=== PATIENT | female | born 1940 | race Caucasian/White ===

== ENCOUNTER 2016-08-05 10:42 | Outpatient (CLI) | payer MEDICARE, OTHER | END 2016-08-05 10:43 | disposition home or self-care (01) | DX: I48.2 Chronic atrial fibrillation (principal); Z79.01 Long term (current) use of anticoagulants ==

== ENCOUNTER 2016-08-10 12:35 | Emergency (ER) | payer MEDICARE, OTHER ==
[2016-08-10] MEDS ORDERED: MECLIZINE 12.5 MG TABLET PO STA (14:04)
[2016-08-10] MEDS ORDERED: MECLIZINE 12.5 MG TABLET PO ONE (14:07)
== END 2016-08-10 14:18 | disposition home or self-care (01) ==
DX: R42 Dizziness and giddiness (principal); I48.91 Unspecified atrial fibrillation; I10 Essential (primary) hypertension; Z86.73 Personal history of transient ischemic attack (TIA), and cerebral infarction without residual deficits; Z79.01 Long term (current) use of anticoagulants
CPT/HCPCS: 36415; 70450; 80053; 83690; 85025; 85610; 93005; 93010; 99283; 99284; A9270

== ENCOUNTER 2016-09-03 10:56 | Outpatient (CLI) | payer MEDICARE, OTHER | END 2016-09-03 10:57 | disposition home or self-care (01) | DX: I48.2 Chronic atrial fibrillation (principal); Z79.01 Long term (current) use of anticoagulants ==

== ENCOUNTER 2016-10-03 11:17 | Outpatient (CLI) | payer MEDICARE, OTHER | END 2016-10-03 11:18 | disposition home or self-care (01) | DX: I48.2 Chronic atrial fibrillation (principal); Z79.01 Long term (current) use of anticoagulants ==

== ENCOUNTER 2016-10-31 11:15 | Outpatient (CLI) | payer MEDICARE, OTHER | END 2016-10-31 11:16 | disposition home or self-care (01) | DX: I48.2 Chronic atrial fibrillation (principal); Z79.01 Long term (current) use of anticoagulants ==

== ENCOUNTER 2016-12-03 10:25 | Outpatient (CLI) | payer MEDICARE, OTHER | END 2016-12-03 10:26 | disposition home or self-care (01) | LOC: LAB.F 10:25 | PROVIDERS: ATTEND Registered Nurse | DX: I48.2 Chronic atrial fibrillation (principal) | CPT/HCPCS: 85610 ==

== ENCOUNTER 2017-01-02 10:40 | Outpatient (CLI) | payer MEDICARE, OTHER | END 2017-01-02 10:41 | disposition home or self-care (01) | LOC: LAB.F 10:40 | PROVIDERS: ATTEND Registered Nurse | DX: I48.2 Chronic atrial fibrillation (principal) | CPT/HCPCS: 85610 ==

== ENCOUNTER 2017-02-02 08:00 | Outpatient (CLI) | payer MEDICARE, OTHER | END 2017-02-02 08:01 | disposition home or self-care (01) | LOC: LAB.S 08:00 | PROVIDERS: ATTEND Registered Nurse | DX: I48.2 Chronic atrial fibrillation (principal) | CPT/HCPCS: 85610 ==

== ENCOUNTER 2017-02-25 10:42 | Outpatient (CLI) | payer MEDICARE, OTHER ==
[2017-02-25 17:40] LABS: BASOPHILS % (AUTO) 0.9 %; EOSINOPHILS # (AUTO) 0.1 10^3/uL (0.0-0.7); EOSINOPHILS % (AUTO) 1.4 %; HCT - HEMATOCRIT 47.9 % (37.0-47.0); HGB - HEMOGLOBIN 15.5 g/dL (12.0-16.0); LYMPHOCYTES # (AUTO) 1.7 10^3/uL (1.5-3.5); LYMPHOCYTES % (AUTO) 33.9 %; MEAN CORPUSCULAR HGB CONC 32.3 g/dL (32.0-36.0); MEAN CORPUSCULAR VOLUME 89.9 fL (81.0-99.0); MEAN PLATELET VOLUME 8.4 fL (7.9-10.8); MONOCYTES # (AUTO) 0.2 10^3/uL (0.0-1.0); NEUTROPHILS # (AUTO) 2.9 10^3/uL (1.5-6.6); NEUTROPHILS % (AUTO) 58.8 %; NUCLEATED RED BLOOD CELLS AUTO 0.1 /100WBC; RED BLOOD COUNT 5.34 10^6/uL (4.20-5.40)
[2017-02-25 18:14] LABS: ALBUMIN/GLOBULIN RATIO 1.3 (1.0-2.2); BILIRUBIN,TOTAL 0.4 mg/dL (0.2-1.0); CREATININE 0.9 mg/dL (0.4-1.0); POTASSIUM 3.9 mmol/L (3.5-5.0); TOTAL PROTEIN 6.6 g/dL (6.7-8.2)
== END 2017-02-25 10:43 | disposition home or self-care (01) ==
LOC: LAB.F 10:42
PROVIDERS: ATTEND Internal Medicine Cardiovascular Disease
DX: I48.0 Paroxysmal atrial fibrillation (principal); Z79.01 Long term (current) use of anticoagulants
CPT/HCPCS: 36415; 80053; 85025; 85610

== ENCOUNTER 2017-03-06 11:03 | Outpatient (CLI) | payer MEDICARE, OTHER | END 2017-03-06 11:04 | disposition home or self-care (01) | LOC: LAB.F 11:03 | PROVIDERS: ATTEND Registered Nurse | DX: I48.2 Chronic atrial fibrillation (principal); Z79.01 Long term (current) use of anticoagulants | CPT/HCPCS: 85610 ==

== ENCOUNTER 2017-04-01 10:41 | Outpatient (CLI) | payer MEDICARE, OTHER | END 2017-04-01 10:42 | disposition home or self-care (01) | LOC: LAB.F 10:41 | PROVIDERS: ATTEND Registered Nurse | DX: I48.2 Chronic atrial fibrillation (principal); Z79.01 Long term (current) use of anticoagulants | CPT/HCPCS: 85610 ==

== ENCOUNTER 2017-05-25 10:16 | Outpatient (CLI) | payer MEDICARE, OTHER ==
[2017-05-25 17:57] LABS: BILIRUBIN,URINE NEGATIVE (NEGATIVE)
[2017-05-25 18:02] LABS: UA w/ MICROSCOPIC CHARGE YES
[2017-05-25 19:15] LABS: UR CULTURE IF IND NOT INDICATED
== END 2017-05-25 10:17 | disposition home or self-care (01) ==
LOC: LAB.F 10:16
PROVIDERS: ATTEND Registered Nurse
DX: I48.2 Chronic atrial fibrillation (principal); N39.0 Urinary tract infection, site not specified; Z79.01 Long term (current) use of anticoagulants
CPT/HCPCS: 81001; 81003; 85610; 87086

== ENCOUNTER 2017-05-25 11:30 | Outpatient (CLI) | payer MEDICARE, OTHER | END 2017-05-25 11:31 | disposition home or self-care (01) | LOC: LAB 11:30 | PROVIDERS: ATTEND Surgery | DX: Z02.9 Encounter for administrative examinations, unspecified (principal) ==

== ENCOUNTER 2017-06-01 12:56 | Outpatient (CLI) | payer MEDICARE, OTHER | END 2017-06-01 12:57 | disposition home or self-care (01) | LOC: LAB.F 12:56 | PROVIDERS: ATTEND Registered Nurse | DX: I48.2 Chronic atrial fibrillation (principal); Z79.01 Long term (current) use of anticoagulants | CPT/HCPCS: 85610 ==

== ENCOUNTER 2017-06-09 13:19 | Outpatient (CLI) | payer MEDICARE, OTHER | END 2017-06-09 13:20 | disposition home or self-care (01) | LOC: LAB.F 13:19 | PROVIDERS: ATTEND Registered Nurse | DX: I48.2 Chronic atrial fibrillation (principal); Z79.01 Long term (current) use of anticoagulants | CPT/HCPCS: 85610 ==

== ENCOUNTER 2017-06-23 13:04 | Outpatient (CLI) | payer MEDICARE, OTHER | END 2017-06-23 13:05 | disposition home or self-care (01) | LOC: LAB.F 13:04 | PROVIDERS: ATTEND Registered Nurse | DX: I48.2 Chronic atrial fibrillation (principal); Z79.01 Long term (current) use of anticoagulants | CPT/HCPCS: 85610 ==

== ENCOUNTER 2017-06-30 12:52 | Outpatient (CLI) | payer MEDICARE, OTHER | END 2017-06-30 12:53 | disposition home or self-care (01) | LOC: LAB.F 12:52 | PROVIDERS: ATTEND Registered Nurse | DX: I48.2 Chronic atrial fibrillation (principal); Z79.01 Long term (current) use of anticoagulants | CPT/HCPCS: 85610 ==

== ENCOUNTER 2017-07-07 10:54 | Outpatient (CLI) | payer MEDICARE, OTHER ==
[2017-07-07 18:42] LABS: BASOPHILS % (AUTO) 0.5 %; EOSINOPHILS # (AUTO) 0.1 10^3/uL (0.0-0.7); EOSINOPHILS % (AUTO) 1.5 %; LYMPHOCYTES # (AUTO) 1.3 10^3/uL (1.5-3.5); MEAN CORPUSCULAR HEMOGLOBIN 29.1 pg (27.0-31.0); MEAN CORPUSCULAR HGB CONC 31.8 g/dL (32.0-36.0); MEAN CORPUSCULAR VOLUME 91.6 fL (81.0-99.0); MEAN PLATELET VOLUME 8.4 fL (7.9-10.8); MONOCYTES # (AUTO) 0.3 10^3/uL (0.0-1.0); MONOCYTES % (AUTO) 6.5 %; NEUTROPHILS % (AUTO) 63.5 %; PLT - PLATELET COUNT 193 10^3/uL (130-450); RED BLOOD COUNT 5.15 10^6/uL (4.20-5.40); RED CELL DISTRIBUTION WIDTH 16.8 % (12.0-15.0); WHITE BLOOD COUNT 4.8 x10^3/uL (4.8-10.8)
[2017-07-07 18:56] LABS: ALBUMIN 3.7 g/dL (3.2-5.5); ALBUMIN/GLOBULIN RATIO 1.2 (1.0-2.2); ALKALINE PHOSPHATASE 67 IU/L (42-121); ALT ALANINE AMINOTRANSFERASE 16 IU/L (10-60); AST ASPARTATE AMINOTRANSFERASE 22 IU/L (10-42); BILIRUBIN,TOTAL 0.5 mg/dL (0.2-1.0); BUN - BLOOD UREA NITROGEN 13 mg/dL (6-20); CALCIUM 8.8 mg/dL (8.5-10.3); CARBON DIOXIDE - CO2 28 mmol/L (21-32); CHLORIDE 106 mmol/L (101-111); CHOL/HDL RATIO 3.5 (<4.4); CHOLESTEROL 149 mg/dL; CREATININE 0.9 mg/dL (0.4-1.0); GFR - MDRD 61 (>89); GLUCOSE 103 mg/dL (70-100); HDL CHOLESTEROL 42 mg/dL; LDL CHOLESTEROL,CALCULATED 93 mg/dL; LDL/HDL RATIO 2.2 (<4.4); SODIUM 140 mmol/L (135-145); TOTAL PROTEIN 6.8 g/dL (6.7-8.2); VLDL CHOLESTEROL 14 mg/dL
== END 2017-07-07 10:55 | disposition home or self-care (01) ==
LOC: LAB.F 10:54
PROVIDERS: ATTEND Internal Medicine Cardiovascular Disease
DX: I48.2 Chronic atrial fibrillation (principal); Z79.01 Long term (current) use of anticoagulants; I48.0 Paroxysmal atrial fibrillation; E78.5 Hyperlipidemia, unspecified; I10 Essential (primary) hypertension; Z92.89 Personal history of other medical treatment; K21.0 Gastro-esophageal reflux disease with esophagitis
CPT/HCPCS: 36415; 80053; 80061; 85025; 85610

== ENCOUNTER 2017-08-04 13:40 | Outpatient (CLI) | payer MEDICARE, OTHER | END 2017-08-04 13:41 | disposition home or self-care (01) | LOC: LAB.F 13:40 | PROVIDERS: ATTEND Registered Nurse | DX: I48.2 Chronic atrial fibrillation (principal); Z79.01 Long term (current) use of anticoagulants | CPT/HCPCS: 85610 ==

== ENCOUNTER 2017-08-11 14:17 | Outpatient (CLI) | payer MEDICARE, OTHER ==
[2017-08-11 19:22] LABS: ALBUMIN 3.4 g/dL (3.2-5.5); ALKALINE PHOSPHATASE 63 IU/L (42-121); ALT ALANINE AMINOTRANSFERASE 19 IU/L (10-60); AST ASPARTATE AMINOTRANSFERASE 31 IU/L (10-42); BUN - BLOOD UREA NITROGEN 22 mg/dL (6-20); CALCIUM 8.6 mg/dL (8.5-10.3); CARBON DIOXIDE - CO2 25 mmol/L (21-32); CHLORIDE 107 mmol/L (101-111); CHOL/HDL RATIO 3.6 (<4.4); CHOLESTEROL 137 mg/dL; GFR - MDRD 54 (>89); GLUCOSE 98 mg/dL (70-100); HDL CHOLESTEROL 38 mg/dL; LDL CHOLESTEROL,CALCULATED 77 mg/dL; SODIUM 139 mmol/L (135-145); TOTAL PROTEIN 6.7 g/dL (6.7-8.2); VLDL CHOLESTEROL 22 mg/dL
== END 2017-08-11 14:18 | disposition home or self-care (01) ==
LOC: LAB.F 14:17
PROVIDERS: ATTEND Internal Medicine Cardiovascular Disease
DX: I48.0 Paroxysmal atrial fibrillation (principal); I10 Essential (primary) hypertension
CPT/HCPCS: 36415; 80053; 80061; 83721

== ENCOUNTER 2017-09-02 10:15 | Outpatient (CLI) | payer MEDICARE, OTHER | END 2017-09-02 10:16 | disposition home or self-care (01) | LOC: LAB.F 10:15 | PROVIDERS: ATTEND Registered Nurse | DX: I48.2 Chronic atrial fibrillation (principal); Z79.01 Long term (current) use of anticoagulants | CPT/HCPCS: 85610 ==

== ENCOUNTER 2017-09-04 10:47 | Outpatient (CLI) | payer MEDICARE, OTHER | END 2017-09-04 10:48 | disposition EMS.NT | LOC: EMS 10:47 | PROVIDERS: ATTEND Surgery | DX: Z03.89 Encounter for observation for other suspected diseases and conditions ruled out (principal) ==

== ENCOUNTER 2017-10-02 10:33 | Outpatient (CLI) | payer MEDICARE, OTHER | END 2017-10-02 10:34 | disposition home or self-care (01) | LOC: LAB.F 10:33 | PROVIDERS: ATTEND Registered Nurse | DX: I48.2 Chronic atrial fibrillation (principal); Z79.01 Long term (current) use of anticoagulants | CPT/HCPCS: 85610 ==

== ENCOUNTER 2017-10-07 11:06 | Outpatient (CLI) | payer MEDICARE, OTHER | END 2017-10-07 11:07 | disposition EMS.NT | LOC: EMS 11:06 | PROVIDERS: ATTEND Surgery | DX: R03.0 Elevated blood-pressure reading, without diagnosis of hypertension (principal) ==

== ENCOUNTER 2017-10-29 10:22 | Outpatient (CLI) | payer MEDICARE, OTHER | END 2017-10-29 10:23 | disposition home or self-care (01) | LOC: LAB.F 10:22 | PROVIDERS: ATTEND Registered Nurse | DX: I48.2 Chronic atrial fibrillation (principal); Z79.01 Long term (current) use of anticoagulants | CPT/HCPCS: 85610 ==

== ENCOUNTER 2017-11-10 13:06 | Outpatient (CLI) | payer MEDICARE, OTHER | END 2017-11-10 13:07 | disposition home or self-care (01) | LOC: LAB.F 13:06 | PROVIDERS: ATTEND Registered Nurse | DX: I48.2 Chronic atrial fibrillation (principal); Z79.01 Long term (current) use of anticoagulants | CPT/HCPCS: 85610 ==

== ENCOUNTER 2017-12-04 10:50 | Outpatient (CLI) | payer MEDICARE, OTHER | END 2017-12-04 10:51 | disposition home or self-care (01) | LOC: LAB.F 10:50 | PROVIDERS: ATTEND Registered Nurse | DX: I48.2 Chronic atrial fibrillation (principal); Z79.01 Long term (current) use of anticoagulants | CPT/HCPCS: 85610 ==

== ENCOUNTER 2018-01-07 10:01 | Outpatient (CLI) | payer MEDICARE, OTHER | END 2018-01-07 10:02 | disposition home or self-care (01) | LOC: LAB.F 10:01 | PROVIDERS: ATTEND Registered Nurse | DX: I48.2 Chronic atrial fibrillation (principal); Z79.01 Long term (current) use of anticoagulants | CPT/HCPCS: 85610 ==

== ENCOUNTER 2018-02-01 13:13 | Outpatient (CLI) | payer MEDICARE, OTHER | END 2018-02-01 13:14 | disposition home or self-care (01) | LOC: LAB.F 13:13 | PROVIDERS: ATTEND Registered Nurse | DX: I48.2 Chronic atrial fibrillation (principal); Z79.01 Long term (current) use of anticoagulants | CPT/HCPCS: 85610 ==

== ENCOUNTER 2018-03-05 07:15 | Outpatient (CLI) | payer MEDICARE, OTHER ==
[2018-03-05 10:24] LABS: ALBUMIN 3.7 g/dL (3.2-5.5); ALKALINE PHOSPHATASE 68 IU/L (42-121); ALT ALANINE AMINOTRANSFERASE 14 IU/L (10-60); AST ASPARTATE AMINOTRANSFERASE 25 IU/L (10-42); BILIRUBIN,TOTAL 0.8 mg/dL (0.2-1.0); BUN - BLOOD UREA NITROGEN 20 mg/dL (6-20); CALCIUM 8.7 mg/dL (8.5-10.3); CARBON DIOXIDE - CO2 26 mmol/L (21-32); CHLORIDE 106 mmol/L (101-111); CHOL/HDL RATIO 3.5 (<4.4); CHOLESTEROL 138 mg/dL; CK- CREATINE KINASE 42 IU/L (22-269); CREATININE 0.9 mg/dL (0.4-1.0); GFR - MDRD 61 (>89); GLUCOSE 93 mg/dL (70-100); HDL CHOLESTEROL 40 mg/dL; LDL CHOLESTEROL,CALCULATED 86 mg/dL; LDL/HDL RATIO 2.2 (<4.4); SODIUM 139 mmol/L (135-145); TOTAL PROTEIN 7.3 g/dL (6.7-8.2); VLDL CHOLESTEROL 12 mg/dL
== END 2018-03-05 07:16 | disposition home or self-care (01) ==
LOC: LAB.F 07:15
PROVIDERS: ATTEND Internal Medicine Cardiovascular Disease
DX: I48.2 Chronic atrial fibrillation (principal); E78.5 Hyperlipidemia, unspecified; Z79.01 Long term (current) use of anticoagulants; Z79.899 Other long term (current) drug therapy
CPT/HCPCS: 36415; 80053; 80061; 82550; 83721; 85610

== ENCOUNTER 2018-04-02 09:59 | Outpatient (CLI) | payer MEDICARE, OTHER | END 2018-04-02 10:00 | disposition home or self-care (01) | LOC: LAB.F 09:59 | PROVIDERS: ATTEND Registered Nurse | DX: I48.2 Chronic atrial fibrillation (principal); Z79.01 Long term (current) use of anticoagulants | CPT/HCPCS: 85610 ==

== ENCOUNTER 2018-05-11 13:38 | Outpatient (CLI) | payer MEDICARE, OTHER | END 2018-05-11 13:39 | disposition home or self-care (01) | LOC: LAB.F 13:38 | PROVIDERS: ATTEND Family Medicine | DX: I48.2 Chronic atrial fibrillation (principal); Z79.01 Long term (current) use of anticoagulants | CPT/HCPCS: 85610 ==

== ENCOUNTER 2018-05-25 13:37 | Outpatient (CLI) | payer MEDICARE, OTHER | END 2018-05-25 13:38 | disposition home or self-care (01) | LOC: LAB.F 13:37 | PROVIDERS: ATTEND Family Medicine | DX: I48.2 Chronic atrial fibrillation (principal); Z79.01 Long term (current) use of anticoagulants | CPT/HCPCS: 85610 ==

== ENCOUNTER 2018-06-08 13:28 | Outpatient (CLI) | payer MEDICARE, OTHER | END 2018-06-08 13:29 | disposition home or self-care (01) | LOC: LAB.F 13:28 | PROVIDERS: ATTEND Family Medicine | DX: I48.2 Chronic atrial fibrillation (principal); Z79.01 Long term (current) use of anticoagulants | CPT/HCPCS: 85610 ==

== ENCOUNTER 2018-06-15 13:13 | Outpatient (CLI) | payer MEDICARE, OTHER | END 2018-06-15 13:14 | disposition home or self-care (01) | LOC: LAB.F 13:13 | PROVIDERS: ATTEND Family Medicine | DX: I48.2 Chronic atrial fibrillation (principal); Z79.01 Long term (current) use of anticoagulants | CPT/HCPCS: 85610 ==

== ENCOUNTER 2018-07-02 13:04 | Outpatient (CLI) | payer MEDICARE, OTHER | END 2018-07-02 13:05 | disposition home or self-care (01) | LOC: LAB.F 13:04 | PROVIDERS: ATTEND Family Medicine | DX: I48.2 Chronic atrial fibrillation (principal); Z79.01 Long term (current) use of anticoagulants | CPT/HCPCS: 85610 ==

== ENCOUNTER 2018-07-15 13:45 | Outpatient (CLI) | payer MEDICARE, OTHER | END 2018-07-15 13:46 | disposition home or self-care (01) | LOC: LAB.F 13:45 | PROVIDERS: ATTEND Family Medicine | DX: I48.2 Chronic atrial fibrillation (principal) | CPT/HCPCS: 85610 ==

== ENCOUNTER 2018-08-02 08:31 | Day surgery (SDC) | payer MEDICARE, OTHER ==
[~2018-08-02 08:31] MED LIST: ceFAZolin 2 GM/50 ML 2 GM/50 ML BAG IV ONE
[2018-08-02] MEDS ORDERED: LACTATED RINGERS 1,000 ML IV ONE (09:10)
--- NOTE | 2018-08-02 09:26 | ANESTHESIA ---
Pre-Anesthesia VS, & Labs - Diagnosis Lymphoma - Procedure Portacath Vital Signs: Temp Pulse Resp BP Pulse Ox 36.7 C 74 16 105/53 L 100 08/02/18 09:08 08/02/18 09:08 08/02/18 09:08 08/02/18 09:08 08/02/18 09:08 Height 5 ft 4.75 in Weight (kg) 94.1 kg Body Mass Index 44.4 - Is Patient ?: Not Applicable - Lab Results Lab results reviewed: Yes Home Medications and Allergies Home Medications: Ambulatory Orders Balance Of Nature Supplements 1 tab PO DAILY 07/28/18 Katie C 1 tab PO DAILY 07/28/18 Valsartan [Diovan] 80 mg PO DAILY 08/21/13 Warfarin [Coumadin] 5 mg PO DAILY 08/21/13 Dofetilide [Tikosyn] 500 mcg PO BID 08/13/15 Allopurinol 300 mg PO DAILY 07/28/18 Balance Of Nature Supplements 1 tab PO DAILY 07/28/18 Katie C 1 tab PO DAILY 07/28/18 Lidocaine/Prilocain 2.5% Cream [Emla 2.5% Cream] 30 gm TOP ONCE 07/28/18 Ondansetron [Ondansetron Odt] 8 mg PO Q8HR PRN 07/28/18 Prochlorperazine Maleate [Compazine] 10 mg PO Q6HR PRN 07/28/18 Allergies/Adverse Reactions: Allergies Allergy/AdvReac Type Severity Reaction Status Date / Time atenolol Allergy Unknown Unknown Verified 08/10/16 12:39 Penicillins Allergy Unknown Verified 07/28/18 11:05 Sulfa (Sulfonamide Allergy Rash Verified 08/10/16 12:39 Antibiotics) ranitidine [From Zantac] AdvReac "wired" Verified 07/28/18 11:05 Anes History & Medical History - Anesthetic History Anesthesia Complications: reports: No previous complications Family history of Anesthesia Complications: Denies Family history of Malignant Hyperthermia: Denies - Medical History Cardiovascular: reports: Hypertension, Atrial fibrillation Pulmonary: reports: None Gastrointestinal: reports: GERD Urinary: reports: None, Frequency, Other Neuro: reports: None Musculoskeletal: reports: None Endocrine/Autoimmune: reports: None, Other Blood Disorders: reports: None Skin: reports: Other Smoking Status: Never smoker Psychosocial: reports: No issues indicated - Surgical History General: Cholecystectomy Eyes Ears Nose Throat (EENT): Cataracts, Tonsil/Adenoidectomy Gynecologic: Dilation and currettage Exam General: Alert Dental: WNL Mouth Opening: Greater than 4 Fingerbreadths Neck Mobility: Normal Mallampati classification: I Thyromental Distance: greater than 6 cm Respiratory: Lungs clear Cardiovascular: Other (Irregular) Neurological: Normal gait Mental/Cognitive Status: Alert/Oriented X3 Cognitive Status: Within normal limits Plan Anesthesia Type: MAC Consent for Procedure(s) Verified and Reviewed: Yes Code Status: Attempt Resuscitation ASA classification: 2-Mild systemic disease Is this case an emergency?: No
[2018-08-02] MEDS ORDERED: ceFAZolin 1 GM VIAL ONE (09:30)
[2018-08-02] MEDS ORDERED: LIDOCAINE 1% 50 ML MDV ONE (09:32)
[2018-08-02] MEDS ORDERED: LIDOCAINE 1% 50 ML MDV SUBQ ONE ×2 (11:43)
[2018-08-02] MEDS ORDERED: ceFAZolin 1 GM VIAL IR ONE (11:43)
[2018-08-02] MEDS ORDERED: LIDOCAINE-MPF 2% 5 ML VIAL IM ONE (11:48)
[2018-08-02] MEDS ORDERED: PROPOFOL 200 MG/20 ML VIAL IVP ONE (11:48)
[2018-08-02] MEDS ORDERED: MIDAZOLAM 2 MG/2 ML VIAL IVP ONE (11:48)
[2018-08-02] MEDS ORDERED: fentaNYL 100 MCG/2 ML VIAL IVP ONE (11:48)
[2018-08-02] MEDS ORDERED: ONDANSETRON 4 MG/2 ML VIAL IVP ONE (11:48)
[2018-08-02] MEDS ORDERED: ONDANSETRON 4 MG/2 ML VIAL IVP PRN (12:29)
[2018-08-02] MEDS ORDERED: oxyCODONE 5 MG TABLET PO PRN (12:29)
--- NOTE | 2018-08-02 12:57 | PROCEDURE REPORT ---
DATE OF SERVICE: 08/02/2018 Physician: Janak Talley MD PREOPERATIVE DIAGNOSIS: Lymphoma. POSTOPERATIVE DIAGNOSIS: Lymphoma. PROCEDURE PERFORMED: Insertion of single lumen port. ANESTHESIA: Local plus monitored anesthesia care by Dc Frazier CRNA. SURGEON: Janak Talley MD. ESTIMATED BLOOD LOSS: 5 mL. COMPLICATIONS: None. FINDINGS: A single lumen PowerPort was placed using the left subclavian vein as the access site, and the catheter tip location is in the superior vena cava. PowerPort reservoir was placed in the left anterior chest wall, infraclavicular fossa. INDICATIONS: The patient is a 78-year-old with a recent diagnosis of recurrent lymphoma in need of c hemotherapy, and in need of venous access to facilitate same. She was advised to undergo placement o f a PowerPort implantable venous access device. TECHNIQUE: After informed consent, the patient was taken to the operating room, where she was sedate d and monitored. Preoperative preparation included application of sequential calf compression boots, administration of 2 grams cefazolin intravenously within an hour of the incision. Her anterior ches t wall and neck were prepared with ChloraPrep solution, and draped in the usual sterile fashion. The patient was placed in steep Trendelenburg position, and using a needle and syringe and an infraclavi cular approach, the left subclavian vein was accessed. A guide wire was passed into the central veno us circulation. Good tip placement was confirmed with fluoroscopy. The tract around the guidewire w as dilated, following which using Seldinger technique, an 8-Gambian single lumen catheter was passed o june the guidewire into the central venous circulation, with the tip placement confirmed to be in the superior vena cava via fluoroscopy. The guide wire was removed, and an incision was made extending f rom the catheter exit site in the infraclavicular fossa medially approximately 3 cm. Hemostasis achi eved with electrocautery. Local anesthesia was used. A total of 20 mL of 1% lidocaine plain was inf iltrated. A subcutaneous pocket was created of sufficient size to allow placement of a PowerPort res ervoir. After hemostasis was assured, the pocket was irrigated with antibiotic solution containing 1 gram of Ancef per liter. The catheter was trimmed to appropriate size, connected to the stem of the reservoi r, and the locking device was used to secure the catheter to the reservoir body. The reservoir was t hen placed in the subcutaneous pocket, anchored in place with two 3-0 nylon sutures. After hemostasi s assured, the wound was irrigated again with the antibiotic solution. The wound closure was accompl ished in layers using continuous 3-0 Vicryl to reapproximate the subcutaneous tissues and 4-0 Monocry l subcuticular skin closure, followed by Dermabond. The port was then accessed percutaneously with a Early needle. It was seen to aspirate blood and flush easily. The port was flushed with 10 mL of s terile saline, and the port reservoir site was marked with indelible ink. The procedure was then ter minated, and the patient was transferred out of the operating room in satisfactory condition. Sponge and needle counts were correct x2. No drains were used. A followup portable upright chest x-ray is pending. TD: 08/02/2018 12:49
--- NOTE | 2018-08-02 13:28 | XRAY Report ---
Reason: s/p port placement Procedure Date: 08/02/2018 Accession Number: [id number] / [id number] Procedure: XR - Chest 1 View X-Ray CPT Code: 68152 FULL RESULT: EXAM: CHEST RADIOGRAPHY EXAM DATE: 08/02/2018 01:12 PM. CLINICAL HISTORY: Status post port placement. COMPARISON: CHEST 2 VIEW PA/LAT 04/12/2015 11:04 AM. TECHNIQUE: 1 view. FINDINGS: Lungs/Pleura: No focal opacities evident. No pleural effusion. No pneumothorax. Mediastinum: Within exam limitations, the cardiomediastinal contour is stable with subtle calcification of the aortic arch. Other: Interval placement of a left subclavian port with its distal tip in the proximal SVC. IMPRESSION: Left subclavian approach port with tip in the proximal SVC. RADIA
[2018-08-02 13:32] VITALS: BP 133/64
--- NOTE | 2018-08-03 06:52 | XRAY Report ---
Reason: PORTACATH PLACEMENT Procedure Date: 08/02/2018 Accession Number: [id number] / [id number] Procedure: FL - OR Port-A-Cath CPT Code: FULL RESULT: EXAM: FLUOROSCOPIC GUIDANCE EXAM DATE: 08/02/2018 01:05 PM. CLINICAL HISTORY: Port-A-Cath Placement. COMPARISON: None. FINDINGS: Left subclavian approach central venous port catheter placement. Tip terminates in the proximal SVC. IMPRESSION: Fluoroscopic guidance provided for port placement. Total fluoroscopy time: 0.2 minutes. Number of images: 8. RADIA
== END 2018-08-02 08:32 | disposition home or self-care (01) ==
LOC: SDS 08:31
PROVIDERS: ATTEND Internal Medicine Gastroenterology
PROC: 02HV33Z Insertion of Infusion Device into Superior Vena Cava, Percutaneous Approach (ICD-10-PCS; principal; 2018-08-02 09:45)
DX: C85.90 Non-Hodgkin lymphoma, unspecified, unspecified site (principal); I10 Essential (primary) hypertension; I48.91 Unspecified atrial fibrillation; E66.01 Morbid (severe) obesity due to excess calories; Z68.42 Body mass index [BMI] 45.0-49.9, adult; Z79.01 Long term (current) use of anticoagulants; B37.2 Candidiasis of skin and nail
CPT/HCPCS: 36561; 71045; 85610; C1788; J0690; J7120

== ENCOUNTER 2018-08-10 09:00 | Outpatient (CLI) | payer MEDICARE, OTHER | END 2018-08-10 23:59 | LOC: LAB 09:00 | PROVIDERS: ATTEND Family Medicine | DX: I48.2 Chronic atrial fibrillation (principal); Z79.01 Long term (current) use of anticoagulants | CPT/HCPCS: 85610 ==

== ENCOUNTER 2018-08-21 07:26 | Outpatient (CLI) | payer MEDICARE, OTHER | END 2018-08-21 07:27 | disposition critical access hospital (66) | LOC: EMS 07:26 | PROVIDERS: ATTEND Surgery | DX: R03.1 Nonspecific low blood-pressure reading (principal); R55 Syncope and collapse; R53.83 Other fatigue; R53.1 Weakness | CPT/HCPCS: A0425; A0427 ==

== ENCOUNTER 2018-08-21 08:02 | Emergency (ER) | payer MEDICARE, OTHER ==
[2018-08-21] MEDS ORDERED: SODIUM CHLORIDE 0.9% 1,000 ML IV ONE ×2 (08:14→10:45)
--- NOTE | 2018-08-21 08:16 | ED Physician Documentation ---
History of Present Illness - Stated complaint Stated Complaint: DIZZY/WEAK - Chief complaint Chief Complaint: Neuro - History obtained from History obtained from: Patient - History of Present Illness Timing: How many weeks ago (1) - Additonal information Additional information: 78-year-old female who has recently begun chemotherapy for follicular lymphoma has noted that she has been urinating quite frequently and of fair amount of volume. She has now developed lightheadedness and dizziness. She feels like she has been taking Lasix. She has a history of atrial fibrillation and she feels that her atrial fibrillation is more frequent than usual. She has not had fever chills or sweats. She has not been otherwise ill. She had her last chemotherapy about almost 3 weeks ago. Review of Systems Constitutional: reports: Fatigue. denies: Fever, Chills Eyes: denies: Decreased vision Ears: denies: Ear pain Nose: denies: Rhinorrhea / runny nose, Congestion Throat: denies: Sore throat Cardiac: denies: Chest pain / pressure, Palpitations Respiratory: reports: Dyspnea. denies: Cough GI: denies: Abdominal Pain, Nausea, Vomiting : reports: Frequency. denies: Dysuria Skin: denies: Rash Musculoskeletal: denies: Neck pain, Back pain, Extremity pain Neurologic: reports: Other (light headed and dizzy.). 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 HEENT: Cataracts, Tonsil/Adenoidectomy - Present Medications Home Medications: Ambulatory Orders Medication Instructions Recorded Confirmed Valsartan [Diovan] 160 mg PO DAILY 08/21/13 08/21/18 Warfarin [Coumadin] 5 mg PO DAILY 08/21/13 08/10/18 Dofetilide [Tikosyn] 500 mcg PO BID 08/13/15 08/21/18 Balance Of Nature Supplements 1 tab PO DAILY 07/28/18 08/21/18 Katie C 1 tab PO DAILY 07/28/18 08/10/18 - Allergies Allergies/Adverse Reactions: Allergies Allergy/AdvReac Type Severity Reaction Status Date / Time atenolol Allergy Unknown Unknown Verified 08/21/18 08:12 Penicillins Allergy Unknown Verified 08/21/18 08:12 Sulfa (Sulfonamide Allergy Rash Verified 08/21/18 08:12 Antibiotics) ranitidine [From Zantac] AdvReac "wired" Verified 08/21/18 08:12 - Social History Does the pt smoke?: No Smoking Status: Never smoker Does the pt drink ETOH?: No Does the pt have substance abuse?: No - Immunizations Immunizations are current?: Yes - POLST Patient has POLST: No PD ED PE NORMAL - Vitals Vital signs reviewed: Yes (hypertensive mild diastolic ) - General General: Alert and oriented X 3, No acute distress, Well developed/nourished - HEENT HEENT: Atraumatic, PERRL, EOMI - Neck Neck: Supple, no meningeal sign, No bony TTP - Cardiac Cardiac: No murmur, Other (irregularly irregular) - Respiratory Respiratory: No respiratory distress, Clear bilaterally - Abdomen Abdomen: Soft, Non tender - Back Back: No CVA TTP, No spinal TTP - Derm Derm: Normal color, Warm and dry, No rash - Extremities Extremities: No deformity, No edema - Neuro Neuro: Alert and oriented X 3, psychology associate 2-12 intact, No motor deficit, No sensory deficit, Normal speech Eye Opening: Spontaneous Motor: Obeys Commands Verbal: Oriented GCS Score: 15 - Psych Psych: Normal mood, Normal affect Results - Vitals Vitals: Vital Signs - 24 hr 08/21/18 08/21/18 08:02 10:31 Temperature 36.6 C Heart Rate 69 84 Respiratory 20 20 Rate Blood Pressure 107/88 H 140/52 H O2 Saturation 100 96 Oxygen O2 Source Room air - EKG (time done) 0818 Rate: Rate (enter#) (68) Rhythm: Atrial fibrillation Intervals: Prolonged QT Compare to prior EKG: Changed from prior EKG (SPT 05-08-17 the QT interval has increased. ) Computer interpretation: Disagree with computer (I do not see repolarization abnormality in inferior leads there is low voltage present similar to prior) - Labs Labs: Laboratory Tests 08/21/18 08/21/18 08/21/18 08:37 08:37 08:37 WBC 7.0 RBC 4.92 Hgb 14.1 Hct 43.3 MCV 88.0 MCH 28.6 MCHC 32.5 RDW 18.3 H Plt Count 158 MPV 8.1 Neut # (Auto) 5.4 Lymph # (Auto) 0.5 L [place] # (Auto) 0.8 Eos # (Auto) 0.1 Baso # (Auto) 0.1 Absolute Nucleated RBC 0.00 Nucleated RBC % 0.0 PT INR Sodium 139 Potassium 3.3 L Chloride 105 Carbon Dioxide 26 Anion Gap 8.0 BUN 16 Creatinine 0.7 Estimated GFR (MDRD) 81 L Glucose 90 Calcium 8.2 L Magnesium 1.9 Total Bilirubin 0.7 AST 21 ALT 13 Alkaline Phosphatase 48 Troponin I < 0.04 Total Protein 6.4 L Albumin 3.2 Globulin 3.2 Albumin/Globulin Ratio 1.0 Lipase 25 Urine Color Urine Clarity Urine pH Ur Specific [place] Urine Protein Urine Glucose (UA) Urine Ketones Urine Occult Blood Urine Nitrite Urine Bilirubin Urine Urobilinogen Ur Leukocyte Esterase Urine RBC Urine WBC Ur Squamous Epith Cells Urine Bacteria Ur Microscopic Review Urine Culture Comments 08/21/18 08/21/18 08:37 10:05 WBC RBC Hgb Hct MCV MCH MCHC RDW Plt Count MPV Neut # (Auto) Lymph # (Auto) [place] # (Auto) Eos # (Auto) Baso # (Auto) Absolute Nucleated RBC Nucleated RBC % PT 22.4 H INR 2.0 H Sodium Potassium Chloride Carbon Dioxide Anion Gap BUN Creatinine Estimated GFR (MDRD) Glucose Calcium Magnesium Total Bilirubin AST ALT Alkaline Phosphatase Troponin I Total Protein Albumin Globulin Albumin/Globulin Ratio Lipase Urine Color YELLOW Urine Clarity HAZY Urine pH 5.5 Ur Specific [place] 1.025 Urine Protein NEGATIVE Urine Glucose (UA) NEGATIVE Urine Ketones TRACE Urine Occult Blood NEGATIVE Urine Nitrite POSITIVE H Urine Bilirubin NEGATIVE Urine Urobilinogen 0.2 (NORMAL) Ur Leukocyte Esterase TRACE H Urine RBC None Seen Urine WBC 4-5 Ur Squamous Epith Cells MOD Squamous H Urine Bacteria Rare Ur Microscopic Review INDICATED Urine Culture Comments NOT INDICATED - Rads (name of study) 1 veiw chest Radiology: Prelim report reviewed (Impression: no acute cardiopulmonary abnormality.), EMP read indepedently, See rad report Procedures - IVC sono (time) 0810 Bedside IVC sono: IVC measures (cm) (0.87), IVC collapsed c insp (cm) (complete), Dehydration (est 2 liter deficit) PD MEDICAL DECISION MAKING - ED course Complexity details: reviewed old records, reviewed results, re-evaluated patient, considered differential, d/w patient ED course: 78-year-old female undergoing chemotherapy for follicular lymphoma has become significantly dehydrated and she is symptomatic with this. She is administered intravenous saline. Departure - Departure Disposition: Home, Self Care Clinical Impression: Dehydration Atrial fibrillation Qualifiers: Atrial fibrillation type: paroxysmal Qualified Code(s): I48.0 - Paroxysmal atrial fibrillation Condition: Stable Instructions: ED Dehydration, ED Afib Follow-Up: Neil Chavez MD [Primary Care Provider] -
[2018-08-21] MEDS ORDERED: MAGNESIUM SULFATE 2 GRAM 2 GM/50 ML BAG IV ONE (08:29)
[2018-08-21 08:46] LABS: BASOPHILS # (AUTO) 0.1 10^3/uL (0.0-0.1); BASOPHILS % (AUTO) 1.1 %; EOSINOPHILS # (AUTO) 0.1 10^3/uL (0.0-0.7); EOSINOPHILS % (AUTO) 1.8 %; HGB - HEMOGLOBIN 14.1 g/dL (12.0-16.0); LYMPHOCYTES # (AUTO) 0.5 10^3/uL (1.5-3.5); LYMPHOCYTES % (AUTO) 7.8 %; MEAN CORPUSCULAR HEMOGLOBIN 28.6 pg (27.0-31.0); MEAN CORPUSCULAR HGB CONC 32.5 g/dL (32.0-36.0); MEAN PLATELET VOLUME 8.1 fL (7.9-10.8); MONOCYTES # (AUTO) 0.8 10^3/uL (0.0-1.0); MONOCYTES % (AUTO) 11.9 %; NEUTROPHILS # (AUTO) 5.4 10^3/uL (1.5-6.6); NEUTROPHILS % (AUTO) 77.4 %; PLT - PLATELET COUNT 158 10^3/uL (130-450); RED BLOOD COUNT 4.92 10^6/uL (4.20-5.40); RED CELL DISTRIBUTION WIDTH 18.3 % (12.0-15.0)
[2018-08-21 09:01] LABS: ALBUMIN 3.2 g/dL (3.2-5.5); BILIRUBIN,TOTAL 0.7 mg/dL (0.2-1.0); CALCIUM 8.2 mg/dL (8.5-10.3); CREATININE 0.7 mg/dL (0.4-1.0); MAGNESIUM 1.9 mg/dL (1.7-2.8); TOTAL PROTEIN 6.4 g/dL (6.7-8.2)
--- NOTE | 2018-08-21 09:03 | XRAY Report ---
Reason: soa Procedure Date: 08/21/2018 Accession Number: [id number] / [id number] Procedure: XR - Chest 1 View X-Ray CPT Code: 30535 FULL RESULT: EXAM: CHEST RADIOGRAPHY EXAM DATE: 08/21/2018 08:33 AM. CLINICAL HISTORY: Shortness of breath. COMPARISON: CHEST 1 VIEW 08/02/2018 1:00 PM. TECHNIQUE: 1 view. FINDINGS: Lungs/Pleura: No focal opacities evident. No pleural effusion. No pneumothorax. Mediastinum: Within exam limitations, the cardiomediastinal contour is normal. There is mild atherosclerotic calcification of the aortic arch. There is an implanted left subclavian central venous catheter with tip in the upper third of the SVC, unchanged. Other: No acute osseous abnormality. IMPRESSION: No acute cardiopulmonary abnormality. RADIA
[2018-08-21 09:06] LABS: PT - PROTHROMBIN TIME 22.4 secs (9.9-12.6)
[2018-08-21] MEDS ORDERED: POTASSIUM BICARB 25 MEQ TABLET PO STA (09:34)
[2018-08-21 10:25] LABS: BILIRUBIN,URINE NEGATIVE (NEGATIVE); GLUCOSE, URINE (UA) NEGATIVE (NEGATIVE); KETONES,URINE (UA) TRACE mg/dL (NEGATIVE); LEUKOCYTE ESTERASE, URINE TRACE (NEGATIVE); NITRITE,URINE POSITIVE (NEGATIVE); OCCULT BLOOD,URINE NEGATIVE (NEGATIVE); PH,URINE 5.5 PH (5.0-7.5); PROTEIN,URINE NEGATIVE (NEGATIVE); UROBILINOGEN,URINE 0.2 (NORMAL) E.U./dL (NORMAL)
[2018-08-21 10:29] LABS: CLARITY,URINE HAZY (CLEAR)
[2018-08-21 10:32] LABS: BACTERIA,URINE Rare /HPF (None Seen); RBC,URINE None Seen /HPF (0-5); SQUAMOUS EPITHELIAL CELL,UR MOD Squamous (<= Few)
[2018-08-21 11:41] VITALS: BP 120/74
== END 2018-08-21 11:57 | disposition home or self-care (01) ==
LOC: EDUNIT# → ED 08:02
DX: E86.0 Dehydration (principal); I48.0 Paroxysmal atrial fibrillation; I45.81 Long QT syndrome; C82.90 Follicular lymphoma, unspecified, unspecified site; I10 Essential (primary) hypertension; Z79.01 Long term (current) use of anticoagulants; Z92.21 Personal history of antineoplastic chemotherapy
CPT/HCPCS: 36415; 71045; 80053; 81001; 83690; 83735; 84484; 85025; 85610; 93005; 96361; 96365; 99284; A9270; 81003; 87086

== ENCOUNTER 2018-08-27 12:53 | Outpatient (CLI) | payer MEDICARE, OTHER | END 2018-08-27 12:54 | disposition home or self-care (01) | LOC: LAB.F 12:53 | PROVIDERS: ATTEND Family Medicine | DX: I48.2 Chronic atrial fibrillation (principal); Z79.01 Long term (current) use of anticoagulants | CPT/HCPCS: 85610 ==

== ENCOUNTER 2018-09-06 13:20 | Outpatient (CLI) | payer MEDICARE, OTHER | END 2018-09-06 13:21 | disposition home or self-care (01) | LOC: LAB 13:20 | PROVIDERS: ATTEND Family Medicine | DX: I48.2 Chronic atrial fibrillation (principal); Z79.01 Long term (current) use of anticoagulants | CPT/HCPCS: 85610 ==

== ENCOUNTER 2018-09-09 12:30 | Outpatient (CLI) | payer MEDICARE, OTHER | END 2018-09-09 12:31 | disposition home or self-care (01) | LOC: LAB 12:30 | PROVIDERS: ATTEND Family Medicine | DX: I48.2 Chronic atrial fibrillation (principal); Z79.01 Long term (current) use of anticoagulants | CPT/HCPCS: 85610 ==

== ENCOUNTER 2018-09-16 13:13 | Outpatient (CLI) | payer MEDICARE, OTHER | END 2018-09-16 13:14 | disposition home or self-care (01) | LOC: LAB.F 13:13 | PROVIDERS: ATTEND Family Medicine | DX: I48.2 Chronic atrial fibrillation (principal); Z79.01 Long term (current) use of anticoagulants | CPT/HCPCS: 85610 ==

== ENCOUNTER 2018-09-27 11:26 | Outpatient (CLI) | payer MEDICARE, OTHER | END 2018-09-27 11:27 | disposition home or self-care (01) | LOC: LAB 11:26 | PROVIDERS: ATTEND Family Medicine | DX: I48.2 Chronic atrial fibrillation (principal); Z79.01 Long term (current) use of anticoagulants | CPT/HCPCS: 85610 ==

== ENCOUNTER 2018-10-11 12:14 | Outpatient (CLI) | payer MEDICARE, OTHER | END 2018-10-11 12:15 | disposition home or self-care (01) | LOC: LAB 12:14 | PROVIDERS: ATTEND Family Medicine | DX: I48.2 Chronic atrial fibrillation (principal); Z79.01 Long term (current) use of anticoagulants | CPT/HCPCS: 85610 ==

== ENCOUNTER 2018-10-25 07:53 | Outpatient (CLI) | payer MEDICARE, OTHER | END 2018-10-25 07:54 | disposition home or self-care (01) | LOC: LAB 07:53 | PROVIDERS: ATTEND Family Medicine | DX: I48.2 Chronic atrial fibrillation (principal); Z79.01 Long term (current) use of anticoagulants | CPT/HCPCS: 85610 ==

== ENCOUNTER 2018-11-01 10:38 | Outpatient (CLI) | payer MEDICARE, OTHER | END 2018-11-01 10:39 | disposition home or self-care (01) | LOC: LAB 10:38 | PROVIDERS: ATTEND Family Medicine | DX: I48.2 Chronic atrial fibrillation (principal); Z79.01 Long term (current) use of anticoagulants | CPT/HCPCS: 85610 ==

== ENCOUNTER 2018-11-22 13:51 | Outpatient (CLI) | payer MEDICARE, OTHER | END 2018-11-22 13:52 | disposition home or self-care (01) | LOC: LAB 13:51 | PROVIDERS: ATTEND Family Medicine | DX: I48.2 Chronic atrial fibrillation (principal); Z79.01 Long term (current) use of anticoagulants | CPT/HCPCS: 85610 ==

== ENCOUNTER 2018-12-01 10:41 | Outpatient (CLI) | payer MEDICARE, OTHER | END 2018-12-01 10:42 | disposition home or self-care (01) | LOC: LAB.F 10:41 | PROVIDERS: ATTEND Family Medicine | DX: I48.2 Chronic atrial fibrillation (principal); Z79.01 Long term (current) use of anticoagulants | CPT/HCPCS: 85610 ==

== ENCOUNTER 2018-12-10 09:46 | Outpatient (CLI) | payer MEDICARE, OTHER | END 2018-12-10 09:47 | disposition home or self-care (01) | LOC: LAB.F 09:46 | PROVIDERS: ATTEND Family Medicine | DX: I48.2 Chronic atrial fibrillation (principal); Z79.01 Long term (current) use of anticoagulants | CPT/HCPCS: 85610 ==

== ENCOUNTER 2018-12-17 09:53 | Outpatient (CLI) | payer MEDICARE, OTHER | END 2018-12-17 09:54 | disposition home or self-care (01) | LOC: LAB.F 09:53 | PROVIDERS: ATTEND Family Medicine | DX: I48.2 Chronic atrial fibrillation (principal); Z79.01 Long term (current) use of anticoagulants | CPT/HCPCS: 85610 ==

== ENCOUNTER 2018-12-24 12:40 | Outpatient (CLI) | payer MEDICARE, OTHER | END 2018-12-24 12:41 | disposition home or self-care (01) | LOC: LAB.F 12:40 | PROVIDERS: ATTEND Family Medicine | DX: I48.2 Chronic atrial fibrillation (principal); Z79.01 Long term (current) use of anticoagulants | CPT/HCPCS: 85610 ==

== ENCOUNTER 2018-12-31 13:01 | Outpatient (CLI) | payer MEDICARE, OTHER | END 2018-12-31 13:02 | disposition home or self-care (01) | LOC: LAB.F 13:01 | PROVIDERS: ATTEND Family Medicine | DX: I48.2 Chronic atrial fibrillation (principal); Z79.01 Long term (current) use of anticoagulants | CPT/HCPCS: 85610 ==

== ENCOUNTER 2019-01-07 08:47 | Outpatient (CLI) | payer MEDICARE, OTHER | END 2019-01-07 08:48 | disposition home or self-care (01) | LOC: LAB.S 08:47 | PROVIDERS: ATTEND Family Medicine | DX: I48.2 Chronic atrial fibrillation (principal); Z79.01 Long term (current) use of anticoagulants | CPT/HCPCS: 85610 ==

== ENCOUNTER 2019-01-14 10:34 | Outpatient (CLI) | payer MEDICARE, OTHER | END 2019-01-14 10:35 | disposition home or self-care (01) | LOC: LAB.S 10:34 | PROVIDERS: ATTEND Family Medicine | DX: I48.2 Chronic atrial fibrillation (principal); Z79.01 Long term (current) use of anticoagulants | CPT/HCPCS: 85610 ==

== ENCOUNTER 2019-01-21 12:34 | Outpatient (CLI) | payer MEDICARE, OTHER | END 2019-01-21 12:35 | disposition home or self-care (01) | LOC: LAB.F 12:34 | PROVIDERS: ATTEND Family Medicine | DX: I48.2 Chronic atrial fibrillation (principal); Z79.01 Long term (current) use of anticoagulants | CPT/HCPCS: 85610 ==

== ENCOUNTER 2019-01-24 04:19 | Outpatient (CLI) | payer MEDICARE, OTHER | END 2019-01-24 04:20 | disposition critical access hospital (66) | LOC: EMS 04:19 | PROVIDERS: ATTEND Surgery | DX: I49.9 Cardiac arrhythmia, unspecified (principal) | CPT/HCPCS: A0425; A0427 ==

== ENCOUNTER 2019-01-24 04:54 | Emergency (ER) | payer MEDICARE, OTHER ==
--- NOTE | 2019-01-24 05:13 | ED Physician Documentation ---
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 patient states she feels like she has been in her atrial fabulation since Thursday. She can only describe the sensation as yucky; she denies chest pain, shortness of breath, lightheadedness, palpitations. She says she has had atrial fib relation long enough that she can sense when she is in a fib. She feels she has been in atrial fib relation for the past 2 to 3 days and is called ambulance this morning. Shortly after medics arrival, patient says her symptoms spontaneously resolved and she is asymptomatic en route and on arrival. 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 HEENT: Cataracts, Tonsil/Adenoidectomy - Present Medications Home Medications: Ambulatory Orders Medication Instructions Recorded Confirmed Dofetilide [Tikosyn] 500 mcg PO BID 08/13/15 01/24/19 Apixaban [Eliquis] 5 mg PO BID 01/24/19 01/24/19 - Allergies Allergies/Adverse Reactions: Allergies Allergy/AdvReac Type Severity Reaction Status Date / Time atenolol Allergy Unknown Unknown Verified 01/24/19 05:00 Penicillins Allergy Unknown Verified 01/24/19 05:00 Sulfa (Sulfonamide Allergy Rash Verified 01/24/19 05:00 Antibiotics) ranitidine [From Zantac] AdvReac "wired" Verified 01/24/19 05:00 - Social History Does the pt smoke?: No Smoking Status: Never smoker Does the pt drink ETOH?: No Does the pt have substance abuse?: No - Immunizations Immunizations are current?: Yes - POLST Patient has POLST: No PD ED PE NORMAL - Vitals Vital signs reviewed: Yes - General General: Alert and oriented X 3, No acute distress, Well developed/nourished - HEENT HEENT: Moist mucous membranes - Neck Neck: Supple, no meningeal sign - Cardiac Cardiac: RRR, No murmur, No gallop, No rub - Respiratory Respiratory: No respiratory distress, Clear bilaterally - Abdomen Abdomen: Soft, Non tender - Derm Derm: Normal color, Warm and dry - Extremities Extremities: No edema Results - Vitals Vitals: Vital Signs - 24 hr 01/24/19 01/24/19 01/24/19 04:58 05:04 05:09 Temperature 36.7 C Heart Rate 84 81 Respiratory 16 14 Rate Blood Pressure 160/84 H 121/75 Blood Pressure 121/75 [Right] O2 Saturation 96 99 01/24/19 01/24/19 06:23 07:04 Temperature Heart Rate 82 81 Respiratory 21 20 Rate Blood Pressure 137/69 H 152/87 H Blood Pressure [Right] O2 Saturation 98 98 Oxygen O2 Source Room air - EKG (time done) No standard instances Rate: Rate (enter#) (81) Rhythm: NSR [place]: Normal Intervals: Prolonged [place] QRS: Normal Ischemia: Normal ST segments - Labs Labs: Laboratory Tests 01/24/19 01/24/19 05:04 05:04 WBC 2.6 L RBC 4.27 Hgb 13.6 Hct 41.7 MCV 97.7 MCH 31.9 H MCHC 32.6 RDW 16.1 H Plt Count 145 MPV 10.1 Neut # (Auto) 2.0 Lymph # (Auto) 0.2 L [place] # (Auto) 0.3 Eos # (Auto) 0.0 Baso # (Auto) 0.0 Absolute Nucleated RBC 0.00 Nucleated RBC % 0.0 WBC Morphology NORMAL APPEARANCE Platelet Estimate NORMAL (130-450,000) Platelet Morphology NORMAL APPEARANCE RBC Morph Micro Appear NORMAL APPEARANCE Sodium 144 Potassium 3.6 Chloride 109 Carbon Dioxide 26 Anion Gap 9.0 BUN 16 Creatinine 0.9 Estimated GFR (MDRD) 61 L Glucose 103 H Calcium 8.9 Magnesium 2.1 PD MEDICAL DECISION MAKING - ED course Complexity details: reviewed results, re-evaluated patient, considered differential, d/w patient ED course: remained asymptomatic during ED stay Departure - Departure Disposition: 01 Home, Self Care Clinical Impression: Paroxysmal atrial fibrillation Condition: Good Instructions: ED Paroxysmal Atrial Flutter Comments: Follow up with your aeronautical engineering officer: call today to arrange for next available appointment Discharge Date/Time: 01/24/19 07:36
[2019-01-24 05:49] LABS: BASOPHILS % (AUTO) 0.8 %; EOSINOPHILS % (AUTO) 1.2 %; HGB - HEMOGLOBIN 13.6 g/dL (12.0-16.0); LYMPHOCYTES # (AUTO) 0.2 10^3/uL (1.5-3.5); LYMPHOCYTES % (AUTO) 9.3 %; MEAN CORPUSCULAR HEMOGLOBIN 31.9 pg (27.0-31.0); MEAN CORPUSCULAR HGB CONC 32.6 g/dL (32.0-36.0); MEAN CORPUSCULAR VOLUME 97.7 fL (81.0-99.0); MEAN PLATELET VOLUME 10.1 fL (7.9-10.8); MONOCYTES # (AUTO) 0.3 10^3/uL (0.0-1.0); MONOCYTES % (AUTO) 10.5 %; NEUTROPHILS % (AUTO) 77.8 %; PLT - PLATELET COUNT 145 10^3/uL (130-450); RED BLOOD COUNT 4.27 10^6/uL (4.20-5.40); RED CELL DISTRIBUTION WIDTH 16.1 % (12.0-15.0); WHITE BLOOD COUNT 2.6 x10^3/uL (4.8-10.8)
[2019-01-24 06:00] LABS: CALCIUM 8.9 mg/dL (8.5-10.3); CREATININE 0.9 mg/dL (0.4-1.0); MAGNESIUM 2.1 mg/dL (1.7-2.8)
[2019-01-24 06:18] LABS: PLATELET ESTIMATE, MANUAL NORMAL (130-450,000) (NORMAL); PLATELET MORPHOLOGY NORMAL APPEARANCE (NORMAL); RBC MORPHOLOGY (MULTIPLE) NORMAL APPEARANCE (NORMAL)
[2019-01-24 07:05] VITALS: BP 152/87
== END 2019-01-24 07:36 | disposition home or self-care (01) ==
LOC: EDUNIT# → ED 04:54
DX: I48.0 Paroxysmal atrial fibrillation (principal); I44.0 Atrioventricular block, first degree; I10 Essential (primary) hypertension; Z79.01 Long term (current) use of anticoagulants
CPT/HCPCS: 36415; 80048; 83735; 85025; 93005; 99283; 99284

== ENCOUNTER 2020-04-10 10:48 | Outpatient (CLI) | payer MEDICARE, OTHER ==
[2020-04-10] MEDS ORDERED: IOVERSOL 320 100 ML VIAL IVP ONE ×2 (11:12→13:42)
[2020-04-10] MEDS ORDERED: IOVERSOL 320 50 ML VIAL ONE (11:13)
[2020-04-10 11:27] LABS: CREATININE 0.8 mg/dL (0.4-1.0)
--- NOTE | 2020-04-10 13:08 | CT Report ---
PROCEDURE: Abdomen/Pelvis W INDICATIONS: FOLLICULAR LYMPHOMA CONTRAST: IV CONTRAST: Optiray 320 ml: 100 PO CONTRAST: Optiray 320 ml50 TECHNIQUE: After the administration of nonionic contrast, 5 mm thick sections acquired from the diaphragms to th e symphysis. 5 mm thick coronal and sagittal reformats were acquired. For radiation dose reduction, the following was used: automated exposure control, adjustment of mA and/or kV according to patient size. COMPARISON: Similar CT 08/29/2019 reviewed FINDINGS: Image quality: Excellent. ABDOMEN: Lung bases: Lung bases are clear. Heart size is normal. Solid organs: Liver and spleen are unchanged in size and enhancement with a hypodensity at the right posterior hepatic segment again noted seen on series 3 image 26 and stable over time from prior CT s cans. This most likely is a small subcentimeter hepatic cyst but could represent a small unilocular h emangioma.. Gallbladder has been previously resected Biliary system is non dilated. Pancreas enhan tyrone normally. No adrenal nodules. Kidneys demonstrate normal size and enhancement, without hydronep hrosis. Peritoneum and bowel: Bowel loops demonstrate normal wall thickness and caliber. No free fluid or a ir. Nodes and vessels: No retroperitoneal or mesenteric adenopathy by size criteria. Note is again made of mild increased radiodensity within the retroperitoneal fat along the base of the celiac axis, the superior mesenteric artery and dorsal to the posterior border of the pancreas. In discrete mass in t his area is not present, and this has remained stable over time with an appearance suggestive of post treatment scarring in the retroperitoneum after lymphoma treatment. No enlarged nodes are seen throug h the aortocaval space and within the root of the small bowel mesentery. Aorta and inferior vena cava are normal in size. Miscellaneous: No ventral hernias. PELVIS: Genitourinary: Bladder wall thickness is normal. Miscellaneous: No inguinal hernias or adenopathy. Bones: No suspicious bony lesions. No vertebral body compression fractures. IMPRESSION: Stable appearance of presumed posttreatment scarring in the retroperitoneal fat adjacent to the base of the celiac axis, the superior mesenteric artery origin, and the posterior border of t he pancreas. No adenopathy is present in these areas, no adenopathy is found elsewhere. No sign of vi sceral involvement by underlying neoplasm at this time. Again noted is a subcentimeter cyst or uniloc ular hemangioma right posterior hepatic segment, previously present. Reviewed by: Tomy Varma MD on 04/10/2020 1:07 PM PDT Approved by: Tomy Varma MD on 04/10/2020 1:07 PM PDT Station ID: [id number]
[2020-04-10] MEDS ORDERED: IOVERSOL 320 50 ML VIAL PO ONE (13:44)
--- NOTE | 2020-04-10 16:32 | CT Report ---
PROCEDURE: CHEST W INDICATIONS: FOLLICULAR LYMPHOMA CONTRAST: IV CONTRAST: Optiray 320 ml: 100 PO CONTRAST: Optiray 320 ml50 TECHNIQUE: After the administration of intravenous contrast, 5 mm thick sections acquired from the pulmonary api tyrone to the posterior costophrenic angles. 7 mm thick coronal MIP reformats were acquired. For radia tion dose reduction, the following was used: automated exposure control, adjustment of mA and/or kV according to patient size. COMPARISON: 08/29/2019 FINDINGS: Image quality: Excellent. Lungs and pleura: No acute air space opacities. No pleural effusions or pneumothorax. Central and peripheral airways are patent and normal in caliber. Mediastinum: Heart size is overall normal but there is asymmetric mild left atrial enlargement.. No pericardial effusion. No mediastinal or hilar adenopathy by size criteria. Thoracic aorta and cent ral pulmonary arteries are normal in size. Esophagus is mildly dilated and contains ingested materia l. Bones and chest wall: Left chest Mediport present. No suspicious bony lesions. No vertebral body com pression fractures. No axillary or supraclavicular adenopathy by size criteria. Thyroid gland is mi nimally heterogeneous.. Abdomen: Visualized upper abdominal is detailed on the accompanying report of the CT abdomen pelvis. IMPRESSION: 1. No suspicious lung masses or nodules. 2. Mild left atrial enlargement. Correlate clinically. 3. Dilated esophagus containing ingested material. The appearance is not significantly changed compar ed to the prior study. Consider connective tissue disease such as scleroderma. Patient may be an aspi ration risk. Reviewed by: Susan Kline MD on 04/10/2020 4:30 PM PDT Approved by: Susan Kline MD on 04/10/2020 4:30 PM PDT Station ID: [id number]
== END 2020-04-10 10:49 | disposition home or self-care (01) ==
LOC: MAC.MOP 10:48
PROVIDERS: ATTEND Physician Assistant
DX: C82.90 Follicular lymphoma, unspecified, unspecified site (principal)
CPT/HCPCS: 36415; 71260; 74177; 82565; Q9967

== ENCOUNTER 2020-10-22 07:00 | Outpatient (CLI) | payer MEDICARE, OTHER | END 2020-10-22 23:59 | disposition home or self-care (01) | LOC: COV 07:00 | PROVIDERS: ATTEND Internal Medicine Clinical Cardiac Electrophysiology | DX: Z01.812 Encounter for preprocedural laboratory examination (principal); Z20.822 Contact with and (suspected) exposure to COVID-19 ==

== ENCOUNTER 2021-06-04 14:00 | Outpatient (CLI) | payer MEDICARE, OTHER ==
[2021-06-04 20:45] LABS: ALBUMIN 3.7 g/dL (3.2-5.5); ALBUMIN/GLOBULIN RATIO 1.3 (1.0-2.2); BILIRUBIN,TOTAL 0.6 mg/dL (0.2-1.0); CALCIUM 9.1 mg/dL (8.5-10.3); CREATININE 0.8 mg/dL (0.4-1.0); POTASSIUM 3.6 mmol/L (3.5-5.0); TOTAL PROTEIN 6.6 g/dL (6.7-8.2)
[2021-06-04 20:59] LABS: THYROID STIMULATING HORMONE 4.68 uIU/mL (0.34-5.60)
== END 2021-06-04 14:01 | disposition home or self-care (01) ==
LOC: LAB.S 14:00
PROVIDERS: ATTEND Internal Medicine
DX: I10 Essential (primary) hypertension (principal); I48.0 Paroxysmal atrial fibrillation
CPT/HCPCS: 36415; 80053; 84443

== ENCOUNTER 2022-01-26 14:58 | Outpatient (CLI) | payer MEDICARE, OTHER | END 2022-01-26 14:59 | disposition critical access hospital (66) | LOC: EMS 14:58 | DX: R53.1 Weakness (principal); M79.602 Pain in left arm; R46.89 Other symptoms and signs involving appearance and behavior | CPT/HCPCS: A0425; A0429 ==

== ENCOUNTER 2022-01-26 15:35 | Emergency (ER) | payer MEDICARE, OTHER ==
--- NOTE | 2022-01-26 16:27 | ED Physician Documentation ---
PD HPI FOCAL NEURO - Stated complaint Stated Complaint: WEAKNESS - Chief complaint Chief Complaint: Neuro - History obtained from History obtained from: Patient - History of Present Illness Timing - onset: How many days ago (3-4) Timing - details: Gradual onset, Waxing and waning Severity of deficit: Mild (Patient states "infinitesimally mild") Weakness: No: Face, Arm, Hand, Leg, Foot, Right, Left Associated symptoms: No: Headache, Nausea / vomiting, Seizure, Syncope, Fall, Head injury, Chest pain Contributing factors: positive: Anticoagulated Baseline status: positive: A&OX3, ambulatory, indep - Additional information Additional information: Patient is a 81-year-old female who presents to the emergency department complaining of not feeling right in her left calf. She states this started about 3 to 4 days ago. She states that there was a very slight numbness/tingling to the posterior aspect of the left calf. She also states that she had some discomfort in the left elbow, left shoulder and left wrist, but this was after using a power chair that she had to work to turn. No headache. No fall. No neck or back pain. Currently is fully asymptomatic. 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 Her stroke symptoms were paralysis. She no longer has any paralysis. Does occasionally walk with a cane or a walker. Patient did have a Port-A-Cath removed about 4 days ago. 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 HEENT: Cataracts, Tonsil/Adenoidectomy - Present Medications Home Medications: Ambulatory Orders Medication Instructions Recorded Confirmed Apixaban [Eliquis] 5 mg PO BID 01/24/19 01/26/22 Nitrofurantoin [Macrobid] 100 mg PO BID #10 cap 01/26/22 - Allergies Allergies/Adverse Reactions: Allergies Allergy/AdvReac Type Severity Reaction Status Date / Time atenolol Allergy Unknown Unknown Verified 01/26/22 15:55 Penicillins Allergy Unknown Verified 01/26/22 15:55 Sulfa (Sulfonamide Allergy Rash Verified 01/26/22 15:55 Antibiotics) ranitidine [From Zantac] AdvReac "wired" Verified 01/26/22 15:55 - Social History Does the pt smoke?: No Smoking Status: Never smoker Does the pt drink ETOH?: No Does the pt have substance abuse?: No - Immunizations Immunizations are current?: Yes - POLST Patient has POLST: No PD ED PE NORMAL - Vitals Vital signs reviewed: Yes - General General: Alert and oriented X 3, No acute distress - HEENT HEENT: Atraumatic, PERRL, Moist mucous membranes - Neck Neck: Supple, no meningeal sign, No bony TTP - Cardiac Cardiac: RRR, Strong equal pulses - Respiratory Respiratory: No respiratory distress, Clear bilaterally - Abdomen Abdomen: Soft, Non tender, Non distended - Back Back: No CVA TTP, No spinal TTP - Derm Derm: Warm and dry - Extremities Extremities: Other (ambulating with a normal gait.) - Neuro Neuro: Alert and oriented X 3, physical therapist assistant 2-12 intact, No motor deficit, No sensory deficit, Normal speech Eye Opening: Spontaneous Motor: Obeys Commands Verbal: Oriented GCS Score: 15 - Psych Psych: Normal mood, Normal affect NIHSS - Time Time: 16:40 - Level of Consciousness Level of consciousness: (0) Alert, Keenly responsive LOC Questions: (0) Answers both Q's correct LOC Commands: (0) Performs both correctly - Gaze Best Gaze: (0) Normal - Visual Visual: (0) No loss - Facial Palsy Facial Palsy: (0) Normal, symmetrical movement - Motor Arms (both separate) Motor Arm (right): (0) No drift Motor Arm (left): (0) No drift - Motor Legs (both separate) Motor Leg (right): (0) No drift Motor Leg (left): (0) No drift - Limb Ataxia Limb Ataxia: (0) Absent - Sensory Sensory: (0) Normal - Best Language Best Language: (0) No aphasia - Dysarthria Dysarthria: (0) Normal - Extinction and Inattention (formally neg Extinction and inattention: (0) No abnormality - Total Score/Results Total Score/Result: 0 Results - Vitals Vitals: Vital Signs - 24 hr 01/26/22 01/26/22 15:46 17:42 Temperature 37.2 C 36.7 C Heart Rate 87 96 Respiratory 17 17 Rate Blood Pressure 159/110 H 140/93 H O2 Saturation 97 96 Oxygen O2 Source Room air - Labs Labs: Laboratory Tests 01/26/22 01/26/22 01/26/22 16:29 16:35 16:35 WBC 6.2 RBC 4.97 Hgb 14.9 Hct 46.9 MCV 94.4 MCH 30.0 MCHC 31.8 L RDW 16.6 H Plt Count 200 MPV 8.8 Neut # (Auto) 4.8 Lymph # (Auto) 0.9 L [place] # (Auto) 0.4 Eos # (Auto) 0.1 Baso # (Auto) 0.0 Absolute Nucleated RBC 0.00 Nucleated RBC % 0.0 Sodium 137 Potassium 3.6 Chloride 100 L Carbon Dioxide 29 Anion Gap 8.0 BUN 18 Creatinine 0.9 Estimated GFR (MDRD) 60 L Glucose 106 H Calcium 9.0 Total Bilirubin 0.5 AST 22 ALT 14 Alkaline Phosphatase 77 Total Protein 7.5 Albumin 3.9 Globulin 3.6 Albumin/Globulin Ratio 1.1 Lipase 26 Urine Color YELLOW Urine Clarity HAZY Urine pH 6.5 Ur Specific [place] 1.010 Urine Protein NEGATIVE Urine Glucose (UA) NEGATIVE Urine Ketones NEGATIVE Urine Occult Blood SMALL H Urine Nitrite NEGATIVE Urine Bilirubin NEGATIVE Urine Urobilinogen 0.2 (NORMAL) Ur Leukocyte Esterase SMALL H Urine RBC 6-10 H Urine WBC 4-5 Ur Squamous Epith Cells FEW Squamous Urine Bacteria Rare Ur Microscopic Review INDICATED Urine Culture Comments INDICATED - Rads (name of study) head CT Radiology: Final report received, EMP read contemporaneously, See rad report PD MEDICAL DECISION MAKING - ED course Complexity details: reviewed results, re-evaluated patient, considered differential, d/w patient ED course: Patient is a 81-year-old female who presents to the emergency department with extremely mild symptoms of her left arm pain a few days ago and left calf numbness. This is all resolved. She is asymptomatic here. Symptoms do not appear consistent with stroke. No acute findings on head CT or laboratory testing other than a UTI. She does have some dysuria, therefore we will treat this. Patient is ambulating without any difficulty. NIH stroke scale of 0. Patient counseled regarding signs and symptoms for which I believe and urgent re-evaluation would be necessary. Patient with good understanding of and agreement to plan and is comfortable going home at this time This document was made in part using voice recognition software. While efforts are made to proofread this document, sound alike and grammatical errors may occur. IMPRESSION: No peggy acute abnormality is seen to explain the patient's presenting symptoms of left leg tingling. If it would be helpful for clinical management decision making, please consider a dedicated, scheduled brain MRI for further evaluation (assuming that there is no contraindication). 2 areas of remote infarction can be seen on the right, which appear unchanged compared to 08/10/2016. Age-appropriate brain parenchymal volume loss and chronic small vessel ischemic change can be seen. Departure - Departure Disposition: 01 Home, Self Care Clinical Impression: Paresthesia UTI (urinary tract infection) Qualifiers: Urinary tract infection type: acute cystitis Hematuria presence: without hematuria Qualified Code(s): N30.00 - Acute cystitis without hematuria Condition: Good Instructions: ED UTI Cystitis Female Follow-Up: Neil Chavez MD [Primary Care Provider] - Within 1 week Prescriptions: Nitrofurantoin [Macrobid] 100 mg PO BID #10 cap Comments: Please follow-up with your doctor for further care. Take all antibiotics until gone. Return if you worsen. Your head CT does not show any acute abnormalities. Your urinalysis is consistent with a urinary tract infection. Your blood work does not show any concerning abnormalities at this time. Your medications were sent to [facility]. Discharge Date/Time: 01/26/22 17:49
[2022-01-26 16:41] LABS: BASOPHILS % (AUTO) 0.5 %; EOSINOPHILS # (AUTO) 0.1 10^3/uL (0.0-0.7); EOSINOPHILS % (AUTO) 1.1 %; HCT - HEMATOCRIT 46.9 % (37.0-47.0); HGB - HEMOGLOBIN 14.9 g/dL (12.0-16.0); LYMPHOCYTES # (AUTO) 0.9 10^3/uL (1.5-3.5); LYMPHOCYTES % (AUTO) 14.6 %; MEAN CORPUSCULAR HGB CONC 31.8 g/dL (32.0-36.0); MEAN CORPUSCULAR VOLUME 94.4 fL (81.0-99.0); MEAN PLATELET VOLUME 8.8 fL (7.9-10.8); MONOCYTES # (AUTO) 0.4 10^3/uL (0.0-1.0); MONOCYTES % (AUTO) 6.7 %; NEUTROPHILS # (AUTO) 4.8 10^3/uL (1.5-6.6); NEUTROPHILS % (AUTO) 76.8 %; PLT - PLATELET COUNT 200 10^3/uL (130-450); RED BLOOD COUNT 4.97 10^6/uL (4.20-5.40); RED CELL DISTRIBUTION WIDTH 16.6 % (12.0-15.0); WHITE BLOOD COUNT 6.2 x10^3/uL (4.8-10.8)
[2022-01-26 16:54] LABS: ALBUMIN 3.9 g/dL (3.2-5.5); ALBUMIN/GLOBULIN RATIO 1.1 (1.0-2.2); BILIRUBIN,TOTAL 0.5 mg/dL (0.2-1.0); CREATININE 0.9 mg/dL (0.4-1.0); POTASSIUM 3.6 mmol/L (3.5-5.0); TOTAL PROTEIN 7.5 g/dL (6.7-8.2)
[2022-01-26 17:13] LABS: BILIRUBIN,URINE NEGATIVE (NEGATIVE); GLUCOSE, URINE (UA) NEGATIVE (NEGATIVE); KETONES,URINE (UA) NEGATIVE (NEGATIVE); LEUKOCYTE ESTERASE, URINE SMALL (NEGATIVE); NITRITE,URINE NEGATIVE (NEGATIVE); OCCULT BLOOD,URINE SMALL (NEGATIVE); PH,URINE 6.5 PH (5.0-7.5); PROTEIN,URINE NEGATIVE (NEGATIVE); UROBILINOGEN,URINE 0.2 (NORMAL) E.U./dL (NORMAL)
[2022-01-26 17:16] LABS: CLARITY,URINE HAZY (CLEAR)
--- NOTE | 2022-01-26 17:19 | CT Report ---
PROCEDURE: HEAD WO INDICATIONS: L sided leg tingling TECHNIQUE: Noncontrast 4.5 mm thick angled axial sections acquired from the foramen magnum to the vertex. For r adiation dose reduction, the following was used: automated exposure control, adjustment of mA and/or kV according to patient size. COMPARISON: 08/10/2016 FINDINGS: Image quality: Excellent. CSF spaces: Basal cisterns are patent. No extra-axial fluid collections. Ventricles are normal in size and shape. Brain: No midline shift. No intracranial masses or hemorrhage. Shah-white matter interface is norm al. There is a remote focal infarct involving the deep white matter of the right frontal lobe. A sim ilar-appearing prior remote infarction can be seen involving the anterior superior right cerebellum. Age-appropriate brain parenchymal volume loss and chronic small vessel ischemic change can be seen. Skull and face: Calvarium and visualized facial bones are intact, without suspicious lesions. Sinuses: Visualized sinuses and mastoids are clear. IMPRESSION: No peggy acute abnormality is seen to explain the patient's presenting symptoms of left leg tingling. If it would be helpful for clinical management decision making, please consider a dedicated, schedule d brain MRI for further evaluation (assuming that there is no contraindication). 2 areas of remote infarction can be seen on the right, which appear unchanged compared to 08/10/2016. Age-appropriate brain parenchymal volume loss and chronic small vessel ischemic change can be seen. Reviewed by: Freedom Panchal MD on 01/26/2022 4:18 PM ANNMARIE Approved by: Freedom Panchal MD on 01/26/2022 4:18 PM ANNMARIE Station ID: [id number]
[2022-01-26] MEDS ORDERED: NITROFURANTOIN MACRO 100 MG CAPSULE PO STA (17:21)
[2022-01-26 17:26] LABS: BACTERIA,URINE Rare /HPF (None Seen); SQUAMOUS EPITHELIAL CELL,UR FEW Squamous (<= Few)
[2022-01-26 17:44] VITALS: BP 140/93
== END 2022-01-26 17:49 | disposition home or self-care (01) ==
LOC: EDUNIT# → ED 15:35
DX: R20.2 Paresthesia of skin (principal); N30.00 Acute cystitis without hematuria
CPT/HCPCS: 36415; 70450; 80053; 81001; 83690; 85025; 87086; 99282; 99284; A9270; 81003

== ENCOUNTER 2022-06-24 10:12 | Outpatient (CLI) | payer MEDICARE, OTHER | END 2022-06-24 10:13 | disposition critical access hospital (66) | LOC: EMS 10:12 | DX: I10 Essential (primary) hypertension (principal) | CPT/HCPCS: A0425; A0427 ==

== ENCOUNTER 2022-06-24 11:04 | Emergency (ER) | payer MEDICARE, OTHER ==
[2022-06-24 11:56] LABS: BASOPHILS % (AUTO) 0.4 %; EOSINOPHILS # (AUTO) 0.1 10^3/uL (0.0-0.7); HCT - HEMATOCRIT 47.6 % (37.0-47.0); HGB - HEMOGLOBIN 14.9 g/dL (12.0-16.0); LYMPHOCYTES # (AUTO) 0.6 10^3/uL (1.5-3.5); LYMPHOCYTES % (AUTO) 11.9 %; MEAN CORPUSCULAR HEMOGLOBIN 30.2 pg (27.0-31.0); MEAN CORPUSCULAR HGB CONC 31.3 g/dL (32.0-36.0); MEAN CORPUSCULAR VOLUME 96.4 fL (81.0-99.0); MEAN PLATELET VOLUME 9.1 fL (7.9-10.8); MONOCYTES # (AUTO) 0.2 10^3/uL (0.0-1.0); MONOCYTES % (AUTO) 3.3 %; NEUTROPHILS # (AUTO) 4.1 10^3/uL (1.5-6.6); NEUTROPHILS % (AUTO) 83.2 %; PLT - PLATELET COUNT 192 10^3/uL (130-450); RED BLOOD COUNT 4.94 10^6/uL (4.20-5.40); RED CELL DISTRIBUTION WIDTH 15.3 % (12.0-15.0); WHITE BLOOD COUNT 4.9 x10^3/uL (4.8-10.8)
[2022-06-24 12:19] LABS: ALBUMIN/GLOBULIN RATIO 1.1 (1.0-2.2); BILIRUBIN,TOTAL 0.6 mg/dL (0.2-1.0); CALCIUM 9.2 mg/dL (8.5-10.3); CREATININE 0.8 mg/dL (0.4-1.0); POTASSIUM 3.8 mmol/L (3.5-5.0); TOTAL PROTEIN 7.5 g/dL (6.7-8.2)
[2022-06-24] MEDS: SODIUM CHLORIDE 0.9% 500 ML IV STA (12:28)
[2022-06-24] MEDS: ONDANSETRON 4 MG/2 ML VIAL IVP STA (12:29)
--- NOTE | 2022-06-24 13:07 | ED Physician Documentation ---
History of Present Illness - Stated complaint Stated Complaint: HIGH BP - Chief complaint Chief Complaint: Cardiac - Additonal information Additional information: Patient is an 82-year-old female With a history of atrial fibrillation presenti for evaluation of elevated blood pressure readings That she noticed this morning. Patient reports that her stomach was upset after eating a fish meal that she had received from [employer] and she checked her blood pressure and it was elevated So high that it was reading "error".When EMS arrived there initial blood pressure was 190/120 but it has improved. She denies chest pain, shortness of breath, headache, feeling dizzy or lightheaded. Her only complaint is that her stomach feels upset and she feels nauseous.She denies vomiting or diarrhea. She reports previously having a history of hypertension was taken off the medications a few years ago after having a procedure for her atrial fibrillation. She is on Eliquis Review of Systems Constitutional: denies: Fever Nose: denies: Congestion Cardiac: denies: Chest pain / pressure Respiratory: denies: Dyspnea GI: reports: Nausea. 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 HEENT: Cataracts, Tonsil/Adenoidectomy - Present Medications Home Medications: Ambulatory Orders Medication Instructions Recorded Confirmed Apixaban [Eliquis] 5 mg PO BID 01/24/19 05/05/22 Nitrofurantoin [Macrobid] 1 cap PO BID #10 cap 06/24/22 - Allergies Allergies/Adverse Reactions: Allergies Allergy/AdvReac Type Severity Reaction Status Date / Time atenolol Allergy Unknown Unknown Verified 01/26/22 15:55 Penicillins Allergy Unknown Verified 01/26/22 15:55 shellfish derived Allergy Emesis Verified 06/24/22 11:15 Sulfa (Sulfonamide Allergy Rash Verified 01/26/22 15:55 Antibiotics) ranitidine [From Zantac] AdvReac "wired" Verified 01/26/22 15:55 - Social History Does the pt smoke?: No Smoking Status: Never smoker Does the pt drink ETOH?: No Does the pt have substance abuse?: No - Immunizations Immunizations are current?: Yes - POLST Patient has POLST: No PD ED PE NORMAL - General General: Alert and oriented X 3, No acute distress, Well developed/nourished - HEENT HEENT: Atraumatic, Moist mucous membranes, Pharynx benign - Neck Neck: Supple, no meningeal sign - Cardiac Cardiac: RRR, No murmur - Respiratory Respiratory: No respiratory distress, Clear bilaterally - Abdomen Abdomen: Soft, Non tender, Non distended - Derm Derm: Warm and dry - Extremities Extremities: No edema - Neuro Neuro: Alert and oriented X 3, gutter mouth cutter 2-12 intact, No motor deficit, Normal speech, Other (Normal gait) Results - Vitals Vitals: Vital Signs - 24 hr 06/24/22 06/24/22 11:07 13:14 Temperature 36.0 C L Heart Rate 95 89 Respiratory 18 19 Rate Blood Pressure 170/74 H 139/89 H O2 Saturation 99 97 Oxygen O2 Source Room air - EKG (time done) 1142 Rate: Rate (enter#) (86) Rhythm: NSR [place]: Normal Ischemia: No: ST elevation c/w ischemia - Labs Labs: Laboratory Tests 06/24/22 06/24/22 06/24/22 11:42 11:42 13:00 WBC 4.9 RBC 4.94 Hgb 14.9 Hct 47.6 H MCV 96.4 MCH 30.2 MCHC 31.3 L RDW 15.3 H Plt Count 192 MPV 9.1 Neut # (Auto) 4.1 Lymph # (Auto) 0.6 L [place] # (Auto) 0.2 Eos # (Auto) 0.1 Baso # (Auto) 0.0 Absolute Nucleated RBC 0.00 Nucleated RBC % 0.0 Sodium 137 Potassium 3.8 Chloride 100 L Carbon Dioxide 28 Anion Gap 9.0 BUN 14 Creatinine 0.8 Estimated GFR (MDRD) 69 L Glucose 114 H Calcium 9.2 Total Bilirubin 0.6 AST 24 ALT 14 Alkaline Phosphatase 72 Total Protein 7.5 Albumin 4.0 Globulin 3.5 Albumin/Globulin Ratio 1.1 Lipase 24 Urine Color YELLOW Urine Clarity SL. CLOUDY Urine pH 6.5 Ur Specific [place] 1.015 Urine Protein NEGATIVE Urine Glucose (UA) NEGATIVE Urine Ketones NEGATIVE Urine Occult Blood MODERATE H Urine Nitrite NEGATIVE Urine Bilirubin NEGATIVE Urine Urobilinogen 0.2 (NORMAL) Ur Leukocyte Esterase SMALL H Urine RBC 6-10 H Urine WBC 6-10 H Ur Squamous Epith Cells FEW Squamous Urine Bacteria Moderate H Ur Microscopic Review INDICATED Urine Culture Comments INDICATED PD Medical Decision Making - ED course Complexity details: re-evaluated patient ED course: Patient presenting for evaluation of elevated blood pressure readings. She reports previously having a history of hypertension was taken off the medicatio ns a few years ago after having a procedure for her atrial fibrillation.She denies chest pain or difficulty breathing or other symptoms to suggest ACS. Her EKG was reviewed as are her labs. She is feeling better here with Fluids and nausea medication. Her urine does have markers for infection and she does Report having some urinary frequency at nighttime. Will treat with Macrobid. Patient advised to have follow-up with her PCP regarding her blood pressure.She is advised to return to the emergency department with any new or worsening symptoms. Patient is ambulatory at discharge. Departure - Departure Disposition: 01 Home, Self Care Clinical Impression: UTI (urinary tract infection), Elevated blood pressure reading Condition: Stable Instructions: ED Hypertension Poss, ED UTI Cystitis Female Prescriptions: Nitrofurantoin [Macrobid] 1 cap PO BID #10 cap Comments: Your blood pressure readings have been elevated above what is considered normal. Please follow-up with your primary care doctor as you may need to be restarted back on medication to help with your blood pressure. You are also found to have a urinary tract infection I have started you on an antibiotic. I sent this prescription to [facility] in [place]. Please make sure to complete the course of the antibiotic. If you have any new or worsening symptoms please return to the ER. Discharge Date/Time: 06/24/22 14:20
[2022-06-24 13:22] LABS: BILIRUBIN,URINE NEGATIVE (NEGATIVE); GLUCOSE, URINE (UA) NEGATIVE (NEGATIVE); KETONES,URINE (UA) NEGATIVE (NEGATIVE); LEUKOCYTE ESTERASE, URINE SMALL (NEGATIVE); NITRITE,URINE NEGATIVE (NEGATIVE); OCCULT BLOOD,URINE MODERATE (NEGATIVE); PH,URINE 6.5 PH (5.0-7.5); PROTEIN,URINE NEGATIVE (NEGATIVE); UROBILINOGEN,URINE 0.2 (NORMAL) E.U./dL (NORMAL)
[2022-06-24 13:23] LABS: CLARITY,URINE SL. CLOUDY (CLEAR)
[2022-06-24 13:26] VITALS: BP 139/89
[2022-06-24 13:31] LABS: BACTERIA,URINE Moderate /HPF (None Seen); SQUAMOUS EPITHELIAL CELL,UR FEW Squamous (<= Few)
[2022-06-24] MEDS: NITROFURANTOIN MACRO 100 MG CAPSULE PO STA (13:58)
== END 2022-06-24 14:20 | disposition home or self-care (01) ==
LOC: EDUNIT# → ED 11:04
DX: I10 Essential (primary) hypertension (principal); N39.0 Urinary tract infection, site not specified; R11.0 Nausea
CPT/HCPCS: 36415; 80053; 81001; 83690; 85025; 87086; 93005; 96361; 96374; 99284; A9270; 81003

== ENCOUNTER 2022-08-26 10:44 | Outpatient (CLI) | payer MEDICARE, OTHER ==
[2022-08-26] MEDS ORDERED: iohexoL-300 100 ML VIAL ONE (10:54)
[2022-08-26] MEDS ORDERED: DIATRIZOATE MEGLU/DIATRIZO SOD 30 ML BOTTLE PO ONE ×2 (10:54→14:31)
[2022-08-26 11:18] LABS: CREATININE 0.8 mg/dL (0.4-1.0)
--- NOTE | 2022-08-26 13:44 | CT Report ---
PROCEDURE: CHEST W INDICATIONS: ENDOMETRIAL CA CONTRAST:100ml Omnipaque 300 TECHNIQUE: After the administration of intravenous contrast, 1 mm axial images were acquired from the pulmonary apices through the posterior costophrenic angles. Axial 5 mm soft tissue kernel reconstructions were performed as well as 8 mm axial MIP and coronal and sagittal 5 mm reformations. For radiation dose reduction, the following was used: automated exposure control, adjustment of mA and/or kV according to patient size. COMPARISON: Several prior studies, the most recent from 10/21/2021 FINDINGS: Image quality: Good, limited by respiratory motion. Lungs and pleura: There is mild respiratory motion at the lung bases. There is no peripheral airway thickening bilaterally, present previously. No acute air space opacities. No pleural effusions or pn eumothorax. Mediastinum: Heart size is normal. No pericardial effusion. Stable borderline bilateral hilar lymp h nodes and pretracheal lymph node measuring up to 8 mm. No new bulky mediastinal or hilar adenopathy by size criteria. Thoracic aorta and central pulmonary arteries are normal in size. Esophagus is m ildly patulous as seen previously. No hiatal hernia. Bones and chest wall: No suspicious bony lesions. No vertebral body compression fractures. No axil kishore or supraclavicular adenopathy by size criteria. The thyroid is normal in size and there are no incidental findings.. Abdomen: Visualized upper abdominal solid organs appear normal. Upper abdominal bowel loops are nor mal in caliber. IMPRESSION: 1. No new adenopathy in the chest. 2. No suspicious lung nodules. 3. Chronic mild bronchial wall thickening. 4. Chronic, mildly patulous esophagus. Reviewed by: Susan Kline MD on 08/26/2022 1:42 PM PST Approved by: Susan Kline MD on 08/26/2022 1:42 PM PST Station ID: [id number]
--- NOTE | 2022-08-26 14:12 | CT Report ---
PROCEDURE: ABDOMEN/PELVIS W INDICATIONS: ENDOMETRAIL CA CONTRAST: 100ml Omnipaque 300 TECHNIQUE: After the administration of IV and oral contrast, 5 mm thick sections acquired from the diaphragms to the symphysis. 5 mm thick coronal and sagittal reformats were acquired. For radiation dose reducti on, the following was used: automated exposure control, adjustment of mA and/or kV according to eric ent size. COMPARISON: Several prior studies, the most recent from 10/21/2021 FINDINGS: Image quality: Excellent. ABDOMEN: Lung bases: Lung bases are clear. Heart size is normal. Solid organs: Liver and spleen are normal in size and enhancement. Subcentimeter right lobe hepatic cyst. Gallbladder is surgically absent. Biliary system is non dilated. Pancreas enhances normally. No adrenal nodules. Kidneys demonstrate normal size and enhancement, without hydronephrosis. Peritoneum and bowel: Bowel loops demonstrate normal wall thickness and caliber. Sigmoid colon diver ticulosis. No free fluid or air. Nodes and vessels: Stable amorphous low-density fat stranding anterior to the aorta between the heydi ac and SMA origins and above the left renal vein is stable in appearance and extent compared to recen t prior studies. There is no new adenopathy in the retroperitoneum. No mesenteric mass. Aorta and inferior vena cava a re normal in size. Miscellaneous: No ventral hernias. PELVIS: Genitourinary: The urinary bladder is decompressed. The uterus is absent. Ovarian tissue is not seen . Miscellaneous: There is a new, abnormally enlarged right inguinal node below the level of the common femoral vein measuring 1.5 cm short axis, . A nonenlarged, but rounded left common femoral node has increased size now measuring 0.9 cm, . Bones: No suspicious bony lesions. Grade 1 retrolisthesis T12 on L1 and multilevel degenerative disc disease. No vertebral body compression fractures. IMPRESSION: 1. New abnormal enlarged right inguinal lymph node is suspicious for recurrent or metastatic disease. Consider tissue sampling. 2. Stable changes of fat stranding in the upper retroperitoneum, site of previous disease. Reviewed by: Susan Kline MD on 08/26/2022 2:10 PM PST Approved by: Susan Kline MD on 08/26/2022 2:10 PM PST Station ID: [id number]
[2022-08-26] MEDS ORDERED: iohexoL-300 100 ML VIAL IVP ONE (14:31)
== END 2022-08-26 10:45 | disposition home or self-care (01) ==
LOC: LAB 10:44
PROVIDERS: ATTEND Obstetrics & Gynecology Gynecologic Oncology
DX: C54.1 Malignant neoplasm of endometrium (principal); R59.0 Localized enlarged lymph nodes
CPT/HCPCS: 36415; 71260; 74177; 82565; Q9963; Q9967

== ENCOUNTER 2023-06-17 10:45 | Outpatient (CLI) | payer MEDICARE, OTHER ==
[2023-06-17 11:26] LABS: THYROID STIMULATING HORMONE 4.28 uIU/mL (0.34-5.60)
== END 2023-06-17 10:46 | disposition home or self-care (01) ==
LOC: LAB 10:45
PROVIDERS: ATTEND Internal Medicine
DX: I48.0 Paroxysmal atrial fibrillation (principal); I50.32 Chronic diastolic (congestive) heart failure
CPT/HCPCS: 36415; 84443

== ENCOUNTER 2023-09-19 07:00 | Outpatient (CLI) | payer MEDICARE, OTHER | END 2023-09-19 23:59 | disposition home or self-care (01) | LOC: LAB.S 07:00 | PROVIDERS: ATTEND Physician Assistant Medical | DX: N39.0 Urinary tract infection, site not specified (principal) | CPT/HCPCS: 87086 ==

== ENCOUNTER 2023-10-07 14:20 | Outpatient (CLI) | payer MEDICARE, OTHER ==
[2023-10-07 19:50] LABS: BASOPHILS % (AUTO) 0.5 %; EOSINOPHILS % (AUTO) 0.7 %; HCT - HEMATOCRIT 46.8 % (37.0-47.0); HGB - HEMOGLOBIN 13.7 g/dL (12.0-16.0); LYMPHOCYTES # (AUTO) 0.9 10^3/uL (1.5-3.5); LYMPHOCYTES % (AUTO) 16.1 %; MEAN CORPUSCULAR HEMOGLOBIN 26.6 pg (27.0-31.0); MEAN CORPUSCULAR HGB CONC 29.3 g/dL (32.0-36.0); MEAN CORPUSCULAR VOLUME 90.9 fL (81.0-99.0); MONOCYTES # (AUTO) 0.4 10^3/uL (0.0-1.0); MONOCYTES % (AUTO) 6.6 %; NEUTROPHILS # (AUTO) 4.3 10^3/uL (1.5-6.6); NEUTROPHILS % (AUTO) 75.9 %; PLT - PLATELET COUNT 264 10^3/uL (130-450); RED BLOOD COUNT 5.15 10^6/uL (4.20-5.40); RED CELL DISTRIBUTION WIDTH 16.8 % (12.0-15.0); WHITE BLOOD COUNT 5.7 x10^3/uL (4.8-10.8)
[2023-10-07 20:13] LABS: CALCIUM 9.6 mg/dL (8.5-10.3); CREATININE 0.7 mg/dL (0.6-1.3); POTASSIUM 3.4 mmol/L (3.5-4.5)
[2023-10-07 20:17] LABS: THYROID STIMULATING HORMONE 2.84 uIU/mL (0.34-5.60)
== END 2023-10-07 14:21 | disposition home or self-care (01) ==
LOC: LAB.S 14:20
PROVIDERS: ATTEND Internal Medicine
DX: R53.83 Other fatigue (principal)
CPT/HCPCS: 36415; 80048; 82607; 84443; 85025

== ENCOUNTER 2023-11-13 08:00 | Outpatient (CLI) | payer MEDICARE, OTHER ==
--- NOTE | 2023-11-13 15:25 | XRAY Report ---
PROCEDURE: Hip w/Pelvis 2-3V LT INDICATIONS: LEFT HIP PAIN TECHNIQUE: 3 views of the hip were acquired. COMPARISON: CT of abdomen and pelvis dated 09/10/2023 and 08/26/2022 FINDINGS: Bones: No fractures or dislocations. Mild to moderate bilateral hip joint osteoarthritic changes ar e seen. No evidence of avascular necrosis of femoral head. Degenerative disc disease in visualized lo wer lumbar spine is seen. No suspicious bony lesions. Soft tissues: No suspicious soft tissue calcifications or masses. IMPRESSION: No acute bony abnormality. 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 No evidence of avascular necrosis. Degenerati ve disc disease in lower lumbar spine. Reviewed by: Tacho Richter MD on 11/13/2023 3:24 PM PDT Approved by: Tacho Richter MD on 11/13/2023 3:24 PM PDT Station ID: [id number]
== END 2023-11-13 23:59 | disposition home or self-care (01) ==
LOC: DI.S 08:00
PROVIDERS: ATTEND Internal Medicine
DX: M16.0 Bilateral primary osteoarthritis of hip (principal); M51.36 Other intervertebral disc degeneration, lumbar region

== ENCOUNTER 2023-11-25 07:32 | Emergency (ER) | payer MEDICARE, OTHER ==
--- NOTE | 2023-11-25 07:45 | ED Physician Documentation ---
History of Present Illness - Stated complaint Stated Complaint: ABD PX - Additonal information Additional information: 83-year-old female presenting the emergency department chief complaint abdominal pain. Reports history of chronic constipation and frequent episodes abdominal p ain requiring Tylenol at home. States has gone through a bottle of Tylenol since August which is atypical for her. Was seen by primary care and states that they did an x-ray that showed significant constipation. She was started on MiraLAX and senna. She reports that she has started the senna but is not currently regularly taking the MiraLAX. Does report a history of "stomach cancer" but is unable to tell me more about this. Denies fever, chills, vomiting Review of Systems Constitutional: denies: Fever Eyes: denies: Loss of vision Ears: denies: Loss of hearing Nose: denies: Rhinorrhea / runny nose Throat: denies: Dental pain / toothache Cardiac: denies: Chest pain / pressure Respiratory: denies: Dyspnea GI: reports: Abdominal Pain, Nausea, Constipation : denies: Dysuria Skin: denies: Rash PD PAST MEDICAL HISTORY - Past Medical History Cardiovascular: Hypertension, Atrial fibrillation Respiratory: None Neuro: None Endocrine/Autoimmune: None, Other GI: GERD : None, Frequency, Other HEENT: Chronic sinusitis, Macular degeneration Psych: None Musculoskeletal: None Derm: Other - Past Surgical History Past Surgical History: Yes 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 and currettage HEENT: Cataracts, Tonsil/Adenoidectomy - Present Medications Home Medications: Ambulatory Orders Medication Instructions Recorded Confirmed Apixaban [Eliquis] 5 mg PO BID 01/24/19 09/14/23 Nitrofurantoin [Macrobid] 1 cap PO BID #10 cap 06/24/22 09/14/23 Clotrimazole Galo [Clotrimazole] 10 mg MM 5XD 10 Days #50 lozenge 01/05/23 09/14/23 Nystatin/Triamcinolone Acet 30 gm TP BID PRN #30 gm 01/05/23 09/14/23 [Nystatin-Triamcinolone Ointm] Docusate Sodium 100Mg Capsule 100 mg PO BID #30 cap 11/25/23 [Colace 100Mg Capsule] polyethylene glycoL 3350(BULK) 17 gm PO DAILY PRN #1 each 11/25/23 [Miralax] - Allergies Allergies/Adverse Reactions: Allergies Allergy/AdvReac Type Severity Reaction Status Date / Time atenolol Allergy Unknown Unknown Verified 11/25/23 07:37 Penicillins Allergy Unknown Verified 11/25/23 07:37 shellfish derived Allergy Emesis Verified 11/25/23 07:37 Sulfa (Sulfonamide Allergy Rash Verified 11/25/23 07:37 Antibiotics) ranitidine [From Zantac] AdvReac "wired" Verified 11/25/23 07:37 - Social History Does the pt smoke?: No Smoking Status: Never smoker Does the pt drink ETOH?: No Does the pt have substance abuse?: No - Immunizations Immunizations are current?: Yes - POLST Patient has POLST: No PD ED PE NORMAL - Vitals Vital signs reviewed: Yes - General General: Alert and oriented X 3 - HEENT HEENT: Atraumatic - Neck Neck: Supple, no meningeal sign - Cardiac Cardiac: RRR - Respiratory Respiratory: No respiratory distress - Abdomen Abdomen: Normal bowel sounds, Soft, Non tender, Non distended, No organomegaly - Female Female : Deferred - Rectal Rectal: Pt declined - Back Back: No CVA TTP - Derm Derm: Normal color - Extremities Extremities: No deformity - Neuro Neuro: Alert and oriented X 3, manager integrated 2-12 intact, No motor deficit, Normal speech Results - Vitals Vitals: Vital Signs - 24 hr 11/25/23 07:37 Temperature 37.1 C Heart Rate 98 Respiratory 20 Rate Blood Pressure 153/82 H O2 Saturation 95 Oxygen O2 Source Room air - Labs Labs: Laboratory Tests 11/25/23 11/25/23 11/25/23 07:55 07:55 07:55 WBC 4.2 L RBC 4.69 Hgb 12.3 Hct 40.5 MCV 86.4 MCH 26.2 L MCHC 30.4 L RDW 17.5 H Plt Count 239 MPV 9.4 Neut # (Auto) 2.8 Lymph # (Auto) 0.9 L [place] # (Auto) 0.5 Eos # (Auto) 0.0 Baso # (Auto) 0.0 Absolute Nucleated RBC 0.00 Nucleated RBC % 0.0 Sodium 137 Potassium 3.7 Chloride 100 L Carbon Dioxide 31 Anion Gap 6.0 BUN 16 Creatinine 0.7 Estimated GFR (MDRD) 80 L Glucose 85 Lactic Acid 1.0 Calcium 9.2 Total Bilirubin 0.3 AST 31 ALT 25 Alkaline Phosphatase 80 Total Protein 7.0 Albumin 3.6 Globulin 3.4 Albumin/Globulin Ratio 1.1 Lipase 17 Departure - Departure Disposition: 01 Home, Self Care Clinical Impression: Retroperitoneal lymphadenopathy Constipation Qualifiers: Constipation type: unspecified constipation type Qualified Code(s): K59.00 - Constipation, unspecified Abdominal pain Qualifiers: Abdominal location: unspecified location Qualified Code(s): R10.9 - Unspecified abdominal pain Instructions: ED Constipation Prescriptions: Docusate Sodium 100Mg Capsule [Colace 100Mg Capsule] 100 mg PO BID #30 cap polyethylene glycoL 3350(BULK) [Miralax] 17 gm PO DAILY PRN #1 each PRN Reason: Constipation Comments: Thank you for allowing us to care for you today [facility]. Today in the emergency department you were evaluated for any possible dangerous or life-threatening medical emergency. All the test performed in the emergency department today including your blood work and the CT scan of your abdomen and pelvis were all very reassuring. Your CT scan did show progression of your previously identified retroperitoneal malignant adenopathy. It is important you continue to follow-up with your primary care doctor and outpatient team for management of this issue. There was no signs of bowel obstruction or other surgical emergency. I do recommend continuing medications to act as a daily bowel regimen to help with constipation. I written prescriptions for MiraLAX as well as Colace which you can take and lieuOf your previously prescribed senna. Please increase your intake and fiber for fluids and natural probiotics. Please get plenty of exercise and drink ample amounts of fluid. Again please follow-up with your primary care doctor concerning your ER evaluation. If it anytime you develop new or worsening symptoms please not hesitate to return.
[2023-11-25 08:11] LABS: BASOPHILS % (AUTO) 0.5 %; HCT - HEMATOCRIT 40.5 % (37.0-47.0); HGB - HEMOGLOBIN 12.3 g/dL (12.0-16.0); LYMPHOCYTES # (AUTO) 0.9 10^3/uL (1.5-3.5); LYMPHOCYTES % (AUTO) 20.3 %; MEAN CORPUSCULAR HEMOGLOBIN 26.2 pg (27.0-31.0); MEAN CORPUSCULAR HGB CONC 30.4 g/dL (32.0-36.0); MEAN CORPUSCULAR VOLUME 86.4 fL (81.0-99.0); MEAN PLATELET VOLUME 9.4 fL (7.9-10.8); MONOCYTES # (AUTO) 0.5 10^3/uL (0.0-1.0); MONOCYTES % (AUTO) 11.8 %; NEUTROPHILS # (AUTO) 2.8 10^3/uL (1.5-6.6); NEUTROPHILS % (AUTO) 67.2 %; PLT - PLATELET COUNT 239 10^3/uL (130-450); RED BLOOD COUNT 4.69 10^6/uL (4.20-5.40); RED CELL DISTRIBUTION WIDTH 17.5 % (12.0-15.0); WHITE BLOOD COUNT 4.2 x10^3/uL (4.8-10.8)
[2023-11-25 08:27] LABS: ALBUMIN 3.6 g/dL (3.2-5.5); ALBUMIN/GLOBULIN RATIO 1.1 (1.0-2.2); BILIRUBIN,TOTAL 0.3 mg/dL (0.2-1.0); CALCIUM 9.2 mg/dL (8.5-10.3); CREATININE 0.7 mg/dL (0.6-1.3); POTASSIUM 3.7 mmol/L (3.5-4.5)
[2023-11-25] MEDS ORDERED: iohexoL-300 100 ML VIAL ONE (08:33)
--- NOTE | 2023-11-25 09:40 | CT Report ---
PROCEDURE: Abdomen/Pelvis W INDICATIONS: Abd pain, r/o SBO CONTRAST: Omni 300 100ml TECHNIQUE: After the administration of intravenous contrast, a CT scan of the abdomen and pelvis was performed. Images were recorded and evaluated at appropriate window settings. Reformats: coronal and sagittal. F or radiation dose reduction, the following was used: automated exposure control, adjustment of mA and /or kV according to patient size. COMPARISON: 09/10/2023. FINDINGS: Image quality: Diagnostic. Lower chest: Small hiatal hernia. Normal heart size. Lung bases are clear. Liver: No solid mass. Gallbladder: Surgically absent. Biliary tree: No intrahepatic or extrahepatic dilation, accounting for age. Spleen: No splenomegaly. Pancreas: No pancreatic ductal dilation. Adrenals: No adrenal nodule. Kidneys and ureters: No hydronephrosis. No renal cystic lesion which requires follow up. No solid mas s. Stomach, bowel and peritoneum: No gastric or small bowel dilation. No abnormal wall thickening. No pa thologic free fluid. Moderately advanced sigmoid diverticulosis without evidence of diverticulitis. Lymph nodes: Definite significant interval growth of a centrally necrotic left periaortic lymph node below the level of the middle pole of the left kidney. On previous image 66/2, it measured 2.6 x 2.2 cm. On current image 52/2, it measures 3.6 x 3.1 cm. Ill-defined periaortic stranding is again noted. There is interval increase in the size of a smaller low-density lymph node posterior to the distal l eft common iliac artery on image 88/2, which measures 1.6 x 1.3 cm.. Vessels: No infrarenal aortic aneurysm. Patent portal vein. PELVIS Reproductive organs: Uterus is surgically absent. No adnexal masses.. Bladder: No abnormal wall thickening, accounting for underdistention. Pelvic lymph nodes: An enlarged enhancing right inguinal lymph node is stable.. Bones: No aggressive osseous abnormality. Other: No significant ventral or inguinal hernia. IMPRESSION: 1. No acute bowel pathology identified. No acute process identified. 2. Definite interval progression of malignant retroperitoneal adenopathy. 3. Stable right inguinal lymph node. 4. Moderately severe sigmoid diverticulosis without evidence of diverticulitis. Reviewed by: Haja Garcia MD on 11/25/2023 9:38 AM PDT Approved by: Haja Garcia MD on 11/25/2023 9:38 AM PDT Station ID: [id number]
[2023-11-25 10:03] VITALS: BP 145/84; O2SAT 98
[2023-11-25] MEDS: iohexoL-300 100 ML VIAL IVP ONE (16:26)
== END 2023-11-25 10:44 | disposition home or self-care (01) ==
LOC: EDUNIT# → ED 07:32
DX: C96.9 Malignant neoplasm of lymphoid, hematopoietic and related tissue, unspecified (principal); K59.00 Constipation, unspecified; R10.9 Unspecified abdominal pain
CPT/HCPCS: 36415; 74177; 80053; 83605; 83690; 85025; 99284; Q9967

== ENCOUNTER 2023-12-01 01:01 | Outpatient (CLI) | payer MEDICARE, OTHER | END 2023-12-01 23:56 | disposition critical access hospital (66) | LOC: EMS 01:01 | DX: R53.1 Weakness (principal); R63.0 Anorexia; R11.0 Nausea | CPT/HCPCS: A0425; A0429 ==

== ENCOUNTER 2023-12-01 01:36 | Emergency (ER) | payer MEDICARE, OTHER ==
[2023-12-01 02:03] LABS: BASOPHILS % (AUTO) 0.2 %; HCT - HEMATOCRIT 42.8 % (37.0-47.0); HGB - HEMOGLOBIN 12.7 g/dL (12.0-16.0); LYMPHOCYTES # (AUTO) 1.1 10^3/uL (1.5-3.5); LYMPHOCYTES % (AUTO) 24.3 %; MEAN CORPUSCULAR HEMOGLOBIN 25.6 pg (27.0-31.0); MEAN CORPUSCULAR HGB CONC 29.7 g/dL (32.0-36.0); MEAN CORPUSCULAR VOLUME 86.1 fL (81.0-99.0); MEAN PLATELET VOLUME 9.4 fL (7.9-10.8); MONOCYTES # (AUTO) 0.4 10^3/uL (0.0-1.0); MONOCYTES % (AUTO) 8.4 %; NEUTROPHILS % (AUTO) 67.1 %; PLT - PLATELET COUNT 223 10^3/uL (130-450); RED BLOOD COUNT 4.97 10^6/uL (4.20-5.40); RED CELL DISTRIBUTION WIDTH 17.4 % (12.0-15.0); WHITE BLOOD COUNT 4.4 x10^3/uL (4.8-10.8)
[2023-12-01] MEDS: SODIUM CHLORIDE 0.9% 1,000 ML IV STA (02:09)
[2023-12-01] MEDS: ONDANSETRON 4 MG/2 ML VIAL IVP STA (02:09)
[2023-12-01 02:20] LABS: ALBUMIN 3.6 g/dL (3.2-5.5); ALBUMIN/GLOBULIN RATIO 1.2 (1.0-2.2); ALKALINE PHOSPHATASE 83 IU/L (42-121); ALT ALANINE AMINOTRANSFERASE 59 IU/L (10-60); AST ASPARTATE AMINOTRANSFERASE 35 IU/L (10-42); BILIRUBIN,TOTAL 0.5 mg/dL (0.2-1.0); BUN - BLOOD UREA NITROGEN 14 mg/dL (6-20); CALCIUM 9.3 mg/dL (8.5-10.3); CARBON DIOXIDE - CO2 32 mmol/L (21-32); CHLORIDE 101 mmol/L (101-111); CREATININE 0.7 mg/dL (0.6-1.3); GFR - MDRD 80 (>89); GLUCOSE 112 mg/dL (74-104); POTASSIUM 3.4 mmol/L (3.5-4.5); SODIUM 139 mmol/L (135-145); TOTAL PROTEIN 6.6 g/dL (6.4-8.9)
[2023-12-01 02:27] LABS: LIPASE < 10 U/L (11-82)
[2023-12-01] MEDS: ACETAMINOPHEN 325 MG TABLET PO STA (04:09)
--- NOTE | 2023-12-01 07:50 | ED Physician Documentation ---
History of Present Illness - Stated complaint Stated Complaint: GEN WEAKNESS - Chief complaint Chief Complaint: General - History obtained from History obtained from: Patient, EMS - Additonal information Additional information: The patient comes to the emergency department chief complaint of generalized weakness and unable to eat much. She states that all she can get down is 3-4 ensures per day. She states that she just feels like her stomach is full. She denies any vomiting. No diarrhea or other changes to her stools. The patient states that she has not had any fevers or chills. She just does not feel like she can take care of herself at home and she is not getting what she needs. She lives by herself other than a roommate who is blind and has diabetes. She states that both of them are in poor health. Medics state that the house is filthy. Patient states she gets her groceries from [employer].The patient was recently seen in the emergency department a couple of weeks ago and was told at that time that she had a mass in her abdomen. The patient has not followed up. She claims nobody told her this but the patient's discharge papers do make reference to this in medical terms. The patient states she is aware of having had a history of lymphoma previously. She also states she has a history of "stomach cancer". 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 HEENT: Cataracts, Tonsil/Adenoidectomy - Present Medications Home Medications: Ambulatory Orders Medication Instructions Recorded Confirmed Apixaban [Eliquis] 5 mg PO BID 01/24/19 12/01/23 - Allergies Allergies/Adverse Reactions: Allergies Allergy/AdvReac Type Severity Reaction Status Date / Time atenolol Allergy Unknown Unknown Verified 12/01/23 01:48 Penicillins Allergy Unknown Verified 12/01/23 01:48 shellfish derived Allergy Emesis Verified 12/01/23 01:48 Sulfa (Sulfonamide Allergy Rash Verified 12/01/23 01:48 Antibiotics) ranitidine [From Zantac] AdvReac "wired" Verified 12/01/23 01:48 - Social History Does the pt smoke?: No Smoking Status: Never smoker Does the pt drink ETOH?: No Does the pt have substance abuse?: No - Immunizations Immunizations are current?: Yes - POLST Patient has POLST: No PD ED PE NORMAL - Vitals Vital signs reviewed: Yes - General General: Alert and oriented X 3, No acute distress - HEENT HEENT: Atraumatic, EOMI, Moist mucous membranes - Neck Neck: Supple, no meningeal sign - Cardiac Cardiac: RRR, No murmur - Respiratory Respiratory: No respiratory distress, Clear bilaterally - Abdomen Abdomen: Soft, Non tender, Non distended - Derm Derm: Normal color, Warm and dry, No rash - Extremities Extremities: No deformity, No edema - Neuro Neuro: Other - Psych Psych: Normal mood, Normal affect Results - Vitals Vitals: Vital Signs - 24 hr 12/01/23 12/01/23 12/01/23 01:45 01:48 02:30 Temperature 36.6 C Heart Rate 82 96 91 Respiratory 18 16 Rate Blood Pressure 145/84 H 142/88 H O2 Saturation 96 100 12/01/23 12/01/23 12/01/23 03:30 05:00 06:30 Temperature Heart Rate 89 89 85 Respiratory 16 16 16 Rate Blood Pressure 150/85 H 146/82 H 143/73 H O2 Saturation 98 96 95 Oxygen O2 Source Room air - Labs Labs: Laboratory Tests 12/01/23 12/01/23 02:00 02:00 WBC 4.4 L RBC 4.97 Hgb 12.7 Hct 42.8 MCV 86.1 MCH 25.6 L MCHC 29.7 L RDW 17.4 H Plt Count 223 MPV 9.4 Neut # (Auto) 3.0 Lymph # (Auto) 1.1 L Glenn # (Auto) 0.4 Eos # (Auto) 0.0 Baso # (Auto) 0.0 Absolute Nucleated RBC 0.00 Nucleated RBC % 0.0 Sodium 139 Potassium 3.4 L Chloride 101 Carbon Dioxide 32 Anion Gap 6.0 BUN 14 Creatinine 0.7 Estimated GFR (MDRD) 80 L Glucose 112 H Calcium 9.3 Total Bilirubin 0.5 AST 35 ALT 59 Alkaline Phosphatase 83 Total Protein 6.6 Albumin 3.6 Globulin 3.0 Albumin/Globulin Ratio 1.2 Lipase < 10 L PD Medical Decision Making - ED course Complexity details: reviewed results, re-evaluated patient, considered differential, d/w patient ED course: I reviewed the patient's prior records, And found that the patient had had extensive workup, including labs and CT scan last time she was here. CT head showed increasing size of renal mass, Plus multiple enlarged lymph nodes concerning for malignancy. I discussed this with the patient who appeared not to know anything about the findings. The patient was established with oncology and I felt that this would be good for follow-up; however, the patient was also having a difficult time taking care of herself at home and as such, I consulted social work. At this time, the patient is awaiting social work evaluation and is signed out to Dr. Rodriguez at change of shift, pending social work evaluation and final disposition. Departure - Departure
[2023-12-01] MEDS: APIXABAN 5 MG TABLET PO STA (08:31)
[2023-12-01 12:10] VITALS: BP 130/72; O2SAT 96
--- NOTE | 2023-12-09 21:21 | ED Physician Documentation ---
ED Addendum - Addendum Addendum: 12/09/23 21:20 Patient was met by Social Work with the shared ecison to add levels of Home Health to her support and patient was comfortable going home. Dispositon: discharge home in stable condition. Diagnoses: General weakness difficulty with self care oncology patient
== END 2023-12-01 12:15 | disposition home or self-care (01) ==
LOC: EDUNIT# → ED 01:36
DX: R53.1 Weakness (principal); R59.1 Generalized enlarged lymph nodes; N28.89 Other specified disorders of kidney and ureter; Z74.2 Need for assistance at home and no other household member able to render care
CPT/HCPCS: 36415; 80053; 83690; 85025; 96374; 99283; 99284; A9270

== ENCOUNTER 2024-01-01 11:19 | Observation (INO) | payer MEDICARE, OTHER ==
[2024-01-01] MEDS: LACTATED RINGERS 1,000 ML IV ONE ×3 (12:09→16:28)
[2024-01-01] MEDS ORDERED: PROPOFOL 500 MG/50 ML 500 MG/50 ML VIAL ONE (12:17)
[2024-01-01] MEDS ORDERED: ceFAZolin 2 GM VIAL ONE (12:18)
[2024-01-01] MEDS ORDERED: fentaNYL 100 MCG/2 ML VIAL ONE (12:19)
--- NOTE | 2024-01-01 12:47 | ANESTHESIA ---
Pre-Anesthesia VS, & Labs - Diagnosis lymphoma - Procedure port placement Vital Signs: Temp Pulse Resp BP Pulse Ox O2 Flow Rate 36.8 C 105 H 18 153/88 H 96 01/01/24 11:54 01/01/24 11:54 01/01/24 11:54 01/01/24 11:54 01/01/24 11:54 Height: 5 ft 4 in Weight (kg): 78 kg Body Mass Index: 29.5 BMI Classification: Overweight - NPO >8 hours - Is Patient ?: No Home Medications and Allergies Home Medications: Ambulatory Orders Acetaminophen [Tylenol Extra Strength] 500 mg PO DAILY 01/01/24 Apixaban [Eliquis] 5 mg PO BID 01/24/19 ondansetron HCL [Ondansetron HCl] 1 tab PO Q8HR PRN 12/07/23 Acetaminophen [Tylenol Extra Strength] 500 mg PO DAILY 01/01/24 Allergies/Adverse Reactions: Allergies Allergy/AdvReac Type Severity Reaction Status Date / Time atenolol Allergy Unknown Unknown Verified 12/01/23 01:48 ciprofloxacin [From Cipro] Allergy Unknown Verified 01/01/24 12:20 Penicillins Allergy Unknown Verified 12/01/23 01:48 shellfish derived Allergy Emesis Verified 12/01/23 01:48 Sulfa (Sulfonamide Allergy Rash Verified 12/01/23 01:48 Antibiotics) ranitidine [From Zantac] AdvReac "wired" Verified 12/01/23 01:48 Anes History & Medical History - Anesthetic History Anesthesia Complications: reports: No previous complications - Medical History Cardiovascular: reports: Atrial fibrillation Pulmonary: reports: None Gastrointestinal: reports: GERD Urinary: reports: Incontinence Neuro: reports: None Musculoskeletal: reports: None Endocrine/Autoimmune: reports: None Blood Disorders: reports: None Skin: reports: None Smoking Status: Never smoker History of Cancer?: Yes - Surgical History General: reports: Cholecystectomy Eyes Ears Nose Throat (EENT): reports: Tonsil/Adenoidectomy Gynecologic: reports: Hysterectomy Exam General: Alert, Oriented x3 Dental: WNL Mouth Opening: Greater than 4 Fingerbreadths Mallampati classification: II Thyromental Distance: greater than 6 cm Respiratory: Lungs clear Cardiovascular: Regular rate, Normal S1, Normal S2 Plan Anesthesia Type: MAC Consent for Procedure(s) Verified and Reviewed: Yes Code Status: Attempt Resuscitation ASA classification: 3-Severe systemic disease Is this case an emergency?: No
[2024-01-01] MEDS ORDERED: BUPIVACAINE 0.25% PF 10 ML VIAL ONE (13:10)
[2024-01-01] MEDS ORDERED: LIDOCAINE 1%-EPI 1:100000 20 ML MDV ONE (13:10)
[2024-01-01] MEDS ORDERED: ACETAMINOPHEN 1,000 MG/100 ML 1,000 MG/100 ML BAG IV ONE (13:33)
[2024-01-01] MEDS: ACETAMINOPHEN IV ONE (13:53)
--- NOTE | 2024-01-01 13:55 | HISTORY & PHYSICAL EXAMINATION ---
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 HEENT: reports: Tonsil/Adenoidectomy - POLST Patient has POLST: No Meds/Allgy - Home Medications Home Medications: Ambulatory Orders Medication Instructions Recorded Confirmed Apixaban [Eliquis] 5 mg PO BID 01/24/19 01/01/24 ondansetron HCL [Ondansetron HCl] 1 tab PO Q8HR PRN 12/07/23 01/01/24 Acetaminophen [Tylenol Extra 500 mg PO DAILY 01/01/24 01/01/24 Strength] - Allergies Allergies/Adverse Reactions: Allergies Allergy/AdvReac Type Severity Reaction Status Date / Time atenolol Allergy Unknown Unknown Verified 12/01/23 01:48 ciprofloxacin [From Cipro] Allergy Unknown Verified 01/01/24 12:20 Penicillins Allergy Unknown Verified 12/01/23 01:48 shellfish derived Allergy Emesis Verified 12/01/23 01:48 Sulfa (Sulfonamide Allergy Rash Verified 12/01/23 01:48 Antibiotics) ranitidine [From Zantac] AdvReac "wired" Verified 12/01/23 01:48 Review of Systems - Other Findings Other Findings: 10 pt ros as above otherwise unremarkable Exam - Vital Signs Vital Signs: Vital Signs x48h Temp Pulse Resp BP Pulse Ox 01/01/24 11:54 36.8 C 105 H 18 153/88 H 96 - Physical Exam General Appearance: positive: No acute distress, Alert Eyes Bilateral: positive: PERRL, EOMI ENT: positive: No signs of dehydration Neck: positive: No JVD Respiratory: positive: No respiratory distress Cardiovascular: positive: Regular rate & rhythm Conclusion/Plan - Problem List (1) Lymphoma of retroperitoneum Conclusion/Plan: plan chemotherapy port placement. parq held and consent obtained
[2024-01-01] MEDS: BUPIVACAINE 0.25% PF 10 ML VIAL SUBQ ONE (14:25)
[2024-01-01] MEDS: LIDOCAINE 1%-EPI 1:100000 20 ML MDV SUBQ ONE (14:25)
[2024-01-01] MEDS ORDERED: PHENYLEPHRINE HCL 0.5 MG/5 ML AMPULE ONE (14:32)
[2024-01-01] MEDS ORDERED: PROPOFOL 200 MG/20 ML VIAL IVP ONE ×3 (14:37→15:17)
[2024-01-01] MEDS ORDERED: HYDROcod/ACETAM 5/325 MG TABLET PO PRN (15:53)
--- NOTE | 2024-01-01 16:00 | OPERATIVE REPORT ---
Operative Report - General Procedure Date: 01/01/24 Planned Procedure: left subclavian power port placement Pre-Op Diagnosis: lymphoma Procedure Performed: right internal jugular power port placement Post Op Diagnosis: lymphoma - Procedure Note Primary Surgeon: flash powers Anesthesia Technique: Local, MAC Pathology: none Estimated Blood Loss (mL): 2 Drain/Tube Type: Other (none) Indications: recurrent lymphoma and need for another port Findings: likely thrombosed/ occluded left sublclavian and proximal right internal jugular. no apparent blood flow on US Complications: no apparent complications. cxr pending - Other Other Information/Narrative: The patient was prepped identified brought to the operating room and placed in supine position. Tall roll was placed between her scapula and upper back area. Sequential compression devices were placed. She was prepped and draped in a sterile fashion and given preoperative antibiotics. She had a previous left subclavian PowerPort. This was removed and unfortunately her lymphoma has recurred. Left subclavian vein access was attempted. Venous return could not be found. Ultrasound was then used. There was no apparent blood flow in the left proximal internal jugular vein. The right internal jugular vein was then accessed. Guidewire was placed. A right chest 3 cm incision was made for port placement. Hemostasis was assured. Portacatheter tubing was pulled through from the right upper chest incision up to the internal jugular access site. Port catheter tubing was flushed. A dilator pull-away sheath was then easily placed on the wire. Portacatheter tubing was placed under fluoroscopic guidance and pulled back to the junction of the atrium and the superior vena cava. Port catheter was cut to size and assembled. It was aspirated and then flushed with heparin. There was good flow and flush. Port catheter was secured with 2 interrupted Prolene sutures. Subcutaneous tissue was closed with interrupted 3- 0 Vicryl suture in buried interrupted subdermal 3-0 Vicryl sutures were placed. Skin was closed with buried interrupted or running 4-0 Monocryl subcuticular suture. Dressings were applied. She tolerated the procedure well was brought to recovery in good condition. Chest x-ray was ordered given the difficulty.
--- NOTE | 2024-01-01 16:01 | ANESTHESIA POST OP EVALUATION ---
Anesthesia Post Eval - Post Anesthesia Eval Vitals: Last Vital Signs Temp 36.0 C L 01/01/24 15:50 Pulse 83 01/01/24 16:00 Resp 18 01/01/24 16:00 BP 144/88 H 01/01/24 16:00 Pulse Ox 98 01/01/24 16:00 O2 Flow Rate CV Function Including HR & BP: Stable Pain Control: Satisfactory Nausea & Vomiting: Negative Mental Status: Baseline Respiratory Status: Airway Patent Hydration Status: Satisfactory Anesthesia Complications: None
[2024-01-01] MEDS ORDERED: HYDROcod/ACETAM 10 MG/325 MG TABLET PO PRN (16:25)
[2024-01-01] MEDS ORDERED: SODIUM CHLORIDE FLUSH 0.9% 10 ML SYRINGE IVP PRN (16:25)
--- NOTE | 2024-01-01 16:57 | PHARMACY PROGRESS NOTE ---
- Best Possible Medication History Admit Date and Time: 01/01/24 1626 Processed by: Nursing Medications reviewed in ED?: No Medication History completed: Yes Patient Interview: Completed Secondary Source(s): Insurance records As the person ultimately responsible for medication therapy, providers are able to order a medication from an existing home medication list in [facility] via the "Reconcile Routine" prior to Confirmation of that medication by account support associate. Such practice is discouraged except when the physician, in their clinical judgment, deems that a medical need exists for a medication without regard to previous use.
--- NOTE | 2024-01-01 17:22 | XRAY Report ---
PROCEDURE: Post Port Placement 1V CXR INDICATIONS: post port placement TECHNIQUE: One view of the chest was acquired. COMPARISON: None. FINDINGS: Surgical changes and devices: Right IJ port tip projects over the mid SVC. Lungs and pleura: Small left pneumothorax. Mediastinum: Mediastinal contours appear normal. Heart size is normal. Bones and chest wall: No suspicious bony lesions. Overlying soft tissues appear unremarkable. IMPRESSION: Small left pneumothorax. No evidence of tension. Right IJ port catheter tip projects over the mid SVC. Message was left with the OR charge nurse to contact the ordering provider. Reviewed by: Ron Kaiser MD on 01/01/2024 5:21 PM PDT Approved by: Ron Kaiser MD on 01/01/2024 5:21 PM PDT Station ID: [id number]
[2024-01-01] MEDS: SODIUM CHLORIDE FLUSH 0.9% 10 ML SYRINGE IVP SCH (17:40)
[2024-01-01] MEDS: ONDANSETRON ODT 4 MG TABLET TL PRN (20:22)
[2024-01-01] MEDS: ACETAMINOPHEN 325 MG TABLET PO PRN (20:31)
--- NOTE | 2024-01-02 06:54 | XRAY Report ---
PROCEDURE: Chest 1V INDICATIONS: pneumothorax after port placement TECHNIQUE: One view of the chest was acquired. COMPARISON: 12/24/2023 FINDINGS: Surgical changes and devices: A port catheter on the right chest wall terminates in the SVC. Lungs and pleura: Small left pneumothorax persists. This is similar. No dense airspace disease. Mediastinum: Heart size is normal and unchanged Bones and chest wall: Left subcutaneous emphysema. Degenerative changes. IMPRESSION: Persistent small left pneumothorax. Left chest wall subcutaneous emphysema. Reviewed by: Chemo Olmedo MD on 01/02/2024 6:53 AM PDT Approved by: Chemo Olmedo MD on 01/02/2024 6:53 AM PDT Station ID: [id number]
--- NOTE | 2024-01-02 07:31 | PROVIDER PROGRESS NOTE ---
Progress Note General Surgery Post-op Note POD # 1 Insertion of a Powerport central line complicated by left pneumothorax S: Fidel is comfortable and without SOB. She has mild left pleuritic pain with deep inspiration but not worse than yesterday. Her port site discomfort is well controlled with oral medication. O: VSS, afeb; AAO; Heart NSR; Lungs - decreased BS left chest, normal right breath sounds; Chest wall - port site dressings dry. No hematoma or ecchymosis at this time CXR 0600 - small left pneumothorax unchanged from yesterday A: Progressing well after port placement. The small left pneumothorax has not changed in size since the procedure and should resolve over the next few days. P: Discharge to home; FU with Medical Oncology as previously arranged; Contact the Surgery Clinic or the ED if she has any issues with the port or with increasing shortness of breath in the meantime. Justice Ledezma MD, FACS General Surgery Service
--- NOTE | 2024-01-02 07:34 | DISCHARGE SUMMARY ---
Discharge Summary Admit Date: 12/31/28 Discharge Date: 01/02/24 Discharging Provider: [place] Code Status: Attempt Resuscitation Condition at Discharge: Good Discharge Disposition: 01 Home, Self Care - DIAGNOSES Admission Diagnoses: Elective insertion of a Powerport central line Discharge Diagnoses with Status of Each Condition: Elective placement of Powerport central line - completed Post-procedure left pneumothorax - small and stable and without need for aspiration or catheter drainage - HPI History of Present Illness: Admitted for elective placement of an implantable infusion port - CONSULTS | PROCEDURES Procedures: 01/01/24 - Insertion of implantable infusion port right IJ - HOSPITAL COURSE Hospital Course: Post-procedure CXR identified a small left pneumothorax. The patient was admitted overnight for observation. She did not develop SOB and an am CXR the following morning displayed no change in the size of the small pneumothorax. Aspiration and catheter drainage was not indicated at this time and she was di scharged to home with instructions to follow-up in the ED if she developed worsening SOB. - ALLERGIES Allergies/Adverse Reactions: Allergies Allergy/AdvReac Type Severity Reaction Status Date / Time atenolol Allergy Unknown Unknown Verified 12/01/23 01:48 ciprofloxacin [From Cipro] Allergy Unknown Verified 01/01/24 12:20 Penicillins Allergy Unknown Verified 12/01/23 01:48 shellfish derived Allergy Emesis Verified 12/01/23 01:48 Sulfa (Sulfonamide Allergy Rash Verified 12/01/23 01:48 Antibiotics) ranitidine [From Zantac] AdvReac "wired" Verified 12/01/23 01:48 - MEDICATIONS Home Medications: Ambulatory Orders Medication Instructions Recorded Confirmed Apixaban [Eliquis] 5 mg PO BID 01/24/19 01/01/24 ondansetron HCL [Ondansetron HCl] 1 tab PO Q8HR PRN 12/07/23 01/01/24 Acetaminophen [Tylenol Extra 500 mg PO DAILY 01/01/24 01/01/24 Strength] HYDROcod/ACETAM 5/325 [Puryear 5/325] 1 each PO Q6H PRN #15 tablet 01/01/24 - PHYSICAL EXAM AT DISCHARGE General Appearance: positive: No acute distress Eyes Bilateral: positive: Normal inspection ENT: positive: ENT inspection nml Neck: positive: Other (No bleeding about right IJ insertion site or port placement site) Respiratory: positive: No respiratory distress Cardiovascular: positive: Regular rate & rhythm Peripheral Pulses: positive: 2+
--- NOTE | 2024-01-02 07:41 | Discharge Plan ---
Discharge Plan Problem Reviewed?: Yes Disposition: Home, Self Care Condition: Good Prescriptions: HYDROcod/ACETAM 5/325 [Coeymans 5/325] 1 each PO Q6H PRN #15 tablet PRN Reason: Pain Diet: Regular Activity Restrictions: No Restrictions Shower Restrictions: No (May start tomorrow.) Driving Restrictions: No Instruction Topics: Device Central Venous Access Health Concerns: Keep dressing over port site on and dry for an additional 24 hours. May remove and shower over the wound after that. Try to keep the small, white steri-strips in place for at least a week. Additional Instructions or Follow Up instructions: Follow-up with your oncologist as per previous instructions Call the Surgery Clinic ([phone]) for questions or concerns related to the port Return to the ED if you develop shortness of breath or difficulty breathing. No Smoking: If you smoke, Please STOP! Call for help.
[2024-01-02 07:50] VITALS: BP 113/75; O2SAT 96
--- NOTE | 2024-01-02 10:18 | XRAY Report ---
PROCEDURE: OR Port-A-Cath INDICATIONS: PORT-A-CATH PLACEMENT CONTRAST: Unknown. FLUORO TIME: 002.5 TECHNIQUE: Real time fluoroscopy was performed of the thorax. COMPARISON: Chest x-ray, 12/24/2023. FINDINGS: 2 intraoperative fluoroscopy images demonstrate a central line catheter in the area of sup erior vena cava. IMPRESSION: Fluoroscopy support for centimeters catheter port placement. Reviewed by: Perri Ferrell MD on 01/02/2024 10:17 AM PDT Approved by: Perri Ferrell MD on 01/02/2024 10:17 AM PDT Station ID: [id number]
== END 2024-01-02 10:10 | disposition home or self-care (01) ==
LOC: SDS 11:19 → MS2 16:26
PROVIDERS: ADMIT Surgery; ATTEND Surgery
DX: C85.93 Non-Hodgkin lymphoma, unspecified, intra-abdominal lymph nodes (principal); J95.811 Postprocedural pneumothorax; I48.91 Unspecified atrial fibrillation; Z79.01 Long term (current) use of anticoagulants
CPT/HCPCS: 36561; 71045; A9270; C1788; G0378; J0131; J2372; J7120; Q0162

== ENCOUNTER 2024-01-13 12:50 | Outpatient (CLI) | payer MEDICARE, OTHER | END 2024-01-13 23:59 | disposition EMS.NT | LOC: EMS 12:50 | DX: R53.1 Weakness (principal); Z74.09 Other reduced mobility ==

== ENCOUNTER 2024-01-14 01:26 | Outpatient (CLI) | payer MEDICARE, OTHER | END 2024-01-14 23:59 | disposition critical access hospital (66) | LOC: EMS 01:26 | DX: R53.1 Weakness (principal) | CPT/HCPCS: A0425; A0429 ==

== ENCOUNTER 2024-01-14 02:00 | Emergency (ER) | payer MEDICARE, OTHER ==
[2024-01-14 02:36] LABS: BASOPHILS % (AUTO) 0.5 %; HCT - HEMATOCRIT 37.1 % (37.0-47.0); HGB - HEMOGLOBIN 11.1 g/dL (12.0-16.0); LYMPHOCYTES % (AUTO) 0.6 %; MEAN CORPUSCULAR HEMOGLOBIN 25.6 pg (27.0-31.0); MEAN CORPUSCULAR HGB CONC 29.9 g/dL (32.0-36.0); MEAN CORPUSCULAR VOLUME 85.5 fL (81.0-99.0); MEAN PLATELET VOLUME 9.1 fL (7.9-10.8); MONOCYTES % (AUTO) 1.2 %; NEUTROPHILS % (AUTO) 84.1 %; PLT - PLATELET COUNT 353 10^3/uL (130-450); RED BLOOD COUNT 4.34 10^6/uL (4.20-5.40); RED CELL DISTRIBUTION WIDTH 18.8 % (12.0-15.0); WHITE BLOOD COUNT 33.1 x10^3/uL (4.8-10.8)
[2024-01-14 02:42] LABS: ABNORMAL LYMPHS % (MANUAL) 0 %
[2024-01-14 02:57] LABS: ALBUMIN/GLOBULIN RATIO 1.1 (1.0-2.2); BILIRUBIN,TOTAL 0.6 mg/dL (0.2-1.0); CALCIUM 9.3 mg/dL (8.5-10.3); CREATININE 0.6 mg/dL (0.6-1.3); POTASSIUM 3.7 mmol/L (3.5-4.5); TOTAL PROTEIN 5.7 g/dL (6.4-8.9)
[2024-01-14 02:58] LABS: BILIRUBIN,URINE NEGATIVE (NEGATIVE); GLUCOSE, URINE (UA) NEGATIVE (NEGATIVE); KETONES,URINE (UA) NEGATIVE (NEGATIVE); LEUKOCYTE ESTERASE, URINE TRACE (NEGATIVE); NITRITE,URINE NEGATIVE (NEGATIVE); OCCULT BLOOD,URINE TRACE-INTA (NEGATIVE); PROTEIN,URINE NEGATIVE (NEGATIVE); UROBILINOGEN,URINE 0.2 (NORMAL) E.U./dL (NORMAL)
[2024-01-14 03:03] LABS: CLARITY,URINE CLEAR (CLEAR)
[2024-01-14 03:06] LABS: BACTERIA,URINE Few /HPF (None Seen); RBC,URINE 0-5 /HPF (0-5); SQUAMOUS EPITHELIAL CELL,UR MOD Squamous (<= Few)
[2024-01-14 03:10] LABS: BAND NEUTROPHILS % (MANUAL) 16 %; LYMPHOCYTES # (MANUAL) 0.7 10^3/uL (1.5-3.5); LYMPHOCYTES % (MANUAL) 2 %; MONOCYTES # (MANUAL) 0.3 10^3/uL (0.0-1.0); NEUTROPHILS # (MANUAL) 32.1 10^3/uL (1.5-6.6)
[2024-01-14 03:11] LABS: DIFFERENTIAL COMMENT MANUAL DIFFERENTIAL; PLATELET ESTIMATE, MANUAL NORMAL (130-450,000) (NORMAL)
--- NOTE | 2024-01-14 04:06 | ED Physician Documentation ---
History of Present Illness - Stated complaint Stated Complaint: WEAKNESS 2 WEEKS S/P CHEMO - Chief complaint Chief Complaint: General - History obtained from History obtained from: Patient - Additonal information Additional information: BIBA. HPI from patient. Patient c/o generalized weakness , ongoing for a few weeks. She was evaluated twice in this ED in November (2 months ago), with test results that eventually resulted in initiation of chemotherapy for treatment of recurrence of follicular lymphoma. She had her first round of chemotherapy this past Thursday (3 days ago). In preparation for the chemotherapy, she had placement of chest Port-A-Cath towards the end of December; this procedure was performed at [facility], complicated by left-sided small pneumothorax. Review of Systems Constitutional: reports: Fatigue. denies: Fever, Chills, Sweats Cardiac: reports: Reviewed and negative Respiratory: reports: Reviewed and negative GI: reports: Reviewed and negative Neurologic: reports: Generalized weakness. 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 HEENT: Tonsil/Adenoidectomy - Present Medications Home Medications: Ambulatory Orders Medication Instructions Recorded Confirmed Apixaban [Eliquis] 5 mg PO BID 12/28/23 01/14/24 predniSONE [Prednisone] 50 mg PO DAILY 01/04/24 01/14/24 - Allergies Allergies/Adverse Reactions: Allergies Allergy/AdvReac Type Severity Reaction Status Date / Time atenolol Allergy Unknown Unknown Verified 01/14/24 02:10 ciprofloxacin [From Cipro] Allergy Unknown Verified 01/14/24 02:10 Penicillins Allergy Unknown Verified 01/14/24 02:10 shellfish derived Allergy Emesis Verified 01/14/24 02:10 Sulfa (Sulfonamide Allergy Rash Verified 01/14/24 02:10 Antibiotics) ranitidine [From Zantac] AdvReac "wired" Verified 01/14/24 02:10 - Social History Does the pt smoke?: No Smoking Status: Never smoker Does the pt drink ETOH?: No Does the pt have substance abuse?: No - Immunizations Immunizations are current?: Yes - POLST Patient has POLST: No PD ED PE NORMAL - Vitals Vital signs reviewed: Yes - General General: Alert and oriented X 3, No acute distress, Well developed/nourished - HEENT HEENT: Moist mucous membranes - Neck Neck: Supple, no meningeal sign - Cardiac Cardiac: RRR, No murmur - Respiratory Respiratory: No respiratory distress - Abdomen Abdomen: Soft, Non tender, Non distended - Derm Derm: Normal color, Warm and dry - Extremities Extremities: No edema PD ED PE EXPANDED - Respiratory Respiratory: Decreased breath sounds (left apex) Results - Vitals Vitals: Vital Signs - 24 hr 01/14/24 01/14/24 01/14/24 02:10 03:14 05:00 Temperature 37.1 C 36.5 C Heart Rate 85 76 84 Respiratory 16 24 18 Rate Blood Pressure 139/79 H 151/67 H 154/67 H O2 Saturation 97 97 99 01/14/24 01/14/24 07:53 08:52 Temperature 36.1 C L 36.5 C Heart Rate 91 101 H Respiratory 19 21 Rate Blood Pressure 148/71 H 145/67 H O2 Saturation 100 100 Oxygen O2 Source Room air - Labs Labs: Laboratory Tests 01/14/24 01/14/24 01/14/24 02:29 02:29 02:29 WBC 33.1 H RBC 4.34 Hgb 11.1 L Hct 37.1 MCV 85.5 MCH 25.6 L MCHC 29.9 L RDW 18.8 H Plt Count 353 MPV 9.1 Neut # (Auto) Not Reportable Lymph # (Auto) Not Reportable Beckham # (Auto) Not Reportable Eos # (Auto) Not Reportable Baso # (Auto) Not Reportable Absolute Nucleated RBC Not Reportable Total Counted 100 Band Neuts % (Manual) 16 H Abnorm Lymph % (Manual) 0 Nucleated RBC % Not Reportable Neutrophils # (Manual) 32.1 H Lymphocytes # (Manual) 0.7 L Monocytes # (Manual) 0.3 Eosinophils # (Manual) 0.0 Basophils # (Manual) 0.0 Differential Comment MANUAL DIFFERENTIAL Platelet Estimate NORMAL (130-450,000) RBC Morph Micro Appear 1+ MICROCYTOSIS Sodium 142 Potassium 3.7 Chloride 106 Carbon Dioxide 29 Anion Gap 7.0 BUN 21 H Creatinine 0.6 Estimated GFR (MDRD) 96 Glucose 150 H Calcium 9.3 Phosphorus 2.3 L Magnesium 1.9 Total Bilirubin 0.6 AST 24 ALT 15 Alkaline Phosphatase 78 Total Protein 5.7 L Albumin 3.0 L Globulin 2.7 Albumin/Globulin Ratio 1.1 Lipase 83 H Urine Color Urine Clarity Urine pH Ur Specific [place] Urine Protein Urine Glucose (UA) Urine Ketones Urine Occult Blood Urine Nitrite Urine Bilirubin Urine Urobilinogen Ur Leukocyte Esterase Urine RBC Urine WBC Ur Squamous Epith Cells Urine Bacteria Ur Microscopic Review Urine Culture Comments 01/14/24 02:53 WBC RBC Hgb Hct MCV MCH MCHC RDW Plt Count MPV Neut # (Auto) Lymph # (Auto) Beckham # (Auto) Eos # (Auto) Baso # (Auto) Absolute Nucleated RBC Total Counted Band Neuts % (Manual) Abnorm Lymph % (Manual) Nucleated RBC % Neutrophils # (Manual) Lymphocytes # (Manual) Monocytes # (Manual) Eosinophils # (Manual) Basophils # (Manual) Differential Comment Platelet Estimate RBC Morph Micro Appear Sodium Potassium Chloride Carbon Dioxide Anion Gap BUN Creatinine Estimated GFR (MDRD) Glucose Calcium Phosphorus Magnesium Total Bilirubin AST ALT Alkaline Phosphatase Total Protein Albumin Globulin Albumin/Globulin Ratio Lipase Urine Color YELLOW Urine Clarity CLEAR Urine pH 6.0 Ur Specific [place] 1.020 Urine Protein NEGATIVE Urine Glucose (UA) NEGATIVE Urine Ketones NEGATIVE Urine Occult Blood TRACE-INTA Urine Nitrite NEGATIVE Urine Bilirubin NEGATIVE Urine Urobilinogen 0.2 (NORMAL) Ur Leukocyte Esterase TRACE H Urine RBC 0-5 Urine WBC 6-10 H Ur Squamous Epith Cells MOD Squamous H Urine Bacteria Few Ur Microscopic Review INDICATED Urine Culture Comments NOT INDICATED - Rads (name of study) chest xray Relevant Findings:: Prelim report reviewed, See rad report PD Medical Decision Making - ED course Complexity details: reviewed old records, reviewed results, re-evaluated patient, considered differential, d/w patient ED course: Leukocytosis noted on otherwise unremarkable CBC. WBC 33, was 8.2 three days ago. No concerning or diagnostic findings on ER abdominal panel. Chest x-ray again demonstrates left-sided pneumothorax, although it is noticeably larger compared to the x-rays performed towards the end of December. I spoke with her oncologist (Dr. Manuel Sarmiento) regarding her leukocytosis. He says this is an expected finding, as she was given a shot of Neupogen immediately following the chemotherapy that she had a few days ago. Her next round of chemotherapy is scheduled for 3 weeks from now. Regarding the patient's pneumothorax, she is in no respiratory distress, speaking in full sentences, with 100% pulse ox on room air. Her chief and only complaint is generalized weakness which has been ongoing for at least the past several weeks. The results of tonight's tests thus far do not suggest an etiology for her weakness. Given the increased size of the pneumothorax on plain film xray, I then ordered CT chest. The results of this study are pending at the end of my shift and thus care of this patient is turned over to oncoming ED physician (Dr. Rodriguez). Departure - Departure Forms: PCP List
[2024-01-14] MEDS: SODIUM CHLORIDE 0.9% 1,000 ML IV STA (08:32)
[2024-01-14 08:40] LABS: MAGNESIUM 1.9 mg/dL (1.7-2.3); PHOSPHORUS 2.3 mg/dL (2.5-5.0)
[2024-01-14] MEDS: NEUTRA-PHOS 250 MG TABLET PO STA (09:17)
--- NOTE | 2024-01-14 11:03 | XRAY Report ---
PROCEDURE: Chest 1V INDICATIONS: weakness TECHNIQUE: One view of the chest was acquired. COMPARISON: Chest x-ray 01/02/2024 FINDINGS: Surgical changes and devices: None. Lungs and pleura: Left pneumothorax measuring 1.9 cm. Mild left effusion. Mediastinum: Mediastinal contours appear normal. Heart size is mildly enlarged. Bones and chest wall: No suspicious bony lesions. Overlying soft tissues appear unremarkable. No visualized rib fractures. IMPRESSION: Moderate left pneumothorax without midline shift. The above findings are concordant with preliminary report. Reviewed by: Kristy Trevino MD on 01/14/2024 11:02 AM PDT Approved by: Kristy Trevino MD on 01/14/2024 11:02 AM PDT Station ID: [id number]
[2024-01-14] MEDS: KETOROLAC 15 MG/ML VIAL IVP STA (11:04)
--- NOTE | 2024-01-14 11:13 | CT Report ---
PROCEDURE: Chest WO INDICATIONS: left pneumothorax TECHNIQUE: A CT scan of the chest was performed. Intravenous contrast media was not administered. Images were re corded and evaluated at appropriate window settings. Reformats: axial MIP of the chest, coronal and s agittal. For radiation dose reduction, the following was used: automated exposure control, adjustment of mA and/or kV according to patient size. COMPARISON: Chest x-ray 01/14/2024, 01/02/2024, 01/01/2024. 4. FINDINGS: Image quality: Diagnostic. Chest wall and lower neck: No thyroid nodule which requires sonographic follow up. No axillary or sup raclavicular adenopathy by size. Lungs and pleura: Moderate left pneumothorax measuring approximately 3.6 cm, better visualized compar ed to chest x-ray. Mild to moderate left pleural effusion. No midline shift is clearly identified. It has minimally increased compared to prior chest x-ray on 01/02/2024 at which point it measured 1.8 cm on x-ray compared to 1.9 on x-ray on today's x-ray exam Mediastinum: Heart size is normal. No pericardial effusion. No large vessel abnormality. No mediastin al adenopathy by size criteria. Right Port-A-Cath is present unchanged in appearance. There is subcu taneous air within the fat of the anterior chest wall on the left. Bones: No aggressive osseous abnormality. Upper Abdomen: Unremarkable. IMPRESSION: Left pneumothorax which has increased since initial visualization on 01/01/2024 with slight interval i ncrease in 01/02/2024. No midline shift. Reviewed by: Kristy Trevino MD on 01/14/2024 11:12 AM PDT Approved by: Kristy Trevino MD on 01/14/2024 11:12 AM PDT Station ID: [id number]
--- NOTE | 2024-01-14 11:44 | CONSULTATION NOTE ---
Referring Provider Consult Date: 01/14/24 Chief Complaint - Chief Complaint Chief Complaint: progressive weakness History of Present Illness - History Obtained From Records Reviewed: yes History obtained from: pt Exam Limitations: none - History of Present Illness HPI Comment/Other: progressive weakness. lives alone. could not get up out of bed last night. was having a difficult time getting food. difficult chemotherapy port placement a week ago. small pneumothorax on the left occurred. she continues to have a small pneumothorax by cxr and ct. 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 HEENT: reports: Tonsil/Adenoidectomy - POLST Patient has POLST: No Meds/Allgy - Home Medications Home Medications: Ambulatory Orders Medication Instructions Recorded Confirmed Apixaban [Eliquis] 5 mg PO BID 12/28/23 01/14/24 predniSONE [Prednisone] 50 mg PO DAILY 01/04/24 01/14/24 - Allergies Allergies/Adverse Reactions: Allergies Allergy/AdvReac Type Severity Reaction Status Date / Time atenolol Allergy Unknown Unknown Verified 01/14/24 02:10 ciprofloxacin [From Cipro] Allergy Unknown Verified 01/14/24 02:10 Penicillins Allergy Unknown Verified 01/14/24 02:10 shellfish derived Allergy Emesis Verified 01/14/24 02:10 Sulfa (Sulfonamide Allergy Rash Verified 01/14/24 02:10 Antibiotics) ranitidine [From Zantac] AdvReac "wired" Verified 01/14/24 02:10 Exam - Vital Signs Vital Signs: Vital Signs x48h Temp Pulse Resp BP Pulse Ox 01/14/24 11:00 94 20 160/76 H 100 01/14/24 08:52 36.5 C 101 H 21 145/67 H 100 01/14/24 07:53 36.1 C L 91 19 148/71 H 100 01/14/24 05:00 36.5 C 84 18 154/67 H 99 - Physical Exam General Appearance: positive: No acute distress, Alert Respiratory: positive: No respiratory distress Neurologic/Psychiatric: positive: Oriented x3 Conclusion/Plan - Problem List (1) General weakness Conclusion/Plan: small pneumothorax after difficult port placement 1 week ago. chest tube placement not indicated. - Lab Results Fish Bones: 01/14/24 02:29 01/14/24 02:29
--- NOTE | 2024-01-14 14:44 | ED Physician Documentation ---
ED Addendum - Addendum Addendum: 01/14/24 14:42 The patient had general weakness and nausea subsequent to chemotherapy. She states that had started even before that but was worsened. She has a persistent pneumothorax status post port placement a week ago. At change of shift consult Tatian was being made with Dr. Ibrahim who replaced the port with regard to any further treatment for the pneumothorax. On x-ray and CT it does appear similar or slightly expanded compared to prior. Dr. Huynh was then surgical case when first contacted. He would come to the department when he was available. He subsequently did come to the department and talked with the patient. He wrote a consultation note stating they would just watch the pneumothorax and give it more time to resolve. I did not notice the note in initially and I had missed Dr. Shah's when he was in the department. It was about 2 hours later I noticed that it was there and I had not realize he had been available and came to see the patient already. I talked with the patient and she concurred that it was a noninterventional at this time. She was feeling a bit less generally weak after IV fluids and medications here. She was concerned about being able to walk on her own. We did do a road test with nursing assistance and she was able to walk in dependently. At this point we will discharge the patient. No obvious admission criteria. Assume volume depletion related to lack of intake and nausea. Disposition: The patient discharged home in stable condition Diagnoses: 1. Status post chemotherapy 2. Generalized weakness 3. Volume depletion 4. Persistent left pneumothorax
[2024-01-14 14:57] VITALS: O2SAT 97
[2024-01-14 15:28] VITALS: BP 145/66
== END 2024-01-14 15:50 | disposition home or self-care (01) ==
LOC: ED 02:00
DX: R53.1 Weakness (principal); E86.9 Volume depletion, unspecified; J93.9 Pneumothorax, unspecified; R11.0 Nausea; C82.90 Follicular lymphoma, unspecified, unspecified site; D72.829 Elevated white blood cell count, unspecified; I48.91 Unspecified atrial fibrillation; Z79.60 Long term (current) use of unspecified immunomodulators and immunosuppressants; Z79.01 Long term (current) use of anticoagulants; Z79.899 Other long term (current) drug therapy
CPT/HCPCS: 36415; 71045; 71250; 80053; 81001; 83690; 83735; 84100; 85025; 96361; 96374; 99284; A9270; 81003; 87086

== ENCOUNTER 2024-01-18 03:40 | Outpatient (CLI) | payer MEDICARE, OTHER | END 2024-01-18 23:59 | disposition critical access hospital (66) | LOC: EMS 03:40 | DX: R07.0 Pain in throat (principal); K13.79 Other lesions of oral mucosa | CPT/HCPCS: A0425; A0429 ==

== ENCOUNTER 2024-01-18 04:17 | Emergency (ER) | payer MEDICARE, OTHER ==
--- NOTE | 2024-01-18 04:42 | ED Physician Documentation ---
History of Present Illness - Stated complaint Stated Complaint: MOUTH/THROAT PX - Chief complaint Chief Complaint: Heent - History obtained from History obtained from: Patient, EMS - Additonal information Additional information: The patient comes to the emergency department chief complaint of pain in her mouth and throat since being on chemotherapy. She just had her second treatment a couple of days ago and states that she has a very dry mouth and has sores. She is using a mouthwash for this but states she is too weak to stand up to take it. She states she is already talked to social work about her home situation and that "they have already looked into all that shit". She states that they have ordered some devices for her to have at home, but that all she has is a walker right now. She states rarely gets gated still in her bathroom. She states that she probably would benefit from going to a alf until she gets better. She states she has a cousin that lives nearby but all of her relatives are older than her. She states she does not have any children. No other complaints at this time. 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 HEENT: Tonsil/Adenoidectomy - Present Medications Home Medications: Ambulatory Orders Medication Instructions Recorded Confirmed Apixaban [Eliquis] 5 mg PO BID 12/28/23 01/18/24 Famotidine 40 mg PO DAILY 01/18/24 01/18/24 - Allergies Allergies/Adverse Reactions: Allergies Allergy/AdvReac Type Severity Reaction Status Date / Time atenolol Allergy Unknown Unknown Verified 01/14/24 02:10 ciprofloxacin [From Cipro] Allergy Unknown Verified 01/14/24 02:10 Penicillins Allergy Unknown Verified 01/14/24 02:10 shellfish derived Allergy Emesis Verified 01/14/24 02:10 Sulfa (Sulfonamide Allergy Rash Verified 01/14/24 02:10 Antibiotics) ranitidine [From Zantac] AdvReac "wired" Verified 01/14/24 02:10 - Social History Does the pt smoke?: No Smoking Status: Never smoker Does the pt drink ETOH?: No Does the pt have substance abuse?: No - Immunizations Immunizations are current?: Yes - POLST Patient has POLST: No PD ED PE NORMAL - Vitals Vital signs reviewed: Yes - General General: Alert and oriented X 3, No acute distress, Well developed/nourished - HEENT HEENT: Atraumatic, PERRL, EOMI, Other (Mucous membranes are somewhat dry and patient has aphthous ulcers and sores inside of her mouth.) - Neck Neck: Supple, no meningeal sign - Cardiac Cardiac: RRR, No murmur - Respiratory Respiratory: No respiratory distress, Clear bilaterally - Abdomen Abdomen: Soft, Non tender, Non distended - Derm Derm: Normal color, Warm and dry, No rash - Extremities Extremities: No deformity, No edema - Neuro Neuro: Other (Alert and grossly intact.) - Psych Psych: Normal mood, Normal affect Results - Vitals Vitals: Vital Signs - 24 hr 01/18/24 01/18/24 04:20 05:23 Temperature 36.9 C Heart Rate 104 H 94 Respiratory 20 16 Rate Blood Pressure 130/80 115/64 O2 Saturation 94 99 If not protocol 2 : Oxygen Flow, liters/minute Oxygen O2 Source Nasal cannula - Labs Labs: Laboratory Tests 01/18/24 01/18/24 04:49 04:49 WBC 0.2 L* RBC 3.72 L Hgb 9.7 L Hct 31.5 L MCV 84.7 MCH 26.1 L MCHC 30.8 L RDW 18.0 H Plt Count 100 L MPV 9.5 Neut # (Auto) 0.0 L* Lymph # (Auto) 0.1 L [place] # (Auto) 0.0 Eos # (Auto) 0.1 Baso # (Auto) 0.0 Absolute Nucleated RBC 0.00 Total Counted 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 COUNSELOR Band Neuts % (Manual) Not Reportable Abnorm Lymph % (Manual) Not Reportable Nucleated RBC % 0.0 Neutrophils # (Manual) Not Reportable Lymphocytes # (Manual) Not Reportable Monocytes # (Manual) Not Reportable Eosinophils # (Manual) Not Reportable Basophils # (Manual) Not Reportable Differential Comment MANUAL=AUTO DIFF Platelet Estimate NORMAL (130-450,000) Platelet Morphology NORMAL APPEARANCE Sodium 139 Potassium 3.2 L Chloride 102 Carbon Dioxide 32 Anion Gap 5.0 L BUN 11 Creatinine 0.4 L Estimated GFR (MDRD) 153 Glucose 113 H Calcium 8.8 Total Bilirubin 0.9 AST 25 ALT 59 Alkaline Phosphatase 59 Total Protein 5.5 L Albumin 2.9 L Globulin 2.6 Albumin/Globulin Ratio 1.1 Lipase < 10 L PD Medical Decision Making - ED course Complexity details: reviewed old records, reviewed results, re-evaluated patient, considered differential, d/w patient ED course: I reviewed the patient's records and she was worked up with laboratory studies. She was treated symptomatically with IV fluids and both systemic and local analgesia. The patient's labs showed white blood cell count of 0.2 and neutrophil count of 0.The patient was not acutely ill with anything, and did not seem, though she was quite ill chronically. She did not seem to be doing very well at taking care of herself at home, so social work was consulteed Consult is pending at this time. Patient signed out to Dr. Forman at change of shift, pending social work consultation and final disposition. Departure - Departure Forms: PCP List
[2024-01-18] MEDS: LIDOCAINE VISCOUS 2% 15 ML UDC MM STA (04:53)
[2024-01-18] MEDS: SODIUM CHLORIDE 0.9% 1,000 ML IV STA ×2 (04:53→23:42)
[2024-01-18] MEDS: HYDROmorphone 1 MG/ML CARPUJECT IVP STA ×2 (04:53→23:42)
[2024-01-18] MEDS: MAG HYDROX/AL HYDROX/SIMETH 30 ML UDC PO STA (04:54)
[2024-01-18 05:00] LABS: EOSINOPHILS # (AUTO) 0.1 10^3/uL (0.0-0.7); EOSINOPHILS % (AUTO) 23.8 %; HCT - HEMATOCRIT 31.5 % (37.0-47.0); HGB - HEMOGLOBIN 9.7 g/dL (12.0-16.0); LYMPHOCYTES # (AUTO) 0.1 10^3/uL (1.5-3.5); LYMPHOCYTES % (AUTO) 47.6 %; MEAN CORPUSCULAR HEMOGLOBIN 26.1 pg (27.0-31.0); MEAN CORPUSCULAR HGB CONC 30.8 g/dL (32.0-36.0); MEAN CORPUSCULAR VOLUME 84.7 fL (81.0-99.0); MEAN PLATELET VOLUME 9.5 fL (7.9-10.8); MONOCYTES % (AUTO) 14.3 %; NEUTROPHILS % (AUTO) 14.3 %; PLT - PLATELET COUNT 100 10^3/uL (130-450); RED BLOOD COUNT 3.72 10^6/uL (4.20-5.40)
[2024-01-18 05:26] LABS: ALBUMIN 2.9 g/dL (3.2-5.5); ALBUMIN/GLOBULIN RATIO 1.1 (1.0-2.2); ALKALINE PHOSPHATASE 59 IU/L (42-121); ALT ALANINE AMINOTRANSFERASE 59 IU/L (10-60); AST ASPARTATE AMINOTRANSFERASE 25 IU/L (10-42); BILIRUBIN,TOTAL 0.9 mg/dL (0.2-1.0); BUN - BLOOD UREA NITROGEN 11 mg/dL (6-20); CALCIUM 8.8 mg/dL (8.5-10.3); CARBON DIOXIDE - CO2 32 mmol/L (21-32); CHLORIDE 102 mmol/L (101-111); CREATININE 0.4 mg/dL (0.6-1.3); GFR - MDRD 153 (>89); GLUCOSE 113 mg/dL (74-104); POTASSIUM 3.2 mmol/L (3.5-4.5); SODIUM 139 mmol/L (135-145); TOTAL PROTEIN 5.5 g/dL (6.4-8.9)
[2024-01-18 05:29] LABS: LIPASE < 10 U/L (11-82)
[2024-01-18 05:46] LABS: WHITE BLOOD COUNT 0.2 x10^3/uL (4.8-10.8)
[2024-01-18 06:54] LABS: DIFFERENTIAL COMMENT MANUAL=AUTO DIFF; PLATELET ESTIMATE, MANUAL NORMAL (130-450,000) (NORMAL); PLATELET MORPHOLOGY NORMAL APPEARANCE (NORMAL)
--- NOTE | 2024-01-18 17:18 | PHARMACY PROGRESS NOTE ---
- Best Possible Medication History Admit Date and Time: Processed by: Pharmacy Medications reviewed in ED?: Yes Medication History completed: Yes Patient Interview: Completed (BY MR TEACHERCHUCHO) Secondary Source(s): Insurance records As the person ultimately responsible for medication therapy, providers are able to order a medication from an existing home medication list in [facility] via the "Reconcile Routine" prior to Confirmation of that medication by product support manager. Such practice is discouraged except when the physician, in their clinical judgment, deems that a medical need exists for a medication without regard to previous use.
--- NOTE | 2024-01-18 18:47 | ED Physician Documentation ---
ED Addendum - Addendum Addendum: 01/18/24 18:46 Patient was signed out to me by Dr. Ba, please see her note for full H&P on this patient. The patient was boarded in the emergency department today. Social work consulted. They are trying to find respite care for the patient. There were no further developments in this patient's care today. Patient will be signed out to the oncoming emergency department physician. This document was made in part using voice recognition software. While efforts are made to proofread this document, sound alike and grammatical errors may occur.
[2024-01-18] MEDS: MORPHINE 2 MG/ML CARPUJECT IVP STA (23:39)
[2024-01-19] MEDS: APIXABAN 5 MG TABLET PO SCH (09:08)
[2024-01-19] MEDS: FAMOTIDINE 20 MG TABLET PO SCH (09:08)
[2024-01-19] MEDS: NYSTATIN 500000 UNITS/5 ML UDC PO SCH (09:08)
--- NOTE | 2024-01-19 13:22 | ED Physician Documentation ---
ED Addendum - Addendum Addendum: 01/19/24 13:22 Patient continues to board in the emergency department, awaiting placement with social work. No acute changes during my shift. Patient signed out to the oncoming emergency department physician.
[2024-01-20] MEDS: HYDROcod/ACETAM 5/325 MG TABLET PO STA (01:27)
[2024-01-20] MEDS ORDERED: FAMOTIDINE 20 MG TABLET PO SCH (08:07)
--- NOTE | 2024-01-20 14:54 | ED Physician Documentation ---
ED Addendum - Addendum Addendum: 01/20/24 14:51 Social work Ann was working with the patient again today. As I understand it, the options available all involved some level of spend down which the patient was reluctant on. Since the placement were not therefore really an option, the decision with patient and social work was to have the patient discharged home. She has been eating here on her own. She has been up to commode with a walker on her own. It seems at this point we will discharge the patient. Under standing being of mine as the patient has a ramp being installed today and already has hand bars in the shower and will be looking toward hiring home health aides to come in and help her during the day. She has Meals on Wheels though she does not really like the food. It does seem coordination of care is in place. Disposition: Patient is discharged home in stable condition Diagnoses: 1. Cancer treatment 2. Weakness secondary to chemotherapy 3. Generalized weakness
[2024-01-20 15:55] VITALS: BP 156/92; O2SAT 100
== END 2024-01-20 15:15 | disposition home or self-care (01) ==
LOC: EDUNIT# → ED 04:17
DX: R53.1 Weakness (principal); K12.0 Recurrent oral aphthae; K13.79 Other lesions of oral mucosa; T45.1X5A Adverse effect of antineoplastic and immunosuppressive drugs, initial encounter; Z74.1 Need for assistance with personal care; Z76.4 Other boarder to healthcare facility
CPT/HCPCS: 36415; 80053; 83690; 85025; 96374; 96376; 97162; 97166; 99283; 99285; A9270; J1170

== ENCOUNTER 2024-01-27 13:46 | Outpatient (CLI) | payer MEDICARE, OTHER | END 2024-01-27 23:59 | disposition EMS.NT | LOC: EMS 13:46 | DX: Z03.89 Encounter for observation for other suspected diseases and conditions ruled out (principal) ==

== ENCOUNTER 2024-02-17 08:00 | Outpatient (CLI) | payer MEDICARE, OTHER | END 2024-02-17 23:59 | disposition home or self-care (01) | LOC: PC 08:00 | PROVIDERS: ATTEND Nurse Practitioner Adult Health | DX: Z51.5 Encounter for palliative care (principal); B37.0 Candidal stomatitis; C82.90 Follicular lymphoma, unspecified, unspecified site; H35.30 Unspecified macular degeneration; M62.81 Muscle weakness (generalized); M25.551 Pain in right hip; M25.552 Pain in left hip; K21.9 Gastro-esophageal reflux disease without esophagitis; F41.9 Anxiety disorder, unspecified; F32.A Depression, unspecified; Z71.89 Other specified counseling | CPT/HCPCS: 99205; G2212; 99417 ==

== ENCOUNTER 2024-03-01 15:05 | Outpatient (CLI) | payer MEDICARE, OTHER | END 2024-03-01 23:59 | disposition home or self-care (01) | LOC: PC 15:05 | PROVIDERS: ATTEND Nurse Practitioner Adult Health | DX: Z51.5 Encounter for palliative care (principal); B37.0 Candidal stomatitis; B37.2 Candidiasis of skin and nail; M62.81 Muscle weakness (generalized); C82.95 Follicular lymphoma, unspecified, lymph nodes of inguinal region and lower limb; K21.9 Gastro-esophageal reflux disease without esophagitis; H35.30 Unspecified macular degeneration; R63.4 Abnormal weight loss; Z71.89 Other specified counseling; Z79.899 Other long term (current) drug therapy; Z79.01 Long term (current) use of anticoagulants; I48.0 Paroxysmal atrial fibrillation; Z74.01 Bed confinement status; Z74.1 Need for assistance with personal care | CPT/HCPCS: 99215 ==

== ENCOUNTER 2024-03-14 18:20 | Outpatient (CLI) | payer MEDICARE, OTHER | END 2024-03-14 23:59 | disposition critical access hospital (66) | LOC: EMS 18:20 | DX: R10.12 Left upper quadrant pain (principal); R10.11 Right upper quadrant pain; R55 Syncope and collapse | CPT/HCPCS: A0425; A0427 ==

== ENCOUNTER 2024-03-14 19:04 | Emergency (ER) | payer MEDICARE, OTHER ==
--- NOTE | 2024-03-14 19:24 | ED Physician Documentation ---
PD HPI ABD PAIN - Stated complaint Stated Complaint: ABD PAIN - Chief complaint Chief Complaint: Abd Pain - History obtained from History obtained from: Patient - History of Present Illness Timing - onset: How many months ago (has had pain left abd and flank as well as epigastric for months, with Dx of lymphoma and has had 1 round of chemo so far 3 weeks ago and due for next round this coming week. Feeling general weakness and has had less PO intake for few days as well. Taking Tylenol regularly that was helping, now not.) Timing - details: Gradual onset, Still present, Waxing and waning Quality: Cramping, Aching, Pain Location: LLQ Improved by: No: Position Worsened by: Eating, Moving. No: Breathing Associated symptoms: Nausea. No: Fever, Vomiting, Constipation, Dysuria Review of Systems Constitutional: reports: Fatigue (general weakness and unable to get up out of bed to her walker due to less energy and feeling dehydrated). 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 HEENT: Tonsil/Adenoidectomy - Present Medications Home Medications: Ambulatory Orders Medication Instructions Recorded Confirmed Apixaban [Eliquis] 5 mg PO BID 12/28/23 01/18/24 Famotidine 40 mg PO HS 01/18/24 01/19/24 Nystatin/Triamcinolone Acet 15 gm TP BID 01/18/24 01/18/24 [Nystatin-Triamcinolone Ointm] Nystatin [Mycostatin] 5 ml PO QID 01/25/24 01/25/24 Docusate Sodium 100Mg Capsule 100 mg PO DAILY #20 cap 03/14/24 [Colace 100Mg Capsule] HYDROcod/ACETAM 5/325 [[place] 5/325] 1 ea PO Q8H PRN #20 tablet 03/14/24 Pantoprazole [Protonix] 40 mg PO DAILY 30 Days #30 tablet 03/14/24 - Allergies Allergies/Adverse Reactions: Allergies Allergy/AdvReac Type Severity Reaction Status Date / Time atenolol Allergy Unknown Unknown Verified 03/14/24 19:15 ciprofloxacin [From Cipro] Allergy Unknown Verified 03/14/24 19:15 Penicillins Allergy Unknown Verified 03/14/24 19:15 shellfish derived Allergy Emesis Verified 03/14/24 19:15 Sulfa (Sulfonamide Allergy Rash Verified 03/14/24 19:15 Antibiotics) ranitidine [From Zantac] AdvReac "wired" Verified 03/14/24 19:15 - Social History Does the pt smoke?: No Smoking Status: Never smoker Does the pt drink ETOH?: No Does the pt have substance abuse?: No - Immunizations Immunizations are current?: Yes - POLST Patient has POLST: No PD ED PE NORMAL - Vitals Vital signs reviewed: Yes - General General: Alert and oriented X 3, Well developed/nourished - Cardiac Cardiac: RRR, No murmur - Respiratory Respiratory: No respiratory distress, Clear bilaterally - Abdomen Abdomen: Normal bowel sounds, Soft, Non distended, Other (tender epigastric and LUQ areas, as well as some to left lateral abd. No rash nor sores. ) - Derm Derm: Normal color, Warm and dry - Neuro Neuro: Alert and oriented X 3, No motor deficit, No sensory deficit, Normal speech Results - Vitals Vitals: Oxygen O2 Source [Without Activity] Room air O2 Source Room air - Labs Labs: Laboratory Tests 03/14/24 03/14/24 03/14/24 19:39 19:39 21:40 WBC 9.4 RBC 4.21 Hgb 11.1 L Hct 37.5 MCV 89.1 MCH 26.4 L MCHC 29.6 L RDW 18.3 H Plt Count 347 MPV 8.9 Neut # (Auto) 8.5 H Lymph # (Auto) 0.3 L [place] # (Auto) 0.4 Eos # (Auto) 0.0 Baso # (Auto) 0.0 Absolute Nucleated RBC 0.00 Nucleated RBC % 0.0 Sodium 139 Potassium 3.5 Chloride 100 L Carbon Dioxide 25 Anion Gap 14.0 H BUN 10 Creatinine 0.5 L Estimated GFR (MDRD) 118 Glucose 100 Calcium 9.0 Magnesium 1.6 L Total Bilirubin 0.4 AST 16 ALT 4 L Alkaline Phosphatase 71 Total Protein 6.1 L Albumin 2.9 L Globulin 3.2 Albumin/Globulin Ratio 0.9 L Lipase < 10 L Urine Color YELLOW Urine Clarity CLEAR Urine pH 6.0 Ur Specific [place] 1.010 Urine Protein NEGATIVE Urine Glucose (UA) NEGATIVE Urine Ketones 40 H Urine Occult Blood TRACE-LYSE Urine Nitrite NEGATIVE Urine Bilirubin NEGATIVE Urine Urobilinogen 0.2 (NORMAL) Ur Leukocyte Esterase NEGATIVE Ur Microscopic Review NOT INDICATED Urine Culture Comments NOT INDICATED - Rads (name of study) abd/pelvic CT Relevant Findings:: Prelim report reviewed (increased size of necrotic node in abd and retroperitoneal nodes. No obstruction. diverticula wihtout diverticulitis. No other acute process. ) PD Medical Decision Making - ED course Complexity details: re-evaluated patient (given pain meds and fluids here with feeling of increased strength to where she was able to feebly, but still make it, around the ED room with her walker. ), considered differential (she has lymphoma apparently with size of tumors increasing since November. No other obvious cause for the abd/flank pain, and this is where her tumors and node area. No obsruction, No stones, no diverticulitis.), d/w patient Reviewed Lab Results: imaging shows ncreased size of para-aortic node and the retroperitoneal mass/nodes. They are up relatively larger (by 50% or so) but still small in absolute terms (1.6 now 2.4 cm in flank node, and 3 now 4.5 clem cm in abd necrotic node). She is on DOAC so not able to use regular NSAIDs. She is already regular with Tylenol, so adding hydrocodone and docusate. But also having an element of epigastric pain worse with eating, and some feeling gerd, despite Famotidine. Can change to Pantoprazole. Departure - Departure Disposition: 01 Home, Self Care Clinical Impression: Abdominal pain Qualifiers: Abdominal location: left upper quadrant Qualified Code(s): R10.12 - Left upper quadrant pain Condition: Stable Record reviewed to determine appropriate education?: Yes Instructions: ED Abdominal Pain Female Non-Specific Abdominal Pain Follow-Up: Leny Kimble MD [Primary Care Provider] - Prescriptions: Docusate Sodium 100Mg Capsule [Colace 100Mg Capsule] 100 mg PO DAILY #20 cap HYDROcod/ACETAM 5/325 [[place] 5/325] 1 ea PO Q8H PRN #20 tablet PRN Reason: Pain Pantoprazole [Protonix] 40 mg PO DAILY 30 Days #30 tablet Comments: The size of your lymph nodes and tumors have increased some since November. One of them has increased from 3 to 4 cm which is still a relatively small size but is increasing. The other is from 1.6 to 2.4 cm. No signs of other obvious abnormality to account for your pain on that side. No signs of kidney stones or acute infections, diverticulitis etc. No signs of urinary infection. I would presume there for your the pain is coming from local irritation on some of the muscles or nerves in the area. Continue with your Tylenol 500 to 650 mg 4 times a day for pain. Add hydrocodone every 6-8 hours if needed for worse pain. In conjunction with that so it does not lead to any constipation or increased pressure in that area, I would also suggest docusate stool softener daily. Stay well-hydrated. If your famotidine acid reducing medicine does not seem to be as effective recently, we can swap to pantoprazole which is of a different category for acid reduction. I sent your prescriptions to your preferred pharmacy. Follow-up with your primary care, palliative care, and oncologist regarding further care. It would be good to make your chemotherapy this coming week since the tumors do seem to be on the increasing size. Forms: PCP List Discharge Date/Time: 03/15/24 02:10
[2024-03-14 19:45] LABS: BASOPHILS % (AUTO) 0.2 %; HCT - HEMATOCRIT 37.5 % (37.0-47.0); HGB - HEMOGLOBIN 11.1 g/dL (12.0-16.0); LYMPHOCYTES # (AUTO) 0.3 10^3/uL (1.5-3.5); LYMPHOCYTES % (AUTO) 3.6 %; MEAN CORPUSCULAR HEMOGLOBIN 26.4 pg (27.0-31.0); MEAN CORPUSCULAR HGB CONC 29.6 g/dL (32.0-36.0); MEAN CORPUSCULAR VOLUME 89.1 fL (81.0-99.0); MEAN PLATELET VOLUME 8.9 fL (7.9-10.8); MONOCYTES # (AUTO) 0.4 10^3/uL (0.0-1.0); MONOCYTES % (AUTO) 4.7 %; NEUTROPHILS # (AUTO) 8.5 10^3/uL (1.5-6.6); PLT - PLATELET COUNT 347 10^3/uL (130-450); RED BLOOD COUNT 4.21 10^6/uL (4.20-5.40); RED CELL DISTRIBUTION WIDTH 18.3 % (12.0-15.0); WHITE BLOOD COUNT 9.4 x10^3/uL (4.8-10.8)
[2024-03-14 19:58] LABS: MAGNESIUM 1.6 mg/dL (1.7-2.3)
[2024-03-14] MEDS: SODIUM CHLORIDE 0.9% 1,000 ML IV STA ×2 (19:58→20:37)
[2024-03-14] MEDS: ONDANSETRON 4 MG/2 ML VIAL IVP STA (19:59)
[2024-03-14] MEDS: KETOROLAC 15 MG/ML VIAL IVP STA (19:59)
[2024-03-14] MEDS: HYDROmorphone 0.5 MG/0.5 ML SYRINGE IVP STA (19:59)
[2024-03-14 20:04] LABS: LIPASE < 10 U/L (11-82)
[2024-03-14 20:08] LABS: ALBUMIN 2.9 g/dL (3.2-5.5); ALBUMIN/GLOBULIN RATIO 0.9 (1.0-2.2); ALKALINE PHOSPHATASE 71 IU/L (42-121); ALT ALANINE AMINOTRANSFERASE 4 IU/L (10-60); AST ASPARTATE AMINOTRANSFERASE 16 IU/L (10-42); BILIRUBIN,TOTAL 0.4 mg/dL (0.2-1.0); BUN - BLOOD UREA NITROGEN 10 mg/dL (6-20); CARBON DIOXIDE - CO2 25 mmol/L (21-32); CHLORIDE 100 mmol/L (101-111); CREATININE 0.5 mg/dL (0.6-1.3); GFR - MDRD 118 (>89); GLUCOSE 100 mg/dL (74-104); POTASSIUM 3.5 mmol/L (3.5-4.5); SODIUM 139 mmol/L (135-145); TOTAL PROTEIN 6.1 g/dL (6.4-8.9)
[2024-03-14] MEDS ORDERED: iohexoL-300 100 ML VIAL ONE (20:27)
[2024-03-14] MEDS: iohexoL-300 100 ML VIAL IVP ONE (20:52)
--- NOTE | 2024-03-14 21:35 | CT Report ---
PROCEDURE: Abdomen/Pelvis W INDICATIONS: LLQ Abdominal pain, diverticulitis suspected CONTRAST: 100ml [id number] TECHNIQUE: After the administration of intravenous contrast, a CT scan of the abdomen and pelvis was performed. Images were recorded and evaluated at appropriate window settings. Reformats: coronal and sagittal. F or radiation dose reduction, the following was used: automated exposure control, adjustment of mA and /or kV according to patient size. COMPARISON: . FINDINGS: Image quality: Diagnostic. Lower chest: Median sternotomy wires are seen. Bibasilar dependent atelectasis are seen. Heart size i s normal, no pericardial effusion. Liver: No solid mass. Gallbladder: Surgically absent. Biliary tree: No intrahepatic or extrahepatic dilation, accounting for age. Spleen: No splenomegaly. Pancreas: No pancreatic ductal dilation. Adrenals: No adrenal nodule. Kidneys and ureters: No hydronephrosis. No renal cystic lesion which requires follow up. No solid mas s. Stomach, bowel and peritoneum: No gastric or small bowel dilation. No abnormal wall thickening. No pa thologic free fluid. Sigmoid diverticulosis without CT evidence of acute diverticulitis. Lymph nodes: There is interval significant increase in patient's known centrally necrotic left periao rtic lymph node below the level of middle pole of left kidney now measures up to 4.2 x 4.7 cm in size series 2 image 53 compared to 3.6 x 3.1 cm in size on previous study. Additional retroperitoneal lym phadenopathy are also noted and measures up to 2.4 x 1.2 cm in size in the left retroperitoneum infer ior to the aortic bifurcation compared to 1.6 x 1.3 cm in size on previous study series 2 image 87. Vessels: No infrarenal aortic aneurysm. Patent portal vein. PELVIS Reproductive organs: Unremarkable. Bladder: No abnormal wall thickening, accounting for underdistention. Pelvic lymph nodes: No pelvic adenopathy by size criteria. Previously noted mildly enlarged right ing uinal lymph node is now normal in size and measures 1.1 x 0.8 cm in size series 2 image 143. Bones: No aggressive osseous abnormality. Other: No significant ventral or inguinal hernia. IMPRESSION: 1. 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 2. No bowel obstruction or abnormal bowel wall thickening. Colonic diverticulosis without CT evidence of acute diverticulitis. No abscess collection. No free fluid of free air. 3. Interval significant decrease in size of patient's known enlarged right inguinal lymph node. No in guinal lymphadenopathy is seen on the current study. Reviewed by: Tacho Mcguire MD on 03/14/2024 9:34 PM PDT Approved by: Tacho Mcguire MD on 03/14/2024 9:34 PM PDT Station ID: [id number]
[2024-03-14 21:48] LABS: BILIRUBIN,URINE NEGATIVE (NEGATIVE); GLUCOSE, URINE (UA) NEGATIVE (NEGATIVE); KETONES,URINE (UA) 40 mg/dL (NEGATIVE); LEUKOCYTE ESTERASE, URINE NEGATIVE (NEGATIVE); NITRITE,URINE NEGATIVE (NEGATIVE); OCCULT BLOOD,URINE TRACE-LYSE (NEGATIVE); PROTEIN,URINE NEGATIVE (NEGATIVE); UROBILINOGEN,URINE 0.2 (NORMAL) E.U./dL (NORMAL)
[2024-03-14 22:06] LABS: CLARITY,URINE CLEAR (CLEAR)
[2024-03-14 22:11] VITALS: O2SAT 96
[2024-03-14] MEDS: HYDROcod/ACET 5/325 Prepack 4 PO STA (23:04)
[2024-03-14 23:25] VITALS: BP 101/78
== END 2024-03-15 02:10 | disposition home or self-care (01) ==
LOC: EDUNIT# → ED 19:04
DX: R10.12 Left upper quadrant pain (principal); C85.85 Other specified types of non-Hodgkin lymphoma, lymph nodes of inguinal region and lower limb; Z79.899 Other long term (current) drug therapy
CPT/HCPCS: 36415; 74177; 80053; 81003; 83690; 83735; 85025; 96374; 99284; J1170; Q9967; 81001; 87086

== ENCOUNTER 2024-03-25 14:11 | Outpatient (CLI) | payer MEDICARE, OTHER | END 2024-03-25 23:59 | disposition critical access hospital (66) | LOC: EMS 14:11 | DX: R55 Syncope and collapse (principal) | CPT/HCPCS: A0425; A0427 ==

== ENCOUNTER 2024-03-25 14:50 | Emergency (ER) | payer MEDICARE, OTHER ==
--- NOTE | 2024-03-25 15:19 | ED Physician Documentation ---
PD HPI SYNCOPE - Stated complaint Stated Complaint: SYNCOPE - Chief complaint Chief Complaint: Neuro - History obtained from History obtained from: Patient, EMS - History of Present Illness Witnessed: Witnessed (by fire dept first responders, when they were there to help "lift assist" and she fainted briefly when she first got up.) Duration: Seconds Preceding symptoms: No: Headache, Chest pain Review of Systems Constitutional: reports: Fatigue. denies: Fever, Chills, Myalgias Cardiac: denies: Chest pain / pressure, Palpitations Respiratory: reports: Dyspnea. denies: Cough GI: reports: Nausea. 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 HEENT: Tonsil/Adenoidectomy - Present Medications Home Medications: Ambulatory Orders Medication Instructions Recorded Confirmed Apixaban [Eliquis] 5 mg PO BID 12/28/23 03/21/24 Famotidine 40 mg PO HS 01/18/24 03/21/24 Nystatin/Triamcinolone Acet 15 gm TP BID 01/18/24 03/21/24 [Nystatin-Triamcinolone Ointm] Nystatin [Mycostatin] 5 ml PO QID 01/25/24 03/21/24 Docusate Sodium 100Mg Capsule 100 mg PO DAILY #20 cap 03/14/24 03/21/24 [Colace 100Mg Capsule] HYDROcod/ACETAM 5/325 [[place] 5/325] 1 ea PO Q8H PRN #20 tablet 03/14/24 03/21/24 Pantoprazole [Protonix] 40 mg PO DAILY 30 Days #30 tablet 03/14/24 03/21/24 - Allergies Allergies/Adverse Reactions: Allergies Allergy/AdvReac Type Severity Reaction Status Date / Time atenolol Allergy Unknown Unknown Verified 03/25/24 15:15 ciprofloxacin [From Cipro] Allergy Unknown Verified 03/25/24 15:15 Penicillins Allergy Unknown Verified 03/25/24 15:15 shellfish derived Allergy Emesis Verified 03/25/24 15:15 Sulfa (Sulfonamide Allergy Rash Verified 03/25/24 15:15 Antibiotics) ranitidine [From Zantac] AdvReac "wired" Verified 03/25/24 15:15 - Social History Does the pt smoke?: No Smoking Status: Never smoker Does the pt drink ETOH?: No Does the pt have substance abuse?: No - Immunizations Immunizations are current?: Yes - POLST Patient has POLST: No PD ED PE NORMAL - Vitals Vital signs reviewed: Yes (tachycardic on arrival here in ED. ) - General General: Alert and oriented X 3, Well developed/nourished - Neck Neck: Supple, no meningeal sign, No adenopathy - Cardiac Cardiac: RRR, No murmur - Respiratory Respiratory: No respiratory distress, Clear bilaterally - Abdomen Abdomen: Soft. No: Normal bowel sounds Results - Vitals Vitals: Vital Signs - 24 hr 03/25/24 15:11 Temperature 36.2 C L Heart Rate 94 Respiratory 18 Rate Blood Pressure 120/82 H O2 Saturation 100 Oxygen O2 Source [Without Activity] Room air O2 Source Nasal cannula - Labs Labs: Laboratory Tests 03/25/24 03/25/24 03/25/24 15:22 15:22 15:22 WBC 10.2 RBC 4.51 Hgb 12.0 Hct 39.7 MCV 88.0 MCH 26.6 L MCHC 30.2 L RDW 19.1 H Plt Count 342 MPV 9.6 Neut # (Auto) 9.2 H Lymph # (Auto) 0.2 L [place] # (Auto) 0.5 Eos # (Auto) 0.0 Baso # (Auto) 0.0 Absolute Nucleated RBC 0.00 Nucleated RBC % 0.0 Sodium 139 Potassium 3.2 L Chloride 100 L Carbon Dioxide 30 Anion Gap 9.0 BUN 11 Creatinine 0.6 Estimated GFR (MDRD) 96 Glucose 113 H Calcium 8.9 Magnesium 1.6 L Total Bilirubin 0.6 AST 13 ALT 7 L Alkaline Phosphatase 88 B-Natriuretic Peptide 99 Total Protein 6.2 L Albumin 3.2 Globulin 3.0 Albumin/Globulin Ratio 1.1 Lipase < 10 L PD Medical Decision Making - ED course Complexity details: reviewed results (Her blood count is good. Basic chemistry shows a moderately low potassium at 3.2 and mildly low magnesium 1.6. Other electrolytes and blood sugar are okay. Chest x-ray is clear.), considered differential (The patient has had generally lower appetite with nausea and decreased intake. General weakness and having difficulty self-care at home but is maintaining intake of some fluids. She had called the fire department to help with lift assist. This okay report is she fainted several seconds after up. ), d/w patient ED course: Presume the patient was under hydrated as she states she is not been able to take fluids fairly regularly. Brief postural syncope. No symptoms at this time. Given IV fluids here and as well as potassium and magnesium supplements. I do not see criteria for hospitalization. She was given IV fluids here and is feeling okay. Vital signs are normal. Departure - Departure Disposition: Home, Self Care Clinical Impression: Volume depletion, Electrolyte abnormality, Postural syncope Condition: Stable Record reviewed to determine appropriate education?: Yes Follow-Up: Glen Victoria MD [Provider Admit Priv/Credential] - Comments: Continue usual medications and frequent fluids and diet as able. We did give you IV fluids for hydration and extra potassium and magnesium. Follow-up with your primary and oncologist. Forms: PCP List
[2024-03-25 15:28] LABS: BASOPHILS % (AUTO) 0.2 %; EOSINOPHILS % (AUTO) 0.2 %; HCT - HEMATOCRIT 39.7 % (37.0-47.0); LYMPHOCYTES # (AUTO) 0.2 10^3/uL (1.5-3.5); LYMPHOCYTES % (AUTO) 1.8 %; MEAN CORPUSCULAR HEMOGLOBIN 26.6 pg (27.0-31.0); MEAN CORPUSCULAR HGB CONC 30.2 g/dL (32.0-36.0); MEAN PLATELET VOLUME 9.6 fL (7.9-10.8); MONOCYTES # (AUTO) 0.5 10^3/uL (0.0-1.0); MONOCYTES % (AUTO) 5.3 %; NEUTROPHILS # (AUTO) 9.2 10^3/uL (1.5-6.6); PLT - PLATELET COUNT 342 10^3/uL (130-450); RED BLOOD COUNT 4.51 10^6/uL (4.20-5.40); RED CELL DISTRIBUTION WIDTH 19.1 % (12.0-15.0); WHITE BLOOD COUNT 10.2 x10^3/uL (4.8-10.8)
--- NOTE | 2024-03-25 15:28 | XRAY Report ---
PROCEDURE: Chest 1V INDICATIONS: Chest Pain TECHNIQUE: One view of the chest was acquired. COMPARISON: 01/14/2024. FINDINGS: Surgical changes and devices: Unchanged right chest Port-A-Cath. Lungs and pleura: No pleural effusions or pneumothorax. Lungs are clear. Mediastinum: Mediastinal contours appear normal. Heart size is normal. Bones and chest wall: No suspicious bony lesions. Overlying soft tissues appear unremarkable. IMPRESSION: No acute cardiopulmonary process. Reviewed by: Haja Garcia MD on 03/25/2024 3:27 PM PDT Approved by: Haja Garcia MD on 03/25/2024 3:27 PM PDT Station ID: [id number]
[2024-03-25 15:48] LABS: MAGNESIUM 1.6 mg/dL (1.7-2.3)
[2024-03-25] MEDS: LACTATED RINGERS 1,000 ML IV STA ×2 (15:50→17:08)
[2024-03-25 15:54] LABS: ALBUMIN 3.2 g/dL (3.2-5.5); ALBUMIN/GLOBULIN RATIO 1.1 (1.0-2.2); ALKALINE PHOSPHATASE 88 IU/L (42-121); ALT ALANINE AMINOTRANSFERASE 7 IU/L (10-60); AST ASPARTATE AMINOTRANSFERASE 13 IU/L (10-42); BILIRUBIN,TOTAL 0.6 mg/dL (0.2-1.0); BUN - BLOOD UREA NITROGEN 11 mg/dL (6-20); CALCIUM 8.9 mg/dL (8.5-10.3); CARBON DIOXIDE - CO2 30 mmol/L (21-32); CHLORIDE 100 mmol/L (101-111); CREATININE 0.6 mg/dL (0.6-1.3); GFR - MDRD 96 (>89); GLUCOSE 113 mg/dL (74-104); POTASSIUM 3.2 mmol/L (3.5-4.5); SODIUM 139 mmol/L (135-145); TOTAL PROTEIN 6.2 g/dL (6.4-8.9)
[2024-03-25 15:55] LABS: LIPASE < 10 U/L (11-82)
[2024-03-25] MEDS: POTASSIUM CHLOR 10 MEQ/100 ML 10 MEQ/100 ML BAG IV ONE (17:07)
[2024-03-25] MEDS: MAGNESIUM SULFATE 2 GRAM 2 GM/50 ML BAG IV ONE (17:13)
[2024-03-25] MEDS: ACETAMINOPHEN 325 MG TABLET PO STA (17:46)
[2024-03-25 19:17] VITALS: BP 122/65
[2024-03-25 19:37] VITALS: O2SAT 97
== END 2024-03-25 19:35 | disposition home or self-care (01) ==
LOC: EDUNIT# → ED 14:50
DX: R55 Syncope and collapse (principal); E86.9 Volume depletion, unspecified; E87.6 Hypokalemia; E83.42 Hypomagnesemia
CPT/HCPCS: 36415; 80053; 83690; 83735; 83880; 84484; 85025; 93005; 96361; 96365; 99284

== ENCOUNTER 2024-03-25 19:47 | Emergency (ER) | payer MEDICARE, OTHER ==
--- NOTE | 2024-03-25 20:03 | ED Physician Documentation ---
History of Present Illness - Stated complaint Stated Complaint: WEAKNESS - Chief complaint Chief Complaint: General - History obtained from History obtained from: Patient - Additonal information Additional information: 83-year-old female presents for generalized weakness. Patient seen earlier this afternoon in the emergency department. She had just been discharged and was going to get into a taxi to go home but she felt lightheaded and decided to check back into the emergency department. Patient states that she would like to go back home but "I just need to rest here longer before I am ready to go". She states she does not want anything more than to rest. Review of Systems Constitutional: reports: Fatigue. denies: Fever, Chills : denies: Dysuria, Frequency, Hesitancy Musculoskeletal: denies: Neck pain, Back pain, Extremity pain Neurologic: reports: Generalized weakness. 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 HEENT: Tonsil/Adenoidectomy - Present Medications Home Medications: Ambulatory Orders Medication Instructions Recorded Confirmed Apixaban [Eliquis] 5 mg PO BID 12/28/23 03/21/24 Famotidine 40 mg PO HS 01/18/24 03/21/24 Nystatin/Triamcinolone Acet 15 gm TP BID 01/18/24 03/21/24 [Nystatin-Triamcinolone Ointm] Nystatin [Mycostatin] 5 ml PO QID 01/25/24 03/21/24 Docusate Sodium 100Mg Capsule 100 mg PO DAILY #20 cap 03/14/24 03/21/24 [Colace 100Mg Capsule] HYDROcod/ACETAM 5/325 [[place] 5/325] 1 ea PO Q8H PRN #20 tablet 03/14/24 03/21/24 Pantoprazole [Protonix] 40 mg PO DAILY 30 Days #30 tablet 03/14/24 03/21/24 - Allergies Allergies/Adverse Reactions: Allergies Allergy/AdvReac Type Severity Reaction Status Date / Time atenolol Allergy Unknown Unknown Verified 03/25/24 19:50 ciprofloxacin [From Cipro] Allergy Unknown Verified 03/25/24 19:50 Penicillins Allergy Unknown Verified 03/25/24 19:50 shellfish derived Allergy Emesis Verified 03/25/24 19:50 Sulfa (Sulfonamide Allergy Rash Verified 03/25/24 19:50 Antibiotics) ranitidine [From Zantac] AdvReac "wired" Verified 03/25/24 19:50 - Social History Does the pt smoke?: No Smoking Status: Never smoker Does the pt drink ETOH?: No Does the pt have substance abuse?: No - Immunizations Immunizations are current?: Yes - POLST Patient has POLST: No PD ED PE NORMAL - Vitals Vital signs reviewed: Yes - General General: Alert and oriented X 3, No acute distress, Other (appears chronically unwell) - Cardiac Cardiac: RRR, Strong equal pulses - Respiratory Respiratory: No respiratory distress, Clear bilaterally - Derm Derm: Warm and dry, No rash, Other (pale) - Neuro Neuro: Alert and oriented X 3, patient care assistant 2-12 intact, No motor deficit, Normal speech Results - Vitals Vitals: Vital Signs - 24 hr 03/25/24 03/25/24 19:50 21:00 Temperature 36.8 C 36.7 C Heart Rate 80 79 Respiratory 16 16 Rate Blood Pressure 150/90 H 137/74 H O2 Saturation 94 95 Oxygen O2 Source [Without Activity] Room air O2 Source Room air PD Medical Decision Making - ED course Complexity details: reviewed old records, reviewed results, re-evaluated patient, considered differential, d/w patient ED course: Patient presenting stating that the previous doctor kicked her out too quickly and she needs to rest in the emergency department longer before going home. She denies any new complaints, labs and workup from previous visit reviewed. Patient was allowed to stay in ED bed for 2 additional hours. Cab was called to take patient home. She was able to get in the cab with minimal assistance Departure - Departure Disposition: 01 Home, Self Care Clinical Impression: Fatigue Condition: Stable Forms: PCP List Discharge Date/Time: 03/25/24 21:53
[2024-03-25 21:59] VITALS: BP 137/74; O2SAT 95
== END 2024-03-25 21:53 | disposition home or self-care (01) ==
LOC: ED 19:47
DX: R53.83 Other fatigue (principal); R55 Syncope and collapse; E86.9 Volume depletion, unspecified; E87.6 Hypokalemia; E83.42 Hypomagnesemia
CPT/HCPCS: 36415; 71045; 80053; 83690; 83735; 83880; 85025; 93005; 96361; 96365; 99281; 99283; 99284; A9270; J7120; 84484

== ENCOUNTER 2024-03-29 12:52 | Inpatient (IN) ==
--- NOTE | 2024-03-29 13:04 | ED Physician Documentation ---
PD HPI FEVER - Stated complaint Stated Complaint: SHAKING - History obtained from History obtained from: Patient, EMS - Additional information Additional information: 83-year-old woman with history of follicular lymphoma with relapse getting mini CHOP via a right chest PowerPort presents with shaking chills starting acutely. She is also had 2 days of diarrhea. No measured fevers. She was feeling too sick to go to her oncology appointment today. EMS was summoned and noted her to be in A-fib which she has had in the past status post ablation and still anticoagulated but does not recall being in A-fib recently. And noted to have a blood sugar of 66 and given D10 prior to arrival. She denies measured fevers, cough, sore throat, body aches, abdominal pain. 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 HEENT: Tonsil/Adenoidectomy - Present Medications Home Medications: Ambulatory Orders Medication Instructions Recorded Confirmed Apixaban [Eliquis] 5 mg PO BID 12/28/23 03/29/24 Famotidine 40 mg PO HS 01/18/24 03/29/24 Nystatin/Triamcinolone Acet 15 gm TP BID 01/18/24 03/29/24 [Nystatin-Triamcinolone Ointm] Nystatin [Mycostatin] 5 ml PO QID 01/25/24 03/29/24 Docusate Sodium 100Mg Capsule 100 mg PO DAILY #20 cap 03/14/24 03/29/24 [Colace 100Mg Capsule] HYDROcod/ACETAM 5/325 [[place] 5/325] 1 ea PO Q8H PRN #20 tablet 03/14/24 03/29/24 Pantoprazole [Protonix] 40 mg PO DAILY 30 Days #30 tablet 03/14/24 03/29/24 Potassium Chloride 10 meq PO DAILY 03/29/24 03/29/24 - Allergies Allergies/Adverse Reactions: Allergies Allergy/AdvReac Type Severity Reaction Status Date / Time atenolol Allergy Unknown Unknown Verified 03/29/24 13:00 ciprofloxacin [From Cipro] Allergy Unknown Verified 03/29/24 13:00 Penicillins Allergy Unknown Verified 03/29/24 13:00 shellfish derived Allergy Emesis Verified 03/29/24 13:00 Sulfa (Sulfonamide Allergy Rash Verified 03/29/24 13:00 Antibiotics) ranitidine [From Zantac] AdvReac "wired" Verified 03/29/24 13:00 - Social History Does the pt smoke?: No Smoking Status: Never smoker Does the pt drink ETOH?: No Does the pt have substance abuse?: No - Immunizations Immunizations are current?: Yes - POLST Patient has POLST: No PD ED PE NORMAL - Vitals Vital signs reviewed: Yes - General General: Other (She appears uncomfortable and fidgety; Incontinent of liquid stool) - Neck Neck: Supple, no meningeal sign, No bony TTP - Cardiac Cardiac: Other (Right chest PowerPort looking normal. She has a significant tachycardia that is for the most part regular.) - Respiratory Respiratory: No respiratory distress, Clear bilaterally - Abdomen Abdomen: Non tender - Derm Derm: No rash - Extremities Extremities: No edema, No calf tenderness / cord - Neuro Neuro: Alert and oriented X 3, Normal speech Results - Vitals Vitals: Vital Signs - 24 hr 03/29/24 03/29/24 03/29/24 13:00 14:09 14:17 Temperature 36.8 C 39.3 C H Heart Rate 159 H 141 H 143 H Respiratory 18 35 H 26 H Rate Blood Pressure 159/75 H 83/42 L 113/69 O2 Saturation 88 L 98 97 If not protocol 3 3 : Oxygen Flow, liters/minute 03/29/24 14:44 Temperature 39.0 C H Heart Rate 145 H Respiratory 26 H Rate Blood Pressure 113/65 O2 Saturation 99 If not protocol 3 : Oxygen Flow, liters/minute Oxygen O2 Source [Without Activity] Room air O2 Source Nasal cannula - EKG (time done) 1258 EKG releavant findings:: EKG personally interpreted by author of this note. Relevant findings are: Rate: Rate (enter#) (154) Rhythm: SVT Monitor: Normal QRS: Normal Ischemia: Non specific changes. No: ST elevation c/w ischemia Computer interpretation: Agree with computer - Labs Labs: Laboratory Tests 03/29/24 03/29/24 03/29/24 13:15 13:15 13:15 WBC 1.1 L* RBC 4.06 L Hgb 10.7 L Hct 36.3 L MCV 89.4 MCH 26.4 L MCHC 29.5 L RDW 19.0 H Plt Count 133 MPV 9.8 Neut # (Auto) 1.0 L Lymph # (Auto) 0.0 L [place] # (Auto) 0.0 Eos # (Auto) 0.0 Baso # (Auto) 0.0 Absolute Nucleated RBC 0.02 Nucleated RBC % 1.9 Manual Slide Review Indicated RBC Morph Micro Appear 4+ ANISOCYTOSIS Sodium 136 Potassium 3.1 L Chloride 99 L Carbon Dioxide 24 Anion Gap 13.0 BUN 12 Creatinine 0.7 Estimated GFR (MDRD) 80 L Glucose 151 H Lactic Acid 7.5 H* Calcium 8.3 L Total Bilirubin 0.9 AST 14 ALT 7 L Alkaline Phosphatase 156 H Total Protein 4.9 L Albumin 2.6 L Globulin 2.3 Albumin/Globulin Ratio 1.1 Urine Color Urine Clarity Urine pH Ur Specific [place] Urine Protein Urine Glucose (UA) Urine Ketones Urine Occult Blood Urine Nitrite Urine Bilirubin Urine Urobilinogen Ur Leukocyte Esterase Urine RBC Urine WBC Ur Squamous Epith Cells Urine Bacteria Urine Culture Comments 03/29/24 14:47 WBC RBC Hgb Hct MCV MCH MCHC RDW Plt Count MPV Neut # (Auto) Lymph # (Auto) [place] # (Auto) Eos # (Auto) Baso # (Auto) Absolute Nucleated RBC Nucleated RBC % Manual Slide Review RBC Morph Micro Appear Sodium Potassium Chloride Carbon Dioxide Anion Gap BUN Creatinine Estimated GFR (MDRD) Glucose Lactic Acid Calcium Total Bilirubin AST ALT Alkaline Phosphatase Total Protein Albumin Globulin Albumin/Globulin Ratio Urine Color YELLOW Urine Clarity CLOUDY Urine pH 7.0 Ur Specific [place] 1.010 Urine Protein 30 H Urine Glucose (UA) NEGATIVE Urine Ketones NEGATIVE Urine Occult Blood LARGE H Urine Nitrite POSITIVE H Urine Bilirubin NEGATIVE Urine Urobilinogen 0.2 (NORMAL) Ur Leukocyte Esterase LARGE H Urine RBC TNTC H Urine WBC >25 H Ur Squamous Epith Cells NONE SEEN Urine Bacteria Moderate H Urine Culture Comments INDICATED - Rads (name of study) Single view chest x-ray is unremarkable Relevant Findings:: Final report received, EMP independent interpretation of test PD Medical Decision Making - ED course ED course: 83-year-old woman undergoing chemotherapy for follicular lymphoma presents with shaking chills and diarrhea. She was brought in by ambulance and attended to immediately. She was quite tachycardic and looks like probably in A-fib on the EKG. She was given diltiazem after which she at least briefly become profoundly hypotensive down to 50/30 and obtunded. This responded quickly to IV fluids with improvement in her blood pressure and mental status. Initial workup demonstrates a white count of 1.1 with profound lymphopenia and her CMP was nota ble for mild hypokalemia and a significant lactic acidosis. She was administered 30 mL/kg of IV fluids and broad-spectrum antibiotics for unknown source with cefepime, Flagyl, and vancomycin. Subsequently I called Irais Powers, palliative care nurse practitioner who is aware of this patient. Irais said that the patient was "leaning towards" being DNR but refused to sign the POLST paperwork until she talked to her cousin, Oriana. Subsequently I called Oriana on the phone who said that she is not the patient's DPOA, not her surrogate decision maker, and has not talked about CODE STATUS with the patient. Blood pressure did rebound with fluids. She became febrile which is not surprising as she does seem septic. I am avoiding any further attempts at rate control at this point as it is likely that her A-fib with RVR is likely from her critical underlying illness. Spoke with the hospitalist for admission at 2:20 PM. Maps were running persistently below 65 and decision to start pressors, Levophed was made at about 3:20 PM. Hospitalist updated. In the interim her urine has popped positive for infection, potentially her source of sepsis. - Critical Care Time(min): 55 Time Includes: Direct patient care, Review records, Reassess patient, Document care, Coordinate care, Medical consult, Family consult for tx dec Data interpretation: Labs, Pulse ox Procedures included in critical care time: Peripheral IV Procedures excluded from critical care time: EKG Departure - Departure Disposition: 66 [facility] DC/Xfer Clinical Impression: Follicular lymphoma, Atrial fibrillation, Septic shock, Diarrhea, UTI (urinary tract infection) Condition: Critical
[2024-03-29 13:26] LABS: BASOPHILS % (AUTO) 0.9 %; HCT - HEMATOCRIT 36.3 % (37.0-47.0); HGB - HEMOGLOBIN 10.7 g/dL (12.0-16.0); LYMPHOCYTES % (AUTO) 2.8 %; MEAN CORPUSCULAR HEMOGLOBIN 26.4 pg (27.0-31.0); MEAN CORPUSCULAR HGB CONC 29.5 g/dL (32.0-36.0); MEAN CORPUSCULAR VOLUME 89.4 fL (81.0-99.0); MEAN PLATELET VOLUME 9.8 fL (7.9-10.8); NEUTROPHILS % (AUTO) 94.4 %; NRBC ABSOLUTE COUNT (AUTO) 0.02 x10^3/uL; NUCLEATED RED BLOOD CELLS AUTO 1.9 /100WBC; PLT - PLATELET COUNT 133 10^3/uL (130-450); RED BLOOD COUNT 4.06 10^6/uL (4.20-5.40)
[2024-03-29 13:31] LABS: SLIDE REVIEW? Indicated; WHITE BLOOD COUNT 1.1 x10^3/uL (4.8-10.8)
[2024-03-29] MEDS: diltiaZEM INJ 5 MG/ML VIAL IVP STA (13:37)
[2024-03-29 13:41] LABS: ALBUMIN 2.6 g/dL (3.2-5.5); ALBUMIN/GLOBULIN RATIO 1.1 (1.0-2.2); BILIRUBIN,TOTAL 0.9 mg/dL (0.2-1.0); CALCIUM 8.3 mg/dL (8.5-10.3); CREATININE 0.7 mg/dL (0.6-1.3); POTASSIUM 3.1 mmol/L (3.5-4.5); TOTAL PROTEIN 4.9 g/dL (6.4-8.9)
[2024-03-29 13:42] LABS: LACTIC ACID, VENOUS 7.5 mmol/L (0.5-2.2); RBC MORPHOLOGY (MULTIPLE) 4+ ANISOCYTOSIS (NORMAL)
--- NOTE | 2024-03-29 13:42 | XRAY Report ---
PROCEDURE: Chest 1V INDICATIONS: chills TECHNIQUE: One view of the chest was acquired. COMPARISON: 03/25/2024. FINDINGS: Surgical changes and devices: Right chest wall Port-A-Cath tip is in SVC. Lungs and pleura: No pleural effusions or pneumothorax. Lungs are clear. Mediastinum: Mediastinal contours appear normal. Heart size is normal. Bones and chest wall: No suspicious bony lesions. Overlying soft tissues appear unremarkable. IMPRESSION: No acute cardiopulmonary process. Reviewed by: Tacho Mcguire MD on 03/29/2024 1:41 PM PDT Approved by: Tacho Mcguire MD on 03/29/2024 1:41 PM PDT Station ID: [id number]
[2024-03-29] MEDS ORDERED: VANCOMYCIN INJ 1.5 GM in SODIUM CHLORIDE 0.9% 500 ML IV STA (13:43)
[2024-03-29] MEDS: SODIUM CHLORIDE 0.9% 1,000 ML IV STA (13:58)
[2024-03-29] MEDS: metroNIDAZOLE 500 MG/100 ML 500 MG/100 ML BAG IV STA (14:00)
[2024-03-29] MEDS ORDERED: ONDANSETRON ODT 4 MG TABLET TL PRN (14:50)
[2024-03-29] MEDS ORDERED: SODIUM CHLORIDE FLUSH 0.9% 10 ML SYRINGE IVP PRN (14:50)
[2024-03-29 14:57] LABS: BILIRUBIN,URINE NEGATIVE (NEGATIVE); GLUCOSE, URINE (UA) NEGATIVE (NEGATIVE); KETONES,URINE (UA) NEGATIVE (NEGATIVE); LEUKOCYTE ESTERASE, URINE LARGE (NEGATIVE); NITRITE,URINE POSITIVE (NEGATIVE); OCCULT BLOOD,URINE LARGE (NEGATIVE); PROTEIN,URINE 30 mg/dL (NEGATIVE); UROBILINOGEN,URINE 0.2 (NORMAL) E.U./dL (NORMAL)
[2024-03-29] MEDS: CEFEPIME 2 GM in SODIUM CHLORIDE 0.9% MINIBAG 100 ML IV STA (14:57)
[2024-03-29 14:58] LABS: CLARITY,URINE CLOUDY (CLEAR)
[2024-03-29 15:04] LABS: RBC,URINE TNTC /HPF (0-5); SQUAMOUS EPITHELIAL CELL,UR NONE SEEN (<= Few); WBC,URINE >25 /HPF (0-5)
[2024-03-29 15:05] LABS: BACTERIA,URINE Moderate /HPF (None Seen)
[2024-03-29] MEDS: VANCOMYCIN INJ 1 GM, VANCOMYCIN INJ 500 MG in SODIUM CHLORIDE 0.9% 500 ML IV STA (15:06)
[2024-03-29] MEDS: NOREPINEPHRINE/0.9 % NS 8 MG/250 ML BAG IV SCH (15:32)
[2024-03-29 16:48] LABS: LACTIC ACID, VENOUS 8.1 mmol/L (0.5-2.2)
[2024-03-29] MEDS: PANTOPRAZOLE 40 MG VIAL IVP SCH (17:08)
[2024-03-29] MEDS: SODIUM CHLORIDE FLUSH 0.9% 10 ML SYRINGE IVP SCH (17:25)
--- NOTE | 2024-03-29 17:25 | HISTORY & PHYSICAL EXAMINATION ---
Chief Complaint - Chief Complaint Chief Complaint: Shaking chills, diarrhea <Lucrecia Grullon - Last Filed: 03/29/24 19:10> History of Present Illness - Admitted From Admitted From:: ED - History Obtained From Records Reviewed: ED, oncology notes, previous ED records, imaging CT and x-ray, ECHO History obtained from: ED, oncology notes, previous ED records, patient Exam Limitations: Patient very fatigued <Lucrecia Grullon - Last Filed: 03/29/24 19:10> - History of Present Illness HPI Comment/Other: Ms. Alcaraz is an 83-year-old woman with history of follicular lymphoma with relapse getting mini CHOP via a right chest PowerPort who presented to the ED (03/29) with shaking chills starting acutely. She reported night sweats last night. She also had 2 days of diarrhea. No measured fevers. She felt too sick to go to her oncology appointment today. EMS was summoned and noted her to be in A-fib which she has had in the past status post ablation and still anticoagulated but does not recall being in A-fib recently. And noted to have a blood sugar of 66 and given D10 prior to arrival. She shortness of breath, cough, sore throat, body aches, abdominal pain. In the ED she was notably tachycardic, apparent A-fib on the EKG w/ RVR. She was given diltiazem after which she at least briefly become profoundly hypotensive down to 50/30 and obtunded. This responded quickly to IV fluids and both blood pressure and mental status improved. Initial workup demonstrates a white count of 1.1 with profound lymphopenia and her CMP was notable for mild hypokalemia and a significant lactic acidosis with a lactate of 7.5. She was administered 30 mL/kg of IV fluids and broad-spectrum antibiotics for unknown source with cefepime, Flagyl, and vancomycin. Blood pressure did rebound with fluids. She became febrile which is not surprising as she presents with sepsis. No further attempts at rate control will be done as it is likely that her A-fib with RVR is likely from her critical underlying illness. She was accepted for admission at 2:20 with report given to the Hospitalist. Maps were running persistently below 65 and decision to start pressors, Levophed was made at about 3:20 PM. Her urine also came back positive for infection, potentially her source of sepsis. ED provider contacted palliative care nurse practitioner who is aware of this patient. Irais said that the patient was "leaning towards" being DNR but refused to sign the POLST paperwork until she talked to her cousin, Oriana. ED provider called Oriana on the phone who said that she is not the patient's DPOA, not her surrogate decision maker, and has not talked about CODE STATUS with the patient. At this point she remains a full-code. Upon assessment, she was pale and fatigued, with eyes closed for most of the assessment. HR was ST at 129, BP 100/54, RR24, O2 sat 97% on 4 lpm. She is on levophed at 12 mcg/min. She complains of a headache, no other specific complaints of pain. She denies chest pain, SOB, palpitations, abdominal pain, or joint/back pain. She reports she had a syncople episode on Thursday (03/25) when she was returned from imaging by EMS. She states she felt too sick for her chemo today and came to the ED instead. She denies any acute urinary symptoms, is incontinent at baseline. She is on mini-CHOP for recurrent follicular lymphoma, her last CHOP was on 03/21 with her most recent infusion deferred as she was too neutropenic. (Lucrecia Grullon) History - Family & Social History Social History Notes: never smoked and never drank. <Lauren Garcia - Last Filed: 03/29/24 19:02> - Past Medical History Cardiovascular: reports: Atrial fibrillation Respiratory: reports: None, Other (Left pneumothorax, iatrogenic after port placement, resolved) Neuro: reports: None Endocrine/Autoimmune: reports: None GI: reports: GERD GARBAGE COLLECTION SUPERVISOR: reports: Other (Endometrial cancer s/p SHAMIKA/BSO 07/28 & s/p brachytherapy 10/26) : reports: Incontinence HEENT: reports: Macular degeneration, Dental implants Psych: reports: Anxiety Musculoskeletal: reports: None Derm: reports: None MRSA Hx?: No Other Past Medical History: follicular lymphoma, relapsed and on mini-CHOP - Past Surgical History General: reports: Cholecystectomy /GARBAGE COLLECTION SUPERVISOR: reports: Hysterectomy, Oophrectomy HEENT: reports: Tonsil/Adenoidectomy - Family & Social History Living arrangement: At home Living Situation: Alone Social History Notes: Never , no kids, 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 - Substance History Use: Uses substance without health or social issues: NONE Abuse: Recurrent use of substance despite neg consequences: NONE Dependence: Experiences withdrawal or developed tolerances: NONE - POLST Patient has POLST: No POLST Status: Full Code <Lucrecia Grullon - Last Filed: 03/29/24 19:10> Meds/Allgy <Lauren Garcia - Last Filed: 03/29/24 19:02> <Lucrecia Grullon - Last Filed: 03/29/24 19:10> - Home Medications Home Medications: Ambulatory Orders Medication Instructions Recorded Confirmed Apixaban [Eliquis] 5 mg PO BID 12/28/23 03/29/24 Famotidine 40 mg PO HS 01/18/24 03/29/24 HYDROcod/ACETAM 5/325 [[place] 5/325] 1 ea PO Q8H PRN #20 tablet 03/14/24 03/29/24 Acetaminophen [Acetaminophen Extra 500 mg PO PRN PRN 03/29/24 03/29/24 Strength] Potassium Chloride 10 meq PO DAILY 03/29/24 03/29/24 - Allergies Allergies/Adverse Reactions: Allergies Allergy/AdvReac Type Severity Reaction Status Date / Time atenolol Allergy Unknown Unknown Verified 03/29/24 13:00 ciprofloxacin [From Cipro] Allergy Unknown Verified 03/29/24 13:00 Penicillins Allergy Unknown Verified 03/29/24 13:00 shellfish derived Allergy Emesis Verified 03/29/24 13:00 Sulfa (Sulfonamide Allergy Rash Verified 03/29/24 13:00 Antibiotics) ranitidine [From Zantac] AdvReac "wired" Verified 03/29/24 13:00 Review of Systems - Constitutional Constitutional: reports: Fatigue, Fever, Chills, Weakness, Night sweats, Weight loss - Eyes Eyes: reports: Vision loss (Due to macular degeneration). denies: Pain - Ears, Nose & Throat Ears, Nose & Throat: denies: Ear pain, Nasal discharge, Sore throat, Mouth lesions - Cardiovascular Cariovascular: reports: Irregular heart rate (A-fib s/p ablation), Syncope (On 03/25/24). denies: Chest pain - Respiratory Respiratory: denies: Cough, Sputum production, Wheezing, SOB at rest - Gastrointestinal Gastrointestinal: reports: Diarrhea (x2 days), Reflux/heartburn. denies: Abdom inal pain, Black stools, Bloody stools, Nausea, Vomiting - Genitourinary Genitourinary: reports: Incontinence. denies: Dysuria - Musculoskeletal Musculoskeletal: denies: Muscle pain, Muscle aches, Joint pain, Joint swelling - Integumentary Integumentary: denies: Rash, Pruritis, Lesions - Neurological Neurological: reports: General weakness, Headache. denies: Focal weakness, Dizziness, Seizures - Psychiatric Psychiatric: denies: Depression, Anxiety - Hematologic/Lymphatic Hematologic/Lymphatic: reports: Anemia, Lymphadenopathy (R groin). denies: Bruising <Lucrecia Grullon - Last Filed: 03/29/24 19:10> <Lucrecia Grullon - Last Filed: 03/29/24 19:10> Prior Level of Functionality: Primarily bedbound since starting CHOP, is able to stand pivot to wheelchair, incontinent to urine, has system for changing depends on her own in bed. Has an aid who comes by several times a week and her cousin, Oriana who is a retired nurse, helps with laundry and groceries. Food is prepared and left in the fridge for her by her aid and cousin. (Lucrecia Grullon) Exam - Vital Signs Reviewed Vital Signs: Yes - Physical Exam General Appearance: positive: Other (Fatigued and pale with eyes closed, rouses to verbal and follows commands) Eyes Bilateral: positive: Normal inspection ENT: positive: No signs of dehydration. negative: Purulent nasal drainage, Pharyngeal erythema, Oral lesions Neck: negative: No JVD, Trachea midline, Lymphadenopathy (R), Lymphadenopathy (L) Respiratory: positive: Chest non-tender, No respiratory distress, Breath sounds nml. negative: Wheezes, Rales, Rhonchi Cardiovascular: positive: Regular rate & rhythm, No murmur, No gallop, Tachycardia Peripheral Pulses: positive: Other (2+ upper with cap refill <3 bilateral upper extremities and 1+ lower extremities with cap refill of 5 sec) Abdomen: positive: Non-tender, No organomegaly, Nml bowel sounds, No distention. negative: Guarding, Rebound Skin: positive: No rash, Warm, Dry, Pallor, Other (Crusted lesion right big toe with surrounding erythema, non-tender, no edema) Extremities: positive: Non-tender, No pedal edema. negative: Joint swelling Neurologic/Psychiatric: positive: Oriented x3, CN's nml (2-12), Motor nml, Sensation nml, Mood/affect nml (No inguinal or cervical lymphademopathy appreciated) <Lucrecia Grullon - Last Filed: 03/29/24 19:10> - Vital Signs Vital Signs: Vital Signs x48h Temp Pulse Pulse Resp BP BP Pulse Ox 03/29/24 18:57 98.6 C H 121 H 19 110/66 98 03/29/24 18:56 98 03/29/24 15:51 03/29/24 15:43 120 H 24 85/46 L 98 03/29/24 15:23 139 H 31 H 84/45 L 99 03/29/24 15:16 39.0 C H 137 H 47 H 74/49 L 100 03/29/24 14:44 39.0 C H 145 H 26 H 113/65 99 03/29/24 14:17 143 H 26 H 113/69 97 03/29/24 14:09 39.3 C H 141 H 35 H 83/42 L 98 03/29/24 13:00 36.8 C 159 H 18 159/75 H 88 L O2 Flow Rate 03/29/24 18:57 2 03/29/24 18:56 2 03/29/24 15:51 3 03/29/24 15:43 3 03/29/24 15:23 3 03/29/24 15:16 3 03/29/24 14:44 3 03/29/24 14:17 3 03/29/24 14:09 3 03/29/24 13:00 Sepsis Event Note (H) - Evaluation Current Stage of Sepsis: Septic shock Possible source of Sepsis: positive: Genitourinary - Sepsis Criteria Sepsis Criteria: Recorded Temperature greater than 38.3C or Less than 36C, Rec orded Heart Rate greater than 90 bpm, Respiratory: Increasing oxygen requirements, WBC count greater than 12,000 or less than 4000, MAP less than 65 mmHg, SBP less than 90 mmHg, Metabolic: lactate > 2 mmol/L <Lucrecia Grullon - Last Filed: 03/29/24 19:10> Conclusion/Plan - Lab Results Fish Bones: 03/29/24 13:15 03/29/24 13:15 <Lauren Garcia - Last Filed: 03/29/24 19:02> - Problem List (1) Septic shock Conclusion/Plan: She presented with sepsis that rapidly progressed to septic shock in the ED. She has marked leukopenia with WBCs 1.1 and ANC of 1.0. She is SIRS positive for tachycardia, leukocytopenia, elevated respiratory rate, increasing O2 requirements, and hypotension. Her lactate was 7.5. Blood cultures were drawn in the ED, chest x-ray unremarkable. UA shows UTI which makes urosepsis likely. She also has a lesion on her right big toe with erythema which could be another source of infection given her immunocompromised status. She was started on vancomycin, flagyl, and cefepime in the ED for empiric coverage. She was fluid resuscitated and initially responded with an increase in BP before becoming hypotensive again and was placed on levophed in the ED. She is currently on levophed at 12 mcg/min with a BP of 100/54, HR 129, RR 24, and O2 sat 97% on 4 lpm. She became hypotensive during assessment and to fatigued to continue talking. Her repeat lactate was 8.1. I will continue empiric antibiotics to treat presumed urosepsis with a plan to narrow once blood and urine cultures have resulted. I have ordered LR at 125 ml/hr. (2) UTI (urinary tract infection) Conclusion/Plan: Her UA was positive for UTI. She does not report any specific urinary symptoms but is incontinent to urine at baseline. She is neutropenic which makes her more susceptible to infection and more likely to develop bacteremia related to a UTI. She is on cefepime, flagyl and vacnomycin which I have continued. This can be narrowed once cultures have resulted. (3) Atrial fibrillation Conclusion/Plan: She has an hx of a-fib s/p ablation, with paroxysmal a-fib after ablation who is currently anticoagulated on apixaban. She presented in a-fib with RVR in the ED and was given diltiazem 15 mg IV in the ED and subsequently developed profound hypotension and AMS with minimal effect on HR. BP responded to fluids initially but she became hypotensive again, likely due to sepsis and not a primary tachyarrhythmia. Attempts at further rate control were deferred as it is likely her tachycardia is due to her underlying sepsis. She is on tele in the ICU. (4) Diarrhea Conclusion/Plan: She reports liquid stool x2 days, none since she presented in the ED. This presents an alternative possible source of infection and she is at risk for c- diff due to immunocompromised status and frequent contact with the healthcare system. I have ordered a stool sample for culture and sensitivity. She is being fluid resuscitated and is on empiric antibiotics which includes GI coverage. I have ordered electrolytes management per ICU protocol. (5) Hypokalemia Conclusion/Plan: SHe is hypokalemic with potassium of 3.1, likely due to excessive GI loss from the diarrhea. She is on tele and I have ordered electrolyte management per ICU protocol. (6) Follicular lymphoma Conclusion/Plan: Follicular lypmphoma diagnosed in 2006, recurrent in 2019 with malignant lymphadenopathy of the right groin eroding into L5 and retroperitoneal lymphadenopathy. Most recent imaging shows resolution of groin lymphadenopathy with progression of retroperitoneal lymphadenopathy. She is on mini-CHOP and has a port. Last chemo was on 03/21 and they did not to her next scheduled infusion due to neutropenia. Her ANC is 1.0. She brought in her maintenance immun omodulation medication but has not taken it since last night and additional doses will be held due to sepsis. Her neutropenia is likely the underlying cause for her rapid onset of sepsis and progression to septic shock. (7) Anemia Conclusion/Plan: She has mild anemia with an Hbg of 10.1. This is likely due to her CHOP therapy. It is stable and above the transfusion threshold. I will monitor with daily CBCs, no further intervention is indicated at this time. - Lab Results Fish Bones: 03/29/24 13:15 03/29/24 13:15 - Diagnostic Imaging Results Diagnostic Imaging Results: positive: Final report reviewed - EKG Results EKG Interpreted Independently: No <Lucrecia Grullon - Last Filed: 03/29/24 19:10> - Lab Results Other Lab Results: Laboratory Tests 03/29/24 03/29/24 13:15 16:28 Lactic Acid 7.5 H* 8.1 H* (Lucrecia Grullon) - Diagnostic Imaging Results Diagnostic Imaging Results Comments: Chest x-ray: no acute cardiopulmonary findings. (Lucrecia Grullon) - EKG Results EKG Findings: SVT, likely a-fib with RVR with diffuse ST depression indicative of rate related ischemia per ED interpretation. I reviewed the EKG and concur with the assessment (Lucrecia Grullon) Core Measures - Anticipated LOS I expect patient to be DC'd or transferred within 96 hours.: Yes - DVT/VTE - Prophylaxis VTE/DVT Prophylaxis med ordered at admit?: Yes <Lucrecia Grullon - Last Filed: 03/29/24 19:10>
--- NOTE | 2024-03-29 17:29 | PHARMACY PROGRESS NOTE ---
- Best Possible Medication History Admit Date and Time: 03/29/24 1450 Processed by: Pharmacy Medications reviewed in ED?: Yes Medication History completed: Yes Patient Interview: Completed Secondary Source(s): Pharmacy records, Insurance records As the person ultimately responsible for medication therapy, providers are able to order a medication from an existing home medication list in [facility] via the "Reconcile Routine" prior to Confirmation of that medication by client support consultant. Such practice is discouraged except when the physician, in their clinical judgment, deems that a medical need exists for a medication without regard to previous use.
[2024-03-29] MEDS: LACTATED RINGERS 1,000 ML IV SCH (17:36)
[2024-03-29] MEDS: ACETAMINOPHEN 1,000 MG/100 ML 1,000 MG/100 ML BAG IV PRN (18:51)
[2024-03-29 20:06] LABS: LACTIC ACID, VENOUS 5.5 mmol/L (0.5-2.2)
[2024-03-29 23:42] LABS: LACTIC ACID, VENOUS 4.4 mmol/L (0.5-2.2)
--- NOTE | 2024-03-30 01:40 | PROVIDER PROGRESS NOTE ---
Apartment Maintenance Manager Note - Apartment Maintenance Manager Note Apartment Maintenance Manager Note: RN paged "FYI Blood cultures came back positive for gram negative bacilli. PT received Metronidazole IV 500mg at 1500 Vancomycin 1.5gm IV @1600 Cefepime 2gm IV @ 1500" restart cefepime. Rachid Fitch
[2024-03-30] MEDS ORDERED: CEFEPIME 1 GM in SODIUM CHLORIDE 0.9% MINIBAG 100 ML IV SCH ×2 (02:00→06:00)
[2024-03-30] MEDS: CEFEPIME 1 GM in SODIUM CHLORIDE 0.9% MINIBAG 100 ML IV SCH (02:33)
[2024-03-30 05:01] LABS: BASOPHILS % (AUTO) 0.4 %; HCT - HEMATOCRIT 32.4 % (37.0-47.0); HGB - HEMOGLOBIN 10.3 g/dL (12.0-16.0); LYMPHOCYTES % (AUTO) 0.5 %; MEAN CORPUSCULAR HEMOGLOBIN 27.6 pg (27.0-31.0); MEAN CORPUSCULAR HGB CONC 31.8 g/dL (32.0-36.0); MEAN CORPUSCULAR VOLUME 86.9 fL (81.0-99.0); MEAN PLATELET VOLUME 10.3 fL (7.9-10.8); MONOCYTES % (AUTO) 2.8 %; NEUTROPHILS % (AUTO) 90.1 %; PLT - PLATELET COUNT 221 10^3/uL (130-450); RED BLOOD COUNT 3.73 10^6/uL (4.20-5.40); RED CELL DISTRIBUTION WIDTH 19.4 % (12.0-15.0)
[2024-03-30 05:09] LABS: WHITE BLOOD COUNT 43.4 x10^3/uL (4.8-10.8)
[2024-03-30 05:10] LABS: ABNORMAL LYMPHS % (MANUAL) 0 %
[2024-03-30 05:13] LABS: CALCIUM 7.6 mg/dL (8.5-10.3); CREATININE 0.9 mg/dL (0.6-1.3); MAGNESIUM 1.2 mg/dL (1.7-2.3); PHOSPHORUS 2.7 mg/dL (2.5-5.0)
[2024-03-30 05:19] LABS: CALCIUM, IONIZED 1.05 mmol/L (1.15-1.33); VBG PH 7.384 (7.31-7.41)
[2024-03-30] MEDS: POTASSIUM CHLOR 20 MEQ/100 ML 20 MEQ/100 ML BAG IV SCH (05:35)
[2024-03-30] MEDS: MAGNESIUM SULFATE 2 GRAM 2 GM/50 ML BAG IV SCH (05:36)
[2024-03-30 06:09] LABS: BAND NEUTROPHILS % (MANUAL) 20 %; DIFFERENTIAL COMMENT MANUAL DIFFERENTIAL; LYMPHOCYTES # (MANUAL) 0.4 10^3/uL (1.5-3.5); LYMPHOCYTES % (MANUAL) 1 %; PLATELET ESTIMATE, MANUAL NORMAL (130-450,000) (NORMAL)
[2024-03-30 06:12] LABS: ADENOVIRUS F 40/41 Not Detected (Not Detected); ASTROVIRUS Not Detected (Not Detected); C DIFFICILE TOXIN A/B Not Detected (Not Detected); CAMPYLOBACTER Not Detected (Not Detected); CRYPTOSPORIDIUM Not Detected (Not Detected); CYCLOSPORA CAYETANENSIS Not Detected (Not Detected); ENTAMOEBA HISTOLYTICA Not Detected (Not Detected); ENTEROAGGREGATIVE E COLI Not Detected (Not Detected); ENTEROPATHOGENIC E COLI Not Detected (Not Detected); ENTEROTOXIGENIC E COLI Not Detected (Not Detected); GIARDIA LAMBLIA Not Detected (Not Detected); NOROVIRUS GI/GII Not Detected (Not Detected); PLESIOMONAS SHIGELLOIDES Not Detected (Not Detected); ROTAVIRUS A Not Detected (Not Detected); SALMONELLA Not Detected (Not Detected); SAPOVIRUS Not Detected (Not Detected); SHIGA-TOXIN-PRODUCING E COLI Not Detected (Not Detected); SHIGELLA/ENTEROINVASIVE E COLI Not Detected (Not Detected); VIBRIO Not Detected (Not Detected); VIBRIO CHOLERAE Not Detected (Not Detected); YERSINIA ENTEROCOLITICA Not Detected (Not Detected)
[2024-03-30] MEDS: ENOXAPARIN 40 MG/0.4 ML SYRINGE SUBQ SCH (08:32)
[2024-03-30] MEDS: CALCIUM GLUC 1,000MG/50ML-NACL 1,000 MG/50 ML BAG IV ONE (08:34)
[2024-03-30 10:04] LABS: MAGNESIUM 2.1 mg/dL (1.7-2.3); POTASSIUM 3.7 mmol/L (3.5-4.5)
--- NOTE | 2024-03-30 10:20 | PROVIDER PROGRESS NOTE ---
Subjective - Prog Note Date Prog Note Date: 03/30/24 Prog Note Time: 08:30 - Subjective Pt reports feeling: Improved Subjective: Ms. Alcaraz is an 83-year-old woman with history of follicular lymphoma with relapse getting mini CHOP via a right chest PowerPort who presented to the ED (03/29) with shaking chills starting acutely. She reported night sweats last night. She also had 2 days of diarrhea. No measured fevers. She felt too sick to go to her oncology appointment today. EMS was summoned and noted her to be in A-fib which she has had in the past status post ablation and still anticoagulated but does not recall being in A-fib recently. And noted to have a blood sugar of 66 and given D10 prior to arrival. She shortness of breath, cough, sore throat, body aches, abdominal pain. In the ED she was notably tachycardic, apparent A-fib on the EKG w/ RVR. She was given diltiazem after which she at least briefly become profoundly hypotensive down to 50/30 and obtunded. This responded quickly to IV fluids and both blood pressure and mental status improved. Initial workup demonstrates a white count of 1.1 with profound lymphopenia and her CMP was notable for mild hypokalemia and a significant lactic acidosis with a lactate of 7.5. She was administered 30 mL/kg of IV fluids and broad-spectrum antibiotics for unknown source with cefepime, Flagyl, and vancomycin. Blood pressure did rebound with fluids. She became febrile which is not surprising as she presents with sepsis. No further attempts at rate control will be done as it is likely that her A-fib with RVR is likely from her critical underlying illness. She was accepted for admission at 2:20 with report given to the Hospitalist. Maps were running persistently below 65 and decision to start pressors, Levophed, was made at about 3:20 PM. Her urine also came back positive for infection, potentially her source of sepsis. ED provider contacted palliative care nurse practitioner who is aware of this patient. Irais said that the patient was "leaning towards" being DNR but refused to sign the POLST paperwork until she talked to her cousin, Oriana. ED provider called Oriana on the phone who said that she is not the patient's DPOA, not her surrogate decision maker, and has not talked about CODE STATUS with the patient. At this point she remains a full-code. Today she is alert in bed, color improved since yesterday. She is tachycardic in the low 100's with BP stable in the 90's to 100's systolic on 20 mcg/min levophed. O2 sats are 97% on RA. She complains of a mild headache which she attributes to the forehead O2 sat sticker which was removed as she is now using an ear probe. She denies SOB, chest pain, abdominal pain, nausea, vomiting, or dysuria. She really wanted me to predict her length of stay and give details for recent imaging with updates on the status of her lymphoma. I explained that any estimates are extremely rough and could change with complications. She has had very little urine output and I expect she will develop an KIRTI within the next 24 hrs. She remains in the ICU as she is on pressors and tachycardic. Current Medications - Current Medications Current Medications: Active Medications Generic Name Dose Route Start Last Admin Trade Name Freq PRN Reason Stop Dose Admin Enoxaparin Sodium 40 mg 03/30/24 09:00 03/30/24 08:32 Enoxaparin 40 Mg/0.4 Ml Syringe SUBQ 40 mg DAILY DAVE Administration Acetaminophen 1,000 mg in 100 mls @ 400 mls/hr 03/29/24 15:02 03/30/24 06:49 Acetaminophen IV Infused Q6HR PRN Infusion Moderate Pain (Level 4-6) NOREPINEPHRINE/0.9 % NS 8 mg in 250 mls @ 15 mls/hr 03/29/24 16:00 03/30/24 08:31 Levophed 8 Mg/250-0.9% Nacl IV 22 mcg/min .[id number] DAVE 41.25 mls/hr Administration Protocol 8 MCG/MIN Lactated Ringer's 1,000 mls @ 125 mls/hr 03/29/24 18:00 03/30/24 01:21 Lr IV 125 mls/hr .Q8H DAVE Administration Cefepime HCl 1 gm/ Sodium 100 mls @ 200 mls/hr 03/30/24 02:00 03/30/24 03:15 Chloride IV Infused Q8H DAVE Infusion Morphine Sulfate 2 mg 03/29/24 14:50 Morphine 2 Mg/Ml Carpuject IVP Q2HR PRN Pain 8 to 10 Ondansetron HCl 4 mg 03/29/24 14:50 Ondansetron Odt 4 Mg Tablet TL Q6HR PRN Nausea / Vomiting Ondansetron HCl 4 mg 03/29/24 14:50 Ondansetron 4 Mg/2 Ml Vial IVP Q6HR PRN Nausea / Vomiting Pantoprazole Sodium 40 mg 03/29/24 15:00 03/30/24 06:28 Pantoprazole 40 Mg Vial IVP 40 mg QDAC DAVE Administration Sodium Chloride 10 ml 03/29/24 17:00 03/30/24 08:33 Sodium Chloride Flush 0.9% 10 Ml Syringe IVP 10 ml 0100,0900,1700 DAVE Administration Sodium Chloride 10 ml 03/29/24 14:50 Sodium Chloride Flush 0.9% 10 Ml Syringe IVP PRN PRN NEEDED PER PROVIDER ORDERS Apixaban [Eliquis] 5 mg PO BID 12/28/23 Famotidine 40 mg PO HS 01/18/24 Acetaminophen [Acetaminophen Extra Strength] 500 mg PO PRN PRN 03/29/24 Potassium Chloride 10 meq PO DAILY 03/29/24 Objective - Vital Signs/Intake & Output Reviewed Vital Signs: Yes Vital Signs: Vital Signs x48h Temp Pulse Resp BP Pulse Ox O2 Flow Rate 03/30/24 10:00 101 H 29 H 99/65 95 03/30/24 09:00 100 26 H 117/60 98 03/30/24 08:45 97 03/30/24 08:00 36.6 C 103 H 27 H 111/67 97 03/30/24 07:00 100 18 102/59 L 99 2 03/30/24 06:03 101 H 94/59 L 03/30/24 05:58 98 113/64 03/30/24 05:53 96 128/63 03/30/24 05:48 107 H 128/70 03/30/24 05:00 107 H 24 125/77 99 2 03/30/24 04:35 37.6 C 03/30/24 04:00 115 H 26 H 115/59 L 99 2 03/30/24 03:00 107 H 25 H 120/68 99 2 Intake & Output: Intake & Output 03/27/24 03/28/24 03/29/24 03/30/24 23:59 23:59 23:59 23:59 Intake Total 2482.878 1764.990 Output Total 331 495 Balance 2118.875 2222.333 - Objective General Appearance: positive: Alert, Other (83 y/o female, conversant, appears tired but has no obvious distress) Eyes Bilateral: positive: Normal inspection ENT: positive: No signs of dehydration Respiratory: positive: Chest non-tender, No respiratory distress, Rales. negative: Breath sounds nml (silar rales, R>L), Wheezes, Rhonchi Cardiovascular: positive: Regular rate & rhythm, No murmur, No gallop, Tachycardia Peripheral Pulses: 1+ Dorsalis pedis (R), 1+ Dorsalis pedis (L), 2+ Radial (R), 2+ Radial (L) Abdomen: positive: Non-tender, No organomegaly, Nml bowel sounds, No distention Skin: positive: No rash, Warm, Dry, Pallor (Still pale, but not as pale as yesterday), Other (Lesion with surrounding erythema right big toe improved with decrease in erythema, non-tender) Extremities: positive: Non-tender, No pedal edema Neurologic/Psychiatric: positive: Oriented x3, CN's nml (2-12), Motor nml, Sensation nml, Mood/affect nml - Lab Results Fish Bones: 03/30/24 04:44 03/30/24 09:30 Other Labs: Lab Results x24hrs 03/30/24 03/30/24 03/30/24 Range/Units 09:30 04:44 04:44 WBC (4.8-10.8) x10^3/uL RBC (4.20-5.40) 10^6/uL Hgb (12.0-16.0) g/dL Hct (37.0-47.0) % MCV (81.0-99.0) fL MCH (27.0-31.0) pg MCHC (32.0-36.0) g/dL RDW (12.0-15.0) % Plt Count (130-450) 10^3/uL MPV (7.9-10.8) fL Neut # (Auto) (1.5-6.6) 10^3/uL Lymph # (Auto) (1.5-3.5) 10^3/uL [place] # (Auto) (0.0-1.0) 10^3/uL Eos # (Auto) (0.0-0.7) 10^3/uL Baso # (Auto) (0.0-0.1) 10^3/uL Absolute Nucleated RBC x10^3/uL Total Counted Band Neuts % (Manual) (0 - 10) % Abnorm Lymph % (Manual) % Nucleated RBC % /100WBC Neutrophils # (Manual) (1.5-6.6) 10^3/uL Lymphocytes # (Manual) (1.5-3.5) 10^3/uL Monocytes # (Manual) (0.0-1.0) 10^3/uL Eosinophils # (Manual) (0-0.7) 10^3/uL Basophils # (Manual) (0-0.1) 10^3/uL Differential Comment Manual Slide Review Platelet Estimate (NORMAL) RBC Morph Micro Appear (NORMAL) VBG pH 7.384 (7.31-7.41) Ionized Calcium 1.05 L (1.15-1.33) mmol/L Sodium (135-145) mmol/L Potassium 3.7 (3.5-4.5) mmol/L Chloride (101-111) mmol/L Carbon Dioxide (21-32) mmol/L Anion Gap (6-13) BUN (6-20) mg/dL Creatinine (0.6-1.3) mg/dL Estimated GFR (MDRD) (>89) Glucose (74-104) mg/dL Lactic Acid 3.8 H* (0.5-2.2) mmol/L Calcium (8.5-10.3) mg/dL Phosphorus (2.5-5.0) mg/dL Magnesium 2.1 (1.7-2.3) mg/dL Total Bilirubin (0.2-1.0) mg/dL AST (10-42) IU/L ALT (10-60) IU/L Alkaline Phosphatase (42-121) IU/L Total Protein (6.4-8.9) g/dL Albumin (3.2-5.5) g/dL Globulin (2.1-4.2) g/dL Albumin/Globulin Ratio (1.0-2.2) Urine Color Urine Clarity (CLEAR) Urine pH (5.0-7.5) PH Ur Specific [place] (1.002-1.030) Urine Protein (NEGATIVE) mg/dL Urine Glucose (UA) (NEGATIVE) mg/dL Urine Ketones (NEGATIVE) mg/dL Urine Occult Blood (NEGATIVE) Urine Nitrite (NEGATIVE) Urine Bilirubin (NEGATIVE) Urine Urobilinogen (NORMAL) E.U./dL Ur Leukocyte Esterase (NEGATIVE) Urine RBC (0-5) /HPF Urine WBC (0-5) /HPF Ur Squamous Epith Cells (<= Few) Urine Bacteria (None Seen) /HPF Urine Culture Comments Nasal Screen MRSA (PCR) (NEGATIVE) Stl C. cayetanensis PCR (Not Detected) Stool Rotavirus A PCR (Not Detected) Stl Adenov F 40/41 PCR (Not Detected) Stool Astrovirus (PCR) (Not Detected) Stool Campylobacter PCR (Not Detected) Stl C. diff Tox B Gene (NEGATIVE) Stl C. diff Tox A/B PCR (Not Detected) Stool Cryptosporidium PCR (Not Detected) Stl Sh Tox Pr E STEC PCR (Not Detected) Stool E coli O157 PCR (Not Detected) Stl Enterotoxigenic E PCR (Not Detected) Stool EPEC (PCR) (Not Detected) Stl E. histolytica PCR (Not Detected) Stool Giardia Lamblia PCR (Not Detected) Stl P. shigelloides PCR (Not Detected) Stool Salmonella PCR (Not Detected) Stool Sapovirus (PCR) (Not Detected) Stl Shigella/EIEC PCR (Not Detected) St Y.enterocolitica PCR (Not Detected) Stool Vibrio (PCR) (Not Detected) Stl Vibrio cholerae PCR (Not Detected) Stl Enteroaggr Ecoli PCR (Not Detected) Stl Norovirus GI/GII PCR (Not Detected) Blood Type Blood Type Recheck Antibody Screen 03/30/24 03/30/24 03/29/24 Range/Units 04:44 04:44 23:13 WBC 43.4 H* (4.8-10.8) x10^3/uL RBC 3.73 L (4.20-5.40) 10^6/uL Hgb 10.3 L (12.0-16.0) g/dL Hct 32.4 L (37.0-47.0) % MCV 86.9 (81.0-99.0) fL MCH 27.6 (27.0-31.0) pg MCHC 31.8 L (32.0-36.0) g/dL RDW 19.4 H (12.0-15.0) % Plt Count 221 (130-450) 10^3/uL MPV 10.3 (7.9-10.8) fL Neut # (Auto) Not Reportable (1.5-6.6) 10^3/uL Lymph # (Auto) Not Reportable (1.5-3.5) 10^3/uL Cocke # (Auto) Not Reportable (0.0-1.0) 10^3/uL Eos # (Auto) Not Reportable (0.0-0.7) 10^3/uL Baso # (Auto) Not Reportable (0.0-0.1) 10^3/uL Absolute Nucleated RBC Not Reportable x10^3/uL Total Counted 100 Band Neuts % (Manual) 20 H (0 - 10) % Abnorm Lymph % (Manual) 0 % Nucleated RBC % Not Reportable /100WBC Neutrophils # (Manual) 43.0 H (1.5-6.6) 10^3/uL Lymphocytes # (Manual) 0.4 L (1.5-3.5) 10^3/uL Monocytes # (Manual) 0.0 (0.0-1.0) 10^3/uL Eosinophils # (Manual) 0.0 (0-0.7) 10^3/uL Basophils # (Manual) 0.0 (0-0.1) 10^3/uL Differential Comment MANUAL DIFFERENTIAL Manual Slide Review Platelet Estimate NORMAL (130-450,000) (NORMAL) RBC Morph Micro Appear 1+ OVALOCYTES (NORMAL) VBG pH (7.31-7.41) Ionized Calcium (1.15-1.33) mmol/L Sodium 140 (135-145) mmol/L Potassium 3.0 L (3.5-4.5) mmol/L Chloride 109 (101-111) mmol/L Carbon Dioxide 20 L (21-32) mmol/L Anion Gap 11.0 (6-13) BUN 13 (6-20) mg/dL Creatinine 0.9 (0.6-1.3) mg/dL Estimated GFR (MDRD) 60 L (>89) Glucose 121 H (74-104) mg/dL Lactic Acid 4.4 H* (0.5-2.2) mmol/L Calcium 7.6 L (8.5-10.3) mg/dL Phosphorus 2.7 (2.5-5.0) mg/dL Magnesium 1.2 L (1.7-2.3) mg/dL Total Bilirubin (0.2-1.0) mg/dL AST (10-42) IU/L ALT (10-60) IU/L Alkaline Phosphatase (42-121) IU/L Total Protein (6.4-8.9) g/dL Albumin (3.2-5.5) g/dL Globulin (2.1-4.2) g/dL Albumin/Globulin Ratio (1.0-2.2) Urine Color Urine Clarity (CLEAR) Urine pH (5.0-7.5) PH Ur Specific [place] (1.002-1.030) Urine Protein (NEGATIVE) mg/dL Urine Glucose (UA) (NEGATIVE) mg/dL Urine Ketones (NEGATIVE) mg/dL Urine Occult Blood (NEGATIVE) Urine Nitrite (NEGATIVE) Urine Bilirubin (NEGATIVE) Urine Urobilinogen (NORMAL) E.U./dL Ur Leukocyte Esterase (NEGATIVE) Urine RBC (0-5) /HPF Urine WBC (0-5) /HPF Ur Squamous Epith Cells (<= Few) Urine Bacteria (None Seen) /HPF Urine Culture Comments Nasal Screen MRSA (PCR) (NEGATIVE) Stl C. cayetanensis PCR (Not Detected) Stool Rotavirus A PCR (Not Detected) Stl Adenov F 40/41 PCR (Not Detected) Stool Astrovirus (PCR) (Not Detected) Stool Campylobacter PCR (Not Detected) Stl C. diff Tox B Gene (NEGATIVE) Stl C. diff Tox A/B PCR (Not Detected) Stool Cryptosporidium PCR (Not Detected) Stl Sh Tox Pr E STEC PCR (Not Detected) Stool E coli O157 PCR (Not Detected) Stl Enterotoxigenic E PCR (Not Detected) Stool EPEC (PCR) (Not Detected) Stl E. histolytica PCR (Not Detected) Stool Giardia Lamblia PCR (Not Detected) Stl P. shigelloides PCR (Not Detected) Stool Salmonella PCR (Not Detected) Stool Sapovirus (PCR) (Not Detected) Stl Shigella/EIEC PCR (Not Detected) St Y.enterocolitica PCR (Not Detected) Stool Vibrio (PCR) (Not Detected) Stl Vibrio cholerae PCR (Not Detected) Stl Enteroaggr Ecoli PCR (Not Detected) Stl Norovirus GI/GII PCR (Not Detected) Blood Type Blood Type Recheck Antibody Screen 03/29/24 03/29/24 03/29/24 Range/Units 19:45 16:28 16:00 WBC (4.8-10.8) x10^3/uL RBC (4.20-5.40) 10^6/uL Hgb (12.0-16.0) g/dL Hct (37.0-47.0) % MCV (81.0-99.0) fL MCH (27.0-31.0) pg MCHC (32.0-36.0) g/dL RDW (12.0-15.0) % Plt Count (130-450) 10^3/uL MPV (7.9-10.8) fL Neut # (Auto) (1.5-6.6) 10^3/uL Lymph # (Auto) (1.5-3.5) 10^3/uL [place] # (Auto) (0.0-1.0) 10^3/uL Eos # (Auto) (0.0-0.7) 10^3/uL Baso # (Auto) (0.0-0.1) 10^3/uL Absolute Nucleated RBC x10^3/uL Total Counted Band Neuts % (Manual) (0 - 10) % Abnorm Lymph % (Manual) % Nucleated RBC % /100WBC Neutrophils # (Manual) (1.5-6.6) 10^3/uL Lymphocytes # (Manual) (1.5-3.5) 10^3/uL Monocytes # (Manual) (0.0-1.0) 10^3/uL Eosinophils # (Manual) (0-0.7) 10^3/uL Basophils # (Manual) (0-0.1) 10^3/uL Differential Comment Manual Slide Review Platelet Estimate (NORMAL) RBC Morph Micro Appear (NORMAL) VBG pH (7.31-7.41) Ionized Calcium (1.15-1.33) mmol/L Sodium (135-145) mmol/L Potassium (3.5-4.5) mmol/L Chloride (101-111) mmol/L Carbon Dioxide (21-32) mmol/L Anion Gap (6-13) BUN (6-20) mg/dL Creatinine (0.6-1.3) mg/dL Estimated GFR (MDRD) (>89) Glucose (74-104) mg/dL Lactic Acid 5.5 H* 8.1 H* (0.5-2.2) mmol/L Calcium (8.5-10.3) mg/dL Phosphorus (2.5-5.0) mg/dL Magnesium (1.7-2.3) mg/dL Total Bilirubin (0.2-1.0) mg/dL AST (10-42) IU/L ALT (10-60) IU/L Alkaline Phosphatase (42-121) IU/L Total Protein (6.4-8.9) g/dL Albumin (3.2-5.5) g/dL Globulin (2.1-4.2) g/dL Albumin/Globulin Ratio (1.0-2.2) Urine Color Urine Clarity (CLEAR) Urine pH (5.0-7.5) PH Ur Specific [place] (1.002-1.030) Urine Protein (NEGATIVE) mg/dL Urine Glucose (UA) (NEGATIVE) mg/dL Urine Ketones (NEGATIVE) mg/dL Urine Occult Blood (NEGATIVE) Urine Nitrite (NEGATIVE) Urine Bilirubin (NEGATIVE) Urine Urobilinogen (NORMAL) E.U./dL Ur Leukocyte Esterase (NEGATIVE) Urine RBC (0-5) /HPF Urine WBC (0-5) /HPF Ur Squamous Epith Cells (<= Few) Urine Bacteria (None Seen) /HPF Urine Culture Comments Nasal Screen MRSA (PCR) NEGATIVE (NEGATIVE) Stl C. cayetanensis PCR (Not Detected) Stool Rotavirus A PCR (Not Detected) Stl Adenov F 40/41 PCR (Not Detected) Stool Astrovirus (PCR) (Not Detected) Stool Campylobacter PCR (Not Detected) Stl C. diff Tox B Gene (NEGATIVE) Stl C. diff Tox A/B PCR (Not Detected) Stool Cryptosporidium PCR (Not Detected) Stl Sh Tox Pr E STEC PCR (Not Detected) Stool E coli O157 PCR (Not Detected) Stl Enterotoxigenic E PCR (Not Detected) Stool EPEC (PCR) (Not Detected) Stl E. histolytica PCR (Not Detected) Stool Giardia Lamblia PCR (Not Detected) Stl P. shigelloides PCR (Not Detected) Stool Salmonella PCR (Not Detected) Stool Sapovirus (PCR) (Not Detected) Stl Shigella/EIEC PCR (Not Detected) St Y.enterocolitica PCR (Not Detected) Stool Vibrio (PCR) (Not Detected) Stl Vibrio cholerae PCR (Not Detected) Stl Enteroaggr Ecoli PCR (Not Detected) Stl Norovirus GI/GII PCR (Not Detected) Blood Type Blood Type Recheck Antibody Screen 03/29/24 03/29/24 03/29/24 Range/Units 15:10 14:47 14:30 WBC (4.8-10.8) x10^3/uL RBC (4.20-5.40) 10^6/uL Hgb (12.0-16.0) g/dL Hct (37.0-47.0) % MCV (81.0-99.0) fL MCH (27.0-31.0) pg MCHC (32.0-36.0) g/dL RDW (12.0-15.0) % Plt Count (130-450) 10^3/uL MPV (7.9-10.8) fL Neut # (Auto) (1.5-6.6) 10^3/uL Lymph # (Auto) (1.5-3.5) 10^3/uL [place] # (Auto) (0.0-1.0) 10^3/uL Eos # (Auto) (0.0-0.7) 10^3/uL Baso # (Auto) (0.0-0.1) 10^3/uL Absolute Nucleated RBC x10^3/uL Total Counted Band Neuts % (Manual) (0 - 10) % Abnorm Lymph % (Manual) % Nucleated RBC % /100WBC Neutrophils # (Manual) (1.5-6.6) 10^3/uL Lymphocytes # (Manual) (1.5-3.5) 10^3/uL Monocytes # (Manual) (0.0-1.0) 10^3/uL Eosinophils # (Manual) (0-0.7) 10^3/uL Basophils # (Manual) (0-0.1) 10^3/uL Differential Comment Manual Slide Review Platelet Estimate (NORMAL) RBC Morph Micro Appear (NORMAL) VBG pH (7.31-7.41) Ionized Calcium (1.15-1.33) mmol/L Sodium (135-145) mmol/L Potassium (3.5-4.5) mmol/L Chloride (101-111) mmol/L Carbon Dioxide (21-32) mmol/L Anion Gap (6-13) BUN (6-20) mg/dL Creatinine (0.6-1.3) mg/dL Estimated GFR (MDRD) (>89) Glucose (74-104) mg/dL Lactic Acid (0.5-2.2) mmol/L Calcium (8.5-10.3) mg/dL Phosphorus (2.5-5.0) mg/dL Magnesium (1.7-2.3) mg/dL Total Bilirubin (0.2-1.0) mg/dL AST (10-42) IU/L ALT (10-60) IU/L Alkaline Phosphatase (42-121) IU/L Total Protein (6.4-8.9) g/dL Albumin (3.2-5.5) g/dL Globulin (2.1-4.2) g/dL Albumin/Globulin Ratio (1.0-2.2) Urine Color YELLOW Urine Clarity CLOUDY (CLEAR) Urine pH 7.0 (5.0-7.5) PH Ur Specific [place] 1.010 (1.002-1.030) Urine Protein 30 H (NEGATIVE) mg/dL Urine Glucose (UA) NEGATIVE (NEGATIVE) mg/dL Urine Ketones NEGATIVE (NEGATIVE) mg/dL Urine Occult Blood LARGE H (NEGATIVE) Urine Nitrite POSITIVE H (NEGATIVE) Urine Bilirubin NEGATIVE (NEGATIVE) Urine Urobilinogen 0.2 (NORMAL) (NORMAL) E.U./dL Ur Leukocyte Esterase LARGE H (NEGATIVE) Urine RBC TNTC H (0-5) /HPF Urine WBC >25 H (0-5) /HPF Ur Squamous Epith Cells NONE SEEN (<= Few) Urine Bacteria Moderate H (None Seen) /HPF Urine Culture Comments INDICATED Nasal Screen MRSA (PCR) (NEGATIVE) Stl C. cayetanensis PCR (Not Detected) Stool Rotavirus A PCR (Not Detected) Stl Adenov F 40/41 PCR (Not Detected) Stool Astrovirus (PCR) (Not Detected) Stool Campylobacter PCR (Not Detected) Stl C. diff Tox B Gene NEGATIVE (NEGATIVE) Stl C. diff Tox A/B PCR (Not Detected) Stool Cryptosporidium PCR (Not Detected) Stl Sh Tox Pr E STEC PCR (Not Detected) Stool E coli O157 PCR (Not Detected) Stl Enterotoxigenic E PCR (Not Detected) Stool EPEC (PCR) (Not Detected) Stl E. histolytica PCR (Not Detected) Stool Giardia Lamblia PCR (Not Detected) Stl P. shigelloides PCR (Not Detected) Stool Salmonella PCR (Not Detected) Stool Sapovirus (PCR) (Not Detected) Stl Shigella/EIEC PCR (Not Detected) St Y.enterocolitica PCR (Not Detected) Stool Vibrio (PCR) (Not Detected) Stl Vibrio cholerae PCR (Not Detected) Stl Enteroaggr Ecoli PCR (Not Detected) Stl Norovirus GI/GII PCR (Not Detected) Blood Type O POSITIVE Blood Type Recheck Antibody Screen NEGATIVE 03/29/24 03/29/24 03/29/24 Range/Units 14:15 13:15 13:15 WBC (4.8-10.8) x10^3/uL RBC (4.20-5.40) 10^6/uL Hgb (12.0-16.0) g/dL Hct (37.0-47.0) % MCV (81.0-99.0) fL MCH (27.0-31.0) pg MCHC (32.0-36.0) g/dL RDW (12.0-15.0) % Plt Count (130-450) 10^3/uL MPV (7.9-10.8) fL Neut # (Auto) (1.5-6.6) 10^3/uL Lymph # (Auto) (1.5-3.5) 10^3/uL [place] # (Auto) (0.0-1.0) 10^3/uL Eos # (Auto) (0.0-0.7) 10^3/uL Baso # (Auto) (0.0-0.1) 10^3/uL Absolute Nucleated RBC x10^3/uL Total Counted Band Neuts % (Manual) (0 - 10) % Abnorm Lymph % (Manual) % Nucleated RBC % /100WBC Neutrophils # (Manual) (1.5-6.6) 10^3/uL Lymphocytes # (Manual) (1.5-3.5) 10^3/uL Monocytes # (Manual) (0.0-1.0) 10^3/uL Eosinophils # (Manual) (0-0.7) 10^3/uL Basophils # (Manual) (0-0.1) 10^3/uL Differential Comment Manual Slide Review Platelet Estimate (NORMAL) RBC Morph Micro Appear (NORMAL) VBG pH (7.31-7.41) Ionized Calcium (1.15-1.33) mmol/L Sodium (135-145) mmol/L Potassium (3.5-4.5) mmol/L Chloride (101-111) mmol/L Carbon Dioxide (21-32) mmol/L Anion Gap (6-13) BUN (6-20) mg/dL Creatinine (0.6-1.3) mg/dL Estimated GFR (MDRD) (>89) Glucose (74-104) mg/dL Lactic Acid 7.5 H* (0.5-2.2) mmol/L Calcium (8.5-10.3) mg/dL Phosphorus (2.5-5.0) mg/dL Magnesium (1.7-2.3) mg/dL Total Bilirubin (0.2-1.0) mg/dL AST (10-42) IU/L ALT (10-60) IU/L Alkaline Phosphatase (42-121) IU/L Total Protein (6.4-8.9) g/dL Albumin (3.2-5.5) g/dL Globulin (2.1-4.2) g/dL Albumin/Globulin Ratio (1.0-2.2) Urine Color Urine Clarity (CLEAR) Urine pH (5.0-7.5) PH Ur Specific [place] (1.002-1.030) Urine Protein (NEGATIVE) mg/dL Urine Glucose (UA) (NEGATIVE) mg/dL Urine Ketones (NEGATIVE) mg/dL Urine Occult Blood (NEGATIVE) Urine Nitrite (NEGATIVE) Urine Bilirubin (NEGATIVE) Urine Urobilinogen (NORMAL) E.U./dL Ur Leukocyte Esterase (NEGATIVE) Urine RBC (0-5) /HPF Urine WBC (0-5) /HPF Ur Squamous Epith Cells (<= Few) Urine Bacteria (None Seen) /HPF Urine Culture Comments Nasal Screen MRSA (PCR) (NEGATIVE) Stl C. cayetanensis PCR Not Detected (Not Detected) Stool Rotavirus A PCR Not Detected (Not Detected) Stl Adenov F 40/41 PCR Not Detected (Not Detected) Stool Astrovirus (PCR) Not Detected (Not Detected) Stool Campylobacter PCR Not Detected (Not Detected) Stl C. diff Tox B Gene (NEGATIVE) Stl C. diff Tox A/B PCR Not Detected (Not Detected) Stool Cryptosporidium PCR Not Detected (Not Detected) Stl Sh Tox Pr E STEC PCR Not Detected (Not Detected) Stool E coli O157 PCR Not applicable (Not Detected) Stl Enterotoxigenic E PCR Not Detected (Not Detected) Stool EPEC (PCR) Not Detected (Not Detected) Stl E. histolytica PCR Not Detected (Not Detected) Stool Giardia Lamblia PCR Not Detected (Not Detected) Stl P. shigelloides PCR Not Detected (Not Detected) Stool Salmonella PCR Not Detected (Not Detected) Stool Sapovirus (PCR) Not Detected (Not Detected) Stl Shigella/EIEC PCR Not Detected (Not Detected) St Y.enterocolitica PCR Not Detected (Not Detected) Stool Vibrio (PCR) Not Detected (Not Detected) Stl Vibrio cholerae PCR Not Detected (Not Detected) Stl Enteroaggr Ecoli PCR Not Detected (Not Detected) Stl Norovirus GI/GII PCR Not Detected (Not Detected) Blood Type Blood Type Recheck O POSITIVE Antibody Screen 03/29/24 03/29/24 Range/Units 13:15 13:15 WBC 1.1 L* (4.8-10.8) x10^3/uL RBC 4.06 L (4.20-5.40) 10^6/uL Hgb 10.7 L (12.0-16.0) g/dL Hct 36.3 L (37.0-47.0) % MCV 89.4 (81.0-99.0) fL MCH 26.4 L (27.0-31.0) pg MCHC 29.5 L (32.0-36.0) g/dL RDW 19.0 H (12.0-15.0) % Plt Count 133 (130-450) 10^3/uL MPV 9.8 (7.9-10.8) fL Neut # (Auto) 1.0 L (1.5-6.6) 10^3/uL Lymph # (Auto) 0.0 L (1.5-3.5) 10^3/uL [place]ke # (Auto) 0.0 (0.0-1.0) 10^3/uL Eos # (Auto) 0.0 (0.0-0.7) 10^3/uL Baso # (Auto) 0.0 (0.0-0.1) 10^3/uL Absolute Nucleated RBC 0.02 x10^3/uL Total Counted Band Neuts % (Manual) (0 - 10) % Abnorm Lymph % (Manual) % Nucleated RBC % 1.9 /100WBC Neutrophils # (Manual) (1.5-6.6) 10^3/uL Lymphocytes # (Manual) (1.5-3.5) 10^3/uL Monocytes # (Manual) (0.0-1.0) 10^3/uL Eosinophils # (Manual) (0-0.7) 10^3/uL Basophils # (Manual) (0-0.1) 10^3/uL Differential Comment Manual Slide Review Indicated Platelet Estimate (NORMAL) RBC Morph Micro Appear 4+ ANISOCYTOSIS (NORMAL) VBG pH (7.31-7.41) Ionized Calcium (1.15-1.33) mmol/L Sodium 136 (135-145) mmol/L Potassium 3.1 L (3.5-4.5) mmol/L Chloride 99 L (101-111) mmol/L Carbon Dioxide 24 (21-32) mmol/L Anion Gap 13.0 (6-13) BUN 12 (6-20) mg/dL Creatinine 0.7 (0.6-1.3) mg/dL Estimated GFR (MDRD) 80 L (>89) Glucose 151 H (74-104) mg/dL Lactic Acid (0.5-2.2) mmol/L Calcium 8.3 L (8.5-10.3) mg/dL Phosphorus (2.5-5.0) mg/dL Magnesium (1.7-2.3) mg/dL Total Bilirubin 0.9 (0.2-1.0) mg/dL AST 14 (10-42) IU/L ALT 7 L (10-60) IU/L Alkaline Phosphatase 156 H (42-121) IU/L Total Protein 4.9 L (6.4-8.9) g/dL Albumin 2.6 L (3.2-5.5) g/dL Globulin 2.3 (2.1-4.2) g/dL Albumin/Globulin Ratio 1.1 (1.0-2.2) Urine Color Urine Clarity (CLEAR) Urine pH (5.0-7.5) PH Ur Specific [place] (1.002-1.030) Urine Protein (NEGATIVE) mg/dL Urine Glucose (UA) (NEGATIVE) mg/dL Urine Ketones (NEGATIVE) mg/dL Urine Occult Blood (NEGATIVE) Urine Nitrite (NEGATIVE) Urine Bilirubin (NEGATIVE) Urine Urobilinogen (NORMAL) E.U./dL Ur Leukocyte Esterase (NEGATIVE) Urine RBC (0-5) /HPF Urine WBC (0-5) /HPF Ur Squamous Epith Cells (<= Few) Urine Bacteria (None Seen) /HPF Urine Culture Comments Nasal Screen MRSA (PCR) (NEGATIVE) Stl C. cayetanensis PCR (Not Detected) Stool Rotavirus A PCR (Not Detected) Stl Adenov F 40/41 PCR (Not Detected) Stool Astrovirus (PCR) (Not Detected) Stool Campylobacter PCR (Not Detected) Stl C. diff Tox B Gene (NEGATIVE) Stl C. diff Tox A/B PCR (Not Detected) Stool Cryptosporidium PCR (Not Detected) Stl Sh Tox Pr E STEC PCR (Not Detected) Stool E coli O157 PCR (Not Detected) Stl Enterotoxigenic E PCR (Not Detected) Stool EPEC (PCR) (Not Detected) Stl E. histolytica PCR (Not Detected) Stool Giardia Lamblia PCR (Not Detected) Stl P. shigelloides PCR (Not Detected) Stool Salmonella PCR (Not Detected) Stool Sapovirus (PCR) (Not Detected) Stl Shigella/EIEC PCR (Not Detected) St Y.enterocolitica PCR (Not Detected) Stool Vibrio (PCR) (Not Detected) Stl Vibrio cholerae PCR (Not Detected) Stl Enteroaggr Ecoli PCR (Not Detected) Stl Norovirus GI/GII PCR (Not Detected) Blood Type Blood Type Recheck Antibody Screen ABX Reporting Has patient been on IV antibiotics over the past 48 hours?: Yes Sepsis Event Note (H) - Evaluation Current Stage of Sepsis: Septic shock Possible source of Sepsis: positive: Genitourinary - Sepsis Criteria Sepsis Criteria: Recorded Temperature greater than 38.3C or Less than 36C, Recorded Heart Rate greater than 90 bpm, Respiratory: Increasing oxygen requirements, WBC count greater than 10% bands, WBC count greater than 12,000 or less than 4000, MAP less than 65 mmHg, SBP less than 90 mmHg, Metabolic: lactate > 2 mmol/L Assessment/Plan - Problem List (1) Septic shock Impression: She presented with sepsis that rapidly progressed to septic shock in the ED. She had marked leukopenia on 03/29 WBCs 1.1 and ANC of 1.0 and developed leukocytosis today with WBCs of 43.4 and an ANC of 43.0. She is SIRS positive for tachycardia, leukocytopenia, elevated respiratory rate, increasing O2 requirements, and hypotension. Her lactate was 7.5 in the ED, increased to 8.1 and has now decreased to 3.8. UA shows UTI which makes urosepsis the likely. Blood cultures were drawn in the ED and are positive for e. coli bacteremia. Chest x-ray was unremarkable. A lesion on her right big toe with erythema is improved today. She was started on vancomycin, flagyl, and cefepime in the ED for empiric coverage. She was fluid resuscitated and initially responded with an increase in BP before becoming hypotensive again and was placed on levophed in the ED. She is currently on levophed at 20 mcg/min with BP stable in the 90's to 100's and HR in low 100s. Creatinine has increase from 0.7 to 0.9 with decreased urine output, calcuated at 0.63 ml/kg at 10:45 today. I expect she will likely develop an KIRTI but does not meet criteria at this time. Her antibiotics can be de- escalated to cefepime only given e. coli bacteremia due to urosepsis, awaiting c/s for further narrowing. She remains in the ICU as she is pressor dependent and mildy tachycardic. I will continue fluids at 125 ml/hr and monitor for hemodynamic changes and fluid overload. She will be on a regular diet as tolerated with instructions to help orient her to the plate due to vision impairment. (2) UTI (urinary tract infection) Impression: Her UA was positive for UTI, cultures positive for e. coli. She does not report any specific urinary symptoms but is incontinent to urine at baseline. She is neutropenic which makes her more susceptible to infection and more likely to develop bacteremia related to a UTI. I have ordered a CT abdomen to evaluate for urinary obstruction as a possible contributing cause related to lymphoma. Antibiotics have been de-escalated to cefepime and can narrow further pending c/s. (3) Atrial fibrillation Impression: She has an hx of a-fib s/p ablation, with paroxysmal a-fib after ablation who is currently anticoagulated on apixaban. [facility] in the ED and was given diltiazem 15 mg IV in the ED and subsequently developed profound hypotension and AMS with minimal effect on HR. BP responded to fluids initially but she became hypotensive again, likely due to sepsis and not a primary tachyarrhythmia. Attempts at further rate control were deferred as it is likely her tachycardia is due to her underlying sepsis. She is on tele in the ICU. Underlying rhythm sinus tachycardia at this time in the low 100's. I will continue to monitor and treat the underlying urosepsis. (4) Diarrhea Impression: She reports liquid stool x2 days, none since she presented in the ED. This presents an alternative possible source of infection and she is at risk for c- diff due to immunocompromised status and frequent contact with the healthcare system. Stool PCR all negative, including negative c. diff. She is being fluid resuscitated and has not had continued loose stool. Diarrhea could also have been due to effects of CHOP. Electrolytes being management per ICU protocol. (5) Hypokalemia Impression: Resolved, most recent potassium 3.7 today (03/30). She presented hypokalemic with potassium of 3.1 on 03/29, likely due to excessive GI loss from the diarrhea. Electrolytes being managed per ICU protocol. I will continue to monitor and treat if indicated. (6) Follicular lymphoma Impression: Follicular lymphoma diagnosed in 2006 and treated with rituxin, recurrent in 2019 with malignant lymphadenopathy of the right groin eroding into L5 and retroperitoneal lymphadenopathy. Most recent imaging shows resolution of groin lymphadenopathy with progression of retroperitoneal lymphadenopathy. She is on mini-CHOP and has a port. She had a significant functional decline after starting mini-CHOP and is now bedbound, Last chemo was on 03/21 and they did not to her next scheduled infusion due to neutropenia. Her ANC was 1.0 03/29 and 43 today (03/30). Neutropenic precuations are not indicated. She brought in her maintenance immunomodulation medication but has not taken it since 03/28, additional doses will be held due to sepsis. Neutropenia was likely the underlying cause for her rapid onset of sepsis and progression to septic shock. I will continue to monitor her for complications and have ordered a CT abdomen to evaluate for urinary obstruction related to lymphoma. (7) Anemia Impression: She has mild anemia with an Hbg of 10.3, stable since admission. This is likely due to her CHOP therapy and severe malnutrition. It is stable and above the transfusion threshold. I will monitor with daily CBCs, no further intervention is indicated at this time. (8) Severe protein-calorie malnutrition Impression: Weight loss of 18 kg in 1 year which is 19% of body weight. She was receiving meals on wheels but has cancelled it. Unclear what and how often she is able to eat. She states her cousin and aid put meals and food for her in the fridge. As she is non-ambulatory at this time, it is unclear if she is eating 3 meals a day or if she supplements primarily with ensure. I have placed her on a regular diet and ordered a nutritional consult. (9) Bedbound Impression: Per palliative care note, she had a significant decline in mobility after start mini-CHOP in march. She was previously ambulatory with a walker. She reports being bedbound at home, is able to get to wheelchair with assistance. She lives alone and has help several days a week from a home health specialist and cousin, unclear if she is out of bed daily. She is also incontinent to urine at baseline, uses depends or adult diapers at home, and has some erythema on her sacrum. She will need rehab at discharge with a PT/OT consult ordered.
[2024-03-30] MEDS: MULTIVITAMIN W/MINERALS TABLET PO SCH (11:09)
[2024-03-30 12:16] LABS: CALCIUM, IONIZED 1.1 mmol/L (1.15-1.33); VBG PH 7.394 (7.31-7.41)
[2024-03-30] MEDS: POTASSIUM CHLORIDE 20 MEQ TABLET PO ONE (12:22)
[2024-03-30] MEDS: CALCIUM CARBONATE CHEW 500 MG TABLET PO SCH (12:54)
[2024-03-30] MEDS: ONDANSETRON 4 MG/2 ML VIAL IVP PRN (14:23)
--- NOTE | 2024-03-30 16:49 | CT Report ---
PROCEDURE: Abdomen/Pelvis WO INDICATIONS: urosepsis TECHNIQUE: A CT scan of the abdomen and pelvis was performed without the use of intravenous contrast. Images we re recorded and evaluated at appropriate window settings. Reformats: coronal and sagittal. For radiat ion dose reduction, the following was used: automated exposure control, adjustment of mA and/or kV ac cording to patient size. COMPARISON: CT of abdomen and pelvis dated 03/14/2024. FINDINGS: Image quality: Diagnostic. Lower chest: Trace bilateral pleural effusion and bibasilar dependent atelectasis is seen. Liver: No contour-deforming mass. Gallbladder: Gallbladder is surgically absent. Biliary tree: No intrahepatic or extrahepatic dilation, accounting for age. Spleen: No splenomegaly. Pancreas: No pancreatic ductal dilation. Adrenals: No adrenal nodule. Kidneys and ureters: There is left-sided hydronephrosis and left proximal hydroureter to the level of patient's known left retroperitoneal martin mass. No obstructing stones are seen. Finding likely repr esent external compression of the left ureter from martin mass. No right-sided hydronephrosis or hydro ureter. Stomach, bowel and peritoneum: No gastric or small bowel dilation. No abnormal wall thickening. No pa thologic free fluid. Sigmoid diverticulosis without CT evidence of acute diverticulitis. Lymph nodes: Previously described 4.2 x 4.7 cm necrotic left periaortic martin mass at the level of mi d pole left kidney now measures 4.7 x 4.6 cm in size series 2 image 69. Previously described 2.4 x 1. 2 cm martin mass at the level of aortic bifurcation is grossly unchanged. Current evaluation is slight ly degraded due to lack of IV contrast. Vessels: No infrarenal aortic aneurysm. Reproductive organs: Unremarkable. Bladder: Owens catheter is seen in a decompressed urinary bladder.. Pelvic lymph nodes: No adenopathy by size criteria. Bones: No aggressive osseous abnormality. Other: No significant ventral or inguinal hernia. IMPRESSION: 1. Moderate left-sided hydronephrosis and proximal hydroureter without obstructing stones seen. This is likely from external compression of left proximal ureter at the level of patient's known malignant martin mass in left retroperitoneal space. No right-sided hydronephrosis. Decompressed urinary bladde r contains a Owens catheter. 2. Interval further increase in size of patient's known necrotic mass in left retroperitoneal space s uggestive of malignant martin mass now measures 4.7 x 4.6 cm in size. Additional areas of retroperiton eal adenopathy are grossly unchanged although current evaluation is slightly degraded due to lack of IV contrast. 3. Small bilateral pleural effusion and bibasilar dependent atelectasis. 4. Other findings are not significantly changed from prior study. Reviewed by: Tacho Richetr MD on 03/30/2024 4:47 PM PDT Approved by: Tacho Richter MD on 03/30/2024 4:47 PM PDT Station ID: [id number]
[2024-03-30] MEDS: CEFEPIME 2 GM in SODIUM CHLORIDE 0.9% MINIBAG 100 ML IV SCH (16:56)
[2024-03-30 21:24] LABS: CALCIUM, IONIZED 1.12 mmol/L (1.15-1.33); VBG PH 7.404 (7.31-7.41)
[2024-03-31 04:44] LABS: BASOPHILS % (AUTO) 0.2 %; EOSINOPHILS % (AUTO) 0.2 %; HCT - HEMATOCRIT 25.4 % (37.0-47.0); HGB - HEMOGLOBIN 7.9 g/dL (12.0-16.0); LYMPHOCYTES % (AUTO) 0.8 %; MEAN CORPUSCULAR HEMOGLOBIN 27.3 pg (27.0-31.0); MEAN CORPUSCULAR HGB CONC 31.1 g/dL (32.0-36.0); MEAN CORPUSCULAR VOLUME 87.9 fL (81.0-99.0); MEAN PLATELET VOLUME 10.2 fL (7.9-10.8); MONOCYTES % (AUTO) 6.3 %; NEUTROPHILS % (AUTO) 77.2 %; PLT - PLATELET COUNT 106 10^3/uL (130-450); RED BLOOD COUNT 2.89 10^6/uL (4.20-5.40); RED CELL DISTRIBUTION WIDTH 19.6 % (12.0-15.0); WHITE BLOOD COUNT 17.3 x10^3/uL (4.8-10.8)
[2024-03-31 04:56] LABS: ABNORMAL LYMPHS % (MANUAL) 0 %
[2024-03-31 05:09] LABS: CALCIUM 7.4 mg/dL (8.5-10.3); CREATININE 0.7 mg/dL (0.6-1.3); MAGNESIUM 1.9 mg/dL (1.7-2.3); PHOSPHORUS 1.5 mg/dL (2.5-5.0); POTASSIUM 3.4 mmol/L (3.5-4.5)
[2024-03-31 05:11] LABS: CALCIUM, IONIZED 1.11 mmol/L (1.15-1.33); VBG PH 7.378 (7.31-7.41)
[2024-03-31 06:00] LABS: BAND NEUTROPHILS % (MANUAL) 7 %; LYMPHOCYTES # (MANUAL) 0.5 10^3/uL (1.5-3.5); LYMPHOCYTES % (MANUAL) 3 %; METAMYELOCYTES % (MANUAL) 1 %; MONOCYTES # (MANUAL) 0.2 10^3/uL (0.0-1.0); MYELOCYTES % (MANUAL) 1 %; NEUTROPHILS # (MANUAL) 16.3 10^3/uL (1.5-6.6)
[2024-03-31 06:01] LABS: DIFFERENTIAL COMMENT MANUAL DIFFERENTIAL; PLATELET ESTIMATE, MANUAL DECREASED (<130,000) (NORMAL)
[2024-03-31] MEDS: POTASSIUM PHOSPHATE 21 MMOL in SODIUM CHLORIDE 0.9% 250 ML IV ONE (07:53)
--- NOTE | 2024-03-31 08:14 | CONSULTATION NOTE ---
Referring Provider Name of Referring Provider:: Dr Garcia Consult Date: 03/31/24 Chief Complaint - Chief Complaint Chief Complaint: Left hydronephrosis, UTI, sepsis History of Present Illness - Admitted From Admitted From:: ER - History Obtained From Records Reviewed: Hospital History obtained from: Pt, hospital Exam Limitations: none - History of Present Illness HPI Comment/Other: Fidel is an 83-year-old woman with history of lymphoma which unfortunately has recurrent and significant burden of disease. She has been treated recently with CHOP. She presented to the hospital 2 days ago with UTI, sepsis and septic shock. She did improve with antibiotics and fluid resuscitation and Levophed. A CAT scan yesterday showed a necrotic large retroperitoneal lymph node which is causing blockage of her left ureter with ipsilateral hydroureteronephrosis. She remains full code. She has been afebrile for over 24 hours. Her urine and blood have grown out pansensitive E. 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: reports: Other (Endometrial cancer s/p SHAMIKA/BSO 07/28 & s/p brachytherapy 10/26) : reports: Incontinence HEENT: reports: Macular degeneration, Dental implants Psych: reports: Anxiety Musculoskeletal: reports: None Derm: reports: None MRSA Hx?: No Other Past Medical History: follicular lymphoma, relapsed and on mini-CHOP - Past Surgical History General: reports: Cholecystectomy /STRENGTH AND CONDITIONING COACH: reports: Hysterectomy, Oophrectomy HEENT: reports: Tonsil/Adenoidectomy - Family & Social History Living arrangement: At home Living Situation: Alone Social History Notes: Never , no kids, 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 - Substance History Use: Uses substance without health or social issues: NONE Abuse: Recurrent use of substance despite neg consequences: NONE Dependence: Experiences withdrawal or developed tolerances: NONE - POLST Patient has POLST: No POLST Status: Full Code Meds/Allgy - Home Medications Home Medications: Ambulatory Orders Medication Instructions Recorded Confirmed Apixaban [Eliquis] 5 mg PO BID 12/28/23 03/29/24 Famotidine 40 mg PO HS 01/18/24 03/29/24 HYDROcod/ACETAM 5/325 [Blanchard 5/325] 1 ea PO Q8H PRN #20 tablet 03/14/24 03/29/24 Acetaminophen [Acetaminophen Extra 500 mg PO PRN PRN 03/29/24 03/29/24 Strength] Potassium Chloride 10 meq PO DAILY 03/29/24 03/29/24 - Allergies Allergies/Adverse Reactions: Allergies Allergy/AdvReac Type Severity Reaction Status Date / Time atenolol Allergy Unknown Unknown Verified 03/29/24 13:00 ciprofloxacin [From Cipro] Allergy Unknown Verified 03/29/24 13:00 Penicillins Allergy Unknown Verified 03/29/24 13:00 shellfish derived Allergy Emesis Verified 03/29/24 13:00 Sulfa (Sulfonamide Allergy Rash Verified 03/29/24 13:00 Antibiotics) ranitidine [From Zantac] AdvReac "wired" Verified 03/29/24 13:00 Exam - Vital Signs Vital Signs: Vital Signs x48h Temp Pulse Resp BP Pulse Ox 03/31/24 07:45 90 18 82/51 L 96 03/31/24 07:00 89 24 105/60 97 03/31/24 06:00 89 22 116/55 L 98 03/31/24 05:00 36.8 C 96 23 112/61 97 03/31/24 04:30 89 100/50 L 03/31/24 04:00 91 23 108/56 L 96 03/31/24 03:30 87 105/55 L 03/31/24 03:00 88 18 101/56 L 97 03/31/24 02:30 89 102/52 L 03/31/24 02:00 89 17 113/68 96 03/31/24 01:30 91 114/65 03/31/24 01:00 89 16 116/60 95 - Physical Exam General Appearance: positive: Other (lying in bed) Respiratory: positive: Breath sounds nml Cardiovascular: positive: Tachycardia Conclusion and Plan - Lab Results Microbiology Results 03/29/24 14:47 Urine,Catheterized Urine Culture - Final Escherichia Coli 03/30/24 00:48 Blood Blood Culture (PCR) - Final Laboratory Results 03/31/24 04:31: VBG pH 7.378, Ionized Calcium 1.11 L 03/31/24 04:31: Sodium 139, Potassium 3.4 L, Chloride 112 H, Carbon Dioxide 22, Anion Gap 5.0 L, BUN 14, Creatinine 0.7, Estimated GFR (MDRD) 80 L, Glucose 102, Calcium 7.4 L, Phosphorus 1.5 L, Magnesium 1.9 03/31/24 04:31: WBC 17.3 H, RBC 2.89 L, Hgb 7.9 L, Hct 25.4 L, MCV 87.9, MCH 27.3, MCHC 31.1 L, RDW 19.6 H, Plt Count 106 L, MPV 10.2, Neut # (Auto) Not Reportable, Lymph # (Auto) Not Reportable, [place] # (Auto) Not Reportable, Eos # (Auto) Not Reportable, Baso # (Auto) Not Reportable, Absolute Nucleated RBC Not Reportable, Total Counted 100, Band Neuts % (Manual) 7, Abnorm Lymph % (Manual) 0, Metamyelocytes % 1 H, Myelocytes % 1 H, Nucleated RBC % Not Reportable, Neutrophils # (Manual) 16.3 H, Lymphocytes # (Manual) 0.5 L, Monocytes # (Manual) 0.2, Eosinophils # (Manual) 0.0, Basophils # (Manual) 0.0, Differential Comment MANUAL DIFFERENTIAL, Platelet Estimate DECREASED (<130,000), RBC Morph Micro Appear 1+ OVALOCYTES 03/30/24 21:15: VBG pH 7.404, Ionized Calcium 1.12 L 03/30/24 21:15: Potassium 3.6 03/30/24 12:10: VBG pH 7.394, Ionized Calcium 1.10 L 03/30/24 09:30: Potassium 3.7, Magnesium 2.1 03/30/24 04:44: VBG pH 7.384, Ionized Calcium 1.05 L 03/30/24 04:44: Lactic Acid 3.8 H* 03/30/24 04:44: Sodium 140, Potassium 3.0 L, Chloride 109, Carbon Dioxide 20 L, Anion Gap 11.0, BUN 13, Creatinine 0.9, Estimated GFR (MDRD) 60 L, Glucose 121 H, Calcium 7.6 L, Phosphorus 2.7, Magnesium 1.2 L 03/30/24 04:44: WBC 43.4 H*, RBC 3.73 L, Hgb 10.3 L, Hct 32.4 L, MCV 86.9, MCH 27.6, MCHC 31.8 L, RDW 19.4 H, Plt Count 221, MPV 10.3, Neut # (Auto) Not Reportable, Lymph # (Auto) Not Reportable, [place] # (Auto) Not Reportable, Eos # (Auto) Not Reportable, Baso # (Auto) Not Reportable, Absolute Nucleated RBC Not Reportable, Total Counted 100, Band Neuts % (Manual) 20 H, Abnorm Lymph % (Manual) 0, Nucleated RBC % Not Reportable, Neutrophils # (Manual) 43.0 H, Lymphocytes # (Manual) 0.4 L, Monocytes # (Manual) 0.0, Eosinophils # (Manual) 0.0, Basophils # (Manual) 0.0, Differential Comment MANUAL DIFFERENTIAL, Platelet Estimate NORMAL (130-450,000), RBC Morph Micro Appear 1+ OVALOCYTES 03/29/24 23:13: Lactic Acid 4.4 H* 03/29/24 19:45: Lactic Acid 5.5 H* 03/29/24 16:28: Lactic Acid 8.1 H* 03/29/24 16:00: Nasal Screen MRSA (PCR) NEGATIVE 03/29/24 15:10: Blood Type O POSITIVE, Antibody Screen NEGATIVE 03/29/24 14:47: Urine Color YELLOW, Urine Clarity CLOUDY, Urine pH 7.0, Ur Specific [place] 1.010, Urine Protein 30 H, Urine Glucose (UA) NEGATIVE, Urine Ketones NEGATIVE, Urine Occult Blood LARGE H, Urine Nitrite POSITIVE H, Urine Bilirubin NEGATIVE, Urine Urobilinogen 0.2 (NORMAL), Ur Leukocyte Esterase LARGE H, Urine RBC TNTC H, Urine WBC >25 H, Ur Squamous Epith Cells NONE SEEN, Urine Bacteria Moderate H, Urine Culture Comments INDICATED 03/29/24 14:30: Stl C. diff Tox B Gene NEGATIVE 03/29/24 14:15: Stl C. cayetanensis PCR Not Detected, Stool Rotavirus A PCR Not Detected, Stl Adenov F 40/41 PCR Not Detected, Stool Astrovirus (PCR) Not Detected, Stool Campylobacter PCR Not Detected, Stl C. diff Tox A/B PCR Not Detected, Stool Cryptosporidium PCR Not Detected, Stl Sh Tox Pr E STEC PCR Not Detected, Stool E coli O157 PCR Not applicable, Stl Enterotoxigenic E PCR Not Detected, Stool EPEC (PCR) Not Detected, Stl E. histolytica PCR Not Detected, Stool Giardia Lamblia PCR Not Detected, Stl P. shigelloides PCR Not Detected, Stool Salmonella PCR Not Detected, Stool Sapovirus (PCR) Not Detected, Stl Shigella/EIEC PCR Not Detected, St Y.enterocolitica PCR Not Detected, Stool Vibrio (PCR) Not Detected, Stl Vibrio cholerae PCR Not Detected, Stl Enteroaggr Ecoli PCR Not Detected, Stl Norovirus GI/GII PCR Not Detected 03/29/24 13:15: Blood Type Recheck O POSITIVE 03/29/24 13:15: Lactic Acid 7.5 H* 03/29/24 13:15: Sodium 136, Potassium 3.1 L, Chloride 99 L, Carbon Dioxide 24, Anion Gap 13.0, BUN 12, Creatinine 0.7, Estimated GFR (MDRD) 80 L, Glucose 151 H, Calcium 8.3 L, Total Bilirubin 0.9, AST 14, ALT 7 L, Alkaline Phosphatase 156 H, Total Protein 4.9 L, Albumin 2.6 L, Globulin 2.3, Albumin/Globulin Ratio 1.1 03/29/24 13:15: WBC 1.1 L*, RBC 4.06 L, Hgb 10.7 L, Hct 36.3 L, MCV 89.4, MCH 26.4 L, MCHC 29.5 L, RDW 19.0 H, Plt Count 133, MPV 9.8, Neut # (Auto) 1.0 L, Lymph # (Auto) 0.0 L, [place] # (Auto) 0.0, Eos # (Auto) 0.0, Baso # (Auto) 0.0, Absolute Nucleated RBC 0.02, Nucleated RBC % 1.9, Manual Slide Review Indicated, RBC Morph Micro Appear 4+ ANISOCYTOSIS - Diagnostic Imaging Results Diagnostic Imaging Results: positive: Read independently - Diagnosis Diagnosis: Left hydronephrosis. UTI. 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 Continue abx Add-on for cystoscopy, left ureteral stent placement The risk, benefits and alternatives were discussed with patient. Specific risks of infection, bleeding, injury to adjacent structures, failure therapy, need for additional procedures, pain were discussed Patient states understanding and consents to above plan The stent will likely remain in place for the rest of her life though it should be changed out within 3 months
--- NOTE | 2024-03-31 10:15 | CONSULTATION NOTE ---
Palliative Care Consultation - Referral Referring Provider: Lauren Garcia MD Time of Visit: 09:25-10:15:2:00-2:15 pm Referral setting: Hospitalized patient Referral Reason: Goals of care - Information Sources Records reviewed: RN notes reviewed, Previous records reviewed History/Review of Systems obtained from: Patient - History of Present Illness Brief History of Present Illness: This is a 83-year-old woman who has relapse of follicular lymphoma, has had a difficult course. She had been started on mini R-CHOP in January, had tolerated poorly, and had a prolonged recovery with multiple ED visits. There was concern of how she was managing at home, particularly with her decline in functional status, she has been mostly bedbound, but has been working with home health. Had made some progress as far as being able to ambulate a few steps, and with transfers. She had met with her new oncologist, moved forward with her new treatment of lenalidomide/obinutuzumab, again with concerns regarding her ability to tolerate given her poor nutritional status, complex social situation, and still poor functional status. Unfortunately she did end up again in the emergency room a couple times, and now has been admitted with sepsis, UTI, and septic shock. She did improve with antibiotics and fluid resuscitation and is in ICU on Levophed. She did have a CAT scan yesterday showing a necrotic large retroperitoneal lymph node that was causing blockage of her left ureter and is pending a stent placement. Palliative care has been asked to meet with patient, has met with her multiple times, she has had difficulty setting realistic goals, but is very determined. We have had conversations, she had told me that Oriana her cousin was her DPOA, but does still seem to be working "on the paperwork". I have a call out to her to confirm. We have talked about the POLST before, we discussed given current situation and looking at placement in the hospital team really would like to translate her goals, we did discuss at length the POLST and completed at the visit. 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: reports: Other (Endometrial cancer s/p SHAMIKA/BSO 07/28 & s/p brachytherapy 4/23) : reports: Incontinence HEENT: reports: Macular degeneration, Dental implants Psych: reports: Anxiety Musculoskeletal: reports: None Derm: reports: None MRSA Hx?: No - Past Surgical History General: reports: Cholecystectomy /PERMANENT MOLD SUPERVISOR: reports: Hysterectomy, Oophrectomy HEENT: reports: Tonsil/Adenoidectomy - Substance History Use: Uses substance without health or social issues: NONE Abuse: Recurrent use of substance despite neg consequences: NONE Dependence: Experiences withdrawal or developed tolerances: NONE Social History - Living Situation Living arrangement: At home (Patient lives in a mobile home trailer, has been challenged with her functional decline as well as her macular degeneration to manage her ADLs and IADLs. Has had assistance from coming to set her Ensure and meals up, had cousin doing laundry, and was being serviced by [employer].) Living Situation: Alone Medications/Allergies - Medications Active Medication List: Active Medications Enoxaparin Sodium (Enoxaparin 40 Mg/0.4 Ml Syringe) 40 mg SUBQ DAILY [facility] Last Admin: 03/31/24 07:53 Dose: 40 mg Acetaminophen (Acetaminophen) 1,000 mg in 100 mls @ 400 mls/hr IV Q6HR PRN PRN Reason: Moderate Pain (Level 4-6) Last Infusion: 03/31/24 04:44 Dose: Infused Lactated Ringer's (Lr) 1,000 mls @ 125 mls/hr IV .Q8H [facility] Last Admin: 03/31/24 07:07 Dose: 125 mls/hr Cefepime HCl 2 gm/ Sodium (Chloride) 100 mls @ 200 mls/hr IV Q12H [facility] Last Infusion: 03/31/24 05:48 Dose: Infused Norepinephrine Bitartrate 8 mg (/ Sodium Chloride) 250 mls @ 15 mls/hr IV .[id number] [facility]; Protocol Last Titration: 03/31/24 07:45 Dose: 2 mcg/min, 3.75 mls/hr Potassium Phosphate 21 mmol/ (Sodium Chloride) 257 mls @ 64 mls/hr IV ONCE ONE; Protocol Stop: 03/31/24 12:00 Last Admin: 03/31/24 07:53 Dose: 64 mls/hr Morphine Sulfate (Morphine 2 Mg/Ml Carpuject) 2 mg IVP Q2HR PRN PRN Reason: Pain 8 to 10 Multivitamins/Minerals (Multivitamin W/Minerals Tablet) 1 tab PO DAILYWM [facility] Last Admin: 03/31/24 07:53 Dose: 1 tab Ondansetron HCl (Ondansetron Odt 4 Mg Tablet) 4 mg TL Q6HR PRN PRN Reason: Nausea / Vomiting Ondansetron HCl (Ondansetron 4 Mg/2 Ml Vial) 4 mg IVP Q6HR PRN PRN Reason: Nausea / Vomiting Last Admin: 03/31/24 03:55 Dose: 4 mg Pantoprazole Sodium (Pantoprazole 40 Mg Vial) 40 mg IVP QDAC [facility] Last Admin: 03/31/24 06:22 Dose: 40 mg Sodium Chloride (Sodium Chloride Flush 0.9% 10 Ml Syringe) 10 ml IVP 0100,0900,1700 [facility] Last Admin: 03/31/24 07:53 Dose: 10 ml Sodium Chloride (Sodium Chloride Flush 0.9% 10 Ml Syringe) 10 ml IVP PRN PRN PRN Reason: NEEDED PER PROVIDER ORDERS Apixaban [Eliquis] 5 mg PO BID 12/28/23 Famotidine 40 mg PO HS 01/18/24 Acetaminophen [Acetaminophen Extra Strength] 500 mg PO PRN PRN 03/29/24 Potassium Chloride 10 meq PO DAILY 03/29/24 - Allergies Allergies/Adverse Reactions: Allergies Allergy/AdvReac Type Severity Reaction Status Date / Time atenolol Allergy Unknown Unknown Verified 03/29/24 13:00 ciprofloxacin [From Cipro] Allergy Unknown Verified 03/29/24 13:00 Penicillins Allergy Unknown Verified 03/29/24 13:00 shellfish derived Allergy Emesis Verified 03/29/24 13:00 Sulfa (Sulfonamide Allergy Rash Verified 03/29/24 13:00 Antibiotics) ranitidine [From Zantac] AdvReac "wired" Verified 03/29/24 13:00 Review of Systems - Constitutional Constitutional: reports: Fatigue, Weakness, Poor appetite, Weight loss - Eyes Eyes: reports: Vision loss - Ears, Nose & Throat Ears, Nose & Throat: reports: Dry mouth, Other (hx of candidiasis; diff with tx) - Gastrointestinal Gastrointestinal: reports: Poor appetite - Genitourinary Genitourinary: reports: Incontinence - Musculoskeletal Musculoskeletal: reports: Back pain (managed with apap per report), Stiffness, Muscle weakness - Integumentary Integumentary: reports: Dryness - Neurological Neurological: reports: General weakness - Psychiatric Psychiatric: reports: Depression - Hematologic/Lymphatic Hematologic/Lymph: reports: Recurrent infections Physical Exam - Vital Signs Vital Signs: Vital Signs x48h Temp Pulse Resp BP Pulse Ox 03/31/24 09:00 37.1 C 82 18 114/58 L 93 03/31/24 07:45 90 18 82/51 L 96 03/31/24 07:00 89 24 105/60 97 03/31/24 06:00 89 22 116/55 L 98 03/31/24 05:00 36.8 C 96 23 112/61 97 03/31/24 04:30 89 100/50 L 03/31/24 04:00 91 23 108/56 L 96 03/31/24 03:30 87 105/55 L 03/31/24 03:00 88 18 101/56 L 97 03/31/24 02:30 89 102/52 L - Physical Exam General Appearance: positive: No acute distress, Alert, Other (able to engage and conversant) Eyes Bilateral: positive: Other (periorbital edema; eyes closed most of visit) ENT: positive: Dry mucous membranes, Other (poor dentition) Neck: positive: Trachea midline Cardiovascular: positive: Irregular Respiratory: positive: No respiratory distress Abdomen: positive: Soft, Distended Extremities: positive: Other (edematous in arms; slight in legs) Neurologic/Psychiatric: positive: Oriented x3, Depressed mood/affect, Flat affect Palliative Care - POLST Patient has POLST: Yes POLST Status: DNR, Selective Treatment (completed at visit) Pain: Comment (reports pain managed with apap) Feelings of wellbeing/Perceived Quality of Life: Poor, Worsening Performance Status: Patient had been making progress at home with functional status, does need cueing and assistance. Is hoping to continue as far as goals, at the SNF to improve with strength. - Palliative Care Discussion: Patient perceives "she is at end-of-life", though recognizes this could be months. She is working with her cousins to get her end-of-life documents in place, does recognize that living independently is getting more difficult. She is trying to put things in place, and actually is presenting thinking clearly. I asked her again about DPOA, reports she is "working on her legal forms", I asked about Oriana is DPOA, and she said by default she is as well as working with another cousin. She did give me permission to have a conversation with Oriana regarding this. We discussed with the healthcare team needs to better be able to take care of her and know her wishes. We discussed the POLST as a means of documenting what her goals are, we discussed her goals are to focus on comfort and quality of life issues, she would like to get stronger with hope to improve some independence. She defaults that she has been single, and does not depend on anyone, but is finding herself in a difficult place related to this. She did understand that her life is limited, and if she were to have an event most likely would not result and good quality of life if she were to survive it. She would like to be a DNAR, but is still interested in continuing to receive treatment at the hospital, for her kidneys, infection, when asked about her cancer, she is not quite certain whether she wants to continue that or not. She said that is a decision for later.We reviewed the POLST, with goals to be focused on comfort and quality of life, treat reversible conditions, and end-of-life a comfortable and respectful . She does perceive she will be coming back to the [facility] at some point hopefully with her recovery and rehab, particularly for end-of-life. 14:00 Spoke at length with Oriana, patient's cousin. We discussed the role of DURABLE POWER OF WASHING MACHINE OPERATOR for healthcare, she is working with patient's other cousin to transfer executiver of her estate as that feels too much for her at this point. Did discuss we had completed the POLST, patient had asked her to make that decision, and Oriana said that she requested patient make the decision and not put that burden on her. She is relieved to hear that has been address ed. We discussed that as long as patient can make her own decisions that she will be independent in that, but if patient were to take a turn for the worse, or need to sign up for hospice, or consider transitioning to comfort care she may be asked to support patients wishes as DPOA to work with care team. 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 of those kind of decisions. Agreed I could move forward in assisting patient to complete paperwork. Reviewed also Fidel had identified her as DPOA, and she is the next of kin, so would be asked to participate in decision making if she was in agreement even if not defined yet in paperwork. Results - Lab Results Lab results reviewed: Yes Fish Bones: 03/31/24 14:53 03/31/24 15:10 Lab and Imaging Results: Lab Results x24hrs 03/31/24 03/31/24 03/31/24 Range/Units 04:31 04:31 04:31 WBC 17.3 H (4.8-10.8) x10^3/uL RBC 2.89 L (4.20-5.40) 10^6/uL Hgb 7.9 L (12.0-16.0) g/dL Hct 25.4 L (37.0-47.0) % MCV 87.9 (81.0-99.0) fL MCH 27.3 (27.0-31.0) pg MCHC 31.1 L (32.0-36.0) g/dL RDW 19.6 H (12.0-15.0) % Plt Count 106 L (130-450) 10^3/uL MPV 10.2 (7.9-10.8) fL Neut # (Auto) Not Reportable Lymph # (Auto) Not Reportable Lares # (Auto) Not Reportable Eos # (Auto) Not Reportable Baso # (Auto) Not Reportable Absolute Nucleated RBC Not Reportable Total Counted 100 Band Neuts % (Manual) 7 (0 - 10) % Abnorm Lymph % (Manual) 0 % Metamyelocytes % 1 H ( - 0) % Myelocytes % 1 H ( - 0) % Nucleated RBC % Not Reportable Neutrophils # (Manual) 16.3 H (1.5-6.6) 10^3/uL Lymphocytes # (Manual) 0.5 L (1.5-3.5) 10^3/uL Monocytes # (Manual) 0.2 (0.0-1.0) 10^3/uL Eosinophils # (Manual) 0.0 (0-0.7) 10^3/uL Basophils # (Manual) 0.0 (0-0.1) 10^3/uL Differential Comment MANUAL DIFFERENTIAL Platelet Estimate DECREASED (<130,000) (NORMAL) RBC Morph Micro Appear 1+ OVALOCYTES (NORMAL) VBG pH 7.378 (7.31-7.41) Ionized Calcium 1.11 L (1.15-1.33) mmol/L Sodium 139 (135-145) mmol/L Potassium 3.4 L (3.5-4.5) mmol/L Chloride 112 H (101-111) mmol/L Carbon Dioxide 22 (21-32) mmol/L Anion Gap 5.0 L (6-13) BUN 14 (6-20) mg/dL Creatinine 0.7 (0.6-1.3) mg/dL Estimated GFR (MDRD) 80 L (>89) Glucose 102 (74-104) mg/dL Calcium 7.4 L (8.5-10.3) mg/dL Phosphorus 1.5 L (2.5-5.0) mg/dL Magnesium 1.9 (1.7-2.3) mg/dL 03/30/24 03/30/24 03/30/24 Range/Units 21:15 21:15 12:10 WBC (4.8-10.8) x10^3/uL RBC (4.20-5.40) 10^6/uL Hgb (12.0-16.0) g/dL Hct (37.0-47.0) % MCV (81.0-99.0) fL MCH (27.0-31.0) pg MCHC (32.0-36.0) g/dL RDW (12.0-15.0) % Plt Count (130-450) 10^3/uL MPV (7.9-10.8) fL Neut # (Auto) Lymph # (Auto) Lares # (Auto) Eos # (Auto) Baso # (Auto) Absolute Nucleated RBC Total Counted Band Neuts % (Manual) (0 - 10) % Abnorm Lymph % (Manual) % Metamyelocytes % ( - 0) % Myelocytes % ( - 0) % Nucleated RBC % Neutrophils # (Manual) (1.5-6.6) 10^3/uL Lymphocytes # (Manual) (1.5-3.5) 10^3/uL Monocytes # (Manual) (0.0-1.0) 10^3/uL Eosinophils # (Manual) (0-0.7) 10^3/uL Basophils # (Manual) (0-0.1) 10^3/uL Differential Comment Platelet Estimate (NORMAL) RBC Morph Micro Appear (NORMAL) VBG pH 7.404 7.394 (7.31-7.41) Ionized Calcium 1.12 L 1.10 L (1.15-1.33) mmol/L Sodium (135-145) mmol/L Potassium 3.6 (3.5-4.5) mmol/L Chloride (101-111) mmol/L Carbon Dioxide (21-32) mmol/L Anion Gap (6-13) BUN (6-20) mg/dL Creatinine (0.6-1.3) mg/dL Estimated GFR (MDRD) (>89) Glucose (74-104) mg/dL Calcium (8.5-10.3) mg/dL Phosphorus (2.5-5.0) mg/dL Magnesium (1.7-2.3) mg/dL Impression and Recommendations - Palliative Care Impression: This is a feisty 83-year-old woman with recurrent/relapsing lymphoma, currently acutely hospitalized for infection, and now with hydroureteronephrosis needing s tent placement. Patient with awareness, able to engage in goals of care conversation, did complete the POLST. Palliative care continue provide support regarding further end-of-life planning, counseling for adjustment illness, and anticipatory guidance. Recommendations/Counseling Done: 1. Goals of care.Counseling with patient regarding further definition of goals of care, completion of POLST, coordination of care with hospitalist team. Provided anticipatory guidance and support. 65 minutes with review of chart, labs, notes. Counseling with patient regarding continuum of care, goals of care, patient's priorities and wishes, with completion of the POLST. Counseling with patient's cousin regarding role of DPOA. Coordination of care with hospitalist team and social work. Provided anticipatory guidance both for patient and cousin.
--- NOTE | 2024-03-31 10:44 | ANESTHESIA ---
Pre-Anesthesia VS, & Labs - Diagnosis Diagnosis Left hydronephrosis UTI Sepsis - Procedure cystoscopy, left ureteroscopy possible stent Vital Signs: Temp Pulse Resp BP Pulse Ox O2 Flow Rate 37.1 C 82 18 114/58 L 93 2 03/31/24 09:00 03/31/24 09:00 03/31/24 09:00 03/31/24 09:00 03/31/24 09:00 03/30/24 07:00 Height: 5 ft 4 in Weight (kg): 78.5 kg Body Mass Index: 29.7 BMI Classification: Overweight - NPO >8 hours - Is Patient ?: No - Lab Results Current Lab Results: Laboratory Tests 03/31/24 04:31: VBG pH 7.378, Ionized Calcium 1.11 L 03/31/24 04:31: Sodium 139, Potassium 3.4 L, Chloride 112 H, Carbon Dioxide 22, Anion Gap 5.0 L, BUN 14, Creatinine 0.7, Estimated GFR (MDRD) 80 L, Glucose 102, Calcium 7.4 L, Phosphorus 1.5 L, Magnesium 1.9 03/31/24 04:31: WBC 17.3 H, RBC 2.89 L, Hgb 7.9 L, Hct 25.4 L, MCV 87.9, MCH 27.3, MCHC 31.1 L, RDW 19.6 H, Plt Count 106 L, MPV 10.2, Neut # (Auto) Not Reportable, Lymph # (Auto) Not Reportable, Caldwell # (Auto) Not Reportable, Eos # (Auto) Not Reportable, Baso # (Auto) Not Reportable, Absolute Nucleated RBC Not Reportable, Total Counted 100, Band Neuts % (Manual) 7, Abnorm Lymph % (Manual) 0, Metamyelocytes % 1 H, Myelocytes % 1 H, Nucleated RBC % Not Reportable, Neutrophils # (Manual) 16.3 H, Lymphocytes # (Manual) 0.5 L, Monocytes # (Manu al) 0.2, Eosinophils # (Manual) 0.0, Basophils # (Manual) 0.0, Differential Comment MANUAL DIFFERENTIAL, Platelet Estimate DECREASED (<130,000), RBC Morph Micro Appear 1+ OVALOCYTES 03/30/24 21:15: VBG pH 7.404, Ionized Calcium 1.12 L 03/30/24 21:15: Potassium 3.6 09/25/24 12:10: VBG pH 7.394, Ionized Calcium 1.10 L 03/30/24 09:30: Potassium 3.7, Magnesium 2.1 03/30/24 04:44: VBG pH 7.384, Ionized Calcium 1.05 L 03/30/24 04:44: Lactic Acid 3.8 H* 03/30/24 04:44: Sodium 140, Potassium 3.0 L, Chloride 109, Carbon Dioxide 20 L, Anion Gap 11.0, BUN 13, Creatinine 0.9, Estimated GFR (MDRD) 60 L, Glucose 121 H , Calcium 7.6 L, Phosphorus 2.7, Magnesium 1.2 L 03/30/24 04:44: WBC 43.4 H*, RBC 3.73 L, Hgb 10.3 L, Hct 32.4 L, MCV 86.9, MCH 27.6, MCHC 31.8 L, RDW 19.4 H, Plt Count 221, MPV 10.3, Neut # (Auto) Not Reportable, Lymph # (Auto) Not Reportable, [place]dwell # (Auto) Not Reportable, Eos # (Auto) Not Reportable, Baso # (Auto) Not Reportable, Absolute Nucleated RBC Not Reportable, Total Counted 100, Band Neuts % (Manual) 20 H, Abnorm Lymph % (Man ual) 0, Nucleated RBC % Not Reportable, Neutrophils # (Manual) 43.0 H, Lymphocytes # (Manual) 0.4 L, Monocytes # (Manual) 0.0, Eosinophils # (Manual) 0.0, Basophils # (Manual) 0.0, Differential Comment MANUAL DIFFERENTIAL, Platelet Estimate NORMAL (130-450,000), RBC Morph Micro Appear 1+ OVALOCYTES 03/29/24 23:13: Lactic Acid 4.4 H* 03/29/24 19:45: Lactic Acid 5.5 H* 03/29/24 16:28: Lactic Acid 8.1 H* 03/29/24 15:10: Blood Type O POSITIVE, Antibody Screen NEGATIVE 03/29/24 13:15: Blood Type Recheck O POSITIVE 03/29/24 13:15: Lactic Acid 7.5 H* 03/29/24 13:15: Sodium 136, Potassium 3.1 L, Chloride 99 L, Carbon Dioxide 24, Anion Gap 13.0, BUN 12, Creatinine 0.7, Estimated GFR (MDRD) 80 L, Glucose 151 H , Calcium 8.3 L, Total Bilirubin 0.9, AST 14, ALT 7 L, Alkaline Phosphatase 156 H, Total Protein 4.9 L, Albumin 2.6 L, Globulin 2.3, Albumin/Globulin Ratio 1.1 03/29/24 13:15: WBC 1.1 L*, RBC 4.06 L, Hgb 10.7 L, Hct 36.3 L, MCV 89.4, MCH 26.4 L, MCHC 29.5 L, RDW 19.0 H, Plt Count 133, MPV 9.8, Neut # (Auto) 1.0 L, Lymph # (Auto) 0.0 L, Caldwell # (Auto) 0.0, Eos # (Auto) 0.0, Baso # (Auto) 0.0, Absolute Nucleated RBC 0.02, Nucleated RBC % 1.9, Manual Slide Review Indicated, RBC Morph Micro Appear 4+ ANISOCYTOSIS Lab results reviewed: Yes Fish Bones: 03/31/24 04:31 03/31/24 04:31 Home Medications and Allergies Home Medications: Ambulatory Orders Acetaminophen [Acetaminophen Extra Strength] 500 mg PO PRN PRN 03/29/24 Potassium Chloride 10 meq PO DAILY 03/29/24 Active Medications Enoxaparin Sodium (Enoxaparin 40 Mg/0.4 Ml Syringe) 40 mg SUBQ DAILY [facility] Last Admin: 03/31/24 07:53 Dose: 40 mg Acetaminophen (Acetaminophen) 1,000 mg in 100 mls @ 400 mls/hr IV Q6HR PRN PRN Reason: Moderate Pain (Level 4-6) Last Infusion: 03/31/24 04:44 Dose: Infused Lactated Ringer's (Lr) 1,000 mls @ 125 mls/hr IV .Q8H [facility] Last Admin: 03/31/24 07:07 Dose: 125 mls/hr Cefepime HCl 2 gm/ Sodium (Chloride) 100 mls @ 200 mls/hr IV Q12H [facility] Last Infusion: 03/31/24 05:48 Dose: Infused Norepinephrine Bitartrate 8 mg (/ Sodium Chloride) 250 mls @ 15 mls/hr IV .[id number] [facility]; Protocol Last Titration: 03/31/24 07:45 Dose: 2 mcg/min, 3.75 mls/hr Potassium Phosphate 21 mmol/ (Sodium Chloride) 257 mls @ 64 mls/hr IV ONCE ONE; Protocol Stop: 03/31/24 12:00 Last Admin: 03/31/24 07:53 Dose: 64 mls/hr Morphine Sulfate (Morphine 2 Mg/Ml Carpuject) 2 mg IVP Q2HR PRN PRN Reason: Pain 8 to 10 Multivitamins/Minerals (Multivitamin W/Minerals Tablet) 1 tab PO DAILYWM [facility] Last Admin: 03/31/24 07:53 Dose: 1 tab Ondansetron HCl (Ondansetron Odt 4 Mg Tablet) 4 mg TL Q6HR PRN PRN Reason: Nausea / Vomiting Ondansetron HCl (Ondansetron 4 Mg/2 Ml Vial) 4 mg IVP Q6HR PRN PRN Reason: Nausea / Vomiting Last Admin: 03/31/24 03:55 Dose: 4 mg Pantoprazole Sodium (Pantoprazole 40 Mg Vial) 40 mg IVP QDAC [facility] Last Admin: 03/31/24 06:22 Dose: 40 mg Sodium Chloride (Sodium Chloride Flush 0.9% 10 Ml Syringe) 10 ml IVP 0100,0900,1700 [facility] Last Admin: 03/31/24 07:53 Dose: 10 ml Sodium Chloride (Sodium Chloride Flush 0.9% 10 Ml Syringe) 10 ml IVP PRN PRN PRN Reason: NEEDED PER PROVIDER ORDERS Apixaban [Eliquis] 5 mg PO BID 12/28/23 Famotidine 40 mg PO HS 01/18/24 Acetaminophen [Acetaminophen Extra Strength] 500 mg PO PRN PRN 03/29/24 Potassium Chloride 10 meq PO DAILY 03/29/24 Allergies/Adverse Reactions: Allergies Allergy/AdvReac Type Severity Reaction Status Date / Time atenolol Allergy Unknown Unknown Verified 03/29/24 13:00 ciprofloxacin [From Cipro] Allergy Unknown Verified 03/29/24 13:00 Penicillins Allergy Unknown Verified 03/29/24 13:00 shellfish derived Allergy Emesis Verified 03/29/24 13:00 Sulfa (Sulfonamide Allergy Rash Verified 03/29/24 13:00 Antibiotics) ranitidine [From Zantac] AdvReac "wired" Verified 03/29/24 13:00 Anes History & Medical History - Anesthetic History Anesthesia Complications: reports: No previous complications - Medical History Cardiovascular: reports: Atrial fibrillation Pulmonary: reports: None, Other (Left pneumothorax, iatrogenic after port placement, resolved) Gastrointestinal: reports: GERD Urinary: reports: Incontinence, Other (left hydronephrosis, urosepsis) Neuro: reports: None Musculoskeletal: reports: None Endocrine/Autoimmune: reports: None Blood Disorders: reports: None Skin: reports: None Smoking Status: Never smoker Psychosocial: reports: No issues indicated History of Cancer?: Yes (lymphoma) Other Past Medical History: follicular lymphoma, relapsed and on mini-CHOP - Surgical History General: reports: Cholecystectomy Eyes Ears Nose Throat (EENT): reports: Tonsil/Adenoidectomy Gynecologic: reports: Hysterectomy, Oophrectomy Exam General: Alert, Oriented x3, Cooperative, No acute distress Dental: Poor dentition Mouth Openin Fingerbreadth Neck Mobility: Reduced Mallampati classification: III Thyromental Distance: 4-6 cm Mental/Cognitive Status: Alert/Oriented X3, Normal for patient Plan Anesthesia Type: General Consent for Procedure(s) Verified and Reviewed: Yes Code Status: Attempt Resuscitation ASA classification: 4-Incapacitating disease Is this case an emergency?: Yes
[2024-03-31] MEDS ORDERED: LIDOCAINE 2% URO-JET 5 ML SYRINGE UR ONE (11:28)
[2024-03-31] MEDS ORDERED: fentaNYL 100 MCG/2 ML VIAL ONE (11:56)
[2024-03-31] MEDS ORDERED: PROPOFOL 200 MG/20 ML VIAL IVP ONE (11:56)
[2024-03-31] MEDS ORDERED: iohexoL-240 10 ML VIAL IVP ONE (12:18)
[2024-03-31] MEDS: iohexoL-240 10 ML VIAL IVP ONE (12:30)
[2024-03-31] MEDS: LACTATED RINGERS 1,000 ML IV ONE ×2 (12:38→18:00)
--- NOTE | 2024-03-31 13:56 | ANESTHESIA POST OP EVALUATION ---
Anesthesia Post Eval - Post Anesthesia Eval Vitals: Last Vital Signs Temp 36.2 C L 03/31/24 12:55 Pulse 105 H 03/31/24 12:55 Resp 24 03/31/24 12:55 BP 134/75 H 03/31/24 12:55 Pulse Ox 96 03/31/24 12:55 O2 Flow Rate 2 03/30/24 07:00 CV Function Including HR & BP: Stable Pain Control: Satisfactory Nausea & Vomiting: Negative Mental Status: Baseline Respiratory Status: Airway Patent Hydration Status: Satisfactory Anesthesia Complications: None
[2024-03-31] MEDS ORDERED: PROCHLORPERAZINE 10 MG/2 ML VIAL IVP PRN (15:05)
--- NOTE | 2024-03-31 15:09 | PROVIDER PROGRESS NOTE ---
Subjective - Prog Note Date Prog Note Date: 03/31/24 Prog Note Time: 15:07 - Subjective Pt reports feeling: Worse Subjective: Ms. Alcaraz is an 83-year-old woman with history of follicular lymphoma with relapse getting mini CHOP via a right chest PowerPort who presented to the ED (03/29) with shaking chills starting acutely. She reported night sweats last night. She also had 2 days of diarrhea. No measured fevers. She felt too sick to go to her oncology appointment today. EMS was summoned and noted her to be in A-fib which she has had in the past status post ablation and still anticoagulated but does not recall being in A-fib recently. And noted to have a blood sugar of 66 and given D10 prior to arrival. She shortness of breath, cough, sore throat, body aches, abdominal pain. In the ED she was notably tachycardic, apparent A-fib on the EKG w/ RVR. She was given diltiazem after which she at least briefly become profoundly hypotensive down to 50/30 and obtunded. This responded quickly to IV fluids and both blood pressure and mental status improved. Initial workup demonstrates a white count of 1.1 with profound lymphopenia and her CMP was notable for mild hypokalemia and a significant lactic acidosis with a lactate of 7.5. She was administered 30 mL/kg of IV fluids and broad-spectrum antibiotics for unknown source with cefepime, Flagyl, and vancomycin. Blood pressure did rebound with fluids. She became febrile which is not surprising as she presents with sepsis. No further attempts at rate control will be done as it is likely that her A-fib with RVR is likely from her critical underlying illness. She was accepted for admission at 2:20 with report given to the Hospitalist. Maps were running persistently below 65 and decision to start pressors, Levophed, was made at about 3:20 PM. Her urine also came back positive for infection, potentially her source of sepsis. This morning she was alert in bed, and continued to look improved. She was down to 2 mcg/min on levophed with HR in the 80's to low 90's, and O2 sats 96% on RA. She declined to answer my questions or participate in assessment in the morning and chose to place a phone call instead. She was in no evident distress, respirations unlabored and moving all extremities. She was NPO for her upcoming left sided ureteral stenting at 12:[address] Gonzalez, Urologist. I was called to the bedside at 14:45 by the RN as she is now tachycardic and hypotensive with an O2 sat of 85%. She returned from the ED with temp of 34.8 and was last measured at 38.0. She has received tylenol and her levophed is being titrated up with a goal of a MAP of 65. She is very pale and had dried blood around her mouth, no obvious source. She is complaining nausea but feels unable to vomit. PACU contacted and they reported an LMA was used during her procedure and there was no bleeding or laceration of the gums that they were aware of. She had a drop in her hbg this morning to 7.9 from 10.3. I am concerned she may be bleeding. Considerations of bleeding sources include procedure related bleeding as she has bloody and cloudy urine in her bullock and upper GI bleeding as she had the dried blood and her hbg had dropped prior to the procedure. She is medically fragile and was still on levophed @ 2 mcg/min prio to the procedure. It is possible the stress of the procedure itself has induced an inflammatory response or that the release of infectious material and urinary waste with the stenting has caused renewed septic shock. It is also possible that she has experienced a cardiac event. At 15:20 I reassessed her and she was doing better. Her MAP is >65, her HR is now in the 120's, her color has improved, and her O2 sat is now 97%. Her ABG indicated she had excess O2 and the low O2 sat was likely due to poor peripheral perfusion. Her repeat Hbg was stable and lightly increased from this morning making acute hemorrhage unlikely. Her 12-lead showed a supraventricular tachycardia at a rate of 132 with low voltage. There was no ST elevation or notable ischemic changes. She has been alternating between ST and a-fib throughout her admission. Her troponin is elevated at 39.8. I will trend troponins as this could be due to AK, demand ischemia, or related to the recent tachycardia with HR in the 140's. At this time I believe the dried blood around her mouth is likely from a small cut to her lip or gums during her procedure from the airway adjuncts. I believe she had recurrent septic shock after the procedure. She remains very ill. She was seen by Irais Powers with palliative care today (03/31) and has decided to be DNR. She now has a POLST on file and Oriana, her cousin, is her official DPOA. At this time, she still insists she is planning to return home and she has been accepted at a rehab facility in [place] when she is ready to discharge. She is upset with the RN as she has asked Ms. Alcaraz to take sips of water or soda by herself and she wants the RN to do it. This was a persistent source of tension throughout the day. If this persists tomorrow, an additional discussion regarding comfort care can be done. She is currently requesting rehab and as such, interventions and goals are designed to encourage her participation and get her up. If she does not wish to get up or feed herself, she can do this through comfort care and would be a candidate for hospice is she chose this. Current Medications - Current Medications Current Medications: Active Medications Generic Name Dose Route Start Last Admin Trade Name Freq PRN Reason Stop Dose Admin Enoxaparin Sodium 40 mg 03/30/24 09:00 03/31/24 07:53 Enoxaparin 40 Mg/0.4 Ml Syringe SUBQ 40 mg DAILY DAVE Administration Acetaminophen 1,000 mg in 100 mls @ 400 mls/hr 03/29/24 15:02 03/31/24 13:11 Acetaminophen IV 400 mls/hr Q6HR PRN Administration Moderate Pain (Level 4-6) Lactated Ringer's 1,000 mls @ 125 mls/hr 03/29/24 18:00 03/31/24 07:07 Lr IV 125 mls/hr .Q8H DAVE Administration Cefepime HCl 2 gm/ Sodium 100 mls @ 200 mls/hr 03/30/24 17:00 03/31/24 05:48 Chloride IV Infused Q12H DAVE Infusion Norepinephrine Bitartrate 8 mg 250 mls @ 15 mls/hr 03/30/24 16:00 03/31/24 07:45 / Sodium Chloride IV 2 mcg/min .[id number] DAVE 3.75 mls/hr Titration Protocol 8 MCG/MIN Morphine Sulfate 2 mg 03/29/24 14:50 Morphine 2 Mg/Ml Carpuject IVP Q2HR PRN Pain 8 to 10 Multivitamins/Minerals 1 tab 03/30/24 12:00 03/31/24 07:53 Multivitamin W/Minerals Tablet PO 1 tab DAILYWM DAVE Administration Ondansetron HCl 4 mg 03/29/24 14:50 Ondansetron Odt 4 Mg Tablet TL Q6HR PRN Nausea / Vomiting Ondansetron HCl 4 mg 03/29/24 14:50 03/31/24 13:11 Ondansetron 4 Mg/2 Ml Vial IVP 4 mg Q6HR PRN Administration Nausea / Vomiting Pantoprazole Sodium 40 mg 03/29/24 15:00 03/31/24 06:22 Pantoprazole 40 Mg Vial IVP 40 mg QDAC DAVE Administration Prochlorperazine Edisylate 10 mg 03/31/24 15:05 Prochlorperazine 10 Mg/2 Ml Vial IVP Q6HR PRN Nausea / Vomiting Sodium Chloride 10 ml 03/29/24 17:00 03/31/24 07:53 Sodium Chloride Flush 0.9% 10 Ml Syringe IVP 10 ml 0100,0900,1700 DAVE Administration Sodium Chloride 10 ml 03/29/24 14:50 Sodium Chloride Flush 0.9% 10 Ml Syringe IVP PRN PRN NEEDED PER PROVIDER ORDERS Apixaban [Eliquis] 5 mg PO BID 12/28/23 Famotidine 40 mg PO HS 01/18/24 Acetaminophen [Acetaminophen Extra Strength] 500 mg PO PRN PRN 03/29/24 Potassium Chloride 10 meq PO DAILY 03/29/24 Objective - Vital Signs/Intake & Output Reviewed Vital Signs: Yes Vital Signs: Vital Signs Temp Pulse Resp BP Pulse Ox 03/31/24 12:55 36.2 C L 105 H 24 134/75 H 96 03/31/24 12:50 36.2 C L 102 H 24 125/75 96 03/31/24 12:45 36.0 C L 95 20 131/75 H 100 03/31/24 12:40 35.3 C L 95 16 143/75 H 100 Intake & Output: Intake & Output 03/28/24 03/29/24 03/30/24 03/31/24 23:59 23:59 23:59 23:59 Intake Total 2449.875 6813.864 1650.927 Output Total 331 1173 554 Balance 2118.875 5640.864 1096.927 - Objective General Appearance: positive: Other (Eyes closed, rouses to voice, markedly pale, respirations unlabored) ENT: positive: Other (small amount of dried around mouth on lips, no obvious cuts or source of bleeding) Neck: positive: No JVD, Trachea midline Respiratory: positive: Chest non-tender, No respiratory distress, Rales (light bi-basilar rales). negative: Breath sounds nml Cardiovascular: positive: No murmur, No gallop, Tachycardia Peripheral Pulses: 2+ Radial (R), 2+ Radial (L) Abdomen: positive: Non-tender, No organomegaly, No distention, Abnml bowel sounds (Hypoactive x4), Other (cloudy and bloody urine in bullock). negative: Guarding, Rebound Skin: positive: No rash, Warm, Dry, Pallor Extremities: positive: Pedal edema (Mild bilateral pedal edema), Other (No unitaral swelling or erythema, small lesion right big toe previously noted still present). negative: Joint swelling Neurologic/Psychiatric: positive: Oriented x3, CN's nml (2-12), Motor nml, Sensation nml, Mood/affect nml - Lab Results Fish Bones: 03/31/24 14:53 03/31/24 15:10 Other Labs: Lab Results x24hrs 03/31/24 03/31/24 03/31/24 Range/Units 04:31 04:31 04:31 WBC 17.3 H (4.8-10.8) x10^3/uL RBC 2.89 L (4.20-5.40) 10^6/uL Hgb 7.9 L (12.0-16.0) g/dL Hct 25.4 L (37.0-47.0) % MCV 87.9 (81.0-99.0) fL MCH 27.3 (27.0-31.0) pg MCHC 31.1 L (32.0-36.0) g/dL RDW 19.6 H (12.0-15.0) % Plt Count 106 L (130-450) 10^3/uL MPV 10.2 (7.9-10.8) fL Neut # (Auto) Not Reportable Lymph # (Auto) Not Reportable Mcculloch # (Auto) Not Reportable Eos # (Auto) Not Reportable Baso # (Auto) Not Reportable Absolute Nucleated RBC Not Reportable Total Counted 100 Band Neuts % (Manual) 7 (0 - 10) % Abnorm Lymph % (Manual) 0 % Metamyelocytes % 1 H ( - 0) % Myelocytes % 1 H ( - 0) % Nucleated RBC % Not Reportable Neutrophils # (Manual) 16.3 H (1.5-6.6) 10^3/uL Lymphocytes # (Manual) 0.5 L (1.5-3.5) 10^3/uL Monocytes # (Manual) 0.2 (0.0-1.0) 10^3/uL Eosinophils # (Manual) 0.0 (0-0.7) 10^3/uL Basophils # (Manual) 0.0 (0-0.1) 10^3/uL Differential Comment MANUAL DIFFERENTIAL Platelet Estimate DECREASED (<130,000) (NORMAL) RBC Morph Micro Appear 1+ OVALOCYTES (NORMAL) VBG pH 7.378 (7.31-7.41) Ionized Calcium 1.11 L (1.15-1.33) mmol/L Sodium 139 (135-145) mmol/L Potassium 3.4 L (3.5-4.5) mmol/L Chloride 112 H (101-111) mmol/L Carbon Dioxide 22 (21-32) mmol/L Anion Gap 5.0 L (6-13) BUN 14 (6-20) mg/dL Creatinine 0.7 (0.6-1.3) mg/dL Estimated GFR (MDRD) 80 L (>89) Glucose 102 (74-104) mg/dL Calcium 7.4 L (8.5-10.3) mg/dL Phosphorus 1.5 L (2.5-5.0) mg/dL Magnesium 1.9 (1.7-2.3) mg/dL 03/30/24 03/30/24 Range/Units 21:15 21:15 WBC (4.8-10.8) x10^3/uL RBC (4.20-5.40) 10^6/uL Hgb (12.0-16.0) g/dL Hct (37.0-47.0) % MCV (81.0-99.0) fL MCH (27.0-31.0) pg MCHC (32.0-36.0) g/dL RDW (12.0-15.0) % Plt Count (130-450) 10^3/uL MPV (7.9-10.8) fL Neut # (Auto) Lymph # (Auto) Mcculloch # (Auto) Eos # (Auto) Baso # (Auto) Absolute Nucleated RBC Total Counted Band Neuts % (Manual) (0 - 10) % Abnorm Lymph % (Manual) % Metamyelocytes % ( - 0) % Myelocytes % ( - 0) % Nucleated RBC % Neutrophils # (Manual) (1.5-6.6) 10^3/uL Lymphocytes # (Manual) (1.5-3.5) 10^3/uL Monocytes # (Manual) (0.0-1.0) 10^3/uL Eosinophils # (Manual) (0-0.7) 10^3/uL Basophils # (Manual) (0-0.1) 10^3/uL Differential Comment Platelet Estimate (NORMAL) RBC Morph Micro Appear (NORMAL) VBG pH 7.404 (7.31-7.41) Ionized Calcium 1.12 L (1.15-1.33) mmol/L Sodium (135-145) mmol/L Potassium 3.6 (3.5-4.5) mmol/L Chloride (101-111) mmol/L Carbon Dioxide (21-32) mmol/L Anion Gap (6-13) BUN (6-20) mg/dL Creatinine (0.6-1.3) mg/dL Estimated GFR (MDRD) (>89) Glucose (74-104) mg/dL Calcium (8.5-10.3) mg/dL Phosphorus (2.5-5.0) mg/dL Magnesium (1.7-2.3) mg/dL - Other Results/Comments Other Results/Comments: 12-lead ECG: Atrial tachycardia @ 132, most likely a-fib as p waves are not always present. No ST elevation or depression. Sepsis Event Note (H) - Evaluation Current Stage of Sepsis: Septic shock Possible source of Sepsis: positive: Genitourinary - Sepsis Criteria Sepsis Criteria: Recorded Temperature greater than 38.3C or Less than 36C, Recorded Heart Rate greater than 90 bpm, Respiratory: Increasing oxygen requirements, WBC count greater than 10% bands, WBC count greater than 12,000 or less than 4000, MAP less than 65 mmHg, SBP less than 90 mmHg, Metabolic: lactate > 2 mmol/L Assessment/Plan - Problem List (1) Septic shock Impression: She presented with sepsis that rapidly progressed to septic shock in the ED. She had marked leukopenia on 03/29 WBCs 1.1 and ANC of 1.0 and developed leukocytosis today with WBCs of 43.4 and an ANC of 43.0. She is SIRS positive for tachycardia, leukocytopenia, elevated respiratory rate, increasing O2 requirements, and hypotension. Her lactate was 7.5 in the ED, increased to 8.1 and has now decreased to 3.8. UA shows UTI which makes urosepsis the likely. Blood cultures were drawn in the ED and are positive for e. coli bacteremia. Chest x-ray was unremarkable. A lesion on her right big toe with erythema is improved today. She was started on vancomycin, flagyl, and cefepime in the ED for empiric coverage. She was fluid resuscitated and initially responded with an increase in BP before becoming hypotensive again and was placed on levophed in the ED. She was stable and had been weaned down to 2 mcg/min on her levophed with a HR in the 80'2 to 90'2 and O2 sats stable on RA. Her antibiotics were narrowed to cefepime only given e. coli bacteremia 2nd to urosepsis. She went for her planned ureteral stent at 12:00 and returned at 14:00. Her temp was 34.8 and then spiked to 38.0. Her HR is elevated in the 130's to 140's and she is hypotensive with levophed being restarted after a breif interuprion and titrated for a MAP of 65. She is pale and fatigued with O2 sats 85% on 4 lpm with poor pleth. Her BP has stabilized upon reassessment on levophed 6 mcg/min with a 500 ml bolus and her O2 sats are now 97%. At this time, I believe the stress of the ureteral stenting along with the draining of urinary waste and bacteria from the stent caused a recurrence of her septic shock. Her repeat lactic acid was 3.7 and she has leukopenia her repeat WBC at 3.3. She remains in the ICU as she is still pressor dependent and hemodynamically unstable. I will continue fluids at 125 ml/hr and monitor for hemodynamic changes and fluid overload. She will be on a regular diet as tolerated with instructions to help orient her to the plate due to vision impairment. (2) UTI (urinary tract infection) Impression: Her UA was positive for UTI, cultures positive for e. coli. She does not report any specific urinary symptoms but is incontinent to urine at baseline. She is neutropenic which makes her more susceptible to infection and more likely to develop bacteremia related to a UTI. CT abdomen showed left sided hydronephrosis without obstructing stones, with interim increase in retroperitoneal necrotic lymphoma obstructing the ureter. It is likley this contributed to her rapid development of urosepsis. Options for care discussed with Ms. Alcaraz and she elected to proceed with a ureteral stent placemement to relieve obstruction. Dr. Gonzalez, urology, consulted and agreed to place a stent. The stent was placed around 12 and she is now draining cloudy and bloody urine in her bullock. (3) Atrial fibrillation Impression: She has an hx of a-fib s/p ablation, with paroxysmal a-fib after ablation who is currently anticoagulated on apixaban. She presented in a-fib with RVR in the ED and was given diltiazem 15 mg IV in the ED and subsequently developed profound hypotension and AMS with minimal effect on HR. BP responded to fluids initially but she became hypotensive again, likely due to sepsis and not a primary tachyarrhythmia. Attempts at further rate control were deferred as it is likely her tachycardia is due to her underlying sepsis. Her HR was stable in the 80's- 90's this am, alternating between sinus rhythm and a-fib. She became tachycardic with a-fib in the 130's to 140's upon return from PACU with hypotension. I believe this is due to hypotension and not a primary rate related problem. She received 500L bolus and levophed is being titrated for a MAP of 65. I will continue to treat her underlying illness. (4) Elevated troponin Impression: She became hemodynamically unstable after returning from the PACU s/p ureteral stent placement. Troponins were sent to evaluate for cardiac pathology and came back elevated at 39.8. Her 12-lead shows an atrial tachycardia at 132, most likley a-fib, but low voltage makes it possible there are some p waves. No ST segment elevation or depression. At 17:30 she was complaining of 2/10 chest pain. Nitrates are contraindicated and she is already anticoagulated. At this time, I believe her elevated troponin is most likely due to her recent tach ycarida or demand ischemia. It is possible she is having an NSTEMI. I will trend her troponins and treat accordingly. (5) Diarrhea Impression: She reports liquid stool x2 days, none since she presented in the ED. This presents an alternative possible source of infection and she is at risk for c- diff due to immunocompromised status and frequent contact with the healthcare system. Stool PCR all negative, including negative c. diff. She is being fluid resuscitated and has not had continued loose stool. Diarrhea could also have been due to effects of CHOP. Electrolytes being management per ICU protocol. (6) Hypokalemia Impression: Resolved, most recent potassium 3.7 today (03/30). She presented hypokalemic with potassium of 3.1 on 03/29, likely due to excessive GI loss from the diarrhea. Electrolytes being managed per ICU protocol. I will continue to monitor and treat if indicated. (7) Follicular lymphoma Impression: Follicular lymphoma diagnosed in 2006 and treated with rituxin, recurrent in 2019 with malignant lymphadenopathy of the right groin eroding into L5 and retroperitoneal lymphadenopathy. Most recent imaging shows resolution of groin lymphadenopathy with progression of retroperitoneal lymphadenopathy. She is on mini-CHOP and has a port. She had a significant functional decline after starting mini-CHOP and is now bedbound, Last chemo was on 03/21 and they did not to her next scheduled infusion due to neutropenia. Her ANC was 1.0 03/29 and 43 today (03/30). Neutropenic precuations are not indicated. She brought in her maintenance immunomodulation medication but has not taken it since 03/28, additional doses will be held due to sepsis. Neutropenia was likely the underlying cause for her rapid onset of sepsis and progression to septic shock. 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 A ureteral stent was placed by Dr. Gonzalez, Urology, on 03/31 and the blockage has been resolved. (8) Anemia Impression: Her Hbg dropped from 10.3 to 7.9 today. Her underlying anemia is likely due to her CHOP therapy and severe malnutrition. It is above the transfusion threshold. Upon return from PACU, she was noted to have a small amount of dried blood around her mouth and was nauseated, no obvious source of the bleeding. I considered the possibility of an upper GI bleed, post-procedural cbleeding complications, and bleeding to to oral or gum trauma from airway adjuncts used during her procedure. A repeat CBC was 8.7 making acute hemorrhage less likely. There has been no hematemesis, dark or bloody stool reported, her abdomen is soft and non-tender to palpation, and her color improved when her BP improved making GI and post-procedural bleeding unlikely. I believe her pallor was due to her hypotension and the blood was likely due to oral trauma from airway adjuncts. I will have nursing monitor for additional signs of bleeding and continue to monitor CBCs. (9) Severe protein-calorie malnutrition Impression: Weight loss of 18 kg in 1 year which is 19% of body weight. She was receiving meals on wheels but has cancelled it. Unclear what and how often she is able to eat. She states her cousin and aid put meals and food for her in the fridge. As she is non-ambulatory at this time, it is unclear if she is eating 3 meals a day or if she supplements primarily with ensure. I have placed her on a regular diet and nutrition is working with her. (10) Bedbound Impression: Per palliative care note, she had a significant decline in mobility after start mini-CHOP in march. She was previously ambulatory with a walker. She reports being bedbound at home, is able to get to wheelchair with assistance. She lives alone and has help several days a week from a home attendant and cousin, unclear if she is out of bed daily. She is also incontinent to urine at baseline, uses dep ends or adult diapers at home, and has some erythema on her sacrum. She will need rehab at discharge with a PT/OT consult ordered prior to discharge. At this time, she remains too ill to participate with PT/OT.
[2024-03-31 15:16] LABS: HCT - HEMATOCRIT 28.4 % (37.0-47.0); HGB - HEMOGLOBIN 8.7 g/dL (12.0-16.0); MEAN CORPUSCULAR HEMOGLOBIN 27.1 pg (27.0-31.0); MEAN CORPUSCULAR HGB CONC 30.6 g/dL (32.0-36.0); MEAN CORPUSCULAR VOLUME 88.5 fL (81.0-99.0); MEAN PLATELET VOLUME 10.3 fL (7.9-10.8); RED BLOOD COUNT 3.21 10^6/uL (4.20-5.40); RED CELL DISTRIBUTION WIDTH 19.7 % (12.0-15.0); WHITE BLOOD COUNT 3.3 x10^3/uL (4.8-10.8)
[2024-03-31 15:21] LABS: ABG BASE EXCESS -4.7 mmol/L (-2.0-3.0); ABG HCO3 18.4 mmol/L (22.0-26.0); ABG OXYGEN SATURATION 99 % (94-98); ABG PCO2 27 mmHg (34-45); ABG PH 7.45 (7.35-7.45); ABG TCO2 19.2 MMOL/L (21.0-29.0); ALLEN TEST POSITIVE
[2024-03-31 15:23] LABS: ABG PO2 164 mmHg (80-100)
[2024-03-31] MEDS: LACTATED RINGERS 500 ML IV ONE (15:29)
[2024-03-31 15:32] LABS: ALBUMIN 1.9 g/dL (3.2-5.5); ALKALINE PHOSPHATASE 131 IU/L (42-121); ALT ALANINE AMINOTRANSFERASE 9 IU/L (10-60); AST ASPARTATE AMINOTRANSFERASE 15 IU/L (10-42); BILIRUBIN,TOTAL 0.7 mg/dL (0.2-1.0); BUN - BLOOD UREA NITROGEN 14 mg/dL (6-20); CALCIUM 7.2 mg/dL (8.5-10.3); CARBON DIOXIDE - CO2 18 mmol/L (21-32); CHLORIDE 113 mmol/L (101-111); CREATININE 0.6 mg/dL (0.6-1.3); GFR - MDRD 96 (>89); GLUCOSE 65 mg/dL (74-104); IONIZED CALCIUM IF INDICATED YES; POTASSIUM 3.5 mmol/L (3.5-4.5); SODIUM 140 mmol/L (135-145); TOTAL PROTEIN 3.8 g/dL (6.4-8.9)
[2024-03-31 15:39] LABS: CALCIUM, IONIZED 1.06 mmol/L (1.15-1.33); VBG PH 7.403 (7.31-7.41)
--- NOTE | 2024-03-31 15:41 | OPERATIVE REPORT ---
Operative Report - General Admit Date: 03/29/24 Procedure Date: 03/31/24 Planned Procedure: Cystoscopy, left ureteral stent Pre-Op Diagnosis: Sepsis, left hydronephrosis Procedure Performed: Cystoscopy, left retrograde pyelogram, left ureteral stent Post Op Diagnosis: Sepsis, left hydronephrosis - Procedure Note Primary Surgeon: Carlos Anesthesia Provider: EDWINA Peoples Anesthesia Technique: General LMA Pathology: none Estimated Blood Loss (mL): 0 Findings: erythematous bladder severe hydronephrosis, ureter normal stent placed Complications: none - Other Other Information/Narrative: After informed consent was obtained the patient was brought to the OR and laid in the supine position. The patient was anesthetized per anesthesia protocols her previous Owens catheter was removed and prepped draped in usual sterile fashion in the dorsolithotomy position. A formal timeout was performed reconfirming the patient, procedure and laterality. A 22 Liberian cystoscope was advanced easily into the urinary bladder. The bladder was inspected and full and was noted to be diffusely erythematous. Her left ureteral orifice was identified and a 5 Liberian ureteral catheter was used to cannulate the ureteral orifice. A gentle retrograde pyelogram was performed which showed a delicate and relatively normal distal and proximal ureter until approximately 5 cm distal from the left renal pelvis. At that point severe hydronephrosis was seen. A Glidewire was used to advance up into the kidney. We then placed a 5 Liberian ureteral catheter over this into the kidney. A sensor wire was then replaced through this ureteral catheter. We then placed a 6 Liberian 24 cm stent with good curling in the kidney and good curling noted in the bladder. There was a clear E flux of dark celsa and slightly cloudy urine. It did not appear frankly purulent. A 16 Liberian silicone temperature probe Owens catheter was placed into the bladder with 10 cc in the balloon. This concluded the procedure and the patient tolerated the procedure well. She was brought to the ICU again for further management. All counts were correct. Her stent will remain in place for now. It must be exchanged or removed within 3 months.
[2024-03-31] MEDS: POTASSIUM CHLOR 20 MEQ/100 ML 20 MEQ/100 ML BAG IV SCH (17:30)
[2024-04-01 04:18] LABS: BASOPHILS % (AUTO) 0.4 %; EOSINOPHILS % (AUTO) 0.3 %; HCT - HEMATOCRIT 25.5 % (37.0-47.0); HGB - HEMOGLOBIN 7.9 g/dL (12.0-16.0); LYMPHOCYTES % (AUTO) 1.2 %; MEAN CORPUSCULAR HEMOGLOBIN 27.1 pg (27.0-31.0); MEAN CORPUSCULAR VOLUME 87.3 fL (81.0-99.0); MEAN PLATELET VOLUME 10.8 fL (7.9-10.8); MONOCYTES % (AUTO) 5.3 %; NEUTROPHILS % (AUTO) 75.9 %; PLT - PLATELET COUNT 79 10^3/uL (130-450); RED BLOOD COUNT 2.92 10^6/uL (4.20-5.40); RED CELL DISTRIBUTION WIDTH 19.5 % (12.0-15.0); WHITE BLOOD COUNT 11.2 x10^3/uL (4.8-10.8)
[2024-04-01 04:28] LABS: ABNORMAL LYMPHS % (MANUAL) 0 %
[2024-04-01 04:29] LABS: CALCIUM, IONIZED 1.08 mmol/L (1.15-1.33); VBG PH 7.417 (7.31-7.41)
[2024-04-01 04:30] LABS: MAGNESIUM 1.6 mg/dL (1.7-2.3)
[2024-04-01 04:35] LABS: CALCIUM 7.2 mg/dL (8.5-10.3); CREATININE 0.7 mg/dL (0.6-1.3); PHOSPHORUS 2.6 mg/dL (2.5-5.0); POTASSIUM 4.4 mmol/L (3.5-4.5)
[2024-04-01] MEDS: CALCIUM GLUC 1,000MG/50ML-NACL 1,000 MG/50 ML BAG IV ONE (04:55)
[2024-04-01 05:38] LABS: BAND NEUTROPHILS % (MANUAL) 4 %; DIFFERENTIAL COMMENT MANUAL DIFFERENTIAL; LYMPHOCYTES # (MANUAL) 0.4 10^3/uL (1.5-3.5); LYMPHOCYTES % (MANUAL) 3 %; MONOCYTES # (MANUAL) 0.7 10^3/uL (0.0-1.0); NEUTROPHILS # (MANUAL) 10.1 10^3/uL (1.5-6.6); PLATELET ESTIMATE, MANUAL DECREASED (<130,000) (NORMAL); REACTIVE LYMPHS % (MANUAL) 1 %
[2024-04-01] MEDS: ZINC OXIDE 20% OINT 30 GM TUBE TOP PRN (06:46)
[2024-04-01] MEDS: MAGNESIUM SULFATE 2 GRAM 2 GM/50 ML BAG IV ONE (06:52)
[2024-04-01] MEDS: FUROSEMIDE 20 MG/2 ML VIAL IVP STA (08:05)
[2024-04-01] MEDS: ALBUMIN 25% 12.5 GM/50 ML VIAL IV STA (08:05)
--- NOTE | 2024-04-01 10:00 | XRAY Report ---
PROCEDURE: OR C-Arm Procedure INDICATIONS: LEFT URETERAL STENT PLACEMENT FLUORO TIME: 0.1 TECHNIQUE: Intraoperative fluoroscopic views during left ureteral stent placement. COMPARISON: None. FINDINGS: Intraoperative fluoroscopic views during left ureteral stent placement. Contrast injection of the col lecting system demonstrates hydronephrosis. IMPRESSION: Intraoperative fluoroscopic views during left ureteral stent placement. Contrast injection of the col lecting system demonstrates hydronephrosis. Reviewed by: Luiz Garber MD on 04/01/2024 9:59 AM PDT Approved by: Luiz Garber MD on 04/01/2024 9:59 AM PDT Station ID: [id number]
[2024-04-01 11:22] LABS: VBG PH 7.418 (7.31-7.41)
[2024-04-01 11:23] LABS: CALCIUM, IONIZED 1.1 mmol/L (1.15-1.33)
--- NOTE | 2024-04-01 13:41 | PROVIDER PROGRESS NOTE ---
Subjective - Prog Note Date Prog Note Date: 04/01/24 Prog Note Time: 11:40 - Subjective Pt reports feeling: Improved Subjective: Ms. Alcaraz is an 83-year-old woman with history of follicular lymphoma with relapse getting mini CHOP via a right chest PowerPort who presented to the ED (03/29) with shaking chills starting acutely. She reported night sweats last night. She also had 2 days of diarrhea. No measured fevers. She felt too sick to go to her oncology appointment today. EMS was summoned and noted her to be in A-fib which she has had in the past status post ablation and still anticoagulated but does not recall being in A-fib recently. And noted to have a blood sugar of 66 and given D10 prior to arrival. She shortness of breath, cough, sore throat, body aches, abdominal pain. In the ED she was notably tachycardic, apparent A-fib on the EKG w/ RVR. She was given diltiazem after which she at least briefly become profoundly hypotensive down to 50/30 and obtunded. This responded quickly to IV fluids and both blood pressure and mental status improved. Initial workup demonstrates a white count of 1.1 with profound lymphopenia and her CMP was notable for mild hypokalemia and a significant lactic acidosis with a lactate of 7.5. She was administered 30 mL/kg of IV fluids and broad-spectrum antibiotics for unknown source with cefepime, Flagyl, and vancomycin. Blood pressure did rebound with fluids. She became febrile in the ED which is not surprising as she presented with sepsis. No further attempts at rate control were done as it is likely that her A-fib with RVR is from her critical underlying illness. She was accepted for admission at 2:20 to the ICU. Her maps were running persistently below 65 and decision to start pressors, Levophed, was made at about 3:20 PM. Her urine also came back positive for infection, potentially her source of sepsis. She was pressor dependent on 03/30 and 03/31. Her leukopenia rebounded to leukocytosis at 43.3 and before beginning to decrease again. Abdominal CT idenitified an left hydronephrosis without obstructing stones due to compression from a known lymphoma which ahs had an interval increase from 03/25 to 03/29. This likely contributed to her rapid developement of UTI and urosepsis. Dr. Gonzalez consulted and agreed to place a ureteral stent on 03/31. She was looking significantly improved yesterday morning prior to her ureteral stenting. She remained on levophed but it was down to 2 mcg/min. She had an acute decompensation and recurrence of septic shock yesterday afternoon following her left ureteral stenting. She required pressors overnight and has been off them with stable BP since about 4 am. She developed chest pain during her decompensation, troponins stable at 39.8 and 40.3 consistent with demand ischemia and not an acute OH. She also developed leukopenia with WBCs dropping from 17.3 to 3.3 in a pattern similar to her previuos septic shock at admission. I suspect this is due to release of e. coli and toxins with the placement of the ureteral stent. She remains very ill. She was seen by Irais Powers with palliative care yesterda y (03/31) and has decided to be DNR. She now has a POLST on file and Oriana, her cousin, is her official DPOA. At this time, she still insists she is planning to return home and she has been accepted at a rehab facility in [place] when she is ready to discharge. She is upset with the RN as she has asked Ms. Alcaraz to take sips of water or soda by herself and she wants the RN to do it. This was a persistent source of tension throughout the day. If this persists, an additional discussion regarding comfort care can be done. She is currently requesting rehab and as such, interventions and goals are designed to encourage her participation and get her up. If she does not wish to get up or feed h erself, she can do this through comfort care and would be a candidate for hospice is she chose this. Today, she is fatigued and minimally interactive, eye opening to verbal, A/Ox3. She did not recognize me although I have been caring for her and talking with her the past 3 days. She states she feels better than she did yesterday but still feels very weak, sick, and tired. Her MAP is >65 and she has been off pressors since 0400. Her HR remains irregular, underlying indeterminate as it is irregular but there are usually p-waves but there are occasionally pauses, query short frequent sinus pauses versus second degree AVB type 2 with irregular dropped beat vs PAC with subsequent pause. She denies any acute pain, SOB, chest pain, nausea, vomiting, or abdominal pain. Per RN, she has only eaten 10 % of her meal but is eating on her own today. She has some diffuse edema, likely due to low albumin from malnutrition and volume overload from resuscitation. Due to her low albumin, I will give albumin to increase oncotic pressure and a single dose of lasix 20 mg to diurese excess fluids. I will continue her IV fluids at 125 ml/hr as her blood pressure has been labile and I want to give it a chance to stabilize without pressors. Current Medications - Current Medications Current Medications: Active Medications Generic Name Dose Route Start Last Admin Trade Name Freq PRN Reason Stop Dose Admin Enoxaparin Sodium 40 mg 03/30/24 09:00 04/01/24 08:05 Enoxaparin 40 Mg/0.4 Ml Syringe SUBQ Not Given DAILY DAVE Acetaminophen 1,000 mg in 100 mls @ 400 mls/hr 03/29/24 15:02 04/01/24 01:30 Acetaminophen IV Infused Q6HR PRN Infusion Moderate Pain (Level 4-6) Lactated Ringer's 1,000 mls @ 125 mls/hr 03/29/24 18:00 04/01/24 01:11 Lr IV 125 mls/hr .Q8H DAVE Administration Cefepime HCl 2 gm/ Sodium 100 mls @ 200 mls/hr 03/30/24 17:00 04/01/24 05:35 Chloride IV Infused Q12H DAVE Infusion Norepinephrine Bitartrate 8 mg 250 mls @ 15 mls/hr 03/30/24 16:00 04/01/24 04:00 / Sodium Chloride IV 0 mcg/min .[id number] DAVE 0 mls/hr Titration Protocol 8 MCG/MIN Morphine Sulfate 2 mg 03/29/24 14:50 Morphine 2 Mg/Ml Carpuject IVP Q2HR PRN Pain 8 to 10 Multi-Ingredient Ointment 1 applic 04/01/24 05:57 04/01/24 06:46 Zinc Oxide 20% Oint 30 Gm Tube TOP 1 applic PRN PRN Administration Skin Care Multivitamins/Minerals 1 tab 03/30/24 12:00 04/01/24 08:03 Multivitamin W/Minerals Tablet PO 1 tab DAILYWM DAVE Administration Ondansetron HCl 4 mg 03/29/24 14:50 Ondansetron Odt 4 Mg Tablet TL Q6HR PRN Nausea / Vomiting Ondansetron HCl 4 mg 03/29/24 14:50 03/31/24 13:11 Ondansetron 4 Mg/2 Ml Vial IVP 4 mg Q6HR PRN Administration Nausea / Vomiting Pantoprazole Sodium 40 mg 03/29/24 15:00 04/01/24 06:50 Pantoprazole 40 Mg Vial IVP 40 mg QDAC DAVE Administration Prochlorperazine Edisylate 10 mg 03/31/24 15:05 Prochlorperazine 10 Mg/2 Ml Vial IVP Q6HR PRN Nausea / Vomiting Sodium Chloride 10 ml 03/29/24 17:00 04/01/24 08:05 Sodium Chloride Flush 0.9% 10 Ml Syringe IVP 10 ml 0100,0900,1700 DAVE Administration Sodium Chloride 10 ml 03/29/24 14:50 Sodium Chloride Flush 0.9% 10 Ml Syringe IVP PRN PRN NEEDED PER PROVIDER ORDERS Apixaban [Eliquis] 5 mg PO BID 12/28/23 Famotidine 40 mg PO HS 01/18/24 Acetaminophen [Acetaminophen Extra Strength] 500 mg PO PRN PRN 03/29/24 Potassium Chloride 10 meq PO DAILY 03/29/24 Objective - Vital Signs/Intake & Output Reviewed Vital Signs: Yes Vital Signs: Vital Signs Temp Pulse Resp BP Pulse Ox 04/01/24 13:00 37.0 C 87 20 103/62 100 04/01/24 12:00 36.9 C 91 17 111/84 H 97 04/01/24 11:00 36.9 C 88 22 91/53 L 99 04/01/24 10:00 36.9 C 88 21 100/57 L 98 Intake & Output: Intake & Output 03/29/24 03/30/24 03/31/24 04/01/24 23:59 23:59 23:59 23:59 Intake Total 2449.875 6813.864 4060.052 1627.270 Output Total 331 4824 951 7266 Balance 2118.875 5640.864 3159.052 38.270 - Objective General Appearance: positive: No acute distress, Lethargic, Other (83 y/o female, eye opening to voice and extremely fatigued to the point that speaking wore her out, diffuse alopecia, and markedly pale) Neck: positive: Nml inspection Respiratory: positive: Chest non-tender, No respiratory distress, Rales (mild bibasilar rales, likely due to atelectasis). negative: Wheezes, Rhonchi Cardiovascular: positive: No gallop, Systolic murmur (Systolic murmur right upper sternal border not previously appreciated). negative: Regular rate & rhythm, Tachycardia Peripheral Pulses: 1+ Dorsalis pedis (R), 1+ Dorsalis pedis (L), 2+ Radial (R), 2+ Radial (L) Abdomen: positive: No organomegaly, Nml bowel sounds, No distention, Tenderness (Suprapubic tenderness on palpation) Skin: positive: No rash, Warm, Dry, Pallor, Other (right toe lesion with surrounding erythema not significantly changed, non-tender) Extremities: positive: Non-tender, Pedal edema (mild pitting edema bilateral lower extremities), Other (Mild edema of the upper extremities) Neurologic/Psychiatric: positive: Oriented x3, CN's nml (2-12), Motor nml, Sensation nml. negative: Mood/affect nml (Fatigued and withdrawn, did not engage beyond the minimum required during assessment and did not spontaneously open her eyes) - Lab Results Fish Bones: 04/01/24 04:07 04/01/24 04:07 Other Labs: Lab Results x24hrs 04/01/24 04/01/24 04/01/24 Range/Units 11:14 11:14 04:07 WBC (4.8-10.8) x10^3/uL RBC (4.20-5.40) 10^6/uL Hgb (12.0-16.0) g/dL Hct (37.0-47.0) % MCV (81.0-99.0) fL MCH (27.0-31.0) pg MCHC (32.0-36.0) g/dL RDW (12.0-15.0) % Plt Count (130-450) 10^3/uL MPV (7.9-10.8) fL Neut # (Auto) Lymph # (Auto) Crawford # (Auto) Eos # (Auto) Baso # (Auto) Absolute Nucleated RBC Total Counted Band Neuts % (Manual) (0 - 10) % Reactive Lymphs % (Man) % Abnorm Lymph % (Manual) % Nucleated RBC % Neutrophils # (Manual) (1.5-6.6) 10^3/uL Lymphocytes # (Manual) (1.5-3.5) 10^3/uL Monocytes # (Manual) (0.0-1.0) 10^3/uL Eosinophils # (Manual) (0-0.7) 10^3/uL Basophils # (Manual) (0-0.1) 10^3/uL Differential Comment Platelet Estimate (NORMAL) RBC Morph Micro Appear (NORMAL) Bld Gas Analysis Time Sample Site ABG pH (7.35-7.45) ABG pCO2 (34-45) mmHg ABG pO2 (80-100) mmHg ABG HCO3 (22.0-26.0) mmol/L ABG Total CO2 (21.0-29.0) MMOL/L ABG O2 Saturation (94-98) % ABG Base Excess (-2.0-3.0) mmol/L Dion Test VBG pH 7.418 H 7.417 H (7.31-7.41) Ionized Calcium 1.10 L 1.08 L (1.15-1.33) mmol/L O2 Delivery Device O2 Liters/Min LPM FiO2 Sodium (135-145) mmol/L Potassium (3.5-4.5) mmol/L Chloride (101-111) mmol/L Carbon Dioxide (21-32) mmol/L Anion Gap (6-13) BUN (6-20) mg/dL Creatinine (0.6-1.3) mg/dL Estimated GFR (MDRD) (>89) Glucose (74-104) mg/dL Lactic Acid (0.5-2.2) mmol/L Calcium (8.5-10.3) mg/dL Phosphorus (2.5-5.0) mg/dL Magnesium 2.1 (1.7-2.3) mg/dL Total Bilirubin (0.2-1.0) mg/dL AST (10-42) IU/L ALT (10-60) IU/L Alkaline Phosphatase (42-121) IU/L Troponin I High Sens (2.3-14.8) ng/L Total Protein (6.4-8.9) g/dL Albumin (3.2-5.5) g/dL Globulin (2.1-4.2) g/dL Albumin/Globulin Ratio (1.0-2.2) 04/01/24 04/01/24 03/31/24 Range/Units 04:07 04:07 17:58 WBC 11.2 H (4.8-10.8) x10^3/uL RBC 2.92 L (4.20-5.40) 10^6/uL Hgb 7.9 L (12.0-16.0) g/dL Hct 25.5 L (37.0-47.0) % MCV 87.3 (81.0-99.0) fL MCH 27.1 (27.0-31.0) pg MCHC 31.0 L (32.0-36.0) g/dL RDW 19.5 H (12.0-15.0) % Plt Count 79 L (130-450) 10^3/uL MPV 10.8 (7.9-10.8) fL Neut # (Auto) Not Reportable Lymph # (Auto) Not Reportable Crawford # (Auto) Not Reportable Eos # (Auto) Not Reportable Baso # (Auto) Not Reportable Absolute Nucleated RBC Not Reportable Total Counted 100 Band Neuts % (Manual) 4 (0 - 10) % Reactive Lymphs % (Man) 1 % Abnorm Lymph % (Manual) 0 % Nucleated RBC % Not Reportable Neutrophils # (Manual) 10.1 H (1.5-6.6) 10^3/uL Lymphocytes # (Manual) 0.4 L (1.5-3.5) 10^3/uL Monocytes # (Manual) 0.7 (0.0-1.0) 10^3/uL Eosinophils # (Manual) 0.0 (0-0.7) 10^3/uL Basophils # (Manual) 0.0 (0-0.1) 10^3/uL Differential Comment MANUAL DIFFERENTIAL Platelet Estimate DECREASED (<130,000) (NORMAL) RBC Morph Micro Appear 1+ OVALOCYTES (NORMAL) Bld Gas Analysis Time Sample Site ABG pH (7.35-7.45) ABG pCO2 (34-45) mmHg ABG pO2 (80-100) mmHg ABG HCO3 (22.0-26.0) mmol/L ABG Total CO2 (21.0-29.0) MMOL/L ABG O2 Saturation (94-98) % ABG Base Excess (-2.0-3.0) mmol/L Dion Test VBG pH (7.31-7.41) Ionized Calcium (1.15-1.33) mmol/L O2 Delivery Device O2 Liters/Min LPM FiO2 Sodium 137 (135-145) mmol/L Potassium 4.4 (3.5-4.5) mmol/L Chloride 111 (101-111) mmol/L Carbon Dioxide 23 (21-32) mmol/L Anion Gap 3.0 L (6-13) BUN 16 (6-20) mg/dL Creatinine 0.7 (0.6-1.3) mg/dL Estimated GFR (MDRD) 80 L (>89) Glucose 91 (74-104) mg/dL Lactic Acid (0.5-2.2) mmol/L Calcium 7.2 L (8.5-10.3) mg/dL Phosphorus 2.6 (2.5-5.0) mg/dL Magnesium 1.6 L (1.7-2.3) mg/dL Total Bilirubin (0.2-1.0) mg/dL AST (10-42) IU/L ALT (10-60) IU/L Alkaline Phosphatase (42-121) IU/L Troponin I High Sens 40.3 H* (2.3-14.8) ng/L Total Protein (6.4-8.9) g/dL Albumin (3.2-5.5) g/dL Globulin (2.1-4.2) g/dL Albumin/Globulin Ratio (1.0-2.2) 03/31/24 03/31/24 03/31/24 Range/Units 15:10 15:10 15:10 WBC (4.8-10.8) x10^3/uL RBC (4.20-5.40) 10^6/uL Hgb (12.0-16.0) g/dL Hct (37.0-47.0) % MCV (81.0-99.0) fL MCH (27.0-31.0) pg MCHC (32.0-36.0) g/dL RDW (12.0-15.0) % Plt Count (130-450) 10^3/uL MPV (7.9-10.8) fL Neut # (Auto) Lymph # (Auto) Crawford # (Auto) Eos # (Auto) Baso # (Auto) Absolute Nucleated RBC Total Counted Band Neuts % (Manual) (0 - 10) % Reactive Lymphs % (Man) % Abnorm Lymph % (Manual) % Nucleated RBC % Neutrophils # (Manual) (1.5-6.6) 10^3/uL Lymphocytes # (Manual) (1.5-3.5) 10^3/uL Monocytes # (Manual) (0.0-1.0) 10^3/uL Eosinophils # (Manual) (0-0.7) 10^3/uL Basophils # (Manual) (0-0.1) 10^3/uL Differential Comment Platelet Estimate (NORMAL) RBC Morph Micro Appear (NORMAL) Bld Gas Analysis Time Sample Site ABG pH (7.35-7.45) ABG pCO2 (34-45) mmHg ABG pO2 (80-100) mmHg ABG HCO3 (22.0-26.0) mmol/L ABG Total CO2 (21.0-29.0) MMOL/L ABG O2 Saturation (94-98) % ABG Base Excess (-2.0-3.0) mmol/L Dion Test VBG pH 7.403 (7.31-7.41) Ionized Calcium 1.06 L YES (1.15-1.33) mmol/L O2 Delivery Device O2 Liters/Min LPM FiO2 Sodium 140 (135-145) mmol/L Potassium 3.5 (3.5-4.5) mmol/L Chloride 113 H (101-111) mmol/L Carbon Dioxide 18 L (21-32) mmol/L Anion Gap 9.0 (6-13) BUN 14 (6-20) mg/dL Creatinine 0.6 (0.6-1.3) mg/dL Estimated GFR (MDRD) 96 (>89) Glucose 65 L (74-104) mg/dL Lactic Acid 3.7 H* (0.5-2.2) mmol/L Calcium 7.2 L (8.5-10.3) mg/dL Phosphorus (2.5-5.0) mg/dL Magnesium (1.7-2.3) mg/dL Total Bilirubin 0.7 (0.2-1.0) mg/dL AST 15 (10-42) IU/L ALT 9 L (10-60) IU/L Alkaline Phosphatase 131 H (42-121) IU/L Troponin I High Sens (2.3-14.8) ng/L Total Protein 3.8 L (6.4-8.9) g/dL Albumin 1.9 L (3.2-5.5) g/dL Globulin 1.9 L (2.1-4.2) g/dL Albumin/Globulin Ratio 1.0 (1.0-2.2) 03/31/24 03/31/24 03/31/24 Range/Units 15:05 14:53 14:53 WBC (4.8-10.8) x10^3/uL RBC (4.20-5.40) 10^6/uL Hgb (12.0-16.0) g/dL Hct (37.0-47.0) % MCV (81.0-99.0) fL MCH (27.0-31.0) pg MCHC (32.0-36.0) g/dL RDW (12.0-15.0) % Plt Count (130-450) 10^3/uL MPV (7.9-10.8) fL Neut # (Auto) Lymph # (Auto) Crawford # (Auto) Eos # (Auto) Baso # (Auto) Absolute Nucleated RBC Total Counted Band Neuts % (Manual) (0 - 10) % Reactive Lymphs % (Man) % Abnorm Lymph % (Manual) % Nucleated RBC % Neutrophils # (Manual) (1.5-6.6) 10^3/uL Lymphocytes # (Manual) (1.5-3.5) 10^3/uL Monocytes # (Manual) (0.0-1.0) 10^3/uL Eosinophils # (Manual) (0-0.7) 10^3/uL Basophils # (Manual) (0-0.1) 10^3/uL Differential Comment Platelet Estimate (NORMAL) RBC Morph Micro Appear (NORMAL) Bld Gas Analysis Time 1515 Sample Site RIGHT RADIAL ABG pH 7.45 (7.35-7.45) ABG pCO2 27 L (34-45) mmHg ABG pO2 164 H* (80-100) mmHg ABG HCO3 18.4 L (22.0-26.0) mmol/L ABG Total CO2 19.2 L (21.0-29.0) MMOL/L ABG O2 Saturation 99 H (94-98) % ABG Base Excess -4.7 L (-2.0-3.0) mmol/L Dion Test POSITIVE VBG pH (7.31-7.41) Ionized Calcium (1.15-1.33) mmol/L O2 Delivery Device OXYMIZER O2 Liters/Min 10.00 LPM FiO2 100.00 Sodium (135-145) mmol/L Potassium (3.5-4.5) mmol/L Chloride (101-111) mmol/L Carbon Dioxide (21-32) mmol/L Anion Gap (6-13) BUN (6-20) mg/dL Creatinine (0.6-1.3) mg/dL Estimated GFR (MDRD) (>89) Glucose (74-104) mg/dL Lactic Acid (0.5-2.2) mmol/L Calcium (8.5-10.3) mg/dL Phosphorus 3.0 (2.5-5.0) mg/dL Magnesium (1.7-2.3) mg/dL Total Bilirubin (0.2-1.0) mg/dL AST (10-42) IU/L ALT (10-60) IU/L Alkaline Phosphatase (42-121) IU/L Troponin I High Sens 39.8 H* (2.3-14.8) ng/L Total Protein (6.4-8.9) g/dL Albumin (3.2-5.5) g/dL Globulin (2.1-4.2) g/dL Albumin/Globulin Ratio (1.0-2.2) 03/31/24 Range/Units 14:53 WBC 3.3 L (4.8-10.8) x10^3/uL RBC 3.21 L (4.20-5.40) 10^6/uL Hgb 8.7 L (12.0-16.0) g/dL Hct 28.4 L (37.0-47.0) % MCV 88.5 (81.0-99.0) fL MCH 27.1 (27.0-31.0) pg MCHC 30.6 L (32.0-36.0) g/dL RDW 19.7 H (12.0-15.0) % Plt Count 81 L (130-450) 10^3/uL MPV 10.3 (7.9-10.8) fL Neut # (Auto) Lymph # (Auto) Crawford # (Auto) Eos # (Auto) Baso # (Auto) Absolute Nucleated RBC Total Counted Band Neuts % (Manual) (0 - 10) % Reactive Lymphs % (Man) % Abnorm Lymph % (Manual) % Nucleated RBC % Neutrophils # (Manual) (1.5-6.6) 10^3/uL Lymphocytes # (Manual) (1.5-3.5) 10^3/uL Monocytes # (Manual) (0.0-1.0) 10^3/uL Eosinophils # (Manual) (0-0.7) 10^3/uL Basophils # (Manual) (0-0.1) 10^3/uL Differential Comment Platelet Estimate (NORMAL) RBC Morph Micro Appear (NORMAL) Bld Gas Analysis Time Sample Site ABG pH (7.35-7.45) ABG pCO2 (34-45) mmHg ABG pO2 (80-100) mmHg ABG HCO3 (22.0-26.0) mmol/L ABG Total CO2 (21.0-29.0) MMOL/L ABG O2 Saturation (94-98) % ABG Base Excess (-2.0-3.0) mmol/L Dion Test VBG pH (7.31-7.41) Ionized Calcium (1.15-1.33) mmol/L O2 Delivery Device O2 Liters/Min LPM FiO2 Sodium (135-145) mmol/L Potassium (3.5-4.5) mmol/L Chloride (101-111) mmol/L Carbon Dioxide (21-32) mmol/L Anion Gap (6-13) BUN (6-20) mg/dL Creatinine (0.6-1.3) mg/dL Estimated GFR (MDRD) (>89) Glucose (74-104) mg/dL Lactic Acid (0.5-2.2) mmol/L Calcium (8.5-10.3) mg/dL Phosphorus (2.5-5.0) mg/dL Magnesium (1.7-2.3) mg/dL Total Bilirubin (0.2-1.0) mg/dL AST (10-42) IU/L ALT (10-60) IU/L Alkaline Phosphatase (42-121) IU/L Troponin I High Sens (2.3-14.8) ng/L Total Protein (6.4-8.9) g/dL Albumin (3.2-5.5) g/dL Globulin (2.1-4.2) g/dL Albumin/Globulin Ratio (1.0-2.2) Sepsis Event Note (H) - Evaluation Current Stage of Sepsis: Septic shock Possible source of Sepsis: positive: Genitourinary - Sepsis Criteria Sepsis Criteria: Recorded Temperature greater than 38.3C or Less than 36C, Recorded Heart Rate greater than 90 bpm, Respiratory: Increasing oxygen requirements, WBC count greater than 10% bands, WBC count greater than 12,000 or less than 4000, MAP less than 65 mmHg, SBP less than 90 mmHg, Metabolic: lactate > 2 mmol/L Assessment/Plan - Problem List (1) Septic shock Impression: She presented with sepsis that rapidly progressed to septic shock in the ED. She had marked leukopenia on 03/29 WBCs 1.1 and ANC of 1.0 and developed leukocytosis today with WBCs of 43.4 and an ANC of 43.0. She is SIRS positive for tachycardia , leukocytopenia, elevated respiratory rate, increasing O2 requirements, and hypotension. Her lactate was 7.5 in the ED, increased to 8.1 and has now decreased to 3.8. UA shows UTI which makes urosepsis the likely. Blood cultures were drawn in the ED and are positive for e. coli bacteremia. Chest x-ray was unremarkable. A lesion on her right big toe with erythema is improved today. She was started on vancomycin, flagyl, and cefepime in the ED for empiric coverage. She was fluid resuscitated and initially responded with an increase in BP before becoming hypotensive again and was placed on levophed in the ED. She was stable and had been weaned down to 2 mcg/min on her levophed with a HR in t he 80'2 to 90'2 and O2 sats stable on RA. Her antibiotics were narrowed to cefepime only given e. coli bacteremia 2nd to urosepsis. She went for her planned ureteral stent at 12:00 and returned at 14:00. Her temp was 34.8 and then spiked to 38.0. Her HR is elevated in the 130's to 140's and she is hypotensive with levophed being restarted after a breif interuprion and titrated for a MAP of 65. She is pale and fatigued with O2 sats 85% on 4 lpm with poor pleth. Her BP has stabilized upon reassessment on levophed 6 mcg/min with a 500 ml bolus and her O2 sats are now 97%. At this time, I believe the stress of the ureteral stenting along with the draining of urinary waste and bacteria from the stent caused a recurrence of her septic shock. Her repeat lactic acid was 3.7 and she has leukopenia her repeat WBC at 3.3. She remains in the ICU as she is still pressor dependent and hemodynamically unstable. I will continue fluids at 125 ml/hr and monitor for hemodynamic changes and fluid overload. She will be on a regular diet as tolerated with instructions to help orient her to the plate due to vision impairment. She is doing better today and is off levophed since 0400. She is fatigued but no longer complains of chest pain. She is eating but only a small portion of her meals. I am not making any adjustments to her fluid right now as her BP has been difficult to maintain and she is newly off the pressors. She has evidence of volume overload and 3rd spacing with diffuse extremity edema. She has low albumin due to her malnutrition so I have ordered albumin alongside a 20 mg dose of IV lasix. I will watch her urine output and for signs of worsening volume overload. I will switch her cefepime to recephin as her blood cultures came back positive for pansensitive e. coli. She is approaching 96 hrs in her admission and remains in the ICU due to recurrent septic shock 2nd urosepsis with e. coli bactermia. She will be here at least 3 more days. (2) UTI (urinary tract infection) Impression: Her UA was positive for UTI, cultures positive for e. coli. She does not report any specific urinary symptoms but is incontinent to urine at baseline. She is neutropenic which makes her more susceptible to infection and more likely to develop bacteremia related to a UTI. CT abdomen showed left sided hydronephrosis without obstructing stones, with interim increase in retroperitoneal necrotic lymphoma obstructing the ureter. It is likley this contributed to her rapid development of urosepsis. Options for care discussed with Ms. Alcaraz and she elected to proceed with a ureteral stent placemement to relieve obstruction. Dr. Gonzalez, urology, consulted and agreed to place a stent. The stent was placed around 12 on 03/31 and she was draining cloudy and bloody urine in her bullock afterwards. Her urine is clear today and nursing reports urine output around 60 cc/hr. (3) Atrial fibrillation Impression: She has an hx of a-fib s/p ablation, with paroxysmal a-fib after ablation who is currently anticoagulated on apixaban. She presented in a-fib with RVR in the ED and was given diltiazem 15 mg IV in the ED and subsequently developed profound hypotension and AMS with minimal effect on HR. BP responded to fluids initially but she became hypotensive again, likely due to sepsis and not a primary tachyarrhythmia. Attempts at further rate control were deferred as it is likely her tachycardia is due to her underlying sepsis. Her HR was stable in the 80's- 90's the morning of 03/31, alternating between sinus rhythm and a-fib. She became tachycardic with a-fib in the 130's to 140's upon return from PACU with hypotension. I believe this is due to hypotension and not a primary rate related problem. She received 500L bolus and levophed is being titrated for a MAP of 65. I will continue to treat her underlying illness. Today her HR is in the 80's to 90's, rhythm undeterminate. It is irregular but there are p waves before most beats, query SR with PACs, second degree AVB type 2, versus a-fib. No additional treatment is needed at this time. (4) Elevated troponin Impression: She became hemodynamically unstable after returning from the PACU s/p ureteral stent placement. Troponins were sent to evaluate for cardiac pathology and came back elevated at 39.8. Her 12-lead shows an atrial tachycardia at 132, most likley a-fib, but low voltage makes it possible there are some p waves. No ST segment elevation or depression. At 17:30 she was complaining of 2/10 chest pain. Repeat troponin stable at 40.3 making demand ischemia the most likely cause. She is pain free today. (5) Diarrhea Impression: She reports liquid stool x2 days, none since she presented in the ED. This presents an alternative possible source of infection and she is at risk for c- diff due to immunocompromised status and frequent contact with the healthcare system. Stool PCR all negative, including negative c. diff. She is being fluid resuscitated and has not had continued loose stool. Diarrhea could also have been due to effects of CHOP. Electrolytes being management per ICU protocol. (6) Hypokalemia Impression: Resolved, most recent potassium 3.7 today (03/30). She presented hypokalemic with potassium of 3.1 on 03/29, likely due to excessive GI loss from the diarrhea. Electrolytes being managed per ICU protocol. I will continue to monitor and treat if indicated. (7) Follicular lymphoma Impression: Follicular lymphoma diagnosed in 2006 and treated with rituxin, recurrent in 2018 with malignant lymphadenopathy of the right groin eroding into L5 and retroperitoneal lymphadenopathy. Most recent imaging shows resolution of groin lymphadenopathy with progression of retroperitoneal lymphadenopathy. She is on mini-CHOP and has a port. She had a significant functional decline after starting mini-CHOP and is now bedbound, Last chemo was on 03/21 and they did not to her next scheduled infusion due to neutropenia. Her ANC was 1.0 03/29 and 43 today (03/30). Neutropenic precuations are not indicated. She brought in her maintenance immunomodulation medication but has not taken it since 03/28, additional doses will be held due to sepsis. Neutropenia was likely the underlying cause for her rapid onset of sepsis and progression to septic shock. 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 A ureteral stent was placed by Dr. Gonzalez, Urology, on 03/31 and the blockage has been resolved. (8) Anemia Impression: Her Hbg dropped from 10.3 to 7.9 today. Her underlying anemia is likely due to her CHOP therapy and severe malnutrition. It is above the transfusion threshold. Upon return from PACU, she was noted to have a small amount of dried blood around her mouth and was nauseated, no obvious source of the bleeding. I considered the possibility of an upper GI bleed, post-procedural cbleeding complications, and bleeding to to oral or gum trauma from airway adjuncts used during her procedure. A repeat CBC was 8.7 making acute hemorrhage less likely. There has been no hematemesis, dark or bloody stool reported, her abdomen is soft and non-tender to palpation, and her color improved when her BP improved making GI and post-procedural bleeding unlikely. I believe her pallor was due to her hypotension and the blood was likely due to oral trauma from airway adjunct s. No additional signs of bleeding reported, hbg stable at 7.9, likely dilutional following fluid resuscitation yesterday. I will have nursing monitor for additional signs of bleeding and continue to monitor CBCs. (9) Severe protein-calorie malnutrition Impression: Weight loss of 18 kg in 1 year which is 19% of body weight. She was receiving meals on wheels but has cancelled it. Unclear what and how often she is able to eat. She states her cousin and aid put meals and food for her in the fridge. As she is non-ambulatory at this time, it is unclear if she is eating 3 meals a day or if she supplements primarily with ensure. I have placed her on a regular diet and nutrition is working with her. She is not eating much but is feeding herself today. Her impaired nutritional status will delay her recovery. (10) Bedbound Impression: Per palliative care note, she had a significant decline in mobility after start mini-CHOP in march. She was previously ambulatory with a walker. She reports being bedbound at home, is able to get to wheelchair with assistance. She lives alone and has help several days a week from a funeral home director and cousin, unclear if she is out of bed daily. She is also incontinent to urine at baseline, uses depends or adult diapers at home, and has some erythema on her sacrum. She will need rehab at discharge with a PT/OT consult ordered prior to discharge. At this time, she remains too ill to participate with PT/OT.
[2024-04-01] MEDS: cefTRIAXone 1 GM in SODIUM CHLORIDE 0.9% MINIBAG 100 ML IV SCH (16:30)
[2024-04-01] MEDS: ACETAMINOPHEN 160 MG/5 ML SUSP UDC PO PRN (17:40)
[2024-04-01] MEDS: SALIVA STIMULANT SPRAY 44.3 ML BOTTLE PO PRN (17:41)
[2024-04-01] MEDS: MORPHINE 2 MG/ML CARPUJECT IVP PRN (18:59)
[2024-04-01] MEDS: NYSTATIN CREAM 15 GM TUBE TOP SCH (23:51)
[2024-04-02 05:18] LABS: BASOPHILS % (AUTO) 0.4 %; CALCIUM, IONIZED 1.09 mmol/L (1.15-1.33); EOSINOPHILS % (AUTO) 0.9 %; HCT - HEMATOCRIT 24.6 % (37.0-47.0); HGB - HEMOGLOBIN 7.7 g/dL (12.0-16.0); LYMPHOCYTES % (AUTO) 2.4 %; MEAN CORPUSCULAR HEMOGLOBIN 27.1 pg (27.0-31.0); MEAN CORPUSCULAR HGB CONC 31.3 g/dL (32.0-36.0); MEAN CORPUSCULAR VOLUME 86.6 fL (81.0-99.0); MEAN PLATELET VOLUME 10.7 fL (7.9-10.8); MONOCYTES % (AUTO) 9.4 %; NEUTROPHILS % (AUTO) 86.6 %; PLT - PLATELET COUNT 53 10^3/uL (130-450); RED BLOOD COUNT 2.84 10^6/uL (4.20-5.40); RED CELL DISTRIBUTION WIDTH 19.2 % (12.0-15.0); VBG PH 7.407 (7.31-7.41); WHITE BLOOD COUNT 6.8 x10^3/uL (4.8-10.8)
[2024-04-02 05:31] LABS: MAGNESIUM 1.7 mg/dL (1.7-2.3)
[2024-04-02 05:36] LABS: CALCIUM 7.3 mg/dL (8.5-10.3); CREATININE 0.6 mg/dL (0.6-1.3); PHOSPHORUS 2.3 mg/dL (2.5-5.0); POTASSIUM 3.6 mmol/L (3.5-4.5)
[2024-04-02 05:44] LABS: SLIDE REVIEW? Indicated
[2024-04-02 05:45] LABS: ABNORMAL LYMPHS % (MANUAL) 0 %
[2024-04-02 05:56] LABS: BAND NEUTROPHILS % (MANUAL) 3 %; EOSINOPHILS # (MANUAL) 0.1 10^3/uL (0-0.7); LYMPHOCYTES # (MANUAL) 0.2 10^3/uL (1.5-3.5); LYMPHOCYTES % (MANUAL) 3 %; MONOCYTES # (MANUAL) 0.3 10^3/uL (0.0-1.0); NEUTROPHILS # (MANUAL) 6.2 10^3/uL (1.5-6.6)
[2024-04-02 05:58] LABS: DIFFERENTIAL COMMENT MANUAL DIFFERENTIAL; PLATELET ESTIMATE, MANUAL DECREASED (<130,000) (NORMAL); PLATELET MORPHOLOGY NORMAL APP (NORMAL); RBC MORPHOLOGY (MULTIPLE) 1+ HYPOCHROMASIA (NORMAL); WBC MORPHOLOGY (MULTIPLE) NORMAL APPEARANCE (NORMAL)
[2024-04-02] MEDS: oxyCODONE 5 MG TABLET PO SCH (06:35)
[2024-04-02] MEDS ORDERED: CALCIUM GLUC 1,000MG/50ML-NACL 1,000 MG/50 ML BAG IV ONE (07:49)
[2024-04-02] MEDS: CALCIUM CARBONATE CHEW 500 MG TABLET PO SCH (08:36)
[2024-04-02] MEDS: POTASSIUM PHOSPHATE 15 MMOL in SODIUM CHLORIDE 0.9% 250 ML IV ONE (08:37)
[2024-04-02] MEDS: POTASSIUM CHLORIDE 20 MEQ TABLET PO ONE (08:39)
[2024-04-02] MEDS: MAGNESIUM OXIDE 400 MG TABLET PO ONE (08:40)
[2024-04-02 13:44] LABS: CALCIUM, IONIZED 1.06 mmol/L (1.15-1.33); VBG PH 7.406 (7.31-7.41)
[2024-04-02 14:04] LABS: MAGNESIUM 1.7 mg/dL (1.7-2.3); POTASSIUM 4.3 mmol/L (3.5-4.5)
--- NOTE | 2024-04-02 18:31 | PROVIDER PROGRESS NOTE ---
Subjective - Prog Note Date Prog Note Date: 04/02/24 Prog Note Time: 18:34 - Subjective Subjective: Although she is hemodynamically improved from the last 2 days to today, she still feels weak, tired, and voice is almost an audible because of her weakness. She cannot even lift her head off of the bed because of weakness. But blood pressure stable off Levophed for 24 hours. There is no fever. White cell count is now normal. Current Medications - Current Medications Current Medications: Active Medications Acetaminophen (Acetaminophen 160 Mg/5 Ml Susp Udc) 960 mg PO Q6HR PRN PRN Reason: Pain or Fever > 38C (100.4F) Last Admin: 04/01/24 17:40 Dose: 960 mg Enoxaparin Sodium (Enoxaparin 40 Mg/0.4 Ml Syringe) 40 mg SUBQ DAILY [facility] Last Admin: 04/02/24 08:36 Dose: 40 mg Acetaminophen (Acetaminophen) 1,000 mg in 100 mls @ 400 mls/hr IV Q6HR PRN PRN Reason: Moderate Pain (Level 4-6) Last Infusion: 04/01/24 01:30 Dose: Infused Lactated Ringer's (Lr) 1,000 mls @ 125 mls/hr IV .Q8H DAVE Last Infusion: 04/02/24 15:30 Dose: 125 mls/hr Ceftriaxone Sodium 1 gm/ (Sodium Chloride) 100 mls @ 200 mls/hr IV DAILY DAVE Last Infusion: 04/02/24 16:15 Dose: Infused Morphine Sulfate (Morphine 2 Mg/Ml Carpuject) 2 mg IVP Q2HR PRN PRN Reason: Pain 8 to 10 Last Admin: 04/01/24 18:59 Dose: 2 mg Multi-Ingredient Ointment (Zinc Oxide 20% Oint 30 Gm Tube) 1 applic TOP PRN PRN PRN Reason: Skin Care Last Admin: 04/02/24 08:37 Dose: 1 applic Multivitamins/Minerals (Multivitamin W/Minerals Tablet) 1 tab PO DAILY[facility] Last Admin: 04/02/24 08:36 Dose: 1 tab Nystatin (Nystatin Cream 15 Gm Tube) 1 applic TOP BID DAVE Last Admin: 04/02/24 08:38 Dose: 1 applic Ondansetron HCl (Ondansetron Odt 4 Mg Tablet) 4 mg TL Q6HR PRN PRN Reason: Nausea / Vomiting Ondansetron HCl (Ondansetron 4 Mg/2 Ml Vial) 4 mg IVP Q6HR PRN PRN Reason: Nausea / Vomiting Last Admin: 03/31/24 13:11 Dose: 4 mg Pantoprazole Sodium (Pantoprazole 40 Mg Tablet) 40 mg PO QDAC DAVE Polyethylene Glycol (Polyethylene Glycol 3350 17 Gm Packet) 17 gm PO DAILY [facility] Prochlorperazine Edisylate (Prochlorperazine 10 Mg/2 Ml Vial) 10 mg IVP Q6HR PRN PRN Reason: Nausea / Vomiting Saliva Substitute (Saliva Stimulant [place] 44.3 Ml Bottle) 2 sprays PO Q4H PRN PRN Reason: Mouth Sore Pain Last Admin: 04/01/24 17:41 Dose: 2 sprays Sodium Chloride (Sodium Chloride Flush 0.9% 10 Ml Syringe) 10 ml IVP 0100,0900,1700 DAVE Last Admin: 04/02/24 17:00 Dose: 10 ml Sodium Chloride (Sodium Chloride Flush 0.9% 10 Ml Syringe) 10 ml IVP PRN PRN PRN Reason: NEEDED PER PROVIDER ORDERS Apixaban [Eliquis] 5 mg PO BID 12/28/23 Famotidine 40 mg PO HS 01/18/24 Acetaminophen [Acetaminophen Extra Strength] 500 mg PO PRN PRN 03/29/24 Potassium Chloride 10 meq PO DAILY 03/29/24 Objective - Vital Signs/Intake & Output Reviewed Vital Signs: Yes Vital Signs: Vital Signs Temp Pulse Resp BP Pulse Ox 04/02/24 15:47 36.7 C 112 H 16 107/61 97 Intake & Output: Intake & Output 03/30/24 03/31/24 04/01/24 04/02/24 23:59 23:59 23:59 23:59 Intake Total 6813.864 4060.052 2955.187 3430.833 Output Total 0620 728 4090 715 Balance 5640.864 3159.052 580.888 4283.833 - Objective General Appearance: positive: No acute distress, Other ( Just exhausted. Diffuse alopecia, severe paleness,) Eyes Bilateral: positive: PERRL, EOMI ENT: positive: Dry mucous membranes, Other ( lips are dry and cracked with cheilitis at the corners) Neck: positive: No JVD, Other ( shotty neck adenopathy bilaterally but not enlarged). negative: Stiff neck Respiratory: positive: No respiratory distress, Other ( very shallow, slow, u nlabored respiration with diminished breath sounds at the bases). negative: Wheezes, Rales, Rhonchi Cardiovascular: positive: Irregularly irregular, Systolic murmur Abdomen: positive: Non-tender, No organomegaly, No distention, Other ( hypoactive slow bowel sounds) Skin: positive: Warm, Dry, Pallor Extremities: positive: Full ROM, Pedal edema Neurologic/Psychiatric: positive: Oriented x3. 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 She needs to use minimum assist to sit her up. She cannot hold her head up. She is able to use her arms to feed herself but prefers nursing to feed her.) - Lab Results Fish Bones: 04/02/24 05:07 04/02/24 13:35 Other Labs: Lab Results x24hrs 04/02/24 04/02/24 04/02/24 Range/Units 13:35 13:35 05:07 WBC (4.8-10.8) x10^3/uL RBC (4.20-5.40) 10^6/uL Hgb (12.0-16.0) g/dL Hct (37.0-47.0) % MCV (81.0-99.0) fL MCH (27.0-31.0) pg MCHC (32.0-36.0) g/dL RDW (12.0-15.0) % Plt Count (130-450) 10^3/uL MPV (7.9-10.8) fL Neut # (Auto) Lymph # (Auto) Dickson # (Auto) Eos # (Auto) Baso # (Auto) Absolute Nucleated RBC Total Counted Band Neuts % (Manual) (0 - 10) % Abnorm Lymph % (Manual) % Nucleated RBC % Neutrophils # (Manual) (1.5-6.6) 10^3/uL Lymphocytes # (Manual) (1.5-3.5) 10^3/uL Monocytes # (Manual) (0.0-1.0) 10^3/uL Eosinophils # (Manual) (0-0.7) 10^3/uL Basophils # (Manual) (0-0.1) 10^3/uL Differential Comment Manual Slide Review WBC Morphology (NORMAL) Platelet Estimate (NORMAL) Platelet Morphology (NORMAL) RBC Morph Micro Appear (NORMAL) VBG pH 7.406 7.407 (7.31-7.41) Ionized Calcium 1.06 L 1.09 L (1.15-1.33) mmol/L Sodium (135-145) mmol/L Potassium 4.3 (3.5-4.5) mmol/L Chloride (101-111) mmol/L Carbon Dioxide (21-32) mmol/L Anion Gap (6-13) BUN (6-20) mg/dL Creatinine (0.6-1.3) mg/dL Estimated GFR (MDRD) (>89) Glucose (74-104) mg/dL Calcium (8.5-10.3) mg/dL Phosphorus (2.5-5.0) mg/dL Magnesium 1.7 (1.7-2.3) mg/dL 04/02/24 04/02/24 Range/Units 05:07 05:07 WBC 6.8 (4.8-10.8) x10^3/uL RBC 2.84 L (4.20-5.40) 10^6/uL Hgb 7.7 L (12.0-16.0) g/dL Hct 24.6 L (37.0-47.0) % MCV 86.6 (81.0-99.0) fL MCH 27.1 (27.0-31.0) pg MCHC 31.3 L (32.0-36.0) g/dL RDW 19.2 H (12.0-15.0) % Plt Count 53 L (130-450) 10^3/uL MPV 10.7 (7.9-10.8) fL Neut # (Auto) Not Reportable Lymph # (Auto) Not Reportable Dickson # (Auto) Not Reportable Eos # (Auto) Not Reportable Baso # (Auto) Not Reportable Absolute Nucleated RBC Not Reportable Total Counted 100 Band Neuts % (Manual) 3 (0 - 10) % Abnorm Lymph % (Manual) 0 % Nucleated RBC % Not Reportable Neutrophils # (Manual) 6.2 (1.5-6.6) 10^3/uL Lymphocytes # (Manual) 0.2 L (1.5-3.5) 10^3/uL Monocytes # (Manual) 0.3 (0.0-1.0) 10^3/uL Eosinophils # (Manual) 0.1 (0-0.7) 10^3/uL Basophils # (Manual) 0.0 (0-0.1) 10^3/uL Differential Comment MANUAL DIFFERENTIAL Manual Slide Review Indicated WBC Morphology NORMAL APPEARANCE (NORMAL) Platelet Estimate DECREASED (<130,000) (NORMAL) Platelet Morphology NORMAL ALLYSSA (NORMAL) RBC Morph Micro Appear 1+ HYPOCHROMASIA (NORMAL) VBG pH (7.31-7.41) Ionized Calcium (1.15-1.33) mmol/L Sodium 139 (135-145) mmol/L Potassium 3.6 (3.5-4.5) mmol/L Chloride 111 (101-111) mmol/L Carbon Dioxide 25 (21-32) mmol/L Anion Gap 3.0 L (6-13) BUN 18 (6-20) mg/dL Creatinine 0.6 (0.6-1.3) mg/dL Estimated GFR (MDRD) 96 (>89) Glucose 75 (74-104) mg/dL Calcium 7.3 L (8.5-10.3) mg/dL Phosphorus 2.3 L (2.5-5.0) mg/dL Magnesium 1.7 (1.7-2.3) mg/dL Sepsis Event Note (H) - Evaluation Current Stage of Sepsis: Resolved Possible source of Sepsis: positive: Genitourinary - Sepsis Criteria Sepsis Criteria: Recorded Temperature greater than 38.3C or Less than 36C, Recorded Heart Rate greater than 90 bpm, Respiratory: Increasing oxygen requirements, WBC count greater than 10% bands, WBC count greater than 12,000 or less than 4000, MAP less than 65 mmHg, SBP less than 90 mmHg, Metabolic: lactate > 2 mmol/L Assessment/Plan - Problem List (1) Septic shock Impression: due to gram negative bacteremia. She presented with septic shock to the emergency room and leukopenic. Source was felt to be UTI but she is also been having diarrhea since her last mini CHOP therapy for her lymphoma. Blood cultures were positive for E. coli as well as urine. She gradually responded to sepsis resuscitation of IV fluids, antibiotics. Initially they were empiric antibiotics with cefepime, vancomycin and Flagyl. Antibiotics were de-escalated once blood cultures grew out gram- negative rods. De-escalated to only cefepime. 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 Urology put in a stent. Shortly after the stent was placed and there was adequate urine output, she went into septic shock again. She is since recovered from the second episode. White cell count is responding and is now normal today. She has been off Levophed since yesterday. She has passed a 96-hour krishan for critical access hospital admissions. This patient is still quite ill. Further treatment is required. However this further treatment can be delivered at our hospital and she does not require higher level of specialty care at an outside facility. As such we are not transferring. because of fluid resuscitation this patient is now quite a head and her fluid intake. Yesterday I gave her albumin with Lasix. Since her septic shock has resolved as of today, Blood pressure is now stable, rvr has resolved. and she does not have a Troponins were elevated after No fever. White cell count is normal. I will transfer the patient to [facility] and de-escalate frequency of vital signs. (2) UTI (urinary tract infection) Impression: Associated with diarrhea from chemotherapy. E. coli has grown in her blood c ultures and urine. Obstruction was identified on CT the day after admission. Stent was placed by urology with adequate drainage. Sensitivities have show other to be pansensitive E. coli. However this patient has multiple, multiple drug allergies including Cipro, penicillin, Bactrim. Because of the gram- negative bacteremia She will need up to 2 weeks of antibiotic therapy. She will finish IV antibiotic therapy today, and I will start Vantin to 50 mg p.o. twice daily tomorrow. Completion of therapy will be at 14 days on April 12. (3) Atrial fibrillation Impression: She has an hx of a-fib s/p ablation, with paroxysmal a-fib after ablation who is currently anticoagulated on apixaban. She presented in a-fib with RVR in the ED and was given diltiazem 15 mg IV in the ED and subsequently developed profound hypotension and AMS with minimal effect on HR. BP responded to fluids initially but she became hypotensive again, likely due to sepsis and not a primary tachyarrhythmia. Attempts at further rate control were deferred as it is likely her tachycardia is due to her underlying sepsis. Her HR was stable in the 80's- 90's the morning of 03/31, alternating between sinus rhythm and a-fib. She became tachycardic with a-fib in the 130's to 140's upon return from PACU with hypotension. I believe this is due to hypotension and not a primary rate related problem. She received 500L bolus and levophed was titrated for a MAP of 65. By April 01 her rate was now in the 80s and 90s. In and out of A-fib. She remains rate controlled today. (4) Elevated troponin Impression: troponins were elevated after returning from PACU. They remained stable in their elevation and I believe this is demand ischemia. (5) Diarrhea Impression: She reports liquid stool x2 days, none since she presented in the ED. This presents an alternative possible source of infection and she is at risk for c- diff due to immunocompromised status and frequent contact with the healthcare system. However, stool PCR all negative, including negative c. diff. She has been adequately fluid resuscitated (6) Hypokalemia Impression: Resolved, most recent potassium 4.3 today She presented hypokalemic with potassium of 3.1 on 03/29, likely due to excessive GI loss from the diarrhea. Electrolytes being managed per ICU protocol. (7) Follicular lymphoma Impression: Follicular lymphoma diagnosed in 2006 and treated with rituxin, recurrent in 2019 with malignant lymphadenopathy of the right groin eroding into L5 and retroperitoneal lymphadenopathy. Most recent imaging shows resolution of groin lymphadenopathy with progression of retroperitoneal lymphadenopathy. She is on mini-CHOP and has a port. She had a significant functional decline after starting mini-CHOP and is now bedbound, Last chemo was on 03/21 and they did not to her next scheduled infusion due to neutropenia. Her ANC was 1.0 03/29 and 43 today (03/30). Neutropenic precuations are not indicated. She brought in her maintenance immunomodulation medication but has not taken it since 03/28, additional doses will be held due to sepsis. Neutropenia was likely the underlying cause for her rapid onset of sepsis and progression to septic shock. 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 A ureteral stent was placed by Dr. Gonzalez, Urology, on 03/31 and the blockage has been resolved. She does recognize that she is not doing well. She states very [id number] that she is "dying" but that "we are all dying". She is not ready to give up yet and although she has requested DO NOT RESUSCITATE status, she still wants everything done. She would like to get stronger, continue receiving ariella motherapy, and to go home. I do not know if this is a realistic goal on her part but we will try. (8) Anemia Impression: Her underlying anemia is likely due to her CHOP therapy and severe malnutrition. It is above the transfusion threshold. There was blood in her mouth when she returned from PACU but we have since realized that most likely she has dry cracked lips and the blood is from her lips. Does not require transfusion. (9) Severe protein-calorie malnutrition Impression: Weight loss of 18 kg in 1 year which is 19% of body weight. She was receiving meals on wheels but has cancelled it. Unclear what and how often she is able to eat. She states her cousin and aid put meals and food for her in the fridge. As she is non-ambulatory at this time, it is unclear if she is eating 3 meals a day or if she supplements primarily with ensure. I have placed her on a regular diet and nutrition is working with her. She is not eating much but is feeding herself today. Her impaired nutritional status will delay her recovery. (10) Bedbound Impression: Per palliative care note, she had a significant decline in mobility after start mini-CHOP in march. She was previously ambulatory with a walker. She reports being bedbound at home, is able to get to wheelchair with assistance. She lives alone and has help several days a week from a supervisor home economics and cousin, unclear if she is out of bed daily. She is also incontinent to urine at baseline, uses depends or adult diapers at home, and has some erythema on her sacrum. She will need rehab at discharge with a PT/OT consult ordered prior to discharge. He has been too ill and weak to participate with PT/OT. since I am not transferring her to [facility], I am hoping that she can work with physical therapy tomorrow. There is no PT available today. If she can work with PT tomorrow, my anticipation is that she can be discharged on April 04 to the [facility] facility for continued improvement of her deconditioning.
[2024-04-03] MEDS: PANTOPRAZOLE 40 MG TABLET PO SCH (06:02)
[2024-04-03 06:43] LABS: BASOPHILS % (AUTO) 0.9 %; EOSINOPHILS # (AUTO) 0.1 10^3/uL (0.0-0.7); EOSINOPHILS % (AUTO) 1.8 %; HCT - HEMATOCRIT 24.4 % (37.0-47.0); HGB - HEMOGLOBIN 7.6 g/dL (12.0-16.0); LYMPHOCYTES # (AUTO) 0.2 10^3/uL (1.5-3.5); LYMPHOCYTES % (AUTO) 5.3 %; MEAN CORPUSCULAR HEMOGLOBIN 27.1 pg (27.0-31.0); MEAN CORPUSCULAR HGB CONC 31.1 g/dL (32.0-36.0); MEAN CORPUSCULAR VOLUME 87.1 fL (81.0-99.0); MEAN PLATELET VOLUME 11.9 fL (7.9-10.8); MONOCYTES # (AUTO) 0.5 10^3/uL (0.0-1.0); MONOCYTES % (AUTO) 15.8 %; NEUTROPHILS # (AUTO) 2.6 10^3/uL (1.5-6.6); NEUTROPHILS % (AUTO) 75.3 %; PLT - PLATELET COUNT 71 10^3/uL (130-450); RED CELL DISTRIBUTION WIDTH 19.3 % (12.0-15.0); WHITE BLOOD COUNT 3.4 x10^3/uL (4.8-10.8)
[2024-04-03 07:02] LABS: CALCIUM 7.4 mg/dL (8.5-10.3); CREATININE 0.5 mg/dL (0.6-1.3); POTASSIUM 4.1 mmol/L (3.5-4.5)
[2024-04-03] MEDS: polyethylene glycoL 3350 17 GM PACKET PO SCH (08:23)
--- NOTE | 2024-04-03 14:34 | PROVIDER PROGRESS NOTE ---
Subjective - Prog Note Date Prog Note Date: 04/03/24 Prog Note Time: 14:34 - Subjective Subjective: Main complaint today is that her cough is quite uncomfortable. She describes it as wearing thong underwear that is cutting into her skin and labia. She denies chest pain, abdominal pain. She acknowledges she is profoundly diffusely weak and needs quite a bit of help to just sit up in bed with to max assist. Minimal appetite and nursing will stand at the bedside and make sure that she is feeding herself. She has adequate oral intake. Current Medications - Current Medications Current Medications: Active Medications Acetaminophen (Acetaminophen 160 Mg/5 Ml Susp Udc) 960 mg PO Q6HR PRN PRN Reason: Pain or Fever > 38C (100.4F) Last Admin: 04/01/24 17:40 Dose: 960 mg Acetaminophen (Acetaminophen 325 Mg Tablet) 650 mg PO Q4HR PRN PRN Reason: Pain or Fever > 38C (100.4F) Cefuroxime Axetil (Cefpodoxime Proxetil 100 Mg Tablet) 200 mg PO BID [facility] Enoxaparin Sodium (Enoxaparin 40 Mg/0.4 Ml Syringe) 40 mg SUBQ DAILY [facility] Last Admin: 04/03/24 08:24 Dose: Not Given Morphine Sulfate (Morphine 2 Mg/Ml Carpuject) 2 mg IVP Q2HR PRN PRN Reason: Pain 8 to 10 Last Admin: 04/01/24 18:59 Dose: 2 mg Multi-Ingredient Ointment (Zinc Oxide 20% Oint 30 Gm Tube) 1 applic TOP PRN PRN PRN Reason: Skin Care Last Admin: 04/03/24 08:23 Dose: 1 applic Multivitamins/Minerals (Multivitamin W/Minerals Tablet) 1 tab PO DAILYWM [facility] Last Admin: 04/03/24 08:21 Dose: 1 tab Nystatin (Nystatin Cream 15 Gm Tube) 1 applic TOP BID [facility] Last Admin: 04/03/24 08:23 Dose: 1 applic Ondansetron HCl (Ondansetron Odt 4 Mg Tablet) 4 mg TL Q6HR PRN PRN Reason: Nausea / Vomiting Ondansetron HCl (Ondansetron 4 Mg/2 Ml Vial) 4 mg IVP Q6HR PRN PRN Reason: Nausea / Vomiting Last Admin: 03/31/24 13:11 Dose: 4 mg Pantoprazole Sodium (Pantoprazole 40 Mg Tablet) 40 mg PO QDAC [facility] Last Admin: 04/03/24 06:02 Dose: 40 mg Polyethylene Glycol (Polyethylene Glycol 3350 17 Gm Packet) 17 gm PO DAILY [facility] Last Admin: 04/03/24 08:23 Dose: 17 gm Prochlorperazine Edisylate (Prochlorperazine 10 Mg/2 Ml Vial) 10 mg IVP Q6HR PRN PRN Reason: Nausea / Vomiting Saliva Substitute (Saliva Stimulant [place] 44.3 Ml Bottle) 2 sprays PO Q4H PRN PRN Reason: Mouth Sore Pain Last Admin: 04/01/24 17:41 Dose: 2 sprays Sodium Chloride (Sodium Chloride Flush 0.9% 10 Ml Syringe) 10 ml IVP 0100,0900,1700 [facility] Last Admin: 04/03/24 08:21 Dose: 10 ml Sodium Chloride (Sodium Chloride Flush 0.9% 10 Ml Syringe) 10 ml IVP PRN PRN PRN Reason: NEEDED PER PROVIDER ORDERS Apixaban [Eliquis] 5 mg PO BID 12/28/23 Famotidine 40 mg PO HS 01/18/24 Acetaminophen [Acetaminophen Extra Strength] 500 mg PO PRN PRN 03/29/24 Potassium Chloride 10 meq PO DAILY 03/29/24 Objective - Vital Signs/Intake & Output Reviewed Vital Signs: Yes Vital Signs: Vital Signs x48h Temp Pulse Resp BP Pulse Ox 04/03/24 13:03 36.7 C 98 24 119/66 96 04/03/24 07:45 36.4 C L 94 16 127/68 98 Intake & Output: Intake & Output 03/31/24 04/01/24 04/02/24 04/03/24 23:59 23:59 23:59 23:59 Intake Total 4060.052 2955.187 4324.583 2249.417 Output Total 90 3895 746 500 Balance 3159.052 505.434 7602.583 1749.417 - Objective General Appearance: positive: No acute distress, Alert, Other ( very fatigued, pale, alopecia, dry cracked lips, but voice is louder today than yesterday when it was almost an audible.) Eyes Bilateral: positive: PERRL, EOMI ENT: positive: Other ( Lips dry, scaling, cheilitis) Neck: positive: No JVD. negative: Stiff neck ( shotty neck nodes) Respiratory: positive: No respiratory distress, Other ( shallow, unlabored, slow respiration with diminished breath sounds at the bases). 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 negative: Motor nml ( profound generalized weakness) - Lab Results Fish Bones: 04/03/24 06:13 04/03/24 06:13 Other Labs: Lab Results x24hrs 04/03/24 04/03/24 Range/Units 06:13 06:13 WBC 3.4 L (4.8-10.8) x10^3/uL RBC 2.80 L (4.20-5.40) 10^6/uL Hgb 7.6 L (12.0-16.0) g/dL Hct 24.4 L (37.0-47.0) % MCV 87.1 (81.0-99.0) fL MCH 27.1 (27.0-31.0) pg MCHC 31.1 L (32.0-36.0) g/dL RDW 19.3 H (12.0-15.0) % Plt Count 71 L (130-450) 10^3/uL MPV 11.9 H (7.9-10.8) fL Neut # (Auto) 2.6 (1.5-6.6) 10^3/uL Lymph # (Auto) 0.2 L (1.5-3.5) 10^3/uL [place] # (Auto) 0.5 (0.0-1.0) 10^3/uL Eos # (Auto) 0.1 (0.0-0.7) 10^3/uL Baso # (Auto) 0.0 (0.0-0.1) 10^3/uL Absolute Nucleated RBC 0.00 x10^3/uL Nucleated RBC % 0.0 /100WBC Sodium 138 (135-145) mmol/L Potassium 4.1 (3.5-4.5) mmol/L Chloride 109 (101-111) mmol/L Carbon Dioxide 26 (21-32) mmol/L Anion Gap 3.0 L (6-13) BUN 18 (6-20) mg/dL Creatinine 0.5 L (0.6-1.3) mg/dL Estimated GFR (MDRD) 118 (>89) Glucose 98 (74-104) mg/dL Calcium 7.4 L (8.5-10.3) mg/dL ABX Reporting Has patient been on IV antibiotics over the past 48 hours?: Yes Sepsis Event Note (H) - Evaluation Current Stage of Sepsis: Resolved Possible source of Sepsis: positive: Genitourinary - Sepsis Criteria Sepsis Criteria: Recorded Temperature greater than 38.3C or Less than 36C, Recorded Heart Rate greater than 90 bpm, Respiratory: Increasing oxygen requirements, WBC count greater than 10% bands, WBC count greater than 12,000 or less than 4000, MAP less than 65 mmHg, SBP less than 90 mmHg, Metabolic: lactate > 2 mmol/L Assessment/Plan - Problem List (1) Septic shock Impression: due to gram negative bacteremia. She presented with septic shock to the emergency room and leukopenic. Source was felt to be UTI but she is also been having diarrhea since her last mini CHOP therapy for her lymphoma. Blood cultures were positive for E. coli as well as urine. She gradually responded to sepsis resuscitation of IV fluids, antibiotics. Initially they were empiric antibiotics with cefepime, vancomycin and Flagyl. Antibiotics were de-escalated once blood cultures grew out gram- negative rods. De-escalated to only cefepime. 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 Urology put in a stent. Shortly after the stent was placed and there was adequate urine output, she went into septic shock again. She is since recovered from the second episode. White cell count is responding and is now normal today. She has been off Levophed since yesterday. She has passed a 96-hour krishan for critical access hospital admissions. This patient is still quite ill. Further treatment is required. However this further treatment can be delivered at our hospital and she does not require higher level of specialty care at an outside facility. As such we are not tr ansferring. As of aggressive fluid resuscitation she has obvious edema on physical exam and I gave her Lasix and albumin on April 01 April 02 had been off pressors for a day. Labs are stable. Pressure was stable. Pulse was stable. So I transitioned her from ICU status to MedSurg status today she is on MedSurg. My plan is for her to work with PT and assess for can of candidate should be for detention facility rehab. Disposition is discharged tomorrow to a detention facility. I will be stopping maintenance IV fluids since nursing feels they can coax her into having adequate oral intake. She has definitely third space with our aggressive fluid resuscitation for her septic episode. (2) UTI (urinary tract infection) Impression: Associated with diarrhea from chemotherapy. E. coli has grown in her blood cultures and urine. Obstruction was identified on CT the day after admission. Stent was placed by urology with adequate drainage. Sensitivities have show other to be pansensitive E. coli. However this patient has multiple, multiple drug allergies including Cipro, penicillin, Bactrim. Because of the gram-negati ve bacteremia She will need up to 2 weeks of antibiotic therapy. She will finish IV antibiotic therapy today, and I will start Vantin to 50 mg p.o. twice daily today. Completion of therapy will be at 14 days on April 12. Chronic/Stable/Resolved problems (3) Atrial fibrillation Impression: She has an hx of a-fib s/p ablation, with paroxysmal a-fib after ablation who is currently anticoagulated on apixaban. She presented in a-fib with RVR in the ED and was given diltiazem 15 mg IV in the ED and subsequently developed profound h ypotension and AMS with minimal effect on HR. BP responded to fluids initially but she became hypotensive again, likely due to sepsis and not a primary tachyarrhythmia. Attempts at further rate control were deferred as it is likely her tachycardia is due to her underlying sepsis. Her HR was stable in the 80's- 90's the morning of 03/31, alternating between sinus rhythm and a-fib. She became tachycardic with a-fib in the 130's to 140's upon return from PACU with hypotension. I believe this is due to hypotension and not a primary rate related problem. She received 500L bolus and levophed was titrated for a MAP of 65. By April 01 her rate was now in the 80s and 90s. In and out of A-fib. She remains rate controlled today. (4) Elevated troponin Impression: troponins were elevated after returning from PACU. They remained stable in their elevation and I believe this is demand ischemia. (5) Diarrhea Impression: She reports liquid stool x2 days, none since she presented in the ED. This presents an alternative possible source of infection and she is at risk for c- diff due to immunocompromised status and frequent contact with the healthcare system. However, stool PCR all negative, including negative c. diff. She has been adequately fluid resuscitated (6) Hypokalemia Impression: Resolved, most recent potassium 4.3 today She presented hypokalemic with potassi um of 3.1 on 03/29, likely due to excessive GI loss from the diarrhea. Electrolytes being managed per ICU protocol. (7) Follicular lymphoma Impression: Follicular lymphoma diagnosed in 2006 and treated with rituxin, recurrent in 2019 with malignant lymphadenopathy of the right groin eroding into L5 and retroperitoneal lymphadenopathy. Most recent imaging shows resolution of groin lymphadenopathy with progression of retroperitoneal lymphadenopathy. She is on mini-CHOP and has a port. She had a significant functional decline after starting mini-CHOP and is now bedbound, Last chemo was on 03/21 and they did not to her next scheduled infusion due to neutropenia. Her ANC was 1.0 03/29 and 43 today (03/30). Neutropenic precuations are not indicated. She brought in her maintenance immunomodulation medication but has not taken it since 03/28, additional doses will be held due to sepsis. Neutropenia was likely the underlying cause for her rapid onset of sepsis and progression to septic shock. 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 A ureteral stent was placed by Dr. Gonzalez, Urology, on 03/31 and the blockage has been resolved. She does recognize that she is not doing well. She states very [id number] that she is "dying" but that "we are all dying". She is not ready to give up yet and although she has requested DO NOT RESUSCITATE status, she still wants everything done. She would like to get stronger, continue receiving chemotherapy, and to go home. I do not know if this is a realistic goal on her part but we will try. (8) pancytopenia Impression: Her underlying anemia is likely due to her CHOP therapy and severe malnutrition. It is above the transfusion threshold. There was blood in her mouth when she returned from PACU but we have since realized that most likely she has dry cracked lips and the blood is from her lips. Does not require transfusion. White cell count went from neutropenia to severely elevated to then back down again to normal. Over the last day or so she has become neutropenic. Platelets are also low. None of these require intervention at this time. (9) Severe protein-calorie malnutrition Impression: Weight loss of 18 kg in 1 year which is 19% of body weight. She was receiving meals on wheels but has cancelled it. Unclear what and how often she is able to eat. She states her cousin and aid put meals and food for her in the fridge. As she is non-ambulatory at this time, it is unclear if she is eating 3 meals a day or if she supplements primarily with ensure. I have placed her on a regular diet and nutrition is working with her. She is not eating much but is feeding herself today. Her impaired nutritional status will delay her recovery. (10) Bedbound Impression: Per palliative care note, she had a significant decline in mobility after start mini-CHOP in march. She was previously ambulatory with a walker. She reports being bedbound at home, is able to get to wheelchair with assistance. She lives alone and has help several days a week from a aboriginal home school liaison officer and cousin, unclear if she is out of bed daily. She is also incontinent to urine at baseline, uses depends or adult diapers at home, and has some erythema on her sacrum. She will need rehab at discharge with a PT/OT consult ordered prior to discharge. He has been too ill and weak to participate with PT/OT. since I [place] [facility] I am hoping that she can work with physical therapy tomorrow. There is no PT available today. If she can work with PT tomorrow, my anticipation is that she can be discharged on April 04 to the detention facility for continued improvement of her deconditioning.
[2024-04-03] MEDS: CEFPODOXIME PROXETIL 100 MG TABLET PO SCH (20:24)
[2024-04-03] MEDS: ACETAMINOPHEN 325 MG TABLET PO PRN (20:58)
[2024-04-04 06:00] LABS: CALCIUM 7.4 mg/dL (8.5-10.3); CREATININE 0.4 mg/dL (0.6-1.3); POTASSIUM 3.7 mmol/L (3.5-4.5)
--- NOTE | 2024-04-04 08:11 | Discharge Summary ---
Discharge Plan for SNF / [facility] - Discharge Plan And Transition Orders Problem Reviewed?: Yes Disposition: 03 SNF DC/Xfer Condition: Fair Allergies and Adverse Reactions: Allergies Allergy/AdvReac Type Severity Reaction Status Date / Time atenolol Allergy Unknown Unknown Verified 03/29/24 13:00 ciprofloxacin [From Cipro] Allergy Unknown Verified 03/29/24 13:00 Penicillins Allergy Unknown Verified 03/29/24 13:00 shellfish derived Allergy Emesis Verified 03/29/24 13:00 Sulfa (Sulfonamide Allergy Rash Verified 03/29/24 13:00 Antibiotics) ranitidine [From Zantac] AdvReac "wired" Verified 03/29/24 13:00 Health Concerns: The hospitalization was urosepsis. She had septic shock and bacteremia from E. coli. Left ureter was obstructed from lymphadenopathy and a stent was placed by urology. She is significantly deconditioned and weak and will need rehab to have goal of transitioning from supine to sitting, sitting to standing with a walker. Although she is DNR and is excepting that she may have a terminal illness, she would like to proceed with therapy not only for physical rehab but to continue chemotherapy if it is given to her. 83-year-old female who was diagnosed with lymphoma in 2006, treated with Rituxan, recurrence in 2019. Last treatment was that of mini CHOP in January of this year. But this resulted in a worsening of an already present functional decline and she "took to her bed". Outpatient treatment include home health therapy. But it was not very successful. She has "very little insight into her deficits" per palliative care consultative service. She lives alone. Does have friends that come help take care of the house, other people to bring her supplies. She insist on cooking and feeding for herself but that is questionable and that she is essentially in bed due to her weakness and illness. And even know food is being brought, it is thought that she is not eating. She began having diarrhea and that probably led to the UTI. With this most recent hospitalization she did sign a POLST where she is DNR. And she has assigned her cousin Oriana to be her DPOA. She does not want to be in hospice at this time. She is under the care of our palliative care service with [employer]. Plan of Treatment: 1. Complete antibiotic therapy. She has multiple drug allergies. She was initially on cefepime, vancomycin, and Flagyl when we did not know the source of her sepsis. When she realized it was urosepsis she was de-escalated to cefepime then Rocephin. She will complete Vantin therapy at 200 mg p.o. twice daily on April 12. 2. Rehab to improve strength and mobility. Goal is to be able to go from supine to sitting, sitting to standing, stand pivot transfer using a walker. 3. She will need follow-up with oncology to discuss continued chemo if it is to be given to her. Her last chemo was mini CHOP in January 2024. Care Goals: Enough strength and mobility improvement to be able to return to her home Assessment: patient is alert, oriented to person, place, time and situation. Fiercely independent and is very open to giving instructions to her caregivers on how to take care of her. - SNF / [facility] Transition Orders Admit to (Facility): [facility] Discharge Diagnosis: 1. Septic shock resolved 2. E. coli bacteremia 3. Urinary tract infection with E. coli 4. 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 Current status of stent in left ureter 6. Chronic atrial fibrillation with paroxysmal A-fib, status post ablation, on apixaban 7. Elevated troponin, demand ischemia due to septic shock 8. Diarrhea present on admission, resolved 9. Hypokalemia 10. Follicular lymphoma 11. Pancytopenia due to effects of chemo, malnutrition, and cancer 12. Severe protein calorie malnutrition 13. Current bedbound status 14. History of endometrial cancer status post SHAMIKA/BSO July 2022 and brachytherapy October 2022 15. Macular degeneration 16. Port placement status, current 17. GERD 18. Anxiety disorder Medicare Certification Statement: I certify that Post Hospital assisted care is medically necessary on a continuing basis for any of the conditions for which she/he is receiving care during hospitalization. Notify PCP of admission and forward orders to primary provider for signature. Weight on admission and: Weekly Other Notification Orders: Call PCP immediately if patient develops dyspnea, chest pain/tightness or edema. House Bowel Program: Yes Additional Bowel Program Orders: If no BM after 2 days, nurse may give M.O.M. 30ml PO PRN and/or ducolax Supp 1 [place] and/or ROSEMARIE 250mg P.O., and/or senna 1-2 tabs PO. On day 3 nurse may give repeat above order until residents constipation is resolved. Annual Influenza Vaccine (between Mar 06 and October 03): Yes Two-step PPD per [facility] [phone] or approved exception documents: Yes Medication Orders: PLEASE REFER TO THE DISCHARGE MEDICATION LIST. - Medications New Prescriptions: Saliva Stimulant [place] [Biotene Moisturizing Mouth [place]] 2 sprays PO Q4H PRN #1 each PRN Reason: Mouth Sore Pain HYDROcod/ACETAM 5/325 [[place] 5/325] 1 ea PO Q8H PRN #20 tablet PRN Reason: Pain Cefpodoxime Proxetil [Vantin] 200 mg PO BID #36 tab - Diet Type: Geriatric Texture: Regular Liquids: Thin - Therapies | Activity Therapy: Evaluation | Treat if indicated: PT, OT Rehabilitation Potential: Return to independent living Activity: Activity as Tolerated Weight Bearing: Full Weight Assistance Devices: Walker
--- NOTE | 2024-04-04 10:17 | DISCHARGE SUMMARY ---
Discharge Summary Admit Date: 03/29/24 Discharge Date: 04/04/24 Discharging Provider: Lauren Garcia MD Primary Care Provider: Leny Kimble MD/WESTON Sales (Palliative Care) Code Status: Do Not Attempt Resuscitation Condition at Discharge: Fair Discharge Disposition: DC/Xfer - DIAGNOSES Discharge Diagnoses with Status of Each Condition: 1. Septic shock resolved 2. E. coli bacteremia 3. Urinary tract infection with E. coli 4. 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 Current status of stent in left ureter 6. Chronic atrial fibrillation with paroxysmal A-fib, status post ablation, on apixaban 7. Elevated troponin, demand ischemia due to septic shock 8. Diarrhea present on admission, resolved 9. Hypokalemia 10. Follicular lymphoma 11. Pancytopenia due to effects of chemo, malnutrition, and cancer 12. Severe protein calorie malnutrition 13. Current bedbound status 14. History of endometrial cancer status post SHAMIKA/BSO July 2022 and brachytherapy October 2022 15. Macular degeneration 16. Port placement status, current 17. GERD 18. Anxiety disorder - HPI History of Present Illness: Ms. Alcaraz is an 83-year-old woman with history of follicular lymphoma with relapse getting mini CHOP via a right chest PowerPort who presented to the ED (03/29) with shaking chills starting acutely. She reported night sweats last night. She also had 2 days of diarrhea. No measured fevers. She felt too sick to go to her oncology appointment today. EMS was summoned and noted her to be in A-fib which she has had in the past status post ablation and still anticoagulated but does not recall being in A-fib recently. And noted to have a blood sugar of 66 and given D10 prior to arrival. She shortness of breath, cough, sore throat, body aches, abdominal pain. In the ED she was notably tachycardic, apparent A-fib on the EKG w/ RVR. She was given diltiazem after which she at least briefly become profoundly hypotensive down to 50/30 and obtunded. This responded quickly to IV fluids and both blood pressure and mental status improved. Initial workup demonstrates a white count of 1.1 with profound lymphopenia and her CMP was notable for mild h ypokalemia and a significant lactic acidosis with a lactate of 7.5. She was administered 30 mL/kg of IV fluids and broad-spectrum antibiotics for unknown source with cefepime, Flagyl, and vancomycin. Blood pressure did rebound with fluids. She became febrile which is not surprising as she presents with sepsis. No further attempts at rate control will be done as it is likely that her A-fib with RVR is likely from her critical underlying illness. She was accepted for admission at 2:20 with report given to the Hospitalist. Maps were running persistently below 65 and decision to start pressors, Levophed was made at about 3:20 PM. Her urine also came back positive for infection, potentially her source of sepsis. ED provider contacted palliative care nurse practitioner who is aware of this patient. Irais said that the patient was "leaning towards" being DNR but refused to sign the POLST paperwork until she talked to her cousin, Oriana. ED provider called Oriana on the phone who said that she is not the patient's DPOA, not her surrogate decision maker, and has not talked about CODE STATUS with the patient. At this point she remains a full-code. Upon assessment, she was pale and fatigued, with eyes closed for most of the assessment. HR was ST at 129, BP 100/54, RR24, O2 sat 97% on 4 lpm. She is on levophed at 12 mcg/min. She complains of a headache, no other specific complaints of pain. She denies chest pain, SOB, palpitations, abdominal pain, or joint/back pain. She reports she had a syncople episode on Thursday (03/25) when she was returned from imaging by EMS. She states she felt too sick for her chemo today and came to the ED instead. She denies any acute urinary symptoms, is incontinent at baseline. She is on mini-CHOP for recurrent follicular lymphoma, her last CHOP was on 03/21 with her most recent infusion deferred as she was too neutropenic. - CONSULTS | PROCEDURES Consultations: Urology with Dr. Jamari Gonzalez Procedures: Chest x-ray is without acute cardiopulmonary process Abdomen pelvis CT has moderate left-sided hydronephrosis and proximal hydroureter without obstructing stones. 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 No right-sided hydronephrosis. 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 The additional areas of retroperitoneal adenopathy are grossly unchanged from previous CT. Small bilateral pleural effusions and bibasilar dependent atelectasis. She underwent a left ureteral stent placement. Fluoroscope demonstrates left ureteral stent in place. Blood culture right arm positive for E. coli on admission Blood culture from her port was positive on admission for E. coli Urine on admission was positive. For E. coli Repeat blood culture day after admission and with antibiotics was negative. - HOSPITAL COURSE Hospital Course: The patient was transferred to ICU and received 3 L of normal saline, started on Levophed drip, and received empiric antibiotic therapy with cefepime, vancomycin and Flagyl. Blood cultures were positive at less than 18 hours for gram- negative rods as well as urine. PCR identified this as E. coli. As such we de- escalated the vancomycin and Flagyl and kept her on cefepime since she is allergic to Cipro and penicillin and Bactrim. We thought about de-escalating the cefepime to Rocephin. However the patient was taken to the OR to have a stent placed in the left ureter. We identified that some of her urosepsis was due to her obstructive uropathy of the left kidney due to the severe lymphadenopathy from her lymphoma. Urology put in a stent. Good drainage. However the patient went back into septic shock with this procedure and needed to be resuscitated a second time. As such we Cefepime. Once her white cell count started normalized, blood pressure was stabilized with Levophed, we then transition to Rocephin. This patient has an interesting personality. She is very interested in instructing all personnel on how to take care of her. For instance she was told the nurses how to give her her medication, how to feed her, how to change the sh eets on her bed, and will sometimes say "I need to throw you out of here because you are not doing your job". She is very reluctant to make any formal decisions with regards to advance care planning, CODE STATUS, or what she wanted for the future with regards to treatment for her lymphoma. She met with her palliative care consulted, Jonas Sales met with her over 2 days. The patient was able to make a decision about DO NOT RESUSCITATE status and did fill out a POLST form. She also reluctantly agreed to name her cousin Oriana is a DPOA and Oriana agreed. At the time of discharge He Had Not Signed the Paperwork yet. Oriana's Plan Was to Meet the Patient at a [facility] Facility with an Nutrition Aides Teacher to Sign the DPOA Paperwork. Throughout Her Stay She Acknowledged That She Had a Terminal Illness That Was Probably Going to Cause the End of Her Life Sooner Rather Than Later. But She Was Still Very Interested in Moving Forward with Treatment for Lymphoma. Blood Cell Count Was Initially Neutropenic, Then Severely Elevated, Then Came Back down at the Time of Discharge She Has Pancytopenia with White Cells, Red Cells and Platelets. This Is Attributed to Side Effects of Chemo, Possible Infiltration of Lymphoma to Her Bone Marrow, and Malnutrition. She Is Severely Malnourished and Has Severe Protein Calorie Malnutrition. She Does Not Eat Very Much. We Suspect That This Woman Is Probably Self Neglected for Much of the Last Few Months but She Has Been Very Stubbornly Resistant to Right Side Interference with Helping Her. And That Includes Help from Her Family. There Is a Disconnect with Her Perception of Reality. For Example She Thinks That She Just Needs to Sit up in Bed and Stand up and Walk and She Could Do That. And She Did Not Acknowledge That She Needed a Two-Person Assist to Set Her up in Stander. She Has Diffuse Arthralgias. She Says That Laying in Bed Breathing Hurts the Cleft of the Buttock. Once Levophed Was Able to Be Completely Discontinued, I transferred the Patient to [facility]. She Stayed on Rocephin. PT Work with Her and Certified That She Will Need [facility] Facility Placement. She Was Choiced and Stated That She Wanted a Private Room and We Were Able to Find a Facility on the [facility] That Was Able to Take Her. Antibiotics Were De-Escalated to Oral Vantin due to her allergies and She Only Take Oral Vantin until April 12 to Complete 2 Weeks of Antibiotic Therapy for Gram-Negative Bacteremia. On the Day of Discharge the Patient Was Prepared for Transfer to the [facility] Facility. She Is Now Stating That She May Be Wanted to Consider Transition to Hospice. But She Is Not Sure. We Explained That It Was Her Right to Start Declining Treatment. But We Asked Her to Discuss This with Her DURABLE [employer], Get the [employer]ABLE [employer] Paperwork Signed, and Stay Safe with Regards to Hospice Care in a Safe Environment. She Is Not a Candidate for Returning to Her Home Right Now since There Is No One to Take Care Of Her at Home. She Is Discharged in Stable Condition with a Poor Prognosis. Pressures 36.5. Heart rate is 103 at the moment of discharge and she is tra nsferred on the gurney. Most of this morning she was in the 70s. Blood pressure is 134/89. Respirations 16. 98% on room air. General Appearance: positive: No acute distress, Alert, Other ( very fatigued, pale, alopecia, dry cracked lips, but voice is louder today than yesterday when it was almost an audible.) Eyes Bilateral: positive: PERRL, EOMI ENT: positive: Other ( Lips dry, scaling, cheilitis) Neck: positive: No JVD. negative: Stiff neck ( shotty neck nodes) Respiratory: positive: No respiratory distress, Other ( shallow, unlabored, slow respiration with diminished breath sounds at the bases). negative: Wheezes, Rales, Rhonchi. on the upper right chest wall is a port. There is no fluctuance, redness. Cardiovascular: positive: Regular rate & rhythm ( I been hearing an irregularly irregular but today it is regular or irregular), Systolic murmur ( very soft and almost an audible at the apex) Abdomen: positive: Non-tender, No organomegaly, No distention, Other ( hypoactive bowel sounds) Skin: positive: Warm, Dry, Pallor (, very pale) Extremities: positive: Full ROM, Pedal edema, Other ( very cold feet but intact pulses of the right foot, diminished pulses on the left foot) Neurologic/Psychiatric: positive: Oriented x3, CN's nml (2-12) ( mildly to moderately deaf). negative: Motor nml ( profound generalized weakness) Greater than 30 minutes was spent coordinating discharge This document was made in part using voice recognition software. While efforts are made to proofread this document, sound alike and grammatical errors may occur. - ALLERGIES Allergies/Adverse Reactions: Allergies Allergy/AdvReac Type Severity Reaction Status Date / Time atenolol Allergy Unknown Unknown Verified 03/29/24 13:00 ciprofloxacin [From Cipro] Allergy Unknown Verified 03/29/24 13:00 Penicillins Allergy Unknown Verified 03/29/24 13:00 shellfish derived Allergy Emesis Verified 03/29/24 13:00 Sulfa (Sulfonamide Allergy Rash Verified 03/29/24 13:00 Antibiotics) ranitidine [From Zantac] AdvReac "wired" Verified 03/29/24 13:00 - MEDICATIONS Home Medications: Ambulatory Orders Medication Instructions Recorded Confirmed Acetaminophen [Acetaminophen Extra 500 mg PO PRN PRN 03/29/24 03/29/24 Strength] Apixaban [Eliquis] 5 mg PO BID #0 04/04/24 03/29/24 Cefpodoxime Proxetil [Vantin] 200 mg PO BID #36 tab 04/04/24 Famotidine 40 mg PO HS #0 04/04/24 03/29/24 HYDROcod/ACETAM 5/325 [[place] 5/325] 1 ea PO Q8H PRN #20 tablet 04/04/24 Multivitamin W/Minerals [Theragran 1 tab PO DAILYWM tab 04/04/24 M] Nystatin Cream [Mycostatin Cream] 1 applic TOP BID each 04/04/24 Potassium Chloride 10 meq PO DAILY #0 04/04/24 03/29/24 Saliva Stimulant Lonepine [Biotene 2 sprays PO Q4H PRN #1 each 04/04/24 Moisturizing Mouth Lonepine] Zinc Oxide 20% Oint [Zinc Oxide] 1 applic TOP PRN PRN each 04/04/24 - LABS Result Diagrams: 04/03/24 06:13 04/04/24 05:20 - SEPSIS Current Stage of Sepsis: Resolved Possible source of Sepsis: Genitourinary Sepsis Criteria: Recorded Temperature greater than 38.3C or Less than 36C, Recorded Heart Rate greater than 90 bpm, Respiratory: Increasing oxygen requirements, WBC count greater than 10% bands, WBC count greater than 12,000 or less than 4000, MAP less than 65 mmHg, SBP less than 90 mmHg, Metabolic: lactate > 2 mmol/L
[2024-04-04 11:23] VITALS: BP 134/89; O2SAT 98
== END 2024-04-04 11:30 ==
LOC: EDUNIT# → ED 12:52 → ICU 14:50 → MS2 04-02 11:58
PROVIDERS: ADMIT Specialist; ATTEND Specialist

== ENCOUNTER 2024-06-22 17:13 | Inpatient (IN) ==
--- NOTE | 2024-06-22 17:25 | ED Physician Documentation ---
History of Present Illness Stated complaint Stated Complaint: HIGH HR Chief complaint Chief Complaint: Resp Additonal information Additional information: This is a tam 83-year-old woman with history of lymphoma and A-fib on apixaban and atenolol. She is DNR now. She is admitted to this facility with septic shock with a UTI source in March. Discharge summary dated April 04 reviewed: She had E. coli bacteremia due to a UTI with septic shock, A-fib on apixaban and type II non-STEMI and pancytopenia. She was resuscitated and went to a SNF. Evidently she went to the SNF in [place], and today was transferred to [facility]. On intake there she was noted to be tachycardic in the range of 140 and referred here for further evaluation and treatment. Patient is somewhat encephalopathic and a poor historian. She does not have specific complaints. She does say that they did give her her routine meds this morning prior to transfer to [facility]. Meds/Allgy Home Medications Ambulatory Orders Medication Instructions Recorded Confirmed acetaminophen 500 mg tablet 500 mg PO PRN PRN Abdominal Pain 03/29/24 03/29/24 (Acetaminophen Extra Strength) Potassium Chloride 10 meq PO DAILY hypokalemia ##0 04/04/24 03/29/24 apixaban 5 mg tablet (Eliquis) 5 mg PO BID chronic atrial fib ##0 04/04/24 03/29/24 cefpodoxime 100 mg tablet 200 mg (2 x 100 mg) PO BID e coli 04/04/24 bacteremia #36 tabs famotidine 40 mg tablet 40 mg PO HS GERD ##0 04/04/24 03/29/24 hydrocodone 5 mg-acetaminophen 325 1 ea PO Q8H PRN Pain #20 tabs 04/04/24 mg tablet [id number] 1 tab PO DAILYWM severe protein 04/04/24 fumarate 19 mg-folic acid 400 mcg mike malnutriton tablet (Therapeutic-M) nystatin 100,000 unit/gram topical 1 applic topical BID 04/04/24 cream saliva stimulant comb. no.3 2 sprays PO Q4H PRN Mouth Sore 04/04/24 (Biotene Moisturizing Mouth Pain #1 ea mucosal spray) zinc oxide 20 % topical ointment 1 applic topical PRN PRN Skin Care 04/04/24 to gluteal cleft Allergies Allergies Allergy/AdvReac Type Severity Reaction Status Date / Time atenolol Allergy Unknown Unknown Verified 06/22/24 18:01 ciprofloxacin (From Cipro) Allergy Unknown Verified 06/22/24 18:01 Penicillins Allergy Unknown Verified 06/22/24 18:01 shellfish derived Allergy Emesis Verified 06/22/24 18:01 Sulfa (Sulfonamide Allergy Rash Verified 06/22/24 18:01 Antibiotics) ranitidine (From Zantac) AdvReac "wired" Verified 06/22/24 18:01 [facility] Social History Social History Smoking Status: Never smoker Do you dip or chew tobacco?: No Do you vape?: No Living arrangement: At home Living Condition: Alone Relationship: Level: Independent Home Mobility Equipment: Wheeled walker Do you feel safe in your home environment?: Yes Suffered physical, verbal, emotional, or financial abuse?: No History of Abuse: No Are you sexually active?: No POLST Patient has POLST: No POLST Status: Full Code Exam Constitutional She is sleepy, arousable and answers questions briefly and then falls back to [facility]. She appears chronically ill with a rhonchorous cough and very dry mucous membranes. Respiratory Loud rhonchorous breath sounds throughout Cardiovascular Irregularly irregular without murmur, some obfuscation due to rhonchorous breath sounds Gastrointestinal abdomen soft to palpation and nontender to palpation Extremities No pedal edema or calf pain. Psychiatry She is encephalopathic, arouses but quickly falls back to sleep after answering short questions. Results Vitals Vitals: Vital Signs - 24 hr 06/22/24 17:35 06/22/24 17:53 06/22/24 18:04 Temperature 36.3 C L Temperature Source Pulse Rate 113 H 114 H Pulse Rate [Apical] Respiratory Rate 22 26 H Blood Pressure 114/72 148/81 H Blood Pressure [Left Brachial artery] O2 Saturation 97 94 Oxygen Delivery Method Nasal Cannula O2 Source Nasal cannula Room air If not protocol: Oxygen Flow, liters/minute 2 2 FiO2 (%) Sedation scale Pain Intensity 0 0 06/22/24 19:34 06/22/24 20:46 06/22/24 21:06 Temperature 36.0 C L 36.0 C L Temperature Source Temporal Artery Scan Temporal Artery Scan Pulse Rate 111 H Pulse Rate [Apical] 106 H 105 H Respiratory Rate 16 25 H 20 Blood Pressure 133/97 H Blood Pressure [Left Brachial artery] 122/75 123/77 O2 Saturation 92 106 H 94 Oxygen Delivery Method O2 Source Nasal cannula Nasal cannula Nasal cannula If not protocol: Oxygen Flow, liters/minute 2 2 FiO2 (%) 95 Sedation scale 0-Fully awake 0-Fully awake Pain Intensity 2 0 0 06/22/24 23:08 Temperature 36.0 C L Temperature Source Temporal Artery Scan Pulse Rate Pulse Rate [Apical] 103 H Respiratory Rate 19 Blood Pressure Blood Pressure [Left Brachial artery] 129/81 O2 Saturation 94 Oxygen Delivery Method O2 Source Nasal cannula If not protocol: Oxygen Flow, liters/minute 2 FiO2 (%) Sedation scale 1-Arouses easily Pain Intensity 0 Oxygen O2 Source [Without Activity] Room air O2 Source Nasal cannula EKG (time done) 1749: EKG releavant findings:: EKG personally interpreted by author of this note. Relevant findings are: Sinus tachycardia with a rate of 118 and frequent PACs without ST elevation or depression. Labs Labs: Laboratory Tests 06/22/24 06/22/24 06/22/24 17:52 18:33 18:45 WBC 10.3 RBC 2.67 L Hgb 6.3 L* Hct 22.1 L MCV 82.8 MCH 23.6 L MCHC 28.5 L RDW 18.7 H Plt Count 491 H MPV 9.5 Neut # (Auto) 9.3 H Lymph # (Auto) 0.2 L L[place] # (Auto) 0.7 Eos # (Auto) 0.0 Baso # (Auto) 0.0 Absolute Nucleated RBC 0.00 Nucleated RBC % 0.0 VBG pH 7.458 H VBG pCO2 45.1 VBG pO2 37.0 VBG HCO3 31.2 H VBG Total CO2 32.6 H VBG O2 Saturation 70.9 VBG Base Excess 6.7 H Sodium 139 Potassium 4.4 Chloride 102 Carbon Dioxide 33 H Anion Gap 4.0 L BUN 13 Creatinine 0.5 L Estimated GFR (MDRD) 118 Glucose 92 Lactic Acid 0.7 Calcium 7.8 L Total Bilirubin 0.4 AST 16 ALT 20 Alkaline Phosphatase 107 B-Natriuretic Peptide 118 H Total Protein 4.4 L Albumin 2.0 L Globulin 2.4 Albumin/Globulin Ratio 0.8 L Lipase < 10 L Urine Color YELLOW Urine Clarity CLOUDY Urine pH 7.0 Ur Specific [place] 1.010 Urine Protein TRACE Urine Glucose (UA) NEGATIVE Urine Ketones TRACE Urine Occult Blood MODERATE H Urine Nitrite POSITIVE H Urine Bilirubin NEGATIVE Urine Urobilinogen 2 H Ur Leukocyte Esterase LARGE H Urine RBC 11-25 H Urine WBC >25 H Ur Squamous Epith Cells NONE SEEN Urine Bacteria Many H Ur Microscopic Review INDICATED Urine Culture Comments INDICATED Blood Type O POSITIVE Antibody Screen NEGATIVE Crossmatch IS Only See Detail Rads (name of study) Single view chest x-ray demonstrates a small left pleural effusion without other acute findings.: Relevant Findings:: Final report received and EMP independent interpretation of test CT Head: Relevant Findings:: Final report received and EMP independent interpretation of test (NAD) CT Chest: Relevant Findings:: Final report received and EMP independent interpretation of test (Moderate left and small right pleural effusions, growing lymph nodes with known lymphoma.) CT abdomen pelvis demonstrating hydronephrosis with stent in place, presumed dysfunctional stent.: Relevant Findings:: Final report received and EMP independent interpretation of test PD Medical Decision Making ED course ED course: This is an 84-year-old woman with follicular lymphoma with prior septic shock related to UTI and ureteral stent placement on the left which I presume is still in place, although the patient does not know. She presents dehydrated, encephalopathic, and workup demonstrates worse than normal for her anemia, no lactic acidosis, infected urine. She was administered IV Rocephin after blood cultures. Plan to obtain CT imaging of the head and abdomen to evaluate for other causes of encephalopathy and to evaluate her ureteral stent. After 1 L of IV fluids the patient did become less encephalopathic and discussed goals of care with her. She would still like adjunctive treatment but is DNR and DNI. Updated her cousin who is her POA by phone at patient's request. Imaging demonstrating worsening lymphoma with bilateral pleural effusions. Her stent appears nonfunctional and discussed case by phone with Dr. Gonzalez, urology who will see her in the morning. Recommends n.p.o. after midnight. Hospitalist consult placed at 11:18 PM. The patient and family are counseled as to the diagnosis and need for admission. This document was made in part using voice recognition software, while efforts are made to proofread this document, sound alike an grammatical errors may occur. Discharge Plan Discharge Patient Disposition: 66 [facility] DC/Xfer Condition: Serious Clinical Impression: Bilateral pleural effusion, Ureteral obstruction, left UTI (urinary tract infection) Qualifiers: Urinary tract infection type: acute pyelonephritis Qualified Code(s): N10 - Acute pyelonephritis Follicular lymphoma Qualifiers: Follicular lymphoma type: unspecified follicular type Lymphoma site: unspecified region Qualified Code(s): C82.90 - Follicular lymphoma, unspecified, unspecified site Prescriptions: No Action acetaminophen [Acetaminophen Extra Strength] 500 MG tablet 500 mg PO PRN PRN (Reason: Abdominal Pain) cefpodoxime 100 MG tablet 200 mg PO BID Qty: 36 0RF zinc oxide 30 APPLIC/30 GM ointment 1 applic topical PRN PRN (Reason: Skin Care to gluteal cleft) 0RF nystatin 15 APPLIC/15 GM cream 1 applic topical BID 0RF Rx Instructions: to dry lips, patient PREFERENCE saliva stimulant comb. no.3 [Biotene Moisturizing Mouth] 100 SPRAYS/44.3 ML spray,non-aerosol 2 sprays PO Q4H PRN (Reason: Mouth Sore Pain) Qty: 1 0RF [id number]-onq-fwgw fum-folic ac [Therapeutic-M] 1 TAB tablet 1 tab PO DAILYWM 0RF hydrocodone-acetaminophen 1 TAB tablet 1 ea PO Q8H PRN (Reason: Pain) Qty: 20 0RF famotidine 40 MG tablet 40 mg PO HS Qty: 0 0RF apixaban [Eliquis] 5 MG tablet 5 mg PO BID Qty: 0 0RF Rx Instructions: Morning and HS Potassium Chloride 10 MEQ Capsule.Er 10 meq PO DAILY Qty: 0 0RF Patient Comments: take 1 tablet by mouth once daily Print Language: Slovak Stand Alone Forms: PCP List
[2024-06-22 18:07] LABS: BASOPHILS % (AUTO) 0.2 %; EOSINOPHILS % (AUTO) 0.1 %; HCT - HEMATOCRIT 22.1 % (37.0-47.0); LYMPHOCYTES # (AUTO) 0.2 10^3/uL (1.5-3.5); LYMPHOCYTES % (AUTO) 1.9 %; MEAN CORPUSCULAR HEMOGLOBIN 23.6 pg (27.0-31.0); MEAN CORPUSCULAR HGB CONC 28.5 g/dL (32.0-36.0); MEAN CORPUSCULAR VOLUME 82.8 fL (81.0-99.0); MEAN PLATELET VOLUME 9.5 fL (7.9-10.8); MONOCYTES # (AUTO) 0.7 10^3/uL (0.0-1.0); NEUTROPHILS # (AUTO) 9.3 10^3/uL (1.5-6.6); NEUTROPHILS % (AUTO) 89.8 %; PLT - PLATELET COUNT 491 10^3/uL (130-450); RED BLOOD COUNT 2.67 10^6/uL (4.20-5.40); RED CELL DISTRIBUTION WIDTH 18.7 % (12.0-15.0); WHITE BLOOD COUNT 10.3 x10^3/uL (4.8-10.8)
[2024-06-22 18:09] LABS: VBG BASE EXCESS 6.7 mmol/L (-2 - +2); VBG HCO3 31.2 mmol/L (23-28); VBG OXYGEN SATURATION 70.9 % (60-80); VBG PCO2 45.1 mmHg (41-51); VBG PH 7.458 (7.31-7.41); VBG TOTAL CO2 32.6 mmol/L (24-29)
[2024-06-22] MEDS ORDERED: iohexoL-300 100 ML VIAL ONE (18:10)
[2024-06-22 18:11] LABS: HGB - HEMOGLOBIN 6.3 g/dL (12.0-16.0)
[2024-06-22] MEDS: SODIUM CHLORIDE 0.9% 1,000 ML IV STA (18:11)
[2024-06-22 18:15] LABS: ALBUMIN/GLOBULIN RATIO 0.8 (1.0-2.2); ALKALINE PHOSPHATASE 107 IU/L (42-121); ALT ALANINE AMINOTRANSFERASE 20 IU/L (10-60); AST ASPARTATE AMINOTRANSFERASE 16 IU/L (10-42); BILIRUBIN,TOTAL 0.4 mg/dL (0.2-1.0); BUN - BLOOD UREA NITROGEN 13 mg/dL (6-20); CALCIUM 7.8 mg/dL (8.5-10.3); CARBON DIOXIDE - CO2 33 mmol/L (21-32); CHLORIDE 102 mmol/L (101-111); CREATININE 0.5 mg/dL (0.6-1.3); GFR - MDRD 118 (>89); GLUCOSE 92 mg/dL (74-104); POTASSIUM 4.4 mmol/L (3.5-4.5); SODIUM 139 mmol/L (135-145); TOTAL PROTEIN 4.4 g/dL (6.4-8.9)
[2024-06-22 18:16] LABS: LIPASE < 10 U/L (11-82)
[2024-06-22 19:00] LABS: BILIRUBIN,URINE NEGATIVE (NEGATIVE); GLUCOSE, URINE (UA) NEGATIVE (NEGATIVE); KETONES,URINE (UA) TRACE mg/dL (NEGATIVE); LEUKOCYTE ESTERASE, URINE LARGE (NEGATIVE); NITRITE,URINE POSITIVE (NEGATIVE); OCCULT BLOOD,URINE MODERATE (NEGATIVE); PROTEIN,URINE TRACE mg/dL (NEGATIVE); UROBILINOGEN,URINE 2 E.U./dL (NORMAL)
[2024-06-22 19:01] LABS: CLARITY,URINE CLOUDY (CLEAR)
[2024-06-22 19:09] LABS: BACTERIA,URINE Many /HPF (None Seen); SQUAMOUS EPITHELIAL CELL,UR NONE SEEN (<= Few); WBC,URINE >25 /HPF (0-5)
[2024-06-22] MEDS: cefTRIAXone 1 GM VIAL IVP STA (19:25)
--- NOTE | 2024-06-22 22:24 | XRAY Report ---
PROCEDURE: XR Chest 1V INDICATIONS: abn breath sounds TECHNIQUE: One view of the chest was acquired. COMPARISON: 03/29/2024. FINDINGS: Surgical changes and devices: Right chest wall port tip projects over the high SVC. Lungs and pleura: Small left pleural effusion. Mediastinum: Mediastinal contours appear normal. Heart size is normal. Bones and chest wall: No suspicious bony lesions. Overlying soft tissues appear unremarkable. IMPRESSION: Small left pleural effusion. Reviewed by: Ron Kaiser MD on 06/22/2024 10:22 PM PST Approved by: Ron Kaiser MD on 06/22/2024 10:22 PM PST Station ID: [id number]
--- NOTE | 2024-06-22 23:05 | CT Report ---
PROCEDURE: CT Abdomen/Pelvis W INDICATIONS: IV only, poss infection, hx ureteral obstruction CONTRAST: Omni 300 100ml TECHNIQUE: After the administration of intravenous contrast, a CT scan of the abdomen and pelvis was performed. Images were recorded and evaluated at appropriate window settings. Reformats: coronal and sagittal. F or radiation dose reduction, the following was used: automated exposure control, adjustment of mA and /or kV according to patient size. COMPARISON: 03/30/2024 FINDINGS: Image quality: Diagnostic. Lower chest: Please see same-day CT. Liver: No solid mass. Segment 6 cyst. Gallbladder: Surgically absent. Biliary tree: No intrahepatic or extrahepatic dilation, accounting for age. Spleen: No splenomegaly. Pancreas: No pancreatic ductal dilation. Adrenals: No adrenal nodule. Kidneys and ureters: Moderate left-sided hydronephrosis. Left-sided nephroureteral stent terminates w ithin the left renal pelvis and urinary bladder. There is delayed left-sided nephrogram and stratific ation of the cortex. Stomach, bowel and peritoneum: No gastric or small bowel dilation. No abnormal wall thickening. Small amount of simple appearing retroperitoneal fluid, of uncertain origin. Diverticulosis without evid ence of diverticulitis. Lymph nodes: Left upper periaortic lymph node measures 5.1 x 5.1 cm, previously 4.6 x 4.5 cm (series 2, image 67). Vessels: No infrarenal aortic aneurysm. Patent portal vein. PELVIS Reproductive organs: Unremarkable. Bladder: No abnormal wall thickening, accounting for underdistention. Pelvic lymph nodes: Left common iliac chain node measures 1.3 cm, previously 0.9 cm. Additional right common iliac chain nodes are also present and abnormal in enhancement.. Bones: No aggressive osseous abnormality. Other: No significant ventral or inguinal hernia. IMPRESSION: Moderate left-sided hydronephrosis, with a left-sided nephroureteral stent present within the left re nal pelvis and urinary bladder. Findings may indicate stent malfunction. Additionally, there is corti mike striation and delayed left-sided nephrogram, suggestive of pyelonephritis. No abscess. Consider u rology consultation. Growing retroperitoneal and pelvic chain lymphadenopathy. Please see same day chest CT. Reviewed by: Ron Kaiser MD on 06/22/2024 11:04 PM PST Approved by: Ron Kaiser MD on 06/22/2024 11:04 PM PST Station ID: [id number]
--- NOTE | 2024-06-22 23:07 | CT Report ---
PROCEDURE: CT Head WO INDICATIONS: encephalopathy TECHNIQUE: Noncontrast 4.5 mm thick angled axial sections acquired from the foramen magnum to the vertex. For r adiation dose reduction, the following was used: automated exposure control, adjustment of mA and/or kV according to patient size. COMPARISON: 12/27/2021 FINDINGS: Image quality: Suboptimal due to motion artifact. CSF spaces: Basal cisterns are patent. No extra-axial fluid collections. Ventricles are normal in size and shape. Brain: No midline shift. No intracranial masses or hemorrhage. Shah-white matter interface is norm al. Skull and face: Calvarium and visualized facial bones are intact, without suspicious lesions. Sinuses: Visualized sinuses and mastoids are clear. IMPRESSION: Suboptimal due to motion artifact. No acute intracranial pathology. Reviewed by: Ron Kaiser MD on 06/22/2024 11:06 PM PST Approved by: Ron Kaiser MD on 06/22/2024 11:06 PM [facility] Station ID: [id number]
--- NOTE | 2024-06-22 23:10 | CT Report ---
PROCEDURE: CT Chest W INDICATIONS: cough CONTRAST: Omni 300 100ml TECHNIQUE: After the administration of intravenous contrast, a CT scan of the chest was performed. Images were recorded and evaluated at appropriate window settings. Reformats: axial MIP of the chest, coronal and sagittal. For radiation dose reduction, the following was used: automated exposure control, adjustme nt of mA and/or kV according to patient size. COMPARISON: 03/25/2024 FINDINGS: Image quality: Diagnostic. Chest wall and lower neck: No thyroid nodule which requires sonographic follow up. No breast mass. Gr owing supraclavicular fossa adenopathy. For instance, the 7 mm short axis left node measures 4 mm on prior. Lungs and pleura: Moderate left and small right pleural effusions. Diffuse bronchial thickening. Laye ring debris within the central airways. Mediastinum: Heart size is normal. No pericardial effusion. No large vessel abnormality. Prominent si ze and number of mediastinal lymph nodes, which are not enlarged by size criteria. Bones: No aggressive osseous abnormality. Upper Abdomen: Please see same day CT for further discussion. IMPRESSION: Moderate left and small right pleural effusions. Diffuse bronchial thickening, with layering debris within the central airways. Differential includes aspiration or infectious/inflammatory bronchitis. 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 Increased size and number of mediastinal lymph nodes, which could represent a reactive process versus martin disease. Reviewed by: Ron Kaiser MD on 06/22/2024 11:09 PM PST Approved by: Ron Kaiser MD on 06/22/2024 11:09 PM PST Station ID: [id number]
[2024-06-22] MEDS ORDERED: SALIVA STIMULANT SPRAY 44.3 ML BOTTLE PO PRN (23:31)
[2024-06-22] MEDS ORDERED: BENZONATATE 100 MG CAPSULE PO PRN (23:34)
[2024-06-22] MEDS ORDERED: ACETAMINOPHEN 325 MG TABLET PO PRN (23:34)
[2024-06-22] MEDS ORDERED: MELATONIN 3 MG TABLET PO PRN (23:34)
[2024-06-22] MEDS ORDERED: ONDANSETRON 4 MG/2 ML VIAL IVP PRN (23:34)
[2024-06-22] MEDS ORDERED: MORPHINE 10 MG/ML VIAL IVP PRN (23:34)
--- NOTE | 2024-06-22 23:39 | HISTORY & PHYSICAL EXAMINATION ---
Chief Complaint Chief Complaint Chief Complaint: tachycardia, ams History of Present Illness History of Present Illness HPI Comment/Other: pt with lymphoma and h/o chronic a-fib, presented to hospital [facility] tachycardia, ams, and confusion. pt denies any complaints from her side. no falls reported. h/o sepsis d/t uti back in march. has ureteral stent in place. pt denies noticing any blood in stool or urine. no falls reported. denies abdominal pain, nausea, vomiting. no dysuria reported. no falls or head injuries reported. Review of Systems Status of ROS: 10 or more systems reviewed and unremarkable except as noted in history and below PFSH Social History Social History Smoking Status: Never smoker Do you dip or chew tobacco?: No Do you vape?: No Living arrangement: At home Living Condition: Alone Relationship: Level: Independent Home Mobility Equipment: Wheeled walker Do you feel safe in your home environment?: Yes Suffered physical, verbal, emotional, or financial abuse?: No History of Abuse: No Are you sexually active?: No POLST Patient has POLST: No POLST Status: Full Code Meds/Allgy Home Medications Ambulatory Orders Medication Instructions Recorded Confirmed acetaminophen 500 mg tablet 1,000 mg PO Q8HR PRN pain 03/29/24 06/22/24 (Acetaminophen Extra Strength) Potassium Chloride 10 meq PO DAILY hypokalemia ##0 04/04/24 06/22/24 apixaban 5 mg tablet (Eliquis) 5 mg PO BID chronic atrial fib ##0 04/04/24 06/22/24 famotidine 40 mg tablet 40 mg PO HS GERD ##0 04/04/24 06/22/24 [id number] 1 tab PO DAILYWM severe protein 04/04/24 06/22/24 fumarate 19 mg-folic acid 400 mcg mike malnutriton tablet (Therapeutic-M) saliva stimulant comb. no.3 2 sprays PO Q4H PRN Mouth Sore 04/04/24 06/22/24 (Biotene Moisturizing Mouth Pain #1 ea mucosal spray) artificial tears solution eye drops 1 drp ophthalmic (eye) Q6HR PRN 06/22/24 06/22/24 dry eyes ascorbic acid (vitamin C) 500 mg 500 mg PO BID 06/22/24 06/22/24 tablet (Vitamin C) calcium carbonate (Antacid 600 mg PO TID 06/22/24 06/22/24 (calcium carbonate)) loperamide 2 mg capsule 4 mg PO Q8HR PRN loose stool 06/22/24 06/22/24 (Anti-Diarrheal (loperamide)) mirtazapine 7.5 mg tablet 7.5 mg PO HS 06/22/24 06/22/24 ondansetron HCl 4 mg tablet 4 mg PO Q6H PRN nausea and vomiting 06/22/24 06/22/24 simethicone 125 mg capsule (Gas 125 mg PO Q6HR PRN gas 06/22/24 06/22/24 Relief Extra Strength) zinc sulfate 50 mg zinc (220 mg) 50 mg PO DAILY 06/22/24 06/22/24 capsule (Zinc-220) Allergies Allergies Allergy/AdvReac Type Severity Reaction Status Date / Time atenolol Allergy Unknown Unknown Verified 06/22/24 18:01 ciprofloxacin (From Cipro) Allergy Unknown Verified 06/22/24 18:01 Penicillins Allergy Unknown Verified 06/22/24 18:01 shellfish derived Allergy Emesis Verified 06/22/24 18:01 Sulfa (Sulfonamide Allergy Rash Verified 06/22/24 18:01 Antibiotics) ranitidine (From Zantac) AdvReac "wired" Verified 06/22/24 18:01 Exam Exam gen - awake, alert, can't recall all details but able to answer questions, polite heent - eomi, nc/at heart - per ed charting lungs - per ed charting abd - soft, non-distended msk - no acute trauma noted or reported Conclusion/Plan Problem List (1) Ureteral obstruction, left: Plan pt with - - uti/pyelonephritis with h/o same exacerbated d/t stent obstruction (below) rocephin started, urology on case - hydronephrosis preserved renal function ureteral stent obstruction contributory to above urology on case, with plans for intervention - tachycardia with h/o chronic a-fib exacerbated d/t above continue IVF - toxic, metabolic encephalopathy in setting of above + below no focal neuro deficits much improved s/p ivf and transfusion neuro checks - acute on chronic anemia in setting of lymphoma check iron panel transfusion started check fobt, hold blood thinner - lymphoma progressing per ct imaging today dnr/dni status immunocompromised state with increased risk for infections would benefit from heme/onc input if possible as inpt f/u labs, cultures further orders per clinical course and urology recommendations Lab Results 06/22/24 17:52 06/22/24 17:52
[2024-06-22 23:58] LABS: CHOL/HDL RATIO 2.7 (<4.4); CHOLESTEROL 67 mg/dL; HDL CHOLESTEROL 25 mg/dL; IRON < 10 ug/dL (50-212); LDL CHOLESTEROL,CALCULATED 25 mg/dL; TRANSFERRIN < 75 mg/dL (203-362); TRIGLYCERIDES 86 mg/dL; VLDL CHOLESTEROL 17 mg/dL
[2024-06-22] MEDS ORDERED: ARTIFICIAL TEARS OP PRN (23:59)
[2024-06-23 00:11] LABS: THYROID STIMULATING HORMONE 6.28 uIU/mL (0.34-5.60)
[2024-06-23] MEDS: iohexoL-300 100 ML VIAL IVP ONE (00:38)
[2024-06-23] MEDS: guaiFENesin 600 MG TABLET PO SCH (01:00)
[2024-06-23] MEDS ORDERED: CARBOXYMETHYLCELLULOSE OPHTH DROPS EACHEYE PRN (02:15)
[2024-06-23] MEDS: LACTATED RINGERS 1,000 ML IV SCH ×2 (02:30→19:00)
[2024-06-23 03:11] LABS: INFLUENZA A- RESP PCR PANEL NOT DETECTED; INFLUENZA B - RESP PCR PANEL NOT DETECTED; RSV- RESP PCR PANEL DETECTED; SARS-CoV-2 -RESP PCR PANEL NOT DETECTED
[2024-06-23 06:27] LABS: BASOPHILS % (AUTO) 0.3 %; EOSINOPHILS % (AUTO) 0.1 %; HCT - HEMATOCRIT 27.6 % (37.0-47.0); HGB - HEMOGLOBIN 8.6 g/dL (12.0-16.0); LYMPHOCYTES # (AUTO) 0.2 10^3/uL (1.5-3.5); MEAN CORPUSCULAR HEMOGLOBIN 25.9 pg (27.0-31.0); MEAN CORPUSCULAR HGB CONC 31.2 g/dL (32.0-36.0); MEAN CORPUSCULAR VOLUME 83.1 fL (81.0-99.0); MEAN PLATELET VOLUME 9.9 fL (7.9-10.8); MONOCYTES # (AUTO) 0.7 10^3/uL (0.0-1.0); MONOCYTES % (AUTO) 5.9 %; NEUTROPHILS # (AUTO) 10.4 10^3/uL (1.5-6.6); NEUTROPHILS % (AUTO) 90.8 %; PLT - PLATELET COUNT 468 10^3/uL (130-450); RED BLOOD COUNT 3.32 10^6/uL (4.20-5.40); RED CELL DISTRIBUTION WIDTH 17.2 % (12.0-15.0); WHITE BLOOD COUNT 11.5 x10^3/uL (4.8-10.8)
[2024-06-23 06:52] LABS: MAGNESIUM 1.8 mg/dL (1.7-2.3)
[2024-06-23] MEDS: CALCIUM CARBONATE CHEW 500 MG TABLET PO SCH ×2 (07:04→14:29)
[2024-06-23 07:10] LABS: ALBUMIN/GLOBULIN RATIO 0.9 (1.0-2.2); BILIRUBIN,TOTAL 0.3 mg/dL (0.2-1.0); CALCIUM 7.5 mg/dL (8.5-10.3); CREATININE 0.6 mg/dL (0.6-1.3); POTASSIUM 4.3 mmol/L (3.5-4.5); TOTAL PROTEIN 4.3 g/dL (6.4-8.9)
[2024-06-23] MEDS ORDERED: SIMETHICONE CHEW 80 MG TABLET PO PRN (08:32)
[2024-06-23] MEDS: cefTRIAXone 1 GM in SODIUM CHLORIDE 0.9% MINIBAG 100 ML IV SCH (08:36)
[2024-06-23] MEDS ORDERED: ASCORBIC ACID 500 MG TABLET PO SCH (09:00)
--- NOTE | 2024-06-23 09:29 | PREOP HISTORY & PHYSICAL ---
Surgical History & Physical Chief Complaint/HPI Chief Complaint: poor functioning stent History of Present Illness: Fidel is an 84-year-old woman known to me for history of aggressive follicular lymphoma, left hydronephrosis and obstructed renal system from a necrotic lymph node requiring a ureteral stent placed in March 2024 by myself in the setting of UTI and septic shock. Since that visit she had been discharged and sent to a long-term facility in [place]. She was transferred back to [facility] here on [place] last night. When she arrived there she appeared ill with tachycardia. She was sent to the ER. There she had a CT scan which showed her stent still in place but likely no longer working appropriately with persistent moderate hydronephrosis. Her urinalysis is concerning for infection. She also has concern for pleural effusions. She denies flank pain Home Meds and Allergies Active Medications Generic Name Dose Route Start Last Admin Trade Name Freq PRN Reason Stop Dose Admin Acetaminophen 650 mg 06/22/24 23:34 Acetaminophen 325 Mg Tablet PO Q6H PRN pain, fever Ascorbic Acid 500 mg 06/23/24 09:00 06/23/24 11:19 Ascorbic Acid 500 Mg Tablet PO Not Given BID DAVE Benzonatate 100 mg 06/22/24 23:34 Benzonatate 100 Mg Capsule PO TID PRN Cough Calcium Carbonate/Glycine 500 mg 06/23/24 14:00 Calcium Carbonate Chew 500 Mg Tablet PO TID DAVE Carboxymethylcellulose 1 drops 06/23/24 02:15 Carboxymethylcellulose Ophth Drops EACHEYE Q6HR PRN Dry Eye Famotidine 40 mg 06/23/24 21:00 Famotidine 20 Mg Tablet PO HS DAVE Guaifenesin 600 mg 06/22/24 23:45 06/23/24 11:20 Guaifenesin 600 Mg Tablet PO Not Given BID DAVE Ceftriaxone Sodium 1 gm/ 100 mls @ 200 mls/hr 06/23/24 09:00 06/23/24 10:00 Sodium Chloride IV Infused DAILY DAVE Infusion Lactated Ringer's 1,000 mls @ 125 mls/hr 06/23/24 01:00 06/23/24 11:22 Lr IV 125 mls/hr .Q8H DAVE Administration Melatonin 3 mg 06/22/24 23:34 Melatonin 3 Mg Tablet PO QPM PRN sleep Morphine Sulfate 2 mg 06/23/24 09:02 Morphine 2 Mg/Ml Carpuject IVP Q4H PRN Severe Pain (Level 7-10) Multi-Ingredient Ointment 1 applic 06/22/24 23:31 06/23/24 11:04 Zinc Oxide 20% Oint 30 Gm Tube TOP 1 applic PRN PRN Administration Skin Care to gluteal cleft Multivitamins/Minerals 1 tab 06/23/24 08:00 06/23/24 11:19 Multivitamin W/Minerals Tablet PO Not Given DAILYWM DAVE Ondansetron HCl 4 mg 06/22/24 23:34 Ondansetron 4 Mg/2 Ml Vial IVP Q8H PRN Nausea / Vomiting Saliva Substitute 2 sprays 06/22/24 23:31 Saliva Stimulant [place] 44.3 Ml Bottle PO Q4H PRN Mouth Sore Pain Simethicone 80 mg 06/23/24 08:32 Simethicone Chew 80 Mg Tablet PO Q6HR PRN gas Zinc Sulfate 50 mg 06/23/24 09:00 06/23/24 11:20 Zinc Sulfate 220 Mg Capsule PO Not Given DAILY DAVE acetaminophen 500 mg tablet (Acetaminophen Extra Strength) 1,000 mg PO Q8HR PRN pain 03/29/24 Potassium Chloride 10 meq PO DAILY hypokalemia ##0 04/04/24 apixaban 5 mg tablet (Eliquis) 5 mg PO BID chronic atrial fib ##0 04/04/24 famotidine 40 mg tablet 40 mg PO HS GERD ##0 04/04/24 [id number]-osywizgr-[id number] fumarate 19 mg-folic acid 400 mcg tablet (Therapeutic-M) 1 tab PO DAILYWM severe protein mike malnutriton 04/04/24 saliva stimulant comb. no.3 (Biotene Moisturizing Mouth mucosal spray) 2 sprays PO Q4H PRN Mouth Sore Pain #1 ea 04/04/24 artificial tears solution eye drops 1 drp ophthalmic (eye) Q6HR PRN dry eyes 06/22/24 ascorbic acid (vitamin C) 500 mg tablet (Vitamin C) 500 mg PO BID 06/22/24 calcium carbonate (Antacid (calcium carbonate)) 600 mg PO TID 06/22/24 loperamide 2 mg capsule (Anti-Diarrheal (loperamide)) 4 mg PO Q8HR PRN loose stool 06/22/24 mirtazapine 7.5 mg tablet 7.5 mg PO HS 12/18/24 ondansetron HCl 4 mg tablet 4 mg PO Q6H PRN nausea and vomiting 06/22/24 simethicone 125 mg capsule (Gas Relief Extra Strength) 125 mg PO Q6HR PRN gas 06/22/24 zinc sulfate 50 mg zinc (220 mg) capsule (Zinc-220) 50 mg PO DAILY 06/22/24 Allergies Allergy/AdvReac Type Severity Reaction Status Date / Time atenolol Allergy Unknown Unknown Verified 06/22/24 18:01 ciprofloxacin (From Cipro) Allergy Unknown Verified 06/22/24 18:01 Penicillins Allergy Unknown Verified 06/22/24 18:01 shellfish derived Allergy Emesis Verified 06/22/24 18:01 Sulfa (Sulfonamide Allergy Rash Verified 06/22/24 18:01 Antibiotics) ranitidine (From Zantac) AdvReac "wired" Verified 06/22/24 18:01 Vital Signs O2 Saturation: 93 Patient Review Patient Review Pertinent Tests Reviewed PFS Social History Social History Smoking Status: Never smoker Second hand tobacco smoke exposure: No Do you dip or chew tobacco?: No Do you vape?: No Living arrangement: At home Living Condition: Alone Relationship: Level: Dependent Home Mobility Equipment: Wheeled walker Do you feel safe in your home environment?: Yes Suffered physical, verbal, emotional, or financial abuse?: No History of Abuse: No Substance Use: denies use Are you sexually active?: No POLST Patient has POLST: No POLST Status: Full Code Exam Exam NAD ill appearing tachycardic course breath sounds Assessment & Plan Assessment & Plan Assessment & Plan: 84-year-old woman with significant follicular lymphoma and obstruction of her left kidney requiring stent placement March 2024. Now with likely UTI and obstructed renal system on the left despite stent in place Recommend cystoscopy, left ureteral stent exchange. Risk, benefits, alternatives were discussed with patient. Specific risks of infection, bleeding, failure of therapy, need for additional procedures, need for nephrostomy tube were discussed. We also discussed risk of anesthesia. Patient states understanding and consents to the above plan
[2024-06-23] MEDS: ZINC OXIDE 20% OINT 30 GM TUBE TOP PRN (11:04)
[2024-06-23 11:15] LABS: ESTIMATED AVERAGE GLUCOSE 91 mg/dL (70-100); HEMOGLOBIN A1c% 4.8 % (4.27-6.07)
[2024-06-23] MEDS: ASCORBIC ACID 500 MG TABLET PO SCH (11:19)
[2024-06-23] MEDS: MULTIVITAMIN W/MINERALS TABLET PO SCH (11:19)
[2024-06-23] MEDS: ZINC SULFATE 220 MG CAPSULE PO SCH (11:20)
--- NOTE | 2024-06-23 11:58 | ADVANCE CARE PLANNING NOTE ---
Advance Care Planning Planning Encounter Date: 06/23/24 Time: 11:56 Purpose: Establish goals of care given lymphoma, frequent hospitalization, overall clinical deterioration Parties in Attendance: Patient, Cousin/healthcare POA Decisional Capacity of the Patient: Patient has capacity, but is not interactive with care discussions Diagnosis for Encounter (1) Ureteral obstruction, left: Summary: History of ureteral stenting, now occluded. Plan for OR today to fix this. A lso with urosepsis Encounter Subjective/Patient's Story: Patient is a retired [employer]. She used to enjoy going to [employer], but is unable to leave the house now due to significant mobility issues. Her closest family are her cousins. 1 cousin is her power of energy attorney for healthcare, the other is power of energy attorney for other purposes. Her cousin the healthcare POA states that patient is very withdrawn. Apparently, 4 years ago, she started living in her bed, with only brief trips to the bathroom and back. For the past year, she is not even gotten out of bed. She will soil herself, and relies on diapers and help with family to deal with this. She is overall a very depressed person. Objective/Medical Story: She has lymphoma, which she is not treating. She is endorsed to several healthcare providers that she would like acute health problems treated with full treatment, but she is DNR. She has had significant weight loss, and now has sacral ulcers which will likely not heal given her malnutrition Goals of Care: Her goal for care would be to optimize her acute medical problems and establish a new baseline. Long-term, dependent on resolution of current illness Plan: I am giving her IV antibiotics for her urosepsis. She will undergo urology procedure later today for her obstructed ureteral stent. I will optimize her medically to see if she recovers. I have discussed her case with palliative care, who she is already established with. Per their recommendation, I have reached out to the hospice team for potential resources closer to discharge. I have discussed all of this with her cousin, who is her healthcare power of energy attorney, and she is in agreement with this Additional Discussion: Follow-up on goals of care when her urosepsis and ureteral obstruction are better managed Code Status: Do Not Attempt Resuscitation Time spent on advance care plannin
--- NOTE | 2024-06-23 13:13 | PHARMACY PROGRESS NOTE ---
Best Possible Medication History Admit Date and Time: 06/22/24 2332 Home Medications Medication Instructions Recorded Confirmed Type acetaminophen 500 mg tablet 1,000 mg PO Q8HR PRN pain 03/29/24 06/22/24 History (Acetaminophen Extra Strength) Potassium Chloride 10 meq PO DAILY hypokalemia ##0 04/04/24 06/22/24 Rx apixaban 5 mg tablet (Eliquis) 5 mg PO BID chronic atrial fib ##0 04/04/24 06/22/24 Rx famotidine 40 mg tablet 40 mg PO HS GERD ##0 04/04/24 06/22/24 Rx [id number]-kpwovjfx-[id number] 1 tab PO DAILYWM severe protein 04/04/24 06/22/24 Rx fumarate 19 mg-folic acid 400 mcg mike malnutriton tablet (Therapeutic-M) saliva stimulant comb. no.3 2 sprays PO Q4H PRN Mouth Sore 04/04/24 06/22/24 Rx (Biotene Moisturizing Mouth Pain #1 ea mucosal spray) artificial tears solution eye drops 1 drp ophthalmic (eye) Q6HR PRN 06/22/24 06/22/24 History dry eyes ascorbic acid (vitamin C) 500 mg 500 mg PO BID 06/22/24 06/22/24 History tablet (Vitamin C) calcium carbonate (Antacid 600 mg PO TID 06/22/24 06/22/24 History (calcium carbonate)) loperamide 2 mg capsule 4 mg PO Q8HR PRN loose stool 06/22/24 06/22/24 History (Anti-Diarrheal (loperamide)) mirtazapine 7.5 mg tablet 7.5 mg PO HS 06/22/24 06/22/24 History ondansetron HCl 4 mg tablet 4 mg PO Q6H PRN nausea and vomiting 06/22/24 06/22/24 History simethicone 125 mg capsule (Gas 125 mg PO Q6HR PRN gas 06/22/24 06/22/24 History Relief Extra Strength) zinc sulfate 50 mg zinc (220 mg) 50 mg PO DAILY 06/22/24 06/22/24 History capsule (Zinc-220) Processed by: Nursing Secondary Source(s): Facility MAR as ONLY source [facility] Statement: As the person ultimately responsible for medication therapy, providers are able to order a medication from an existing home medication list in [facility] via the "Reconcile Routine" prior to Confirmation of that medication by manager product support. Such practice is discouraged except when the physician, in their clinical judgment, deems that a medical need exists for a medication without regard to previous use.
[2024-06-23] MEDS ORDERED: ONDANSETRON 4 MG/2 ML VIAL IVP PRN (17:07)
[2024-06-23] MEDS ORDERED: METOCLOPRAMIDE 10 MG/2 ML VIAL IVP PRN (17:07)
[2024-06-23] MEDS ORDERED: NALOXONE 0.4 MG/ML VIAL IVP PRN (17:07)
[2024-06-23] MEDS ORDERED: ePHEDrine 50 MG/ML VIAL IVP PRN (17:07)
[2024-06-23] MEDS ORDERED: HYDROmorphone 0.5 MG/0.5 ML SYRINGE IVP PRN (17:07)
[2024-06-23] MEDS ORDERED: MORPHINE 2 MG/ML CARPUJECT IVP PRN (17:07)
[2024-06-23] MEDS ORDERED: fentaNYL 100 MCG/2 ML VIAL IVP PRN (17:07)
[2024-06-23] MEDS ORDERED: ATROPINE ABBOJECT 1 MG/10 ML SYRINGE IVP PRN (17:07)
--- NOTE | 2024-06-23 17:07 | ANESTHESIA PROCEDURE NOTE ---
Pre-Anesthesia VS, & Labs Diagnosis Surgical Diagnosis:: ureteral obstruction Procedure Procedure: left cysto and stent exchange Vitals Vital Signs: Temp Pulse Resp BP Pulse Ox O2 Flow Rate 36.3 C L 106 H 24 140/73 H 96 2 06/23/24 13:33 06/23/24 13:33 06/23/24 13:33 06/23/24 13:33 06/23/24 13:33 06/23/24 13:33 Height (in): 5 ft 4 in Weight (kg): 73 kg Body Mass Index: 27.6 BMI Classification: Overweight NPO NPO: >8 hours Is Patient ?: No Lab Results Current Lab Results: Laboratory Tests 06/23/24 14:56: POC Whole Bld Glucose 17 06/23/24 06:14: WBC 11.5 H, RBC 3.32 L, Hgb 8.6 L, Hct 27.6 L, MCV 83.1, MCH 25.9 L, MCHC 31.2 L, RDW 17.2 H, Plt Count 468 H, MPV 9.9, Neut # (Auto) 10.4 H, Lymph # (Auto) 0.2 L, [place] # (Auto) 0.7, Eos # (Auto) 0.0, Baso # (Auto) 0.0, Absolute Nucleated RBC 0.00, Nucleated RBC % 0.0, Sodium 140, Potassium 4.3, Chloride 104, Carbon Dioxide 33 H, Anion Gap 3.0 L, BUN 13, Creatinine 0.6, Estimated GFR (MDRD) 96, Glucose 120 H, Calcium 7.5 L, Magnesium 1.8, Total Bilirubin 0.3, AST 15, ALT 18, Alkaline Phosphatase 110, Total Protein 4.3 L, A lbumin 2.0 L, Globulin 2.3, Albumin/Globulin Ratio 0.9 L 06/22/24 18:33: Blood Type O POSITIVE, Antibody Screen NEGATIVE, Crossmatch IS Only See Detail 06/22/24 17:52: WBC 10.3, RBC 2.67 L, Hgb 6.3 L*, Hct 22.1 L, MCV 82.8, MCH 23.6 L, MCHC 28.5 L, RDW 18.7 H, Plt Count 491 H, MPV 9.5, Neut # (Auto) 9.3 H, Lymph # (Auto) 0.2 L, [place] # (Auto) 0.7, Eos # (Auto) 0.0, Baso # (Auto) 0.0, Absolute Nucleated RBC 0.00, Nucleated RBC % 0.0, VBG pH 7.458 H, VBG pCO2 45.1, VBG pO2 37.0, VBG HCO3 31.2 H, VBG Total CO2 32.6 H, VBG O2 Saturation 70.9, VBG Base Excess 6.7 H, Sodium 139, Potassium 4.4, Chloride 102, Carbon Dioxide 33 H, A nion Gap 4.0 L, BUN 13, Creatinine 0.5 L, Estimated GFR (MDRD) 118, Glucose 92, Lactic Acid 0.7, Calcium 7.8 L, Iron < 10 L, TIBC TNP, % Saturation TNP, T ransferrin < 75 L, Total Bilirubin 0.4, AST 16, ALT 20, Alkaline Phosphatase 107, B-Natriuretic Peptide 118 H, Total Protein 4.4 L, Albumin 2.0 L, Globulin 2.4, Albumin/Globulin Ratio 0.8 L, Triglycerides 86, Cholesterol 67, LDL Cholesterol, Calc 25, VLDL Cholesterol 17, HDL Cholesterol 25 L, LDL/HDL Ratio 1.0, Cholesterol/HDL Ratio 2.7, Lipase < 10 L, TSH 6.28 H 06/22/24 06:14: Estimat Average Glucose 91, Hemoglobin A1c % 4.8 Lab results reviewed: Yes 06/23/24 06:14 06/23/24 06:14 Meds/Allgy Home Medications Ambulatory Orders Medication Instructions Recorded Confirmed acetaminophen 500 mg tablet 1,000 mg PO Q8HR PRN pain 03/29/24 06/22/24 (Acetaminophen Extra Strength) Potassium Chloride 10 meq PO DAILY hypokalemia ##0 04/04/24 06/22/24 apixaban 5 mg tablet (Eliquis) 5 mg PO BID chronic atrial fib ##0 04/04/24 06/22/24 famotidine 40 mg tablet 40 mg PO HS GERD ##0 04/04/24 06/22/24 [id number]-zndqroon-fdot 1 tab PO DAILYWM severe protein 04/04/24 06/22/24 fumarate 19 mg-folic acid 400 mcg mike malnutriton tablet (Therapeutic-M) saliva stimulant comb. no.3 2 sprays PO Q4H PRN Mouth Sore 04/04/24 06/22/24 (Biotene Moisturizing Mouth Pain #1 ea mucosal spray) artificial tears solution eye drops 1 drp ophthalmic (eye) Q6HR PRN 06/22/24 06/22/24 dry eyes ascorbic acid (vitamin C) 500 mg 500 mg PO BID 06/22/24 06/22/24 tablet (Vitamin C) calcium carbonate (Antacid 600 mg PO TID 06/22/24 06/22/24 (calcium carbonate)) loperamide 2 mg capsule 4 mg PO Q8HR PRN loose stool 06/22/24 06/22/24 (Anti-Diarrheal (loperamide)) mirtazapine 7.5 mg tablet 7.5 mg PO HS 06/22/24 06/22/24 ondansetron HCl 4 mg tablet 4 mg PO Q6H PRN nausea and vomiting 06/22/24 06/22/24 simethicone 125 mg capsule (Gas 125 mg PO Q6HR PRN gas 06/22/24 06/22/24 Relief Extra Strength) zinc sulfate 50 mg zinc (220 mg) 50 mg PO DAILY 06/22/24 06/22/24 capsule (Zinc-220) Allergies Allergies Allergy/AdvReac Type Severity Reaction Status Date / Time atenolol Allergy Unknown Unknown Verified 06/22/24 18:01 ciprofloxacin (From Cipro) Allergy Unknown Verified 06/22/24 18:01 Penicillins Allergy Unknown Verified 06/22/24 18:01 shellfish derived Allergy Emesis Verified 06/22/24 18:01 Sulfa (Sulfonamide Allergy Rash Verified 06/22/24 18:01 Antibiotics) ranitidine (From Zantac) AdvReac "wired" Verified 06/22/24 18:01 [facility] Surgical History Surgical History (Updated 06/23/24 @ 17:04 by Art Woods CRNA) Status post catheter ablation of atrial fibrillation Social History Social History Smoking Status: Never smoker Second hand tobacco smoke exposure: No Do you dip or chew tobacco?: No Do you vape?: No Living arrangement: At home Living Condition: Alone Relationship: Level: Dependent Home Mobility Equipment: Wheeled walker Do you feel safe in your home environment?: Yes Suffered physical, verbal, emotional, or financial abuse?: No History of Abuse: No Substance Use: denies use Are you sexually active?: No POLST Patient has POLST: No POLST Status: DNR Anesthesia Exam (Expanded) Exam General: Other (minimally interactive) Dental: WNL Mouth Openin Fingerbreadth Neck Mobility: Reduced Mallampati classification: II Thyromental Distance: 4-6 cm Respiratory: Rhonchi Cardiovascular: Regular rate Plan Problem List (1) Ureteral obstruction, left: (2) Bilateral pleural effusion: (3) Follicular lymphoma: Qualifiers: Follicular lymphoma type: unspecified follicular type Lymphoma site: u nspecified region Qualified Code(s): C82.90 - Follicular lymphoma, unspecified, unspecified site (4) Status post catheter ablation of atrial fibrillation: Plan pt with - - uti/pyelonephritis with h/o same exacerbated d/t stent obstruction (below) rocephin started, urology on case - hydronephrosis preserved renal function ureteral stent obstruction contributory to above urology on case, with plans for intervention - tachycardia with h/o chronic a-fib exacerbated d/t above continue IVF - toxic, metabolic encephalopathy in setting of above + below no focal neuro deficits much improved s/p ivf and transfusion neuro checks - acute on chronic anemia in setting of lymphoma check iron panel transfusion started check fobt, hold blood thinner - lymphoma progressing per ct imaging today dnr/dni status immunocompromised state with increased risk for infections would benefit from heme/onc input if possible as inpt f/u labs, cultures further orders per clinical course and urology recommendations Plan Anesthesia Type: MAC Consent for Procedure(s) Verified and Reviewed: Yes Code Status: Do Not Attempt Resuscitation ASA Classification ASA classification: 4-Incapacitating disease Is this case an emergency?: Yes
[2024-06-23] MEDS ORDERED: LIDOCAINE 2% URO-JET 5 ML SYRINGE UR ONE ×2 (17:09→17:16)
[2024-06-23] MEDS ORDERED: MIDAZOLAM 2 MG/2 ML VIAL ONE (17:18)
[2024-06-23] MEDS ORDERED: fentaNYL 100 MCG/2 ML VIAL ONE (17:18)
[2024-06-23] MEDS ORDERED: PROPOFOL 200 MG/20 ML VIAL IVP ONE (17:39)
--- NOTE | 2024-06-23 17:58 | OPERATIVE REPORT ---
Operative Report General Admit Date: 06/22/24 Procedure Data: Operation Date: 06/23/24 17:25 Proposed Procedures p Cystoscopy with Ureteral Stent Exchange(Left) - Jamari Gonzalez MD Pre-Op Diagnosis: LEFT KIDNEY OBSTRUCTION Anesthesia Type General Case Staff Anesthesia Provider: Art Woods Pre-Op Diagnosis: left renal obstruction Post Op Diagnosis: left renal obstruction Procedure Note Findings: Routine stent exchange Other Other Information/Narrative: After informed consent was obtained the patient was brought to the OR and laid in the supine position. The patient was anesthetized per anesthesia protocols and prepped and draped in the usual sterile fashion in the dorsolithotomy position. A formal timeout was performed reconfirmed the patient, procedure and laterality. A Uro-Jet was placed for local. A 22 [place] cystoscope was advanced easily into the urinary bladder. The bladder was inspected and full. She had 1+ trabeculations. She had cloudy debris in her urine. This was evacuated out. She was gently irrigated. A stent was noted emanating from her left ureteral orifice. It did not appear encrusted. Fluoroscopy confirmed the stent was up in the left kidney. A sensor wire was placed next to the stent up into the kidney. The old stent was then grasped and removed. A 6 [place] 24 cm stent was placed with good curling noted in the kidney and good curling noted in the bladder. There was an efflux of clear fluid coming from the stent consistent with a no longer obstructed system. Her bladder was emptied and this concluded the procedure. The patient tolerated the procedure well and she was brought to PACU without further incident. She will return to the medical service for further management
--- NOTE | 2024-06-23 18:30 | ANESTHESIA POST OP EVALUATION ---
Anesthesia Post Eval Post Anesthesia Eval Vitals: Last Vital Signs Temp 36.5 C 06/23/24 18:05 Pulse 99 06/23/24 18:10 Resp 20 06/23/24 18:10 BP 111/65 06/23/24 18:10 Pulse Ox 100 06/23/24 18:10 O2 Flow Rate 2 06/23/24 16:00 CV Function Including HR & BP: Stable Pain Control: Satisfactory Nausea & Vomiting: Negative Mental Status: Baseline Respiratory Status: Airway Patent Hydration Status: Satisfactory Anesthesia Complications: None
[2024-06-23] MEDS: FAMOTIDINE 20 MG TABLET PO SCH (21:48)
[2024-06-24] MEDS: MORPHINE 2 MG/ML CARPUJECT IVP PRN (02:47)
[2024-06-24 05:35] LABS: BASOPHILS % (AUTO) 0.2 %; EOSINOPHILS % (AUTO) 0.3 %; HCT - HEMATOCRIT 31.5 % (37.0-47.0); HGB - HEMOGLOBIN 9.4 g/dL (12.0-16.0); LYMPHOCYTES # (AUTO) 0.3 10^3/uL (1.5-3.5); LYMPHOCYTES % (AUTO) 2.1 %; MEAN CORPUSCULAR HEMOGLOBIN 25.8 pg (27.0-31.0); MEAN CORPUSCULAR HGB CONC 29.8 g/dL (32.0-36.0); MEAN CORPUSCULAR VOLUME 86.3 fL (81.0-99.0); MEAN PLATELET VOLUME 10.5 fL (7.9-10.8); MONOCYTES # (AUTO) 0.6 10^3/uL (0.0-1.0); MONOCYTES % (AUTO) 4.9 %; NEUTROPHILS % (AUTO) 91.6 %; NRBC ABSOLUTE COUNT (AUTO) 0.02 x10^3/uL; NUCLEATED RED BLOOD CELLS AUTO 0.2 /100WBC; PLT - PLATELET COUNT 449 10^3/uL (130-450); RED BLOOD COUNT 3.65 10^6/uL (4.20-5.40)
[2024-06-24 05:55] LABS: CALCIUM 7.6 mg/dL (8.5-10.3); CREATININE 0.5 mg/dL (0.6-1.3); POTASSIUM 4.1 mmol/L (3.5-4.5)
[2024-06-24] MEDS: ZINC SULFATE 220 MG CAPSULE PO SCH (09:15)
[2024-06-24] MEDS: guaiFENesin/DEXTROMETHORPHAN 10 ML UDC PO PRN (09:33)
[2024-06-24] MEDS: CEFEPIME 2 GM in SODIUM CHLORIDE 0.9% MINIBAG 100 ML IV SCH (10:23)
[2024-06-24] MEDS ORDERED: CLOTRIMAZOLE/BETAMETHASONE 15 GM TUBE TOP SCH (11:00)
--- NOTE | 2024-06-24 12:05 | PROVIDER PROGRESS NOTE ---
Subjective Prog Note Date Prog Note Date: 06/23/24 Subjective Pt reports feeling: No change Subjective: Minimally interactive with interview. Will wake up and answer questions and then go back to sleep Current Medications Current Medications Current Medications: Current Medications Generic Name Dose Route Start Last Admin Trade Name Freq PRN Reason Stop Dose Admin Acetaminophen 650 mg 06/22/24 23:34 Acetaminophen 325 Mg Tablet PO Q6H PRN pain, fever Ascorbic Acid 500 mg 06/23/24 09:00 06/24/24 09:15 Ascorbic Acid 500 Mg Tablet PO 500 mg BID DAVE Administration Benzonatate 100 mg 06/22/24 23:34 Benzonatate 100 Mg Capsule PO TID PRN Cough Calcium Carbonate/Glycine 500 mg 06/23/24 14:00 06/24/24 05:53 Calcium Carbonate Chew 500 Mg Tablet PO Not Given TID DAVE Carboxymethylcellulose 1 drops 06/23/24 02:15 Carboxymethylcellulose Ophth Drops EACHEYE Q6HR PRN Dry Eye Ceftriaxone Sodium 1 gm 06/25/24 09:00 Ceftriaxone 1 Gm Vial IVP DAILY DAVE Famotidine 40 mg 06/23/24 21:00 06/23/24 21:48 Famotidine 20 Mg Tablet PO Not Given HS DAVE Guaifenesin 600 mg 06/22/24 23:45 06/24/24 09:15 Guaifenesin 600 Mg Tablet PO 600 mg BID DAVE Administration Guaifenesin 10 ml 06/24/24 07:25 06/24/24 09:33 Guaifenesin/Dextromethorphan 10 Ml Udc PO 10 ml Q6HR PRN Administration Cough Lactated Ringer's 1,000 mls @ 125 mls/hr 06/23/24 01:00 06/24/24 10:42 Lr IV 125 mls/hr .Q8H DAVE Administration Melatonin 3 mg 06/22/24 23:34 Melatonin 3 Mg Tablet PO QPM PRN sleep Morphine Sulfate 2 mg 06/23/24 09:02 06/24/24 02:47 Morphine 2 Mg/Ml Carpuject IVP 2 mg Q4H PRN Administration Severe Pain (Level 7-10) Multi-Ingredient Ointment 1 applic 06/22/24 23:31 06/24/24 02:47 Zinc Oxide 20% Oint 30 Gm Tube TOP 1 applic PRN PRN Administration Skin Care to gluteal cleft Multivitamins/Minerals 1 tab 12/19/24 08:00 06/24/24 09:15 Multivitamin W/Minerals Tablet PO 1 tab DAILYWM DAVE Administration Ondansetron HCl 4 mg 06/22/24 23:34 Ondansetron 4 Mg/2 Ml Vial IVP Q8H PRN Nausea / Vomiting Saliva Substitute 2 sprays 06/22/24 23:31 Saliva Stimulant [place] 44.3 Ml Bottle PO Q4H PRN Mouth Sore Pain Simethicone 80 mg 06/23/24 08:32 Simethicone Chew 80 Mg Tablet PO Q6HR PRN gas Zinc Sulfate 220 mg 06/24/24 08:58 06/24/24 09:15 Zinc Sulfate 220 Mg Capsule PO 220 mg DAILY DAVE Administration Objective Vital Signs/Intake & Output Reviewed Vital Signs: Yes Vital Signs: Vital Signs x48h Temp Pulse Resp BP BP Pulse Ox O2 Flow Rate 06/24/24 08:56 36.5 C 100 18 134/90 H 96 1.5 06/24/24 04:58 36.6 C 103 H 20 120/83 99 1.5 Intake & Output: Intake & Output 06/21/24 06/22/24 06/23/24 06/24/24 23:59 23:59 23:59 23:59 Intake Total 1300 / 1300 2099 / 2099 Output Total 100 / 100 Balance 1300 / 1300 2099 / 2099 Weight (kg) 77 kg 73 kg Objective General Appearance: positive Other (Elderly, malnourished appearing female) Eyes Bilateral: positive Normal inspection ENT: positive ENT inspection nml Neck: positive Nml inspection Respiratory: positive Chest non-tender and Rhonchi Cardiovascular: positive Regular rate & rhythm Abdomen: positive Non-tender Skin: positive Pallor Extremities: positive Non-tender Neurologic/Psychiatric: positive Oriented x3 Lab Results 06/24/24 04:57 06/24/24 04:57 Other Labs: Lab Results x24hrs 06/24/24 06/23/24 06/23/24 Range/Units 04:57 15:02 14:56 WBC 12.0 H (4.8-10.8) x10^3/uL RBC 3.65 L (4.20-5.40) 10^6/uL Hgb 9.4 L (12.0-16.0) g/dL Hct 31.5 L (37.0-47.0) % MCV 86.3 (81.0-99.0) fL MCH 25.8 L (27.0-31.0) pg MCHC 29.8 L (32.0-36.0) g/dL RDW 18.0 H (12.0-15.0) % Plt Count 449 (130-450) 10^3/uL MPV 10.5 (7.9-10.8) fL Neut # (Auto) 11.0 H (1.5-6.6) 10^3/uL Lymph # (Auto) 0.3 L (1.5-3.5) 10^3/uL [place] # (Auto) 0.6 (0.0-1.0) 10^3/uL Eos # (Auto) 0.0 (0.0-0.7) 10^3/uL Baso # (Auto) 0.0 (0.0-0.1) 10^3/uL Absolute Nucleated RBC 0.02 x10^3/uL Nucleated RBC % 0.2 /100WBC Sodium 142 (135-145) mmol/L Potassium 4.1 (3.5-4.5) mmol/L Chloride 105 (101-111) mmol/L Carbon Dioxide 31 (21-32) mmol/L Anion Gap 6.0 (6-13) BUN 11 (6-20) mg/dL Creatinine 0.5 L (0.6-1.3) mg/dL Estimated GFR (MDRD) 118 (>89) Glucose 83 (74-104) mg/dL POC Whole Bld Glucose 78 17 (70-100) mg/dL Calcium 7.6 L (8.5-10.3) mg/dL Thyroxine (T4) 4.1 L (6.1-12.2) ug/dL Assessment/Plan Problem List (1) Severe sepsis: Impression: Severe sepsis secondary to UTI with metabolic encephalopathy/Pyelonephritis Encephalopathy improved after IV fluid resuscitation IVF On Rocephin as historically she has always grown pansensitive E. coli (2) Ureteral obstruction, left: Impression: Discussed case with Dr. Gonzalez, who will take her to the OR today for ureteral stenting Antibiotics as above Follow-up with urology (3) Bilateral pleural effusion: Impression: Exercising caution with sepsis fluid resuscitation On minimal oxygen support Recommend follow-up chest x-ray after discharge (4) Follicular lymphoma: Impression: Notified palliative care team that she is admitted, they are following in an outpatient capacity Per their recommendation I have reached out to hospice to alert their service that she may be eligible for hospice care ACP discussion as notated in a separate note Qualifiers: Follicular lymphoma type: unspecified follicular type Lymphoma site: u nspecified region Qualified Code(s): C82.90 - Follicular lymphoma, unspecified, unspecified site (5) Severe protein-calorie malnutrition: Impression: Nutrition consult Minced and moist diet per previous facility (6) Anemia: Impression: Received 1 unit PRBC Iron panel pending
--- NOTE | 2024-06-24 12:07 | Discharge Summary ---
Discharge Summary Admit Date: 06/22/24 Discharge Date: 06/24/24 Discharging Provider: Luis Daniel Betancourt NP Primary Care Provider: Leny Kimble Code Status: Do Not Attempt Resuscitation Discharge Facility Name: [facility] DIAGNOSES Admission Diagnoses: Pyelonephritis Ureteral obstruction, left Acute on chronic anemia Toxic metabolic encephalopathy Discharge Diagnoses with Status of Each Condition: Severe sepsisresolved Pyelonephritisactive Ureteral obstruction, leftresolved Acute on chronic anemiachronic Toxic metabolic encephalopathyresolved Stage III sacral ulceracute HPI History of Present Illness: pt with lymphoma and h/o chronic a-fib, presented to hospital d/t reports from [facility] about tachycardia, ams, and confusion. pt denies any complaints from her side. no falls reported. h/o sepsis d/t uti back in march. has ureteral stent in place. pt denies noticing any blood in stool or urine. no falls reported. denies abdominal pain, nausea, vomiting. no dysuria reported. no falls or head injuries reported. CONSULTS | PROCEDURES Consultations: Palliative care, Urology Procedures: Left-sided ureteral stenting HOSPITAL COURSE Hospital Course: Patient was admitted and placed on IV antibiotics and given aggressive fluid resuscitation. She went to the OR on 06/23/2024 for ureteral stenting. Preliminary culture results show E. coli, historically this has always been pansensitive. Of note she was also found to be positive for rhinovirus I discussed possibility of hospice care with her, she refuses to talk to hospice until she can talk to [facility] again. I did reach out to the hospice team, to make them aware of her. She is being sent home on Macrobid and clindamycin to cover her urosepsis as well as potential skin infection of her sacral ulcer. She is being discharged to [facility] for SNF care, and will likely transition to assisted living from there She is iron deficient and anemic, I am starting her on iron supplementation Follow-up with PCP, urology ALLERGIES Allergies Allergy/AdvReac Type Severity Reaction Status Date / Time atenolol Allergy Unknown Unknown Verified 06/22/24 18:01 ciprofloxacin (From Cipro) Allergy Unknown Verified 06/22/24 18:01 Penicillins Allergy Unknown Verified 06/22/24 18:01 shellfish derived Allergy Emesis Verified 06/22/24 18:01 Sulfa (Sulfonamide Allergy Rash Verified 06/22/24 18:01 Antibiotics) ranitidine (From Zantac) AdvReac "wired" Verified 06/22/24 18:01 MEDICATIONS Ambulatory Orders Medication Instructions Recorded Confirmed acetaminophen 500 mg tablet 1,000 mg PO Q8HR PRN pain 03/29/24 06/22/24 (Acetaminophen Extra Strength) Potassium Chloride 10 meq PO DAILY hypokalemia ##0 04/04/24 06/22/24 apixaban 5 mg tablet (Eliquis) 5 mg PO BID chronic atrial fib ##0 04/04/24 06/22/24 famotidine 40 mg tablet 40 mg PO HS GERD ##0 04/04/24 06/22/24 gfxxerseteit-ittfhhkt-womg 1 tab PO DAILYWM severe protein 04/04/24 06/22/24 fumarate 19 mg-folic acid 400 mcg mike malnutriton tablet (Therapeutic-M) saliva stimulant comb. no.3 2 sprays PO Q4H PRN Mouth Sore 04/04/24 06/22/24 (Biotene Moisturizing Mouth Pain #1 ea mucosal spray) artificial tears solution eye drops 1 drp ophthalmic (eye) Q6HR PRN 06/22/24 06/22/24 dry eyes ascorbic acid (vitamin C) 500 mg 500 mg PO BID 06/22/24 06/22/24 tablet (Vitamin C) calcium carbonate (Antacid 600 mg PO TID 06/22/24 06/22/24 (calcium carbonate)) loperamide 2 mg capsule 4 mg PO Q8HR PRN loose stool 06/22/24 06/22/24 (Anti-Diarrheal (loperamide)) mirtazapine 7.5 mg tablet 7.5 mg PO HS 06/22/24 06/22/24 ondansetron HCl 4 mg tablet 4 mg PO Q6H PRN nausea and vomiting 06/22/24 06/22/24 simethicone 125 mg capsule (Gas 125 mg PO Q6HR PRN gas 06/22/24 06/22/24 Relief Extra Strength) zinc sulfate 50 mg zinc (220 mg) 50 mg PO DAILY 06/22/24 06/22/24 capsule (Zinc-220) clindamycin HCl 300 mg capsule 300 mg PO TID 10 days #30 caps 06/24/24 ferrous gluconate 324 mg (37.5 mg 324 mg PO BID 30 days #60 tabs 06/24/24 iron) tablet nitrofurantoin 100 mg PO Q12H 7 days #14 caps 06/24/24 monohydrate/macrocrystals 100 mg capsule PHYSICAL EXAM AT DISCHARGE General Appearance: positive No acute distress and Other (Elderly, malnourished appearing female) Eyes Bilateral: positive Normal inspection and PERRL ENT: positive ENT inspection nml Neck: positive Nml inspection Respiratory: positive Chest non-tender and Rhonchi (Productive cough) Cardiovascular: positive Regular rate & rhythm and No murmur Peripheral Pulses: positive 2+ Abdomen: positive Non-tender Rectal: positive Non-tender Back: positive Nml inspection Skin: positive Pallor Extremities: positive Non-tender Neurologic/Psychiatric: positive Oriented x3 LABS 06/24/24 04:57 06/24/24 04:57 SEPSIS Current Stage of Sepsis: Severe sepsis Sepsis Criteria: Recorded Heart Rate greater than 90 bpm, Respiratory: Increasing oxygen requirements, WBC count greater than 12,000 or less than 4000 and PRODUCT SALES REPRESENTATIVE: altered consciousness (unrelated to primary neuro pathology) FOLLOW UP Follow Up: With PCP and urology TIME SPENT Time Spent in Discharge (Minutes): 40 Discharge Plan Discharge Patient Disposition: 03 [facility] DC/Xfer Condition: Serious Medically Cleared Date:: 06/24/24 Prescriptions: New clindamycin HCl 300 mg capsule 300 mg PO TID 10 Days Qty: 30 0RF nitrofurantoin monohyd/m-cryst 100 mg capsule 100 mg PO Q12H 7 Days Qty: 14 0RF Rx Instructions: must administer with a meal/food ferrous gluconate 324 mg (37.5 mg iron) tablet 324 mg PO BID 30 Days Qty: 60 0RF Continued acetaminophen [Acetaminophen Extra Strength] 500 MG tablet 1,000 mg PO Q8HR PRN (Reason: pain) Biotene Moisturizing Mouth 100 SPRAYS/44.3 ML spray,non-aerosol 2 sprays PO Q4H PRN (Reason: Mouth Sore Pain) Qty: 1 0RF Therapeutic-M 1 TAB tablet 1 tab PO DAILYWM 0RF famotidine 40 MG tablet 40 mg PO HS Qty: 0 0RF Eliquis 5 MG tablet 5 mg PO BID Qty: 0 0RF Rx Instructions: Morning and HS Potassium Chloride 10 MEQ Capsule.Er 10 meq PO DAILY Qty: 0 0RF Patient Comments: take 1 tablet by mouth once daily artificial tears solution Drops 1 drp ophthalmic (eye) Q6HR PRN (Reason: dry eyes) mirtazapine 7.5 mg tablet 7.5 mg PO HS ascorbic acid (vitamin C) [Vitamin C] 500 mg tablet 500 mg PO BID zinc sulfate [Zinc-220] 50 mg zinc (220 mg) capsule 50 mg PO DAILY ondansetron HCl 4 mg tablet 4 mg PO Q6H PRN (Reason: nausea and vomiting) simethicone [Gas Relief Extra Strength] 125 mg capsule 125 mg PO Q6HR PRN (Reason: gas) loperamide [Anti-Diarrheal (loperamide)] 2 mg capsule 4 mg PO Q8HR PRN (Reason: loose stool) calcium carbonate [Antacid (calcium carbonate)] 200 mg calcium (500 mg) tablet,chewable 600 mg PO TID Activity Restrictions: No Restrictions Diet: Soft Health Concerns: You are a 84-year-old female with medical history significant for lymphoma who was sent to us from [facility] for altered mental status, fevers. You were found to be septic from a UTI and also had hydronephrosis due to a occluded ureteral stent. You underwent repeat stenting on 06/23/2024, and cultures have come back positive for E. coli which is sensitive to many antibiotics. Sending you home on clindamycin and Macrobid. These will cover UTI as well as prophylactically cover any infection and the new sacral ulcers that you have. I would like for you to keep pressure off of your sacrum, and keep it clean and dry. Continue zinc cream and Mepilex or equivalent pressure reducing dressing Care Plan Goals: I would like for you to finish your course of antibiotics, and to be as active as possible and keep pressure off of the sores on your backside. Follow-up with PCP within 2 weeks. Assessment: Bedbound, requiring assistance with all ADLs. Being discharged to [facility] in a SNF capacity until she is okay to transfer to assisted living. She will need fdc for wound care. Plan of Treatment: Finish course of antibiotics: Clindamycin and Macrobid Be as active as possible Zinc cream and pressure offloading devices/dressings for sacral wound Print Language: Indonesian Patient Instructions: Stents Ureteral Stand Alone Forms: PCP List Follow-up Care: Jamari Gonzalez MD [Provider Admit Priv/Credential] - (you should followup with Dr Gonzalez in 3 months time)
[2024-06-24] MEDS: IRON DEXTRAN 1,000 MG in SODIUM CHLORIDE 0.9% 250 ML IV ONE (12:45)
[2024-06-24 12:51] VITALS: BP 120/88; TEMP 97.5; O2SAT 95
--- NOTE | 2024-06-24 15:19 | XRAY Report ---
PROCEDURE: [place] OR C-Arm Procedure INDICATIONS: Surgical Procedure FLUORO TIME: 0:02 MIN TECHNIQUE: Fluoroscopic image demonstrating a left ureteral stent. 2 images. COMPARISON: CT abdomen pelvis 06/22/2024. FINDINGS: Left ureteral stent. Projects in expected location. IMPRESSION: Intraoperative guidance provided. Reviewed by: Higinio Piedra MD on 06/24/2024 3:17 PM PST Approved by: Higinio Piedra MD on 06/24/2024 3:17 PM PST Station ID: [id number]
[2024-06-25] MEDS ORDERED: cefTRIAXone 1 GM VIAL IVP SCH (09:00)
== END 2024-06-24 14:30 | DRG 853 ==
LOC: EDUNIT# → ED 17:13 → MS2 23:32
PROVIDERS: ADMIT Student in an Organized Health Care Education/Training Program; ATTEND Student in an Organized Health Care Education/Training Program

== ENCOUNTER 2024-06-25 16:13 | Inpatient (IN) ==
--- NOTE | 2024-06-25 17:22 | XRAY Report ---
PROCEDURE: XR Chest 1V INDICATIONS: dyspnea TECHNIQUE: One view of the chest was acquired. COMPARISON: 06/22/2024, 03/29/2024 FINDINGS: Surgical changes and devices: There is a stable right-sided chest port. Lungs and pleura: There is a moderately sized left-sided pleural fusion, which is clearly worse than on the prior examination. Likely overlying atelectasis can be seen. Overall lung volumes are low. Mediastinum: Mediastinal contours appear normal. Heart size is at the upper limits of normal. Bones and chest wall: No suspicious bony lesions. Age-appropriate degenerative changes are seen. O verlying soft tissues appear unremarkable. IMPRESSION: There is a moderate left-sided pleural effusion, which is increased in size compared to the prior. Postoperative and degenerative changes are seen. Reviewed by: Freedom Panchal MD on 06/25/2024 4:21 PM [facility] Approved by: Freedom Panchal MD on 06/25/2024 4:21 PM [facility] Station ID: [id number]
[2024-06-25 17:23] LABS: BASOPHILS # (AUTO) 0.1 10^3/uL (0.0-0.1); BASOPHILS % (AUTO) 0.3 %; EOSINOPHILS % (AUTO) 0.1 %; HCT - HEMATOCRIT 28.9 % (37.0-47.0); HGB - HEMOGLOBIN 8.6 g/dL (12.0-16.0); LYMPHOCYTES % (AUTO) 0.1 %; MEAN CORPUSCULAR HEMOGLOBIN 24.8 pg (27.0-31.0); MEAN CORPUSCULAR HGB CONC 29.8 g/dL (32.0-36.0); MEAN CORPUSCULAR VOLUME 83.3 fL (81.0-99.0); MEAN PLATELET VOLUME 9.4 fL (7.9-10.8); MONOCYTES # (AUTO) 0.4 10^3/uL (0.0-1.0); MONOCYTES % (AUTO) 1.8 %; NEUTROPHILS # (AUTO) 19.3 10^3/uL (1.5-6.6); NEUTROPHILS % (AUTO) 96.5 %; NRBC ABSOLUTE COUNT (AUTO) 0.03 x10^3/uL; NUCLEATED RED BLOOD CELLS AUTO 0.2 /100WBC; PLT - PLATELET COUNT 448 10^3/uL (130-450); RED BLOOD COUNT 3.47 10^6/uL (4.20-5.40); RED CELL DISTRIBUTION WIDTH 18.7 % (12.0-15.0); WHITE BLOOD COUNT 19.9 x10^3/uL (4.8-10.8)
[2024-06-25] MEDS: IPRATROPIUM/ALBUTEROL 3 ML NEB INH STA (17:25)
[2024-06-25] MEDS: SODIUM CHLORIDE 0.9% 1,000 ML IV STA ×3 (17:30→21:20)
[2024-06-25 17:36] LABS: ALBUMIN/GLOBULIN RATIO 0.8 (1.0-2.2); BILIRUBIN,TOTAL 0.4 mg/dL (0.2-1.0); CALCIUM 7.7 mg/dL (8.5-10.3); CREATININE 0.6 mg/dL (0.6-1.3); POTASSIUM 3.4 mmol/L (3.5-4.5); TOTAL PROTEIN 4.4 g/dL (6.4-8.9)
--- NOTE | 2024-06-25 17:38 | ED Physician Documentation ---
History of Present Illness Stated complaint Stated Complaint: SOA Chief complaint Chief Complaint: Resp History obtained from History obtained from: Patient Additonal information Additional information: Patient is an 84-year-old female who presents to the emergency department with difficulty breathing, hypoxia. History of pleural effusions, lymphoma, is on oxygen normally. Today had increasing difficulty breathing. She is on palliative care, DNR. She is unable to give any further history. Meds/Allgy Home Medications Ambulatory Orders Medication Instructions Recorded Confirmed acetaminophen 500 mg tablet 1,000 mg PO Q8HR PRN pain 03/29/24 06/25/24 (Acetaminophen Extra Strength) Potassium Chloride 10 meq PO DAILY hypokalemia ##0 04/04/24 06/25/24 apixaban 5 mg tablet (Eliquis) 5 mg PO BID chronic atrial fib ##0 04/04/24 06/25/24 famotidine 40 mg tablet 40 mg PO HS GERD ##0 04/04/24 06/25/24 tahyqfvrroqg-sznssuut-uldf 1 tab PO DAILYWM severe protein 04/04/24 06/25/24 fumarate 19 mg-folic acid 400 mcg mike malnutriton tablet (Therapeutic-M) saliva stimulant comb. no.3 2 sprays PO Q4H PRN Mouth Sore 04/04/24 06/25/24 (Biotene Moisturizing Mouth Pain #1 ea mucosal spray) artificial tears solution eye drops 1 drp ophthalmic (eye) Q6HR PRN 06/22/24 06/25/24 dry eyes ascorbic acid (vitamin C) 500 mg 500 mg PO BID 06/22/24 06/25/24 tablet (Vitamin C) calcium carbonate (Antacid 1,500 mg PO TID 06/22/24 06/25/24 (calcium carbonate)) loperamide 2 mg capsule 4 mg PO Q8HR PRN loose stool 06/22/24 06/25/24 (Anti-Diarrheal (loperamide)) mirtazapine 7.5 mg tablet 7.5 mg PO HS 06/22/24 06/25/24 ondansetron HCl 4 mg tablet 4 mg PO Q6H PRN nausea and vomiting 06/22/24 06/25/24 simethicone 125 mg capsule (Gas 125 mg PO Q6HR PRN gas 06/22/24 06/25/24 Relief Extra Strength) zinc sulfate 50 mg zinc (220 mg) 50 mg PO DAILY 06/22/24 06/25/24 capsule (Zinc-220) clindamycin HCl 300 mg capsule 300 mg PO TID 10 days #30 caps 06/24/24 06/25/24 ferrous gluconate 324 mg (37.5 mg 324 mg PO BID 30 days #60 tabs 06/24/24 06/25/24 iron) tablet levothyroxine 25 mcg tablet 25 mcg PO DAILY #30 tabs 06/24/24 06/25/24 (Levoxyl) nitrofurantoin 100 mg PO Q12H 7 days #14 caps 06/24/24 06/25/24 monohydrate/macrocrystals 100 mg capsule Allergies Allergies Allergy/AdvReac Type Severity Reaction Status Date / Time atenolol Allergy Unknown Unknown Verified 06/25/24 17:45 ciprofloxacin (From Cipro) Allergy Unknown Verified 06/25/24 17:45 Penicillins Allergy Unknown Verified 06/25/24 17:45 shellfish derived Allergy Emesis Verified 06/25/24 17:45 Sulfa (Sulfonamide Allergy Rash Verified 06/25/24 17:45 Antibiotics) ranitidine (From Zantac) AdvReac "wired" Verified 06/25/24 17:45 PFS Medical History Medical History (Updated 06/25/24 @ 19:13 by Jeremy Taylor MD) Follicular lymphoma Surgical History Surgical History (Updated 06/23/24 @ 17:04 by Art Woods CRNA) Status post catheter ablation of atrial fibrillation Social History Social History Smoking Status: Never smoker Second hand tobacco smoke exposure: No Do you dip or chew tobacco?: No Do you vape?: No Living arrangement: At home Living Condition: Alone Relationship: Level: Dependent Home Mobility Equipment: Wheeled walker Do you feel safe in your home environment?: Yes Suffered physical, verbal, emotional, or financial abuse?: No History of Abuse: No Substance Use: denies use Are you sexually active?: No POLST Patient has POLST: No POLST Status: DNR Exam Constitutional Tachypneic, ill-appearing HENMT normocephalic and head/scalp atraumatic Eyes PERRL Respiratory Crackles bilaterally, diminished breath sounds bilaterally Cardiovascular Tachycardic, irregular Gastrointestinal abdomen soft to palpation, nontender to palpation and nondistended Psychiatry decreased LOC Skin skin color normal Results Vitals Vitals: Vital Signs - 24 hr 06/25/24 16:43 06/25/24 17:27 06/25/24 17:28 Temperature 36.5 C 36.4 C L Temperature Source Temporal Artery Scan Temporal Artery Scan Pulse Rate 149 H 144 H 130 H Respiratory Rate 22 30 H 26 H Blood Pressure 77/40 L 101/63 O2 Saturation 87 L 100 Oxygen Delivery Method O2 Source Nasal cannula Nasal cannula If not protocol: Oxygen Flow, liters/minute 2 4 Pain Intensity 0 0 06/25/24 17:58 06/25/24 17:59 Temperature Temperature Source Pulse Rate 131 H Respiratory Rate 30 H Blood Pressure 104/65 O2 Saturation 94 Oxygen Delivery Method Nasal Cannula O2 Source Nasal cannula If not protocol: Oxygen Flow, liters/minute 4 4 Pain Intensity 0 Oxygen O2 Source [Without Activity] Room air O2 Source Nasal cannula Labs Labs: Laboratory Tests 06/25/24 17:18 WBC 19.9 H RBC 3.47 L Hgb 8.6 L Hct 28.9 L MCV 83.3 MCH 24.8 L MCHC 29.8 L RDW 18.7 H Plt Count 448 MPV 9.4 Neut # (Auto) 19.3 H Lymph # (Auto) 0.0 L Long # (Auto) 0.4 Eos # (Auto) 0.0 Baso # (Auto) 0.1 Absolute Nucleated RBC 0.03 Nucleated RBC % 0.2 Sodium 142 Potassium 3.4 L Chloride 105 Carbon Dioxide 30 Anion Gap 7.0 BUN 10 Creatinine 0.6 Estimated GFR (MDRD) 96 Glucose 99 Calcium 7.7 L Total Bilirubin 0.4 AST 15 ALT 15 Alkaline Phosphatase 122 H Total Protein 4.4 L Albumin 2.0 L Globulin 2.4 Albumin/Globulin Ratio 0.8 L Rads (name of study) cxr: Relevant Findings:: Final report received PD Medical Decision Making ED course Complexity details: reviewed results, considered differential and d/w patient ED course: 84-year-old female with worsening hypoxia. Elevated white blood cell count compared to her recent discharge. Restarted on antibiotics, Rocephin and azithromycin. Also has an increase size of her left-sided pleural effusion, may need a thoracentesis with radiology. Does not need emergent thoracentesis at this time. Patient will need admission to the hospital, pending shift change. Signed out to the oncoming emergency department physician who will contact the nighttime hospitalist. Patient is DNR, but is comfortable with fluids and antibiotics. This document was made in part using voice recognition software. While efforts are made to proofread this document, sound alike and grammatical errors may occur. Discharge Plan Discharge Patient Disposition: 66 [facility] DC/Xfer Condition: Serious Clinical Impression: Hypoxia, Pleural effusion on left, Paroxysmal atrial fibrillation Prescriptions: No Action acetaminophen [Acetaminophen Extra Strength] 500 MG tablet 1,000 mg PO Q8HR PRN (Reason: pain) Biotene Moisturizing Mouth 100 SPRAYS/44.3 ML spray,non-aerosol 2 sprays PO Q4H PRN (Reason: Mouth Sore Pain) Qty: 1 0RF Therapeutic-M 1 TAB tablet 1 tab PO DAILYWM 0RF famotidine 40 MG tablet 40 mg PO HS Qty: 0 0RF Eliquis 5 MG tablet 5 mg PO BID Qty: 0 0RF Rx Instructions: Morning and HS Potassium Chloride 10 MEQ Capsule.Er 10 meq PO DAILY Qty: 0 0RF Patient Comments: take 1 tablet by mouth once daily artificial tears solution Drops 1 drp ophthalmic (eye) Q6HR PRN (Reason: dry eyes) mirtazapine 7.5 mg tablet 7.5 mg PO HS ascorbic acid (vitamin C) [Vitamin C] 500 mg tablet 500 mg PO BID zinc sulfate [Zinc-220] 50 mg zinc (220 mg) capsule 50 mg PO DAILY ondansetron HCl 4 mg tablet 4 mg PO Q6H PRN (Reason: nausea and vomiting) simethicone [Gas Relief Extra Strength] 125 mg capsule 125 mg PO Q6HR PRN (Reason: gas) loperamide [Anti-Diarrheal (loperamide)] 2 mg capsule 4 mg PO Q8HR PRN (Reason: loose stool) calcium carbonate [Antacid (calcium carbonate)] 200 mg calcium (500 mg) tablet,chewable 1,500 mg PO TID clindamycin HCl 300 mg capsule 300 mg PO TID 10 Days Qty: 30 0RF nitrofurantoin monohyd/m-cryst 100 mg capsule 100 mg PO Q12H 7 Days Qty: 14 0RF Rx Instructions: must administer with a meal/food ferrous gluconate 324 mg (37.5 mg iron) tablet 324 mg PO BID 30 Days Qty: 60 0RF levothyroxine [Levoxyl] 25 mcg tablet 25 mcg PO DAILY Qty: 30 2RF Print Language: Ken[place] Stand Alone Forms: PCP List
[2024-06-25] MEDS: cefTRIAXone 1 GM VIAL IVP STA (18:52)
[2024-06-25] MEDS: AZITHROMYCIN INJ 500 MG in SODIUM CHLORIDE 0.9% 250 ML IV STA (18:53)
--- NOTE | 2024-06-25 21:16 | ED Physician Documentation ---
ED Addendum Addendum Addendum: Patient received a signout from outgoing physician, please see their documentation for further detail. In short patient 84-year-old female with known history of lymphoma, atrial fibrillation presenting to the emergency department with worsening shortness of breath. This is in the setting of recent hospitalization where she required excessive fluid resuscitation. I evaluated this patient independently at bedside and she was resting comfortably. Initially had a normal blood pressure as well as low-level tachycardia. She does appear to have a significant leukocytosis. In addition to the previous labs ordered for blood culture, lactic. Antibiotics had already been started. Her care is discussed with the telehospitalist service who graciously agrees to hospitalize for further evaluation and treatment. Discharge Plan Discharge Patient Disposition: 66 [facility] DC/Xfer Condition: Serious Clinical Impression: Hypoxia, Pleural effusion on left, Paroxysmal atrial fibrillation
[2024-06-25] MEDS ORDERED: ACETAMINOPHEN 500 MG TABLET PO PRN (22:01)
[2024-06-25] MEDS ORDERED: LOPERAMIDE 2 MG CAPSULE PO PRN (22:01)
[2024-06-25] MEDS ORDERED: SODIUM CHLORIDE FLUSH 0.9% 10 ML SYRINGE IVP PRN (22:05)
[2024-06-25] MEDS ORDERED: IBUPROFEN 600 MG TABLET PO PRN (22:05)
[2024-06-25] MEDS ORDERED: oxyCODONE 5 MG TABLET PO PRN (22:05)
[2024-06-25] MEDS ORDERED: TEMAZEPAM 15 MG CAPSULE PO PRN (22:05)
[2024-06-25 22:29] LABS: INR 1.8 (0.8-1.2); PT - PROTHROMBIN TIME 18.5 secs (9.9-12.6)
--- NOTE | 2024-06-25 22:29 | HISTORY & PHYSICAL EXAMINATION ---
Chief Complaint Chief Complaint Chief Complaint: SOB History of Present Illness Admitted From Admitted From:: [facility] home History Obtained From Records Reviewed: yes History obtained from: Patient and EMR as ER team Exam Limitations: Telemedicine History of Present Illness HPI Comment/Other: 84 yr woman recently dc from hospital less than 8-9 days ago comes in worsening son, lex has hx of paroxysmal a fib, htn, hpothyroidism, lymphoma, found to be SOB, tachypneic, please see detail info from last admit Patient jerald last admit also had pleural effusion but seems to have gotten worse and has symptoms. I have held her Eliquis i and she will need thoracentesis, she is DNR but ok with getting meds and iv fluids just no ventilator and CPR. Please review last admit for more details. Review of Systems 14 system review done and as per HPI [facility] Medical History Medical History Follicular lymphoma Surgical History Surgical History Status post catheter ablation of atrial fibrillation Social History Social History Smoking Status: Never smoker Second hand tobacco smoke exposure: No Do you dip or chew tobacco?: No Do you vape?: No Living arrangement: At home Living Condition: Alone Relationship: Level: Dependent Home Mobility Equipment: Wheeled walker Do you feel safe in your home environment?: Yes Suffered physical, verbal, emotional, or financial abuse?: No History of Abuse: No Substance Use: denies use Are you sexually active?: No POLST Patient has POLST: Yes POLST Status: DNR Meds/Allgy Home Medications Ambulatory Orders Medication Instructions Recorded Confirmed acetaminophen 500 mg tablet 1,000 mg PO Q8HR PRN pain 03/29/24 06/25/24 (Acetaminophen Extra Strength) apixaban 5 mg tablet (Eliquis) 5 mg PO BID chronic atrial fib ##0 04/04/24 06/25/24 famotidine 40 mg tablet 40 mg PO HS GERD ##0 04/04/24 06/25/24 gwyoqglycvhi-quetxrgi-tons 1 tab PO DAILYWM severe protein 04/04/24 06/25/24 fumarate 19 mg-folic acid 400 mcg mike malnutriton tablet (Therapeutic-M) saliva stimulant comb. no.3 2 sprays PO Q4H PRN Mouth Sore 04/04/24 06/25/24 (Biotene Moisturizing Mouth Pain #1 ea mucosal spray) artificial tears solution eye drops 1 drp ophthalmic (eye) Q6HR PRN 06/22/24 06/25/24 dry eyes ascorbic acid (vitamin C) 500 mg 500 mg PO BID 06/22/24 06/25/24 tablet (Vitamin C) calcium carbonate (Antacid 1,500 mg PO TID 06/22/24 06/25/24 (calcium carbonate)) loperamide 2 mg capsule 4 mg PO Q8HR PRN loose stool 06/22/24 06/25/24 (Anti-Diarrheal (loperamide)) mirtazapine 7.5 mg tablet 7.5 mg PO HS 06/22/24 06/25/24 ondansetron HCl 4 mg tablet 4 mg PO Q6H PRN nausea and vomiting 06/22/24 06/25/24 simethicone 125 mg capsule (Gas 125 mg PO Q6HR PRN gas 06/22/24 06/25/24 Relief Extra Strength) zinc sulfate 50 mg zinc (220 mg) 50 mg PO DAILY 06/22/24 06/25/24 capsule (Zinc-220) clindamycin HCl 300 mg capsule 300 mg PO TID 10 days #30 caps 06/24/24 06/25/24 ferrous gluconate 324 mg (37.5 mg 324 mg PO BID 30 days #60 tabs 06/24/24 06/25/24 iron) tablet levothyroxine 25 mcg tablet 25 mcg PO DAILY #30 tabs 06/24/24 06/25/24 (Levoxyl) nitrofurantoin 100 mg PO Q12H 7 days #14 caps 06/24/24 06/25/24 monohydrate/macrocrystals 100 mg capsule potassium chloride 10 mEq 10 meq PO DAILY 06/25/24 06/25/24 tablet,extended release(part/cryst) saliva substitute combo no.9 10 ml mucous membrane 5XD 06/25/24 06/25/24 (Biotene Dry Mouth Oral Rinse mouthwash) Allergies Allergies Allergy/AdvReac Type Severity Reaction Status Date / Time atenolol Allergy Unknown Unknown Verified 06/25/24 17:45 ciprofloxacin (From Cipro) Allergy Unknown Verified 06/25/24 17:45 Penicillins Allergy Unknown Verified 06/25/24 17:45 shellfish derived Allergy Emesis Verified 06/25/24 17:45 Sulfa (Sulfonamide Allergy Rash Verified 06/25/24 17:45 Antibiotics) ranitidine (From Zantac) AdvReac "wired" Verified 06/25/24 17:45 Prior Level of Functionality: Was in assisted living Exam Constitutional normal general appearance Slow in communication HENMT normocephalic and hearing grossly normal bilaterally Eyes PERRL and EOMs intact bilaterally Neck/C-Spine visual inspection normal Chest inspection of chest normal Respiratory normal respiratory effort and no use of accessory muscles Cardiovascular normal heart rate noted Gastrointestinal abdomen normal to inspection Genitourinary no CVA tenderness Back/Pelvis spine normal to inspection and lumbar spine ROM normal Extremities normal to inspection Neurology ore crusher II-XII intact, no movement abnormality noted and no focal motor deficit noted Psychiatry mental status grossly normal Skin skin color normal Sepsis Event Note (H) Evaluation Current Stage of Sepsis: Sepsis Sepsis Criteria Sepsis Criteria: Respiratory: Increasing oxygen requirements, WBC count greater than 10% bands, WBC count greater than 12,000 or less than 4000, MAP less than 65 mmHg and SBP less than 90 mmHg Conclusion/Plan Problem List (1) Pleural effusion on left: (2) Hypoxia: (3) Severe sepsis: (4) Lymphoma: (5) Bilateral pleural effusion: Plan 84 yr medically complex patient being admitted for 1. Sepsis 2. Left pleural effusion 3.Acute repsiratory failure 4. Follicular lymphoma 5 Paroxysaml A fib on AC s/p ablation in past 6.Severe protien calorie malnutrition 7. Bed bound 8. Ureteral stent 9.DNR 10.Generalized weakness and fatigue 11. In case on emergency ok to reach her cousin 12. Hypothyroidism Recommendations Admit to ICU Low dose Levophed Broad spectrum abx IR for thoracentesis in am No vent or CPR Resume home meds Eliquis is on hold due to possible thoracentesis Low calcium likely from low albumin Continue thyroid meds Continue ant acid Replace KCl Total time doing admission 75 mins Lab Results 06/25/24 17:18 06/25/24 17:18 Diagnostic Imaging Results Diagnostic Imaging Results: positive Final report reviewed
[2024-06-25 22:44] LABS: ALBUMIN 1.5 g/dL (3.2-5.5); BILIRUBIN,TOTAL 0.3 mg/dL (0.2-1.0); CALCIUM 6.2 mg/dL (8.5-10.3)
[2024-06-25 22:47] LABS: ALBUMIN/GLOBULIN RATIO 0.9 (1.0-2.2); CREATININE 0.5 mg/dL (0.6-1.3); TOTAL PROTEIN 3.2 g/dL (6.4-8.9)
[2024-06-25] MEDS ORDERED: SUCCINYLCHOLINE 200 MG/10 ML VIAL ONE (22:55)
[2024-06-25] MEDS ORDERED: ETOMIDATE 40 MG/20 ML VIAL IVP ONE (22:55)
[2024-06-25] MEDS ORDERED: PROPOFOL 1000 MG/100 ML 0 MG/0 ML BOTTLE IV ONE (22:55)
[2024-06-26] MEDS: VANCOMYCIN INJ 1 GM in SODIUM CHLORIDE 0.9% 500 ML IV STA (02:14)
[2024-06-26] MEDS: FERROUS GLUCONATE PO SCH (02:15)
[2024-06-26] MEDS: NOREPINEPHRINE/0.9 % NS 8 MG/250 ML BAG IV SCH (02:15)
[2024-06-26] MEDS: FAMOTIDINE 20 MG TABLET PO SCH (02:15)
[2024-06-26] MEDS: SODIUM CHLORIDE FLUSH 0.9% 10 ML SYRINGE IVP SCH (04:02)
[2024-06-26 04:33] LABS: BASOPHILS # (AUTO) 0.1 10^3/uL (0.0-0.1); BASOPHILS % (AUTO) 0.3 %; EOSINOPHILS # (AUTO) 0.1 10^3/uL (0.0-0.7); EOSINOPHILS % (AUTO) 0.6 %; HCT - HEMATOCRIT 23.4 % (37.0-47.0); LYMPHOCYTES # (AUTO) 0.1 10^3/uL (1.5-3.5); LYMPHOCYTES % (AUTO) 0.5 %; MEAN CORPUSCULAR HEMOGLOBIN 25.1 pg (27.0-31.0); MEAN CORPUSCULAR HGB CONC 29.9 g/dL (32.0-36.0); MEAN CORPUSCULAR VOLUME 83.9 fL (81.0-99.0); MEAN PLATELET VOLUME 9.5 fL (7.9-10.8); MONOCYTES # (AUTO) 0.4 10^3/uL (0.0-1.0); NEUTROPHILS # (AUTO) 18.7 10^3/uL (1.5-6.6); NEUTROPHILS % (AUTO) 95.3 %; PLT - PLATELET COUNT 343 10^3/uL (130-450); RED BLOOD COUNT 2.79 10^6/uL (4.20-5.40); RED CELL DISTRIBUTION WIDTH 18.8 % (12.0-15.0); WHITE BLOOD COUNT 19.6 x10^3/uL (4.8-10.8)
[2024-06-26 04:48] LABS: CALCIUM, IONIZED 1.01 mmol/L (1.15-1.33); VBG PH 7.426 (7.31-7.41)
[2024-06-26] MEDS: CALCIUM GLUC 1,000MG/50ML-NACL 1,000 MG/50 ML BAG IV ONE (05:20)
[2024-06-26] MEDS: MAGNESIUM SULFATE 2 GRAM 2 GM/50 ML BAG IV SCH (05:23)
--- NOTE | 2024-06-26 05:58 | PROVIDER PROGRESS NOTE ---
Seaman Officer Note Seaman Officer Note Seaman Officer Note: pt with hgb 7, with ac held plan for thoracentesis start 1 unit prbc transfusion now
[2024-06-26] MEDS: CALCIUM CARBONATE CHEW 500 MG TABLET PO SCH (07:05)
[2024-06-26] MEDS ORDERED: CARBOXYMETHYLCELLULOSE OPHTH DROPS EACHEYE PRN (07:13)
[2024-06-26] MEDS ORDERED: FERROUS GLUCONATE 324 MG TABLET PO SCH (08:00)
[2024-06-26] MEDS: FERRIC GLUCONATE 125 MG in SODIUM CHLORIDE 0.9% 100ML 100 ML IV ONE (08:09)
--- NOTE | 2024-06-26 08:46 | PHARMACY PROGRESS NOTE ---
Best Possible Medication History Admit Date and Time: 06/26/24 599033 Home Medications Medication Instructions Recorded Confirmed Type acetaminophen 500 mg tablet 1,000 mg PO Q8HR PRN pain 03/29/24 06/25/24 History (Acetaminophen Extra Strength) apixaban 5 mg tablet (Eliquis) 5 mg PO BID chronic atrial fib ##0 04/04/24 06/25/24 Rx famotidine 40 mg tablet 40 mg PO HS GERD ##0 04/04/24 06/25/24 Rx goxdxavkkxga-vrlqsjmo-jejq 1 tab PO DAILYWM severe protein 04/04/24 06/25/24 Rx fumarate 19 mg-folic acid 400 mcg mike malnutriton tablet (Therapeutic-M) saliva stimulant comb. no.3 2 sprays PO Q4H PRN Mouth Sore 04/04/24 06/25/24 Rx (Biotene Moisturizing Mouth Pain #1 ea mucosal spray) artificial tears solution eye drops 1 drp ophthalmic (eye) Q6HR PRN 06/22/24 06/25/24 History dry eyes ascorbic acid (vitamin C) 500 mg 500 mg PO BID 06/22/24 06/25/24 History tablet (Vitamin C) calcium carbonate (Antacid 1,500 mg PO TID 06/22/24 06/25/24 History (calcium carbonate)) loperamide 2 mg capsule 4 mg PO Q8HR PRN loose stool 06/22/24 06/25/24 History (Anti-Diarrheal (loperamide)) mirtazapine 7.5 mg tablet 7.5 mg PO HS 06/22/24 06/25/24 History ondansetron HCl 4 mg tablet 4 mg PO Q6H PRN nausea and vomiting 06/22/24 06/25/24 History simethicone 125 mg capsule (Gas 125 mg PO Q6HR PRN gas 06/22/24 06/25/24 History Relief Extra Strength) zinc sulfate 50 mg zinc (220 mg) 50 mg PO DAILY 06/22/24 06/25/24 History capsule (Zinc-220) clindamycin HCl 300 mg capsule 300 mg PO TID 10 days #30 caps 06/24/24 06/25/24 Rx ferrous gluconate 324 mg (37.5 mg 324 mg PO BID 30 days #60 tabs 12/20/24 12/21/24 Rx iron) tablet levothyroxine 25 mcg tablet 25 mcg PO DAILY #30 tabs 06/24/24 06/25/24 Rx (Levoxyl) nitrofurantoin 100 mg PO Q12H 7 days #14 caps 06/24/24 06/25/24 Rx monohydrate/macrocrystals 100 mg capsule potassium chloride 10 mEq 10 meq PO DAILY 06/25/24 06/25/24 History tablet,extended release(part/cryst) saliva substitute combo no.9 10 ml mucous membrane 5XD 06/25/24 06/25/24 History (Biotene Dry Mouth Oral Rinse mouthwash) Processed by: Nursing Medications reviewed in ED?: Yes Medication History completed: Yes Patient Interview: Pt unable to participate Secondary Source(s): Pharmacy records, Insurance records, Previous admit records and Facility MAR as ONLY source [facility] Statement: As the person ultimately responsible for medication therapy, providers are able to order a medication from an existing home medication list in [facility] via the "Reconcile Routine" prior to Confirmation of that medication by product support representative. Such practice is discouraged except when the physician, in their clinical judgment, deems that a medical need exists for a medication without regard to previous use.
[2024-06-26] MEDS ORDERED: ZINC SULFATE 220 MG CAPSULE PO SCH ×2 (09:00)
[2024-06-26] MEDS: MULTIVITAMIN W/MINERALS TABLET PO SCH (09:05)
[2024-06-26] MEDS: ZINC SULFATE 220 MG CAPSULE PO SCH (09:05)
[2024-06-26] MEDS: ASCORBIC ACID 500 MG TABLET PO SCH (09:06)
[2024-06-26] MEDS: CEFEPIME 2 GM in SODIUM CHLORIDE 0.9% MINIBAG 100 ML IV SCH (09:06)
[2024-06-26] MEDS: LEVOTHYROXINE 25 MCG TABLET PO SCH (09:06)
--- NOTE | 2024-06-26 09:11 | PROVIDER PROGRESS NOTE ---
Subjective Prog Note Date Prog Note Date: 06/26/24 Subjective Pt reports feeling: No change Current Medications Current Medications Current Medications: Current Medications Generic Name Dose Route Start Last Admin Trade Name Anurag PRN Reason Stop Dose Admin Acetaminophen 1,000 mg 06/25/24 22:01 Acetaminophen 500 Mg Tablet PO Q8HR PRN pain Ascorbic Acid 500 mg 06/26/24 09:00 06/26/24 09:06 Ascorbic Acid 500 Mg Tablet PO 500 mg BID DAVE Administration Calcium Carbonate/Glycine 1,500 mg 06/26/24 06:00 06/26/24 07:05 Calcium Carbonate Chew 500 Mg Tablet PO Not Given TID DAVE Carboxymethylcellulose 1 drops 06/26/24 07:13 Carboxymethylcellulose Ophth Drops EACHEYE Q6HR PRN Dry Eye Famotidine 40 mg 06/25/24 23:00 06/26/24 02:15 Famotidine 20 Mg Tablet PO Not Given HS DAVE Ferrous Sulfate 300 mg 06/26/24 17:00 Ferrous Sulfate 300 Mg/5 Ml Udc PO BIDWM DAVE Norepinephrine/Sodium Chloride 8 mg in 250 mls @ 9.375 mls/hr 06/25/24 23:00 06/26/24 02:15 Levophed 8 Mg/250-0.9% Nacl IV Not Given .[id number] DAVE Protocol 5 MCG/MIN Cefepime HCl 2 gm/ Sodium 100 mls @ 200 mls/hr 06/26/24 09:00 06/26/24 09:06 Chloride IV 200 mls/hr BID DAVE Administration Ibuprofen 600 mg 06/25/24 22:05 Ibuprofen 600 Mg Tablet PO Q6HR PRN Pain 1 to 4 Levothyroxine Sodium 25 mcg 06/26/24 09:00 06/26/24 09:06 Levothyroxine 25 Mcg Tablet PO 25 mcg DAILY DAVE Administration Loperamide HCl 4 mg 06/25/24 22:01 Loperamide 2 Mg Capsule PO Q8HR PRN loose stool Mirtazapine 7.5 mg 06/26/24 21:00 Mirtazapine 15 Mg Tablet PO HS DAVE Multivitamins/Minerals 1 tab 06/26/24 08:00 06/26/24 09:05 Multivitamin W/Minerals Tablet PO 1 tab DAILYWM DAVE Administration Oxycodone HCl 10 mg 06/25/24 22:05 Oxycodone 5 Mg Tablet PO Q4HR PRN Pain 8 to 10 Sodium Chloride 10 ml 06/26/24 01:00 06/26/24 09:06 Sodium Chloride Flush 0.9% 10 Ml Syringe IVP 10 ml 0100,0900,1700 DAVE Administration Sodium Chloride 10 ml 06/25/24 22:05 Sodium Chloride Flush 0.9% 10 Ml Syringe IVP PRN PRN NEEDED PER PROVIDER ORDERS Temazepam 15 mg 06/25/24 22:05 Temazepam 15 Mg Capsule PO QPM PRN Insomnia Zinc Sulfate 220 mg 06/26/24 09:00 06/26/24 09:05 Zinc Sulfate 220 Mg Capsule PO 220 mg DAILY DAVE Administration Objective Vital Signs/Intake & Output Reviewed Vital Signs: Yes Vital Signs: Vital Signs x48h Temp Pulse Pulse Resp BP BP Pulse Ox 06/26/24 09:00 86 20 138/62 H 95 06/26/24 08:00 36.5 C 108 H 24 153/99 H 96 06/26/24 07:00 101 H 21 110/65 99 06/26/24 06:00 89 21 95/61 96 06/26/24 05:00 36.7 C 71 16 114/60 95 06/26/24 04:00 88 17 125/66 95 06/26/24 03:00 93 17 124/66 99 06/26/24 02:10 36.6 C 99 21 118/79 95 06/26/24 01:30 105 H 20 110/65 99 O2 Flow Rate 06/26/24 09:00 2 06/26/24 08:00 2 06/26/24 07:00 4 06/26/24 06:00 4 06/26/24 05:00 4 06/26/24 04:00 4 06/26/24 03:00 4 06/26/24 02:10 4 06/26/24 01:30 4 Intake & Output: Intake & Output 06/23/24 06/24/24 06/25/24 06/26/24 23:59 23:59 23:59 23:59 Intake Total 3250 / 3250 990 / 990 Output Total 0 / 0 Balance 3250 / 3250 990 / 990 Weight (kg) 83.779 kg 80 kg Objective General Appearance: positive Other (Elderly, malnourished appearing female) Eyes Bilateral: positive Normal inspection ENT: positive ENT inspection nml Neck: positive Nml inspection Respiratory: positive Chest non-tender and Rhonchi (Diminished on left) Cardiovascular: positive Regular rate & rhythm Abdomen: positive Non-tender Skin: positive Pallor Extremities: positive Non-tender Neurologic/Psychiatric: positive Other (Not answering questions, only saying no and stop) Lab Results 06/27/24 05:30 06/27/24 05:30 Other Labs: Lab Results x24hrs 06/26/24 06/26/24 06/25/24 Range/Units 04:15 02:15 22:24 WBC 19.6 H (4.8-10.8) x10^3/uL RBC 2.79 L (4.20-5.40) 10^6/uL Hgb 7.0 L* (12.0-16.0) g/dL Hct 23.4 L (37.0-47.0) % MCV 83.9 (81.0-99.0) fL MCH 25.1 L (27.0-31.0) pg MCHC 29.9 L (32.0-36.0) g/dL RDW 18.8 H (12.0-15.0) % Plt Count 343 (130-450) 10^3/uL MPV 9.5 (7.9-10.8) fL Neut # (Auto) 18.7 H (1.5-6.6) 10^3/uL Lymph # (Auto) 0.1 L (1.5-3.5) 10^3/uL [place] # (Auto) 0.4 (0.0-1.0) 10^3/uL Eos # (Auto) 0.1 (0.0-0.7) 10^3/uL Baso # (Auto) 0.1 (0.0-0.1) 10^3/uL Absolute Nucleated RBC 0.00 x10^3/uL Nucleated RBC % 0.0 /100WBC PT (9.9-12.6) secs INR (0.8-1.2) VBG pH 7.426 H (7.31-7.41) Ionized Calcium 1.01 L (1.15-1.33) mmol/L Sodium 143 (135-145) mmol/L Potassium 3.0 L (3.5-4.5) mmol/L Chloride 113 H (101-111) mmol/L Carbon Dioxide 25 (21-32) mmol/L Anion Gap 5.0 L (6-13) BUN 9 (6-20) mg/dL Creatinine 0.5 L (0.6-1.3) mg/dL Estimated GFR (MDRD) 118 (>89) Glucose 96 (74-104) mg/dL Lactic Acid (0.5-2.2) mmol/L Calcium 6.2 L* (8.5-10.3) mg/dL Phosphorus 2.7 (2.5-5.0) mg/dL Magnesium 1.4 L (1.7-2.3) mg/dL Total Bilirubin 0.3 (0.2-1.0) mg/dL AST 17 (10-42) IU/L ALT 12 (10-60) IU/L Alkaline Phosphatase 78 (42-121) IU/L Total Protein 3.2 L (6.4-8.9) g/dL Albumin 1.5 L (3.2-5.5) g/dL Globulin 1.7 L (2.1-4.2) g/dL Albumin/Globulin Ratio 0.9 L (1.0-2.2) Nasal Screen MRSA (PCR) NEGATIVE (NEGATIVE) Blood Type O POSITIVE Antibody Screen NEGATIVE Crossmatch IS Only See Detail 06/25/24 06/25/24 Range/Units 21:16 17:18 WBC 19.9 H (4.8-10.8) x10^3/uL RBC 3.47 L (4.20-5.40) 10^6/uL Hgb 8.6 L (12.0-16.0) g/dL Hct 28.9 L (37.0-47.0) % MCV 83.3 (81.0-99.0) fL MCH 24.8 L (27.0-31.0) pg MCHC 29.8 L (32.0-36.0) g/dL RDW 18.7 H (12.0-15.0) % Plt Count 448 (130-450) 10^3/uL MPV 9.4 (7.9-10.8) fL Neut # (Auto) 19.3 H (1.5-6.6) 10^3/uL Lymph # (Auto) 0.0 L (1.5-3.5) 10^3/uL [place] # (Auto) 0.4 (0.0-1.0) 10^3/uL Eos # (Auto) 0.0 (0.0-0.7) 10^3/uL Baso # (Auto) 0.1 (0.0-0.1) 10^3/uL Absolute Nucleated RBC 0.03 x10^3/uL Nucleated RBC % 0.2 /100WBC PT 18.5 H (9.9-12.6) secs INR 1.8 H (0.8-1.2) VBG pH (7.31-7.41) Ionized Calcium (1.15-1.33) mmol/L Sodium 142 (135-145) mmol/L Potassium 3.4 L (3.5-4.5) mmol/L Chloride 105 (101-111) mmol/L Carbon Dioxide 30 (21-32) mmol/L Anion Gap 7.0 (6-13) BUN 10 (6-20) mg/dL Creatinine 0.6 (0.6-1.3) mg/dL Estimated GFR (MDRD) 96 (>89) Glucose 99 (74-104) mg/dL Lactic Acid 1.6 (0.5-2.2) mmol/L Calcium 7.7 L (8.5-10.3) mg/dL Phosphorus (2.5-5.0) mg/dL Magnesium (1.7-2.3) mg/dL Total Bilirubin 0.4 (0.2-1.0) mg/dL AST 15 (10-42) IU/L ALT 15 (10-60) IU/L Alkaline Phosphatase 122 H (42-121) IU/L Total Protein 4.4 L (6.4-8.9) g/dL Albumin 2.0 L (3.2-5.5) g/dL Globulin 2.4 (2.1-4.2) g/dL Albumin/Globulin Ratio 0.8 L (1.0-2.2) Nasal Screen MRSA (PCR) (NEGATIVE) Blood Type Antibody Screen Crossmatch IS Only Sepsis Event Note (H) Evaluation Current Stage of Sepsis: Sepsis Sepsis Criteria Sepsis Criteria: Respiratory: Increasing oxygen requirements, WBC count greater than 10% bands, WBC count greater than 12,000 or less than 4000, MAP less than 65 mmHg and SBP less than 90 mmHg Assessment/Plan Problem List (1) Acute hypoxic respiratory failure: Impression: Manage pleural effusion as below (2) Severe sepsis: Impression: She has confirmed E. coli UTI She has been on antibiotics that cover E. coli, and is still in this condition Placing patient on cefepime until more blood cultures can result Levophed has been ordered, but she is not needed it this morning Cautiously replace IVF (3) Pleural effusion on left: Impression: Thoracentesis has been ordered She is on Eliquis outpatient Coags Oxygen stable right now on 2 L (4) Lymphoma: Impression: Does not want treatment for lymphoma Follows with palliative care Will place hospice referral (5) Atrial fibrillation: Impression: Telemetry Pulse 86 Holding Eliquis for procedure Holding rate control meds for now given low blood pressures (6) UTI (urinary tract infection): Impression: Blood cultures in progress Most recent positive culture was E. coli in the urine Cefepime Qualifiers: Urinary tract infection type: acute pyelonephritis Qualified Code(s): N 10 - Acute pyelonephritis (7) Electrolyte abnormality: Impression: K3, Ca 6.2 today On ICU electrolyte repletion protocol (8) Anemia: Impression: In setting of lymphoma Low iron levels on previous admission Ferrlecit IV P.o. iron supplementation 1 unit PRBC
[2024-06-26 10:24] LABS: CALCIUM, IONIZED 1.11 mmol/L (1.15-1.33); VBG PH 7.471 (7.31-7.41)
[2024-06-26 10:39] LABS: MAGNESIUM 2.1 mg/dL (1.7-2.3); PHOSPHORUS 2.8 mg/dL (2.5-5.0)
[2024-06-26] MEDS: POTASSIUM CHLOR 20 MEQ/100 ML 20 MEQ/100 ML BAG IV SCH (11:30)
[2024-06-26] MEDS: FERROUS SULFATE 300 MG/5 ML UDC PO SCH (16:52)
[2024-06-26] MEDS: MIRTAZAPINE 15 MG TABLET PO SCH (21:39)
[2024-06-27 05:39] LABS: BASOPHILS % (AUTO) 0.1 %; EOSINOPHILS # (AUTO) 0.1 10^3/uL (0.0-0.7); EOSINOPHILS % (AUTO) 0.4 %; HCT - HEMATOCRIT 29.9 % (37.0-47.0); HGB - HEMOGLOBIN 9.3 g/dL (12.0-16.0); LYMPHOCYTES # (AUTO) 0.2 10^3/uL (1.5-3.5); LYMPHOCYTES % (AUTO) 1.1 %; MEAN CORPUSCULAR HEMOGLOBIN 26.3 pg (27.0-31.0); MEAN CORPUSCULAR HGB CONC 31.1 g/dL (32.0-36.0); MEAN CORPUSCULAR VOLUME 84.7 fL (81.0-99.0); MEAN PLATELET VOLUME 9.7 fL (7.9-10.8); MONOCYTES # (AUTO) 0.8 10^3/uL (0.0-1.0); MONOCYTES % (AUTO) 4.4 %; NEUTROPHILS # (AUTO) 16.2 10^3/uL (1.5-6.6); NEUTROPHILS % (AUTO) 92.8 %; PLT - PLATELET COUNT 357 10^3/uL (130-450); RED BLOOD COUNT 3.53 10^6/uL (4.20-5.40); RED CELL DISTRIBUTION WIDTH 17.6 % (12.0-15.0); WHITE BLOOD COUNT 17.5 x10^3/uL (4.8-10.8)
[2024-06-27 05:56] LABS: CALCIUM 7.4 mg/dL (8.5-10.3); CREATININE 0.6 mg/dL (0.6-1.3); POTASSIUM 3.3 mmol/L (3.5-4.5)
--- NOTE | 2024-06-27 08:06 | PROVIDER PROGRESS NOTE ---
Subjective Prog Note Date Prog Note Date: 06/27/24 Subjective Pt reports feeling: Improved Subjective: Mentation much improved Current Medications Current Medications Current Medications: Current Medications Generic Name Dose Route Start Last Admin Trade Name Anurag PRN Reason Stop Dose Admin Acetaminophen 1,000 mg 06/25/24 22:01 Acetaminophen 500 Mg Tablet PO Q8HR PRN pain Ascorbic Acid 500 mg 06/26/24 09:00 06/26/24 21:38 Ascorbic Acid 500 Mg Tablet PO 500 mg BID DAVE Administration Calcium Carbonate/Glycine 1,500 mg 06/26/24 06:00 06/27/24 05:28 Calcium Carbonate Chew 500 Mg Tablet PO 1,500 mg TID DAVE Administration Carboxymethylcellulose 1 drops 06/26/24 07:13 Carboxymethylcellulose Ophth Drops EACHEYE Q6HR PRN Dry Eye Famotidine 40 mg 06/25/24 23:00 06/26/24 21:38 Famotidine 20 Mg Tablet PO 40 mg HS DAVE Administration Ferrous Sulfate 300 mg 06/26/24 17:00 06/26/24 16:52 Ferrous Sulfate 300 Mg/5 Ml Udc PO 300 mg BIDWM DAVE Administration Cefepime HCl 2 gm/ Sodium 100 mls @ 200 mls/hr 06/26/24 09:00 06/26/24 22:25 Chloride IV Infused BID DAVE Infusion Ibuprofen 600 mg 06/25/24 22:05 Ibuprofen 600 Mg Tablet PO Q6HR PRN Pain 1 to 4 Levothyroxine Sodium 25 mcg 06/26/24 09:00 06/26/24 09:06 Levothyroxine 25 Mcg Tablet PO 25 mcg DAILY DAVE Administration Loperamide HCl 4 mg 06/25/24 22:01 Loperamide 2 Mg Capsule PO Q8HR PRN loose stool Mirtazapine 7.5 mg 06/26/24 21:00 06/26/24 21:39 Mirtazapine 15 Mg Tablet PO 7.5 mg HS DAVE Administration Multivitamins/Minerals 1 tab 06/26/24 08:00 06/26/24 09:05 Multivitamin W/Minerals Tablet PO 1 tab DAILYWM DAVE Administration Oxycodone HCl 10 mg 06/25/24 22:05 Oxycodone 5 Mg Tablet PO Q4HR PRN Pain 8 to 10 Sodium Chloride 10 ml 06/26/24 01:00 06/27/24 01:52 Sodium Chloride Flush 0.9% 10 Ml Syringe IVP 10 ml 0100,0900,1700 DAVE Administration Sodium Chloride 10 ml 06/25/24 22:05 Sodium Chloride Flush 0.9% 10 Ml Syringe IVP PRN PRN NEEDED PER PROVIDER ORDERS Temazepam 15 mg 06/25/24 22:05 Temazepam 15 Mg Capsule PO QPM PRN Insomnia Zinc Sulfate 220 mg 06/26/24 09:00 06/26/24 09:05 Zinc Sulfate 220 Mg Capsule PO 220 mg DAILY DAVE Administration Objective Vital Signs/Intake & Output Reviewed Vital Signs: Yes Vital Signs: Vital Signs x48h Temp Pulse Resp BP Pulse Ox O2 Flow Rate 06/27/24 05:07 36.6 C 84 20 155/93 H 96 2 06/27/24 04:06 18 2 06/27/24 01:22 81 06/27/24 00:30 36.6 C 79 24 145/96 H 96 2 Intake & Output: Intake & Output 06/24/24 06/25/24 06/26/24 06/27/24 23:59 23:59 23:59 23:59 Intake Total 3250 / 3250 2049 75 / 75 Output Total 0 / 0 500 / 500 Balance 3250 / 3250 2049 -425 / -425 Weight (kg) 83.779 kg 80 kg 85.5 kg Objective General Appearance: positive Other (Elderly, malnourished appearing female) Eyes Bilateral: positive Normal inspection ENT: positive ENT inspection nml Neck: positive Nml inspection Respiratory: positive Chest non-tender and Rhonchi (Diminished on left) Cardiovascular: positive Regular rate & rhythm Abdomen: positive Non-tender Skin: positive Pallor Extremities: positive Non-tender Neurologic/Psychiatric: positive Oriented x3 Lab Results 06/27/24 05:30 06/27/24 05:30 Other Labs: Lab Results x24hrs 06/27/24 06/26/24 06/26/24 Range/Units 05:30 10:12 04:15 WBC 17.5 H (4.8-10.8) x10^3/uL RBC 3.53 L (4.20-5.40) 10^6/uL Hgb 9.3 L (12.0-16.0) g/dL Hct 29.9 L (37.0-47.0) % MCV 84.7 (81.0-99.0) fL MCH 26.3 L (27.0-31.0) pg MCHC 31.1 L (32.0-36.0) g/dL RDW 17.6 H (12.0-15.0) % Plt Count 357 (130-450) 10^3/uL MPV 9.7 (7.9-10.8) fL Neut # (Auto) 16.2 H (1.5-6.6) 10^3/uL Lymph # (Auto) 0.2 L (1.5-3.5) 10^3/uL [place] # (Auto) 0.8 (0.0-1.0) 10^3/uL Eos # (Auto) 0.1 (0.0-0.7) 10^3/uL Baso # (Auto) 0.0 (0.0-0.1) 10^3/uL Absolute Nucleated RBC 0.00 x10^3/uL Nucleated RBC % 0.0 /100WBC VBG pH 7.471 H (7.31-7.41) Ionized Calcium 1.11 L (1.15-1.33) mmol/L Sodium 141 (135-145) mmol/L Potassium 3.3 L 3.3 L (3.5-4.5) mmol/L Chloride 112 H (101-111) mmol/L Carbon Dioxide 26 (21-32) mmol/L Anion Gap 3.0 L (6-13) BUN 13 (6-20) mg/dL Creatinine 0.6 (0.6-1.3) mg/dL Estimated GFR (MDRD) 96 (>89) Glucose 112 H (74-104) mg/dL Calcium 7.4 L (8.5-10.3) mg/dL Phosphorus 2.8 (2.5-5.0) mg/dL Magnesium 2.1 (1.7-2.3) mg/dL Blood Type O POSITIVE Antibody Screen NEGATIVE Crossmatch IS Only See Detail Sepsis Event Note (H) Evaluation Current Stage of Sepsis: Sepsis Sepsis Criteria Sepsis Criteria: Respiratory: Increasing oxygen requirements, WBC count greater than 10% bands, WBC count greater than 12,000 or less than 4000, MAP less than 65 mmHg and SBP less than 90 mmHg Assessment/Plan Problem List (1) Acute hypoxic respiratory failure: Impression: Manage pleural effusion as below (2) Severe sepsis: Impression: Secondary to E. coli UTI On cefepime given her septic picture on presentation and spite of p.o. Augmentin Awaiting repeat culture results Levophed was initially ordered, but she never needed it (3) Pleural effusion on left: Impression: Thoracentesis has been ordered She is on Eliquis outpatient Coags daily until appropriate for thoracentesis Holding off on thoracentesis labs as she is already a palliative care patient and empyema not suspected (4) Lymphoma: Impression: Does not want treatment for lymphoma Follows with palliative care Will place hospice referral (5) Atrial fibrillation: Impression: Telemetry Pulse 86 Holding Eliquis for procedure Holding rate control meds for now given low blood pressures (6) UTI (urinary tract infection): Impression: Blood cultures in progress Most recent positive culture was E. coli in the urine Cefepime Qualifiers: Urinary tract infection type: acute pyelonephritis Qualified Code(s): N 10 - Acute pyelonephritis (7) Electrolyte abnormality: Impression: K3.3, Ca 7.4 today Continue to replete (8) Anemia: Impression: Received 1 unit PRBC yesterday and 1 dose of IV Ferrlecit P.o. iron supplementation CBC daily
[2024-06-27 08:29] LABS: INR 1.4 (0.8-1.2); PT - PROTHROMBIN TIME 15.3 secs (9.9-12.6)
[2024-06-27 08:36] LABS: PARTIAL THROMBOPLASTIN TIME 32.4 secs (24.9-33.3)
[2024-06-27] MEDS ORDERED: COD LIVER OIL/ZINC OXIDE 113 GM TUBE TOP PRN (14:14)
[2024-06-27] MEDS: PIPERACILLIN/TAZOBACTAM 3.375 GM in SODIUM CHLORIDE 0.9% MINIBAG 100 ML IV SCH (15:44)
[2024-06-28 06:06] LABS: BASOPHILS % (AUTO) 0.2 %; EOSINOPHILS # (AUTO) 0.1 10^3/uL (0.0-0.7); EOSINOPHILS % (AUTO) 0.6 %; HCT - HEMATOCRIT 31.2 % (37.0-47.0); HGB - HEMOGLOBIN 9.5 g/dL (12.0-16.0); LYMPHOCYTES # (AUTO) 0.2 10^3/uL (1.5-3.5); LYMPHOCYTES % (AUTO) 1.8 %; MEAN CORPUSCULAR HEMOGLOBIN 26.2 pg (27.0-31.0); MEAN CORPUSCULAR HGB CONC 30.4 g/dL (32.0-36.0); MEAN CORPUSCULAR VOLUME 86.2 fL (81.0-99.0); MEAN PLATELET VOLUME 10.1 fL (7.9-10.8); MONOCYTES # (AUTO) 0.5 10^3/uL (0.0-1.0); MONOCYTES % (AUTO) 4.3 %; NEUTROPHILS # (AUTO) 10.6 10^3/uL (1.5-6.6); NEUTROPHILS % (AUTO) 92.2 %; PLT - PLATELET COUNT 327 10^3/uL (130-450); RED BLOOD COUNT 3.62 10^6/uL (4.20-5.40); RED CELL DISTRIBUTION WIDTH 18.5 % (12.0-15.0); WHITE BLOOD COUNT 11.5 x10^3/uL (4.8-10.8)
[2024-06-28 06:15] LABS: PARTIAL THROMBOPLASTIN TIME 29.7 secs (24.9-33.3)
[2024-06-28 06:19] LABS: INR 1.3 (0.8-1.2); PT - PROTHROMBIN TIME 13.7 secs (9.9-12.6)
[2024-06-28 06:30] LABS: CALCIUM 7.6 mg/dL (8.5-10.3); CREATININE 0.6 mg/dL (0.6-1.3)
[2024-06-28] MEDS: CEFPODOXIME PROXETIL 100 MG TABLET PO SCH (09:30)
[2024-06-28] MEDS: POTASSIUM CHLORIDE 20 MEQ TABLET PO ONE (09:31)
[2024-06-28] MEDS ORDERED: LIDOCAINE-MPF 1% 5 ML VIAL ONE (09:33)
[2024-06-28] MEDS ORDERED: LIDOCAINE-MPF 1% 5 ML VIAL SUBQ ONE (10:54)
--- NOTE | 2024-06-28 11:26 | Ultrasound Report ---
PROCEDURE: US Thoracentesis Puncture INDICATIONS: sob TECHNIQUE: The indications, alternatives, benefits, risks, and complications of the procedure were explained to the patient. Written informed consent was obtained and placed in the chart. The chest was examined sonographically, and an appropriate site was chosen for thoracentesis. The skin was prepared and jocelyn ped in the usual sterile fashion, and 1% lidocaine was infiltrated from the skin down through the ple ural surface. A 19-gauge catheter-covered needle was then introduced into the pleural space, the cat heter was advanced and the needle was withdrawn, and thereafter pleural fluid was aspirated. The cat heter was then removed and a dressing was applied. COMPARISON: None. FINDINGS: Access site: Left hemithorax. Needle: One-Step centesis catheter with introducer needle. Fluid volume and description: 500 cc of clear fluid Fluid sent for diagnostic testing: Yes Medications: 1% lidocaine for local anaesthesia. Complications: None; post-procedural chest radiograph is pending to assess for pneumothorax. IMPRESSION: Successful ultrasound-guided thoracentesis. Reviewed by: Chemo Olmedo MD on 06/28/2024 11:25 AM [facility] Approved by: Chemo Olmeod MD on 06/28/2024 11:25 AM PST Station ID: [id number]
--- NOTE | 2024-06-28 11:27 | XRAY Report ---
PROCEDURE: XR Post Thoracentesis 1V CXR INDICATIONS: Post thoracentesis TECHNIQUE: One view of the chest was acquired. COMPARISON: 06/25/2024 FINDINGS: Surgical changes and devices: There is a right portacatheter terminating in the upper SVC. Lungs and pleura: Decreased left pleural effusion. No significant pneumothorax. Left suprahilar opac ity persists. Low lung volumes. Mediastinum: Normal heart size Bones and chest wall: Degenerative changes IMPRESSION: Decreased left pleural effusion following thoracentesis. No significant pneumothorax. Reviewed by: Chemo Olmedo MD on 06/28/2024 11:25 AM PST Approved by: Chemo Olmedo MD on 06/28/2024 11:25 AM PST Station ID: [id number]
[2024-06-28 11:54] VITALS: BP 140/73; TEMP 97.9; O2SAT 97
--- NOTE | 2024-06-28 12:17 | Discharge Summary ---
Discharge Summary Admit Date: 06/25/24 Discharge Date: 06/28/24 Discharging Provider: Luis Daniel Betancourt NP Primary Care Provider: Leny Kimble Code Status: Do Not Attempt Resuscitation DIAGNOSES Admission Diagnoses: Acute hypoxic respiratory failure Severe sepsis Pleural effusion on left Lymphoma Atrial fibrillation E. coli UTI Electrolyte abnormality Anemia Discharge Diagnoses with Status of Each Condition: Acute hypoxic respiratory failureresolved Severe sepsisresolved Pleural effusion on leftactive Lymphomachronic Atrial fibrillationchronic E. coli UTIactive Electrolyte abnormalityresolved Anemiachronic HPI History of Present Illness: 84 yr woman recently dc from hospital less than 8-9 days ago comes in worsening son, lex has hx of paroxysmal a fib, htn, hpothyroidism, lymphoma, found to be SOB, tachypneic, please see detail info from last admit Patient jerald last admit also had pleural effusion but seems to have gotten worse and has symptoms. I have held her Eliquis i and she will need thoracentesis, she is DNR but ok with getting meds and iv fluids just no ventilator and CPR. Please review last admit for more details. HOSPITAL COURSE Hospital Course: Patient was admitted to the hospital and given 1 unit of blood as well as a dose of IV iron before being started on iron supplementation. She underwent thoracentesis today, with 500 cc output. She is now on room air. WBC trending to normal. She will be discharged on oral cephalosporin and will follow-up with PCP within 1 to 2 weeks. She is already established with palliative care. I would recommend she become established with hospice, but she does not want to talk to hospice until she can talk with palliative care. I made palliative care office aware that she was admitted and placed an order for hospice educational visit ALLERGIES Allergies Allergy/AdvReac Type Severity Reaction Status Date / Time atenolol Allergy Unknown Unknown Verified 06/25/24 17:45 ciprofloxacin (From Cipro) Allergy Unknown Verified 06/25/24 17:45 Penicillins Allergy Unknown Verified 06/25/24 17:45 shellfish derived Allergy Emesis Verified 06/25/24 17:45 Sulfa (Sulfonamide Allergy Rash Verified 06/25/24 17:45 Antibiotics) ranitidine (From Zantac) AdvReac "wired" Verified 06/25/24 17:45 MEDICATIONS Ambulatory Orders Medication Instructions Recorded Confirmed acetaminophen 500 mg tablet 1,000 mg PO Q8HR PRN pain 03/29/24 06/25/24 (Acetaminophen Extra Strength) apixaban 5 mg tablet (Eliquis) 5 mg PO BID chronic atrial fib ##0 04/04/24 06/25/24 famotidine 40 mg tablet 40 mg PO HS GERD ##0 04/04/24 06/25/24 [id number] 1 tab PO DAILYWM severe protein 04/04/24 06/25/24 fumarate 19 mg-folic acid 400 mcg mike malnutriton tablet (Therapeutic-M) saliva stimulant comb. no.3 2 sprays PO Q4H PRN Mouth Sore 04/04/24 06/25/24 (Biotene Moisturizing Mouth Pain #1 ea mucosal spray) artificial tears solution eye drops 1 drp ophthalmic (eye) Q6HR PRN 06/22/24 06/25/24 dry eyes ascorbic acid (vitamin C) 500 mg 500 mg PO BID 06/22/24 06/25/24 tablet (Vitamin C) calcium carbonate (Antacid 1,500 mg PO TID 06/22/24 06/25/24 (calcium carbonate)) loperamide 2 mg capsule 4 mg PO Q8HR PRN loose stool 06/22/24 06/25/24 (Anti-Diarrheal (loperamide)) mirtazapine 7.5 mg tablet 7.5 mg PO HS 06/22/24 06/25/24 ondansetron HCl 4 mg tablet 4 mg PO Q6H PRN nausea and vomiting 06/22/24 06/25/24 simethicone 125 mg capsule (Gas 125 mg PO Q6HR PRN gas 06/22/24 06/25/24 Relief Extra Strength) zinc sulfate 50 mg zinc (220 mg) 50 mg PO DAILY 06/22/24 06/25/24 capsule (Zinc-220) ferrous gluconate 324 mg (37.5 mg 324 mg PO BID 30 days #60 tabs 06/24/24 06/25/24 iron) tablet levothyroxine 25 mcg tablet 25 mcg PO DAILY #30 tabs 06/24/24 06/25/24 (Levoxyl) potassium chloride 10 mEq 10 meq PO DAILY 06/25/24 06/25/24 tablet,extended release(part/cryst) saliva substitute combo no.9 10 ml mucous membrane 5XD 06/25/24 06/25/24 (Biotene Dry Mouth Oral Rinse mouthwash) cefpodoxime 100 mg tablet 200 mg (2 x 100 mg) PO BID 8 days 06/28/24 #32 tabs zinc oxide-cod liver oil 40 % 1 applic topical PRN PRN Skin Care 06/28/24 topical paste (Desitin) 30 days #28 grams PHYSICAL EXAM AT DISCHARGE General Appearance: positive Other (Chronically ill-appearing in no acute distress. Malnourished appearing with bitemporal wasting) Eyes Bilateral: positive Normal inspection ENT: positive ENT inspection nml Neck: positive Nml inspection Respiratory: positive No respiratory distress Cardiovascular: positive Irregularly irregular Peripheral Pulses: positive 2+ Abdomen: positive Non-tender Skin: positive Pallor Extremities: positive Non-tender and No pedal edema Neurologic/Psychiatric: positive Oriented x3 LABS 06/28/24 05:30 06/28/24 05:30 SEPSIS Current Stage of Sepsis: Sepsis Sepsis Criteria: Respiratory: Increasing oxygen requirements, WBC count greater than 10% bands, WBC count greater than 12,000 or less than 4000, MAP less than 65 mmHg and SBP less than 90 mmHg FOLLOW UP Follow Up: With PCP TIME SPENT Time Spent in Discharge (Minutes): 35 Discharge Plan Discharge Patient Disposition: [address] [facility] DC/Xfer Condition: Serious Prescriptions: New cefpodoxime 100 mg Tablet 200 mg PO BID 8 Days Qty: 32 0RF Desitin 40 % Paste 1 applic topical PRN PRN (Reason: Skin Care) 30 Days Qty: 28 0RF Continued acetaminophen [Acetaminophen Extra Strength] 500 MG tablet 1,000 mg PO Q8HR PRN (Reason: pain) Biotene Moisturizing Mouth 100 SPRAYS/44.3 ML spray,non-aerosol 2 sprays PO Q4H PRN (Reason: Mouth Sore Pain) Qty: 1 0RF Therapeutic-M 1 TAB tablet 1 tab PO DAILYWM 0RF famotidine 40 MG tablet 40 mg PO HS Qty: 0 0RF Eliquis 5 MG tablet 5 mg PO BID Qty: 0 0RF Rx Instructions: Morning and HS artificial tears solution Drops 1 drp ophthalmic (eye) Q6HR PRN (Reason: dry eyes) mirtazapine 7.5 mg tablet 7.5 mg PO HS ascorbic acid (vitamin C) [Vitamin C] 500 mg tablet 500 mg PO BID zinc sulfate [Zinc-220] 50 mg zinc (220 mg) capsule 50 mg PO DAILY ondansetron HCl 4 mg tablet 4 mg PO Q6H PRN (Reason: nausea and vomiting) simethicone [Gas Relief Extra Strength] 125 mg capsule 125 mg PO Q6HR PRN (Reason: gas) loperamide [Anti-Diarrheal (loperamide)] 2 mg capsule 4 mg PO Q8HR PRN (Reason: loose stool) calcium carbonate [Antacid (calcium carbonate)] 200 mg calcium (500 mg) tablet,chewable 1,500 mg PO TID ferrous gluconate 324 mg (37.5 mg iron) tablet 324 mg PO BID 30 Days Qty: 60 0RF levothyroxine [Levoxyl] 25 mcg tablet 25 mcg PO DAILY Qty: 30 2RF potassium chloride 10 mEq tablet,ER particles/crystals 10 meq PO DAILY Biotene Dry Mouth Oral Rinse Mouthwash 10 ml mucous membrane 5XD Rx Instructions: swish for 15-30 secs , then spit out; do not swallow Discontinued clindamycin HCl 300 mg capsule 300 mg PO TID 10 Days Qty: 30 0RF nitrofurantoin monohyd/m-cryst 100 mg capsule 100 mg PO Q12H 7 Days Qty: 14 0RF Rx Instructions: must administer with a meal/food Activity Restrictions: Activity as Tolerated Diet: Regular Health Concerns: You are a 84-year-old female with PMH significant for lymphoma, not undergoing treatment. You have had multiple admissions for high oxygen needs, sepsis secondary to UTI and obstructed ureteral stent. This admission was primarily for your pleural effusion which was causing your oxygen needs to go up. You underwent thoracentesis today, with 500 cc output. I am sending you back to [facility], with some medication changes New meds: Cefpodoxime 200 mg p.o. twice daily Zinc paste Care Plan Goals: I would like for you to be as active as possible, and to eat foods high in protein Finish antibiotic course to clear out your UTI and prevent infection of your sacral wound Keep pressure off of your sacral wound Assessment: Patient is bedbound, requiring assistance with any activity. She is aware of recommendations for ongoing medical care Plan of Treatment: Please take your medications as described above Follow-up with palliative care Discussed possibility of hospice Print Language: Danish Patient Instructions: Thoracentesis Dc Stand Alone Forms: SNF Discharge, PCP List
== END 2024-06-28 15:20 | DRG 871 ==
LOC: ED 16:13 → ICU 22:36 → MS2 06-26 18:12
PROVIDERS: ADMIT Internal Medicine; ATTEND Internal Medicine
DX: C82.90 Follicular lymphoma, unspecified, unspecified site; R53.1 Weakness; R00.0 Tachycardia, unspecified; J90 Pleural effusion, not elsewhere classified; E03.9 Hypothyroidism, unspecified; J96.01 Acute respiratory failure with hypoxia; N10 Acute pyelonephritis; Z74.01 Bed confinement status; R09.02 Hypoxemia; D72.829 Elevated white blood cell count, unspecified; Z85.72 Personal history of non-Hodgkin lymphomas; I48.0 Paroxysmal atrial fibrillation; D63.8 Anemia in other chronic diseases classified elsewhere; R65.20 Severe sepsis without septic shock; L89.159 Pressure ulcer of sacral region, unspecified stage; Z79.01 Long term (current) use of anticoagulants; Z68.31 Body mass index [BMI] 31.0-31.9, adult; E43 Unspecified severe protein-calorie malnutrition; Z66 Do not resuscitate; A41.51 Sepsis due to Escherichia coli [E. coli]